=== PATIENT | female | born 1940 | race Caucasian/White ===

== ENCOUNTER → 2018-01-23 09:05 | Outpatient (CLI) | payer MEDICARE, SELFPAY ==
--- NOTE | 2018-01-23 09:07 | HPBI_ITS ---
MAMMOGRAPHY - BILATERAL SCREENING REASON FOR EXAM: Female, 77 years old. Routine annual screening examination. PERTINENT HISTORY: Personal history of breast cancer. Prior left lumpectomy with radiation treatment. TECHNIQUE: Digital bilateral breast carlos (3D mammographic acquisition) in the CC and MLO projections. 2-D mediolateral oblique (MLO) and craniocaudad (CC) views of both breasts were obtained. CAD: Full Field Digital Mammography with Computer Added Detection was performed. COMPARISON: Comparison is made with prior mammogram dated January 10, 2017 and December 29, 2015. FINDINGS: Breast Composition: There are scattered areas of fibroglandular density. There are no dominant masses or suspicious calcifications. Stable architectural distortion and deformity of the upper outer quadrant of the left breast in keeping with prior lumpectomy. 2 tissue clip markers are seen in that region. No other significant abnormalities are identified. There has been no significant change since the prior study. HPBI/SCREENING MAMM (CAD), BILAT IMPRESSION: Stable bilateral screening mammogram. Yearly follow-up mammogram recommended. (A) ASSESSMENT CATEGORY: BIRADS Category 2: Benign. A letter regarding these results will be sent to the patient by the facility within 30 days. Approximately 10% of breast cancers are not detected by mammography. A normal mammogram should not delay biopsy of a clinically suspicious abnormality. [id number] Electronically Signed: Jaylon Boone MD at 11:21 EST Tel [phone], Service support ,
== END ==
PROVIDERS: Family Provider Family Medicine Geriatric Medicine; PCP Family Medicine Geriatric Medicine; Visit Provider Surgery
DX: Z12.31 Encounter for screening mammogram for malignant neoplasm of breast (principal); Z85.3 Personal history of malignant neoplasm of breast
CPT/HCPCS: 77063; 77067

== ENCOUNTER → 2018-02-20 12:12 | Outpatient (CLI) | payer MEDICARE, SELFPAY ==
[2018-02-20 13:32] LABS: Absolute Lymphocyte Count 0.73 X10^3/ul (0.83-4.51); Absolute Neutrophil Count 2.6 X10^3/uL (2.0-7.7); Basophil# 0.02 X10^3/uL; Basophil% 0.5 % (0-1); Eosinophil# 0.04 X10^3/uL; Hematocrit 44.3 % (37-47); Hemoglobin 14.5 g/dl (12.0-15.0); Lymphocyte # 0.73 X10^3/ul (4.0); Lymphocyte % 17.5 % (19-41); Mean Corp Hgb Conc 32.7 g/gl (32-36); Mean Corpuscular Hgb 29.8 pg (27.0-32.0); Mean Platelet Vol. 10.4 fl (6.2-12.0); Monocyte# 0.77 X10^3/uL; Monocyte% 18.5 % (0-10); Neutrophil # 2.61 X10^3/uL (2.7-7.7); Neutrophil % 62.5 % (47-70); POSITIVE COUNT NO; POSITIVE DIFFERENTIAL NO; POSITIVE MORPHOLOGY NO; Platelet Count 192 K/mm3 (150-450); RBC Distribution Width CV 13.5 % (11.6-14.6); RBC Distribution Width SD 44.6 fl (35.1-43.9); Red Blood Count 4.87 M/mm3 (4.2-5.4); White Blood Count 4.2 K/mm3 (4.4-11.0)
[2018-02-20 13:49] LABS: Vitamin D,25 Hydroxy 55.8 ng/mL (29.95-100.01)
[2018-02-20 13:56] LABS: AST(SGOT) 22 U/L (15-37); Alanine Aminotransfer ALT/SGPT 22 U/L (13-56); Albumin, Serum 3.4 g/dL (3.2-5.0); Alkaline Phosphatase 101 U/L (45-117); Anion Gap 6 (5-15); BUN 12 mg/dL (7-18); BUN/Creat Ratio 17.3 RATIO (10-20); Calcium,Total 8.9 mg/dL (8.5-10.1); Chloride 98 mmol/L (98-107); Creatinine, Serum 0.69 mg/dL (0.55-1.02); EST Glomerular Filtration Rate 87 mL/min (>60); Est Glom Filt Rate - Afr Amer 105 mL/min (>60); Globulin 3.5 g/dL (2.2-4.2); Glucose 93 mg/dL (74-106); Potassium 4.4 mmol/L (3.5-5.1); Protein, Total 6.9 g/dL (6.4-8.2); Sodium Level 134 mmol/L (136-145); Thyroid Stim Hormone (TSH) 1.77 uIU/mL (0.358-3.74)
== END ==
PROVIDERS: Family Provider Family Medicine Geriatric Medicine; PCP Family Medicine Geriatric Medicine; Visit Provider Family Medicine Geriatric Medicine
DX: E55.9 Vitamin D deficiency, unspecified (principal); I10 Essential (primary) hypertension
CPT/HCPCS: 36415; 80053; 82306; 84443; 85025

== ENCOUNTER → 2018-02-23 12:00 | Outpatient (CLI) | payer MEDICARE, SELFPAY ==
--- NOTE | 2018-02-23 12:03 | RAD_ITS ---
STUDY: X-RAY CHEST REASON FOR EXAM: Female, 77 years old. Shortness of breath and cough x1 week TECHNIQUE: PA and lateral views of the chest. COMPARISON: 06/16/2015 FINDINGS: Lungs are hyperexpanded with chronic interstitial changes, no superimposed acute pulmonary process. There is no demonstrated pleural abnormality. Normal size heart. Normal mediastinum and sharona. Normal visualized pulmonary arteries. There is atherosclerotic calcification of the aortic arch with tortuosity. There are diffuse degenerative changes of the visualized thoracic spine. Normal visualized ribs, clavicles, and shoulders. There is no demonstrated abnormality of the visualized soft tissue structures of the upper abdomen. RAD/Chest PA and Lateral IMPRESSION: Hyperexpanded lungs with chronic interstitial changes, no superimposed acute pulmonary process Electronically Signed: Davion Spence MD at 12:26 EDT , Service support ,
== END ==
PROVIDERS: Family Provider Family Medicine Geriatric Medicine; PCP Family Medicine Geriatric Medicine; Visit Provider Physician Assistant Surgical
DX: R06.02 Shortness of breath (principal)
CPT/HCPCS: 71046

== ENCOUNTER → 2018-04-28 11:49 | Outpatient (CLI) | payer MEDICARE, SELFPAY ==
[2018-04-28 13:04] LABS: International Normalized Ratio 1.9; Prothrombin Time (Protime)PT. 21.7 SECONDS (11.7-14.9)
== END ==
PROVIDERS: Family Provider Family Medicine Geriatric Medicine; PCP Family Medicine Geriatric Medicine; Visit Provider Nurse Practitioner Family
DX: Z79.01 Long term (current) use of anticoagulants (principal)
CPT/HCPCS: 36415; 85610

== ENCOUNTER 2018-08-22 18:04 | Emergency (ER) | payer MEDICARE, SELFPAY ==
[2018-08-22 18:05] VITALS: BP 178/73; PULSE 67; RESP 18; TEMP 36.6; O2SAT 98; BMI 38.8
--- NOTE | 2018-08-22 18:33 | CT_ITS ---
STUDY: CT BRAIN WITHOUT CONTRAST REASON FOR EXAM: Female, 77 years old. Trauma RADIATION DOSAGE (If Supplied By Facility): CTDIvol = ( 44.99 ) mGy, DLP = ( 745.49 ) mGycm TECHNIQUE: Transaxial CT imaging of the brain was performed without administration of intravenous contrast material. Individualized dose optimization techniques were used for this CT. COMPARISON: None. FINDINGS: There is no acute bleed or infarct. There are mild chronic ischemic changes. The ventricles are normal in configuration. There is no hydrocephalus. The visualized paranasal sinuses are clear. The mastoid air cells are well aerated. There is no skull fracture. CT/Brain/Head without Contrast IMPRESSION: No acute intracranial abnormality. Electronically Signed: Donovan rAevalo, at 19:57 EDT Tel , Service support ,
--- NOTE | 2018-08-22 20:04 | RAD_ITS ---
STUDY: X-RAY - LEFT TIBIA AND FIBULA REASON FOR EXAM: Female, 77 years old. Left leg pain. TECHNIQUE: 2 view(s) of the tibia and fibula were obtained. COMPARISON: None. FINDINGS: There is generalized osteopenia. There is osteoarthrosis of the knee. No abnormality is noted in the tibia or fibula. The soft tissue structures are unremarkable. RAD/Tibia & Fibula 2 Views IMPRESSION: Osteopenia without acute abnormality. Electronically Signed: Mariano Ojeda MD at 21:05 EDT , Service support ,
[2018-08-22 20:49] LABS: International Normalized Ratio 2.8; Prothrombin Time (Protime)PT. 29.5 SECONDS (11.7-14.9)
--- NOTE | 2018-08-22 21:09 | ED.VISSUMM ---
- ER Visit Summary Date of Service: 08/22/18 Chief Complaint: Scalp injury History of Present Illness: The patient is a 77 F who fell while walking to the counter to pay for her meal. She notes a hematoma in the back of her head. No loss of consciousness. She is on Coumadin. She also notes pain in the left lower leg. Physical Examination: Afebrile vital signs stable Patient has an occipital hematoma. GCS is 15. No neurologic deficits. The left lateral leg is tender to palpation. Test Results: INR 2.8. Tib-fib films were negative for fracture. CT of the head was also negative. Emergency Department Course and Treatment: Patient will be discharged home with supportive care return if worsening or concerns. She has been able to ambulate here in the department Impression: 1. Scalp hematoma 2. Fall 3. Left leg contusion 4. Coumadin coagulopathy This note was generated with [employer] dictation software. It may contain incorrect words, spelling, and punctuation that were not noted in review of the chart prior to signing ED Disposition - Plan for ED Patient: Disposition: Home or Assisted Living Chief Complaint: Head Injury Instructions: ED Head Injury Closed Referrals: Perez Martinez Chi, MD [Primary Care Provider] - 1 Week if not improving Additional Instructions: Your INR was 2.8 today.
[2018-08-22 21:25] VITALS: BP 168/101; PULSE 72; RESP 15; O2SAT 96
== END 2018-08-22 21:26 | disposition home or self-care (01) ==
PROVIDERS: Emergency Provider Emergency Medicine; Family Provider Family Medicine Geriatric Medicine; PCP Family Medicine Geriatric Medicine
DX: S00.03XA Contusion of scalp, initial encounter (principal); S80.12XA Contusion of left lower leg, initial encounter; W18.39XA Other fall on same level, initial encounter; Y93.01 Activity, walking, marching and hiking; Y92.9 Unspecified place or not applicable; I25.10 Atherosclerotic heart disease of native coronary artery without angina pectoris; I10 Essential (primary) hypertension; J44.9 Chronic obstructive pulmonary disease, unspecified; Z86.711 Personal history of pulmonary embolism; Z79.01 Long term (current) use of anticoagulants; Z79.899 Other long term (current) drug therapy
CPT/HCPCS: 70450; 73590; 85610; 99282

== ENCOUNTER → 2018-08-28 09:24 | Outpatient (CLI) | payer MEDICARE, SELFPAY ==
[2018-08-28 11:40] LABS: Basophil# 0.03 X10^3/uL; Basophil% 0.6 % (0-1); Eosinophil# 0.11 X10^3/uL; Eosinophils% 2.2 % (0-5); Hemoglobin 14.1 g/dl (12.0-15.0); Lymphocyte % 23.5 % (19-41); Mean Corp Hgb Conc 32.8 g/gl (32-36); Mean Corpuscular Hgb 30.4 pg (27.0-32.0); Mean Corpuscular Volume 92.7 fL (81-99); Monocyte% 15.7 % (0-10); Neutrophil # 2.96 X10^3/uL (2.7-7.7); Neutrophil % 57.8 % (47-70); Platelet Count 237 K/mm3 (150-450); RBC Distribution Width CV 12.8 % (11.6-14.6); RBC Distribution Width SD 42.6 fl (35.1-43.9); Red Blood Count 4.64 M/mm3 (4.2-5.4); White Blood Count 5.1 K/mm3 (4.4-11.0)
[2018-08-28 11:41] LABS: POSITIVE COUNT NO; POSITIVE DIFFERENTIAL NO; POSITIVE MORPHOLOGY NO
[2018-08-28 12:02] LABS: Vitamin D,25 Hydroxy 36.7 ng/mL (29.95-100.01)
[2018-08-28 12:07] LABS: ALB/GLOB Ratio 0.9 RATIO (0.9-2.4); AST(SGOT) 23 U/L (15-37); Alanine Aminotransfer ALT/SGPT 22 U/L (13-56); Albumin, Serum 3.4 g/dL (3.2-5.0); Alkaline Phosphatase 102 U/L (45-117); Anion Gap 6 (5-15); BUN 11 mg/dL (7-18); BUN/Creat Ratio 16.1 RATIO (10-20); Calcium,Total 8.7 mg/dL (8.5-10.1); Chloride 100 mmol/L (98-107); Creatinine, Serum 0.68 mg/dL (0.55-1.02); EST Glomerular Filtration Rate 88 mL/min (>60); Est Glom Filt Rate - Afr Amer 107 mL/min (>60); Globulin 3.6 g/dL (2.2-4.2); Glucose 96 mg/dL (74-106); Sodium Level 137 mmol/L (136-145); Thyroid Stim Hormone (TSH) 1.54 uIU/mL (0.358-3.74)
== END ==
PROVIDERS: Family Provider Family Medicine Geriatric Medicine; PCP Family Medicine Geriatric Medicine; Visit Provider Family Medicine Geriatric Medicine
DX: E55.9 Vitamin D deficiency, unspecified (principal); I10 Essential (primary) hypertension
CPT/HCPCS: 36415; 80053; 82306; 84443; 85025

== ENCOUNTER → 2018-12-23 09:30 | Outpatient (CLI) | payer MEDICARE, SELFPAY ==
[2018-12-12 12:42] VITALS: BMI 41.8
--- NOTE | 2018-12-23 09:37 | BD_ITS ---
STUDY: DUAL ENERGY X-RAY ABSORPTIOMETRY / DXA REASON FOR EXAM: Female, 78 years old. The patient is postmenopausal. Loss of height. TECHNIQUE: Bone Mineral Density (BMD) measurements of lumbar spine and bilateral hips were obtained. COMPARISON: Comparison is made with prior study dated July 12, 2015. FINDINGS: Lumbar Spine (L1-L4): g/cm2 (1.086) / T-score (-0.7) / Z-score (1.1) Findings are suggestive of normal bone density with a low fracture risk. Left Femur Total: g/cm2 (1.014) / T-score (0.0) / Z-score (1.9) Left Femoral Neck: g/cm2 (0.898) / T-score (-1.0) / Z-score (1.0) Right Femur Total: g/cm2 (0.884) / T-score (-1.0) / Z-score (0.9) Right Femoral Neck: g/cm2 (0.792) / T-score (-1.8) / Z-score (0.3) The T-Scores on the most recent prior examination were: Lumbar Spine (L1-L4): There has been worsening of bone density since the previous examination. Left Femur Total: which represents a worsening of 7%. Right Femur Total: which represents a worsening of 15%. BD/Dexa Bone Density Study IMPRESSION: The patient is considered osteopenic as outlined below according to World [employer] Organization (WHO) criteria with a moderate fracture risk. There has been worsening of bone density since the previous examination. Reference Information: The T-score is the number of standard deviations above or below the standard which is normal for young adults at their peak bone mineral density. The World Health Organization (WHO) interprets the T-scores as follows: Above -1 Normal bone density Between -1 and -2.5 Osteopenia Equal to / or below -2.5 Osteoporosis As a practical clinical guideline, osteopenia may be graded as follows: Mild -1 through -1.5 Moderate -1.6 through -2.0 Severe -2.1 through -2.4 The Z-score is the number of standard deviations above or below age-matched controls. A Z-score of less than -1.5 would be considered abnormal. References: 1. NIH Osteoporosis and Related Bone Diseases http://www.osteo.org 2. International Society for Clinical Densitometry http://www.iscd.org 3. National Osteoporosis Foundation http://www.nof.org Electronically Signed: Jaylon Boone, at 10:57 EST , Service support ,
--- OUTSIDE RECORDS SUMMARY | 2019-02-24 06:02 | XMS RPT_ITS ---
:1940 Author Organization OHIP Support Name Relationship Address Phone JENSEN, EDMOND Unavailable [address] + [place] [address] R Unavailable Unavailable Unavailable JENSEN, EDMOND Unavailable [address] + [place] [address] R Unavailable Unavailable Unavailable JENSEN, EDMOND Unavailable [address] + [place] [address] R Unavailable Unavailable Unavailable JENSEN, EDMOND Unavailable [address] + [place] [address] R Unavailable Unavailable Unavailable JENSEN, EDMOND Unavailable [address] + [place] [address] R Unavailable Unavailable Unavailable JENSEN, EDMOND Unavailable [address] + [place] [address] R Unavailable Unavailable Unavailable JENSEN, EDMOND Unavailable [address] + [place] [address] R Unavailable Unavailable Unavailable JENSEN, EDMOND Unavailable [address] + [place] [address] R Unavailable Unavailable Unavailable JENSEN, EDMOND Unavailable [address] + [place] [address] R Unavailable Unavailable Unavailable JENSEN, EDMOND Unavailable [address] + [place] [address] R Unavailable Unavailable Unavailable JENSEN, EDMOND Unavailable [address] [phone] [place] [address] R Unavailable Unavailable Unavailable JENSEN, EDMOND Unavailable [address] [phone] [place] [address] R Unavailable Unavailable Unavailable Jensen, Funmilayo Unavailable Unavailable + JENSEN, EDMOND Unavailable [address] [phone] [place] [address] R Unavailable Unavailable Unavailable JENSEN, EDMOND Unavailable [address] [phone] [place] [address] R Unavailable Unavailable Unavailable EJNSEN, EDMOND Unavailable [address] [phone] [place] [address] R Unavailable Unavailable Unavailable JENSEN, EDMOND Unavailable [address] [phone] [place] [address] R Unavailable Unavailable Unavailable Care Team Providers Name Role Phone Blanca Mercado Attending Unavailable PROVIDER, UNKNOWN Referring Unavailable DEANNA, JOSE ROBERTO-CHI Primary Care Unavailable DARREN MARIE Attending Unavailable DEANNA, JOSE ROBERTO CHI Referring Unavailable Johnathan Haque Attending Unavailable Johnathan Haque Referring Unavailable Deanna, Jose Roberto Chi Primary Care Unavailable Aroldo Russell CRATE REPAIRER-C Attending Unavailable Deanna, Jose Roberto Chi Referring Unavailable Spencer, Bambi Attending Unavailable Deanna, Jose Roberto Chi Primary Care Unavailable Deanna, Jose Roberto Chi Referring Unavailable Darren Marie Attending Unavailable Deanna, Jose Roberto Chi Primary Care Unavailable Darren Marie Referring Unavailable Deanna, Jose Roberto Chi Attending Unavailable Deanna, Jose Roberto Chi Primary Care Unavailable Deanna, Jose Roberto Chi Attending Unavailable Deanna, Jose Roberto Chi Referring Unavailable Deanna, Jose Roberto Chi Primary Care Unavailable Tommie Waggoner Attending Unavailable Deanna, Jose Roberto Chi Referring Unavailable Deanna, Jose Roberto Chi Primary Care Unavailable Tommie Waggoner Attending Unavailable Deanna, Jose Roberto Chi Primary Care Unavailable Spencer, Bmabi Attending Unavailable Deanna, Jose Roberto Chi Referring Unavailable Deanna, Jose Roberto Chi Primary Care Unavailable Spencer, Bambi Consulting Unavailable Spencer, Bambi Attending Unavailable Spencer, Bambi Referring Unavailable Deanna, Jose Roberto Chi Primary Care Unavailable Donovan Monae Attending Unavailable Deanna, Jose Roberto Chi Referring Unavailable Deanna, Jose Roberto Chi Primary Care Unavailable Spencer, Bambi Attending Unavailable Deanna, Jose Roberto Chi Referring Unavailable Deanna, Jose Roberto Chi Primary Care Unavailable Spencer, Bambi Consulting Unavailable Deanna, Jose Roberto Chi Primary Care Unavailable Larry Pennington Attending Unavailable Deanna, Jose Roberto Chi Attending Unavailable Deanna, Jose Roberto Chi Primary Care Unavailable Aroldo Andrew Attending Unavailable Deanna, Jose Roberto Chi Referring Unavailable Yves Cole Attending Unavailable Deanna, Jose Roberto Chi Referring Unavailable Deanna, Jose Roberto Chi Primary Care Unavailable Spencer, Bambi Consulting Unavailable PROBLEMS PROBLEMS DATE TYPE CONDITION / CODE ATTENDING STATUS SOURCE 12/23/2018 Unknown Z78.0 - Asymptomatic Johnathan Haque Active [facility] menopausal state / Community Z78.0(ICD-10) Hospital Repository 12/07/2018 Unknown Z79.01 - FDC SpencerBambi garcia Active [place] (current) use of Community anticoagulants / Hospital Z79.01(ICD-10) Repository 10/12/2018 Unknown D05.11 - 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9(ICD-10) Repository 01/23/2018 Unknown Z12.31 - Encounter ErickBrianda for screening [facility] mammogram for Hospital malignant neoplasm Repository of breast / Z12.31(ICD-10) PROCEDURES PROCEDURES No Procedure Records FoundRESULTS RESULTS KNEE 4 OR MORE Observed: 12/24/2018 Status: F Source: [place] VIEWS 10:07 AM [facility] REPOSITORY [facility] Imaging Services [address] [place] [address] Knee 4 or More Views MR#: [id number] Acct: [id number] Name: SOFYA MALDONADO Rep #: [id number] : 1940 F 78 From: Hank Valdivia MD PCP: Deanna MCNAMARA,Jose Roberto Mckeon Status: REG CLI Study: Knee 4 or More Views Date of Exam: 12/24/18 Exam# [id number] Ordering Dr: Jose Roberto Huerta MD STUDY: X-RAY - LEFT KNEE REASON FOR EXAM: Female, 78 years old. Pain TECHNIQUE: 4 view(s) of the knee. COMPARISON: None. FINDINGS: There are spurs from the T1 of the condyles and from the margins of the patella. There are no acute fractures and no knee joint effusion. The quadriceps and patellar tendons are normal. RAD/Knee 4 or More Views IMPRESSION: Moderate osteoarthritis of the left knee. No fracture Electronically Signed: Hank Valdivia MD at 5:33 EST Tel , Service support , CC: Jose Roberto Huerta MD Graphic Designer: Signed DEXA BONE DENSITY Observed: 12/23/2018 Status: F Source: [place] STUDY 9:34 AM [facility] REPOSITORY [facility] Imaging Services [address] [place] [address] Dexa Bone Density Study MR#: [id number] Acct: [id number] Name: SOFYA MALDONADO Rep #: [id number] : 1940 F 78 From: Jaylon Boone MD PCP: Jose Roberto Huerta MD, Chi Status: REG CLI Study: Dexa Bone Density Study Date of Exam: 12/23/18 Exam# [id number] Ordering Dr: Johnathan Haque MD STUDY: DUAL ENERGY X-RAY ABSORPTIOMETRY / DXA REASON FOR EXAM: Female, 78 years old. The patient is postmenopausal. Loss of height. TECHNIQUE: Bone Mineral Density (BMD) measurements of lumbar spine and bilateral hips were obtained. COMPARISON: Comparison is made with prior study dated July 12, 2015. FINDINGS: Lumbar Spine (L1-L4): g/cm2 (1.086) / T-score (-0.7) / Z-score (1.1) Findings are suggestive of normal bone density with a low fracture risk. Left Femur Total: g/cm2 (1.014) / T-score (0.0) / Z-score (1.9) Left Femoral Neck: g/cm2 (0.898) / T-score (-1.0) / Z- score (1.0) Right Femur Total: g/cm2 (0.884) / T-score (-1.0) / Z- score (0.9) Right Femoral Neck: g/cm2 (0.792) / T-score (-1.8) / Z-score (0.3) The T-Scores on the most recent prior examination were: Lumbar Spine (L1-L4): There has been worsening of bone density since the previous examination. Left Femur Total: which represents a worsening of 7%. Right Femur Total: which represents a worsening of 15%. BD/Dexa Bone Density Study IMPRESSION: The patient is considered osteopenic as outlined below according to World [employer] Organization (WHO) criteria with a moderate fracture risk. There has been worsening of bone density since the previous examination. Reference Information: The T-score is the number of standard deviations above or below the standard which is normal for young adults at their peak bone mineral density. The World Health Organization (WHO) interprets the T-scores as follows: Above -1 Normal bone density Between -1 and -2.5 Osteopenia Equal to / or below -2.5 Osteoporosis As a practical clinical guideline, osteopenia may be graded as follows: Mild -1 through -1.5 Moderate -1.6 through -2.0 Severe -2.1 through -2.4 The Z-score is the number of standard deviations above or below age-matched controls. A Z-score of less than -1.5 would be considered abnormal. References: 1. NIH Osteoporosis and Related Bone Diseases http://www.osteo.org 2. International Society for Clinical Densitometry http://www.iscd.org 3. National Osteoporosis Foundation http://www.nof.org Electronically Signed: Jaylon Boone, at 10:57 EST , Service support , CC: Johnathan Haque MD; Jose Roberto Huerta MD Graphic Designer: Signed URGENT CARE VISIT Observed: 12/12/2018 Status: F Source: [place] REPORT 1:07 PM [facility] REPOSITORY [facility] [address] [place] [address] [address] [place] [address] OFFICE VISIT Date of Service: 12/12/18 MR#: [id number] Acct: [id number] Name: SOFYA MALDONADO Rep #: [id number] : 1940 Provider: Aroldo Russell NP Age/Sex: 78/F Location: [facility] [place] Status: Signed Intake Vital Signs12/12/18 Body Mass Index (BMI) 41.8 12/12/18 Height 4 ft 11 in 12/12/18 Blood Pressure 130/84 H Intake Visit Reasons: L KNEE Chief Complaint: L KNEE PAIN Cooking Casing And Drying Supervisor Required: No Accompanied by: SELF Is patient in pain?: Yes Allergies heparin Allergy (Severe, Verified 12/12/18 11:54) Low platelets aspirin Adverse Reaction (Severe, Verified 12/12/18 11:54) Nausea clarithromycin Adverse Reaction (Severe, Verified 12/12/18 11:54) Unknown cyclobenzaprine [Cyclobenzaprine] Adverse Reaction (Severe, Verified 12/12/18 11:54) Unknown meloxicam Adverse Reaction (Severe, Verified 12/12/18 11:54) Nausea Sulfa (Sulfonamide Antibiotics) Adverse Reaction (Severe, Verified 12/12/18 11:54) Vomiting tramadol HCl [From [facility]] Adverse Reaction (Severe, Verified 12/12/18 11:54) Vomiting Medications Simvastatin [Zocor] 20 mg PO QHS 09/21/13 [History Confirmed 12/12/18] Acetaminophen [Tylenol] 500 mg PO Q4H PRN PRN 01/18/15 [History Confirmed 12/12/18] Hydrochlorothiazide 12.5 mg PO DAILY 01/18/15 [History Confirmed 12/12/18] Metoprolol Tartrate [Lopressor (beta odalys)] 25 mg PO BID #60 tab 03/09/15 [Rx Confirmed 12/12/18] Calcium Carb/Vitamin D [Os-Jeancarlos 500MG + D] 1 tab PO BID 03/23/15 [History Confirmed 12/12/18] Cholecalciferol (VIT D3) [Vitamin D] 1,000 unit PO BID 02/16/16 [History Confirmed 12/12/18] Fexofenadine HCl [Dianne Allergy] 180 mg PO DAILY 02/26/17 [History Confirmed 12/12/18] Potassium Chloride 20 meq PO DAILY 02/26/17 [History Confirmed 12/12/18] albuterol sulfate HFA 90 mcg/actuation aerosol inhaler 2 puff INHALATION Q2H PRN PRN inhaler 02/23/18 [History Confirmed 12/12/18] benzonatate 200 mg capsule 200 mg PO TID PRN #30 cap 09/05/18 [Rx Confirmed 12/12/18] Warfarin [Coumadin] 1 mg PO BID 30 Days #60 tab 09/21/18 [Rx Confirmed 12/12/18] Fluticasone 0.05% [Flonase Nasal [place]] 10/12/18 [History Confirmed 12/12/18] Fluticasone/Salmeterol [Advair 500-50 Diskus] 1 ea IH 10/12/18 [History Confirmed 12/12/18] Warfarin Sodium [Coumadin] 7 mg PO DAILY 30 Days #30 tab 10/19/18 [Rx Confirmed 12/12/18] PFSH Medical History Anemia (Acute) Arthritis (Acute) Asthma (Acute) Breast cancer (Acute) Fatigue (Acute) History of PE (Acute) History of hysterectomy (Acute) Knee pain (Acute) Lung disease (Acute) SOB (shortness of breath) (Acute) HTN (hypertension) (Chronic) Surgical History H/O hernia repair (Acute) H/O lumpectomy (Acute) History of carpal tunnel surgery (Acute) Hx of tonsillectomy (Acute) Family History Mother Arthritis Heart disease Hypertension CVA (cerebral vascular accident) Social History Smoking Status: Never smoker HPI HPI Chief Complaint: L KNEE PAIN Details: SOFYA MALDONADO, is a 78 F who presents to the office today for an acute visit for left knee pain. Patient has a past medical history as listed above, significant for osteoarthritis. Patient presents today in office for left knee pain that has worsened over the last 2 days. She states 1 week ago when she was getting into a vehicle she turned her left knee the wrong way. Patient denies hearing a pop or having pain at that time. She noticed pain the worst last night. Left knee began to swell which caused discomfort, patient is rating pain in office today 06/09. Her history includes arthritis so she states her knees are continually bothersome. Patient has not tried any over the counter medications. Denies any other aggravating or alleviating factors. The patient otherwise denies any fever, chills, nausea, vomiting, shortness of breath, chest pain or pressure, palpitations, orthopnea, lower extremity edema, syncope or presyncopal episodes. ROS Const Constitutional: No fever(s), chills, change in appetite, sleep problems, fatigue, malaise, frequent falls or weakness ENT ENT: No ear pain, ear pressure, dizziness/vertigo or abnormal hearing Resp Respiratory: No cough, wheezing or shortness of breath Cardio Cardiology: No chest pain at rest, chest pain with exertion, shortness of breath, dyspnea on exertion, lightheadedness, irregular heart rhythm, fast heart rate, palpitations, orthopnea or generalized swelling Gastro GI: No abdominal pain, change in bowel habits, constipation, diarrhea, vomiting or nausea/dyspepsia Musc Musculoskeletal: Positive for joint pain and joint swelling; no tingling, numbness or muscle weakness Neuro Neurology: No tingling, unsteady gait/balance, numbness, memory loss, frequent falls, weakness or abnormal hearing Psych Psychiatric: No change in appetite, No memory loss, No anxiety, No depression, No Thoughts of harming yourself/Others Endo Endocrine: No fatigue Aller/Imm Allergy/Immunologic: No wheezing Exam Const General: cooperative, comfortable, no acute distress Nutritional Appearance: well nourished, overweight Orientation: alert, oriented x3 Limitations: mental status not altered Chest Chest palpation AND inspection: normal inspection of the chest Resp Effort AND Inspection: normal respiratory effort, able to speak in complete sentences, normal respiratory pattern, symmetric chest movement, no audible wheezes, no cough Auscultation: Bilateral: Clear to Auscultation Cardio Rate: regular rate Heart Sounds: S1 normal, S2 normal, normal S1 and S2, no click, no gallops, no murmurs, no rubs Musc Musculoskeletal: Yes joint tenderness; no decreased ROM or muscle weakness Skin General: no rashes or lesions noted, elasticity normal, turgor normal Lesions: no lesions Rashes: no rashes Extrem General: normal to inspection, normal gait, edema, no pedal edema, no calf tenderness, full ROM Other: left knee lateral swelling, no redness or warmth negative anterior/posterior drawer test no pain or tenderness on exam Assessment AND Plan Problems 1. Left knee pain M25.562 2. Lower extremity edema R60.0 Plan Based on patient history, presenting symptoms and assessment probable left knee tendinitis due to recent overextension injury. Discussed RICE treatment plan with patient and is agreeable. Patient educated on Phillip bandage in office and placed on left knee for comfort. Instructed to use Tylenol [id number] as needed for pain. Patient plans to follow-up with primary care provider if having any new or worsening symptoms. Rest the affected extremity Ice the affected area for 20 minutes every 4 hours Compress the area with the supplies provided Elevate the affected extremity above the heart whenever possible This note was generated with [employer] dictation software. It may contain incorrect words, spelling, and punctuation that were not noted in checking the note before signing. Plan Detail Follow Up With PCP if condition progresses or Coding Level of Care Code Off vis,est,level 3 Diagnoses Left knee pain M25.562 Lower extremity edema R60.0 12/12/18 1307 <Electronically signed by Aroldo CONNELL> Date Aroldo CONNELL Cosigner Signature: Date (if applicable) CC: PROTHROMBIN TIME W/INR Collected: 12/07/2018 Status: F Source: [place] 9:31 AM [facility] REPOSITORY Order Comment: Reason for Laboratory Test . TYPE CODE TESTS RESULT OUT OF RANGE REFERENCE UNITS LAB L300.4150 11.7-14.9 SECONDS High PROTIME 30.1 LAB L300.4200 Normal INR 2.9 Performed By: #### L300.3900 #### [facility] [address] [place], [address] PROTHROMBIN TIME W/INR Collected: 11/09/2018 Status: F Source: [place] 9:30 AM [facility] REPOSITORY Order Comment: Reason for Laboratory Test . TYPE CODE TESTS RESULT OUT OF RANGE REFERENCE UNITS LAB L300.4150 11.7-14.9 SECONDS High PROTIME 29.4 LAB L300.4200 Normal INR 2.8 Performed By: #### L300.3900 #### [facility] [address] [place], [address] ONCOLOGY VISIT REPORT Observed: 10/12/2018 Status: F Source: [place] 11:29 AM [facility] REPOSITORY [facility] [address] [place] [address] OFFICE VISIT Date of Service: 10/12/18 1117 MR#: [id number] Acct: [id number] Name: SOFYA MALDONADO Rep #: [id number] : 1940 From: Yvse Cole MD Age/Sex: 77/F Location: [facility] Status: Signed Subjective - Date of Service Date of Service:: 10/12/18 - Chief Complaint Follow up- DCIS, VTE AND endometrial ca - History of Present Illness Ms. Sofya Maldonado is a 77 year old woman with past medical history for recurrent VTE. The first episode of PE occurred after diagnosis of breast cancer she states in 2013. Underwent lumpectomy and radiation therapy, Tamoxifen < 1 year. Followed with medical oncologist, Dr. Low. She took Coumadin for about 6 months. The second episode was after a ventral hernia repair. The patient was recuperating after her surgery and had stopped prophylactic anticoagulation. This was a massive PE that required resuscitation at [facility] in 2014. 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 She has been on chronic Coumadin therapy since. Ms. Maldonado is status post total robotic hysterectomy with BSO and pelvic lymph node dissection laparoscopically done on 06/16/2016 for endometrial carcinoma followed by radiotherapy, pelvic radiation. Final pathology revealed grade 2 endometrial adenocarcinoma. Lymph nodes were evaluated, which were negative for malignancy, FIGO grade 2, tumor size 3.7 cm, AJCC stage IA. CT a/p 11/13/2017 revealed ventral hernia and repaired by Dr. Marie. She remains on Coumadin, comes for follow up. - Past Medical/Social History Past Medical History Past Medical History: Anemia,Hypertension,Pulmonary embolism, Thrombocytopenia Other Past Medical History: DVT Cancer: Breast cancer Other Cancer History: ENDOMETRIAL Past Surgical History Surgical: Carpal tunnel,Hernia repair,Hysterectomy, Lumpectomy,Tonsillectomy Family History Paternal Past Medical History: Unknown Maternal Past Medical History: Arthritis,Heart disease,Hypertension,Stroke Social History Social History: No changes Smoking Status Never smoker Review of Systems Constitutional:: Denies: Fever, Sweats, Weight loss, Appetite change, Chills Cardiovascular:: Denies: Chest pain, Palpitations, Dyspnea on exertion, Orthopnea, PND, Shortness of breath Respiratory: Denies: Cough, Hemoptysis, Shortness of Breath, Wheezing Gastrointestinal:: Denies: Abdominal pain, Nausea, Vomiting, Diarrhea, Constipation, Hematochezia Genitourinary: Denies: Dysuria, Hematuria, 15, Flank pain Musculoskeletal:: Denies: Back pain, Myalgia, Arthralgia Skin: Denies: Rash, Skin Changes, Wounds Neurological:: Denies: Headache, Dizziness, Visual changes, Tinnitus, Hearing loss Psychiatric: Denies: Anxiety, Depression, Homicidal Ideations, Suicidal Ideations Vital Signs Height 4 ft 11 in Weight: 93.894 kg Weight in Pounds 207.0 lbs Pulse Ox 93 - Physical Exam General: Alert, Oriented x3, No apparent distress HEENT: Atraumatic, PERRLA, EOMI, Normocephalic Oropharynx:: Dry mucosa Neck:: Supple, Trachea midline. Negative for: JVD, bilateral Cardiac:: Regular rate, Regular rhythm, Normal S1, Normal S2. Negative for: Murmur Lungs: Clear to auscultation, Excusion symmetrical. Negative for: Rhonchi, Wheezes Abdomen:: Bowel sounds x 4, Soft, Non-tender, Non-distended, - - Pendullous abdominal fat... Negative for: Hepatosplenomegaly Extremities:: Negative for: Cyanosis, Edema Neurological: Neuro grossly intact Skin:: Negative for: Lesions, Rash, Petechiae, Ecchymosis Psychiatric:: Appropriate affect, Euthymic Lymphatics:: Negative for: Cervical lymphadenopathy, Supraclavicular lymphadenopathy, Axillary lymphadenopathy Laboratory Data: Laboratory Tests Assessment and Plan Left Breast DCIS. Endometrial Cancer stage I, BEAN clinically. VTE on chronic anticoagulation with Coumadin. Plan is to continue Coumadin. Observe for recurrence of Endometrial cancer and DCIS. RTC 3months. 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 TYPE CODE TESTS RESULT OUT OF RANGE REFERENCE UNITS LAB L100.1000 4.4-11.0 K/mm3 Normal WBC 5.4 LAB L100.1200 4.2-5.4 M/mm3 Normal RBC 4.49 LAB L100.1300 12.0-15.0 g/dl Normal HGB 13.6 LAB L100.1400 37-47 % Normal HCT 42.4 LAB L100.1500 81-99 fL Normal MCV 94.4 LAB L100.1600 27.0-32.0 pg Normal MCH 30.3 LAB L100.1700 32-36 g/gl Normal MCHC 32.1 LAB L100.1810 11.6-14.6 % Normal RDW CV 12.9 LAB L100.1820 35.1-43.9 fl Normal RDW SD 43.4 LAB L100.1900 150-450 K/mm3 Normal PLT 233 LAB L100.2000 6.2-12.0 fl Normal MPV 9.1 LAB L100.2100 47-70 % Normal NEUT% 64.3 LAB L100.2200 19-41 % Normal LY% 19.4 LAB L100.2300 0-10 % High MONO% 13.3 LAB L100.2400 0-5 % Normal EO% 2.6 LAB L100.2500 0-1 % Normal BASO% 0.2 LAB L100.2550 0.0-0.9 % Normal IM GRAN % 0.200 Result Comment: IG% - Immature Granulocytes (promyelocytes, myelocytes and metamyelocytes) > 1% indicates that a LEFT SHIFT is Present. LAB L100.2620 2.0-7.7 X10 3/uL Normal Absolute Neut 3.5 LAB L100.2720 0.83-4.51 X10 3/ul Normal Absolute Lymph 1.05 Performed By: #### L100.0100 #### [facility] [address] [place] [address]. [place], [place], [address] COMPREHENSIVE METABOLIC Collected: 10/12/2018 Status: F Source: [facility] 10:13 AM [facility] REPOSIT[facility] Order Comment: Reason for Laboratory Test . TYPE CODE TESTS RESULT OUT OF RANGE REFERENCE UNITS LAB L501.0100 74-106 mg/dL Low GLU 73 Result Comment: Please note revised GLUCOSE reference range effective 2018. LAB L501.1000 7-18 mg/dL Normal BUN 14 LAB L501.1100 0.55-1.02 mg/dL Normal CREAT,SERUM 0.61 Result Comment: The validity of the calculated GFR AND GFRAA in patients over 70 years has not been determined. Clinical correlation is essential. LAB L501.1110 >60 mL/min Normal EST GFR 101 Result Comment: Non- GFR Calc LAB L501.1115 >60 mL/min Normal EST GFR - AA 123 Result Comment: GFR Calc LAB L501.1255 ml/min Normal Estimated CRCL 68.15 LAB L501.1300 10-20 RATIO High BUN/CRE 23.0 LAB L501.1500 6.4-8. g/dL Normal 2 T PROT 7.0 LAB L501.1800 3.2-5. g/dL Normal 0 ALB 3.3 LAB L501.1950 2.2-4. g/dL Normal 2 GLOB 3.7 LAB L501.2000 0.9-2. RATIO Normal 4 A/G 0.9 LAB L501.2200 8.5-10 mg/dL Normal .1 CA 8.8 LAB L501.4100 15-37 U/L Normal AST 25 LAB L501.4305 45-117 U/L Normal ALK P 100 LAB L501.4405 13-56 U/L Normal ALT 19 LAB L501.4600 0.20-1 mg/dL Normal .00 T BILI 0.40 LAB L501.5300 136-14 mmol/L Normal 5 NA 138 LAB L501.5600 3.5-5. mmol/L Normal 1 K 4.1 LAB L501.5900 98-107 mmol/L Normal CL 101 LAB L501.6100 21.0-3 mmol/L High 2.0 CO2 33.0 LAB L501.6200 5-15 Low GAP 4 Performed By: #### L500.4050 #### [facility] [address] [place], [place], [address] PROTHROMBIN TIME W/INR Collected: 10/12/2018 Status: F Source: [place] 10:07 AM [facility] REPOSITORY Order Comment: Reason for Laboratory Test OV TYPE CODE TESTS RESULT OUT OF RANGE REFERENCE UNITS LAB L300.4150 11.7-14.9 SECONDS High PROTIME 28.2 LAB L300.4200 Normal INR 2.6 Performed By: #### L300.3900 #### [facility] [address] [place], [place], [address] PROTHROMBIN TIME W/INR Collected: 09/28/2018 Status: F Source: [place] 8:54 AM [facility] REPOSITORY Order Comment: Reason for Laboratory Test . TYPE CODE TESTS RESULT OUT OF RANGE REFERENCE UNITS LAB L300.4150 11.7-14.9 SECONDS High PROTIME 28.5 LAB L300.4200 Normal INR 2.7 Performed By: #### L300.3900 #### [facility] [address] [place], [address] URGENT CARE VISIT Observed: 09/05/2018 Status: F Source: [place] REPORT 12:28 PM [facility] REPOSITORY 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 Accompanied by: daughter Is patient in pain?: No Allergies heparin Allergy (Severe, Verified 09/05/18 11:45) Low platelets aspirin Adverse Reaction (Severe, Verified 09/05/18 11:45) Nausea clarithromycin Adverse Reaction (Severe, Verified 09/05/18 11:45) Unknown cyclobenzaprine [Cyclobenzaprine] Adverse Reaction (Severe, Verified 09/05/18 11:45) Unknown meloxicam Adverse Reaction (Severe, Verified 09/05/18 11:45) Nausea Sulfa (Sulfonamide Antibiotics) Adverse Reaction (Severe, Verified 09/05/18 11:45) Vomiting tramadol HCl [From Ultram] Adverse Reaction (Severe, Verified 09/05/18 11:45) Vomiting Medications Simvastatin [Zocor] 20 mg PO QHS 09/21/13 [History Confirmed 09/05/18] Acetaminophen [Tylenol] 500 mg PO Q4H PRN PRN 01/18/15 [History Confirmed 09/05/18] Hydrochlorothiazide 12.5 mg PO DAILY 01/18/15 [History Confirmed 09/05/18] Metoprolol Tartrate [Lopressor (beta odalys)] 25 mg PO BID #60 tab 03/09/15 [Rx Confirmed 09/05/18] Calcium Carb/Vitamin D [Os-Jeancarlos 500MG + D] 1 tab PO BID 03/23/15 [History Confirmed 09/05/18] Cholecalciferol (VIT D3) [Vitamin D] 1,000 unit PO BID 02/16/16 [History Confirmed 09/05/18] Fexofenadine HCl [Dianne Allergy] 180 mg PO DAILY 02/26/17 [History Confirmed 09/05/18] Potassium Chloride 20 meq PO DAILY 02/26/17 [History Confirmed 09/05/18] albuterol sulfate HFA 90 mcg/actuation aerosol inhaler 2 puff INHALATION Q2H PRN PRN inhaler 02/23/18 [History Confirmed 09/05/18] Warfarin Sodium [Coumadin] 7 mg PO DAILY 08/22/18 [History Confirmed 09/05/18] Warfarin [Coumadin] 1 mg PO DAILY 30 Days #30 tab 08/24/18 [Rx Confirmed 09/05/18] benzonatate 200 mg capsule 200 mg PO TID PRN #30 cap 09/05/18 [Rx Confirmed 09/05/18] PFSH Medical History Anemia (Acute) Arthritis (Acute) Asthma (Acute) Breast cancer (Acute) Fatigue (Acute) History of PE (Acute) History of hysterectomy (Acute) Knee pain (Acute) Lung disease (Acute) SOB (shortness of breath) (Acute) HTN (hypertension) (Chronic) Surgical History H/O hernia repair (Acute) H/O lumpectomy (Acute) History of carpal tunnel surgery (Acute) Hx of tonsillectomy (Acute) Family History Mother Arthritis Heart disease Hypertension CVA (cerebral vascular accident) Social History Smoking Status: Never smoker HPI HPI Chief Complaint: sneezing and cough Details: SOFYA MALDONADO, is a 77 F who presents to the office today for a cough and upper respiratory symptoms several days after receiving her annual flu shot. She denies any fevers chills or body aches. She is having a hard time sleeping due to the cough she states she has asthma and COPD but this is been stable she is taking her inhalers, Flonase and Dianne. ROS Const Constitutional: No chills or fever(s) Eyes Eyes: No change in vision ENT ENT: No ear pain, sore throat, nasal congestion or nasal discharge Resp Respiratory: Positive for cough Cardio Cardiology: No chest pain at rest or chest pain with exertion Gastro GI: No abdominal pain, diarrhea, vomiting or nausea/dyspepsia Musc Musculoskeletal: No back pain or abnormal walking Skin Skin: No rash or change in skin color Neuro Neurology: No confusion, abnormal walking or abnormal speech Psych Psychiatric: No confusion Exam Const General: healthy appearing, no acute distress Orientation: oriented x3, oriented to person, oriented to place, oriented to time HENMT Head: normocephalic Ears: external ears normal, TM's normal bilaterally, EAC's normal Eyes General: appearance normal, both eyes and all related structures Conjunctivae: conjunctivae normal Sclera: sclerae normal Pupils: PERRL Neck Neck: no lymphadenopathy Thyroid: thyroid normal Chest Chest palpation AND inspection: normal inspection of the chest Resp Effort AND Inspection: normal respiratory effort, no cough, no respiratory distress Auscultation: Bilateral: Clear to Auscultation Cardio Rate: regular rate Rhythm: regular rhythm GI Inspection: normal to inspection Auscultation: normal bowel sounds Palpation: no hepatosplenomegaly, no splenomegaly, no masses Skin General: no pallor Rashes: no rashes Nails: no clubbing Neuro General: oriented x3, gait normal Extrem General: normal to inspection, no pedal edema, no calf tenderness, normal gait, no edema, no cyanosis, no clubbing, no calf tenderness bilaterally, no pedal edema Psych Mood: congruent mood Affect: normal affect Speech and Movement: speech and movement normal Assessment AND Plan Problems 1. Cough R05 Plan The patient was instructed to continue her current medications. Begin the Tessalon every 8 hours as needed for cough. Return to the clinic if symptoms worsen. Medications New: Coding Level of Care Code Off vis,est,level 3 Diagnoses Cough R05 09/05/18 1228 <Electronically signed by Aroldo TRAN> Date Aroldo TRAN Cosigner Signature: Date (if applicable) CC: PROTHROMBIN TIME W/INR Collected: 08/31/2018 Status: F Source: [place] 9:16 AM [facility] REPOSITORY TYPE CODE TESTS RESULT OUT OF RANGE REFERENCE UNITS LAB L300.4150 11.7-14.9 SECONDS High PROTIME 31.0 LAB L300.4200 Normal INR 3.0 Performed By: #### L300.3900 #### [facility] [address] [place], [place], [address] CBC W/DIFF, AUTOMATED Collected: 08/28/2018 Status: F Source: [place] 9:25 AM [facility] REPOSITORY TYPE CODE TESTS RESULT OUT OF RANGE REFERENCE UNITS LAB L100.1000 4.4-11.0 K/mm3 Normal WBC 5.1 LAB L100.1200 4.2-5.4 M/mm3 Normal RBC 4.64 LAB L100.1300 12.0-15.0 g/dl Normal HGB 14.1 LAB L100.1400 37-47 % Normal HCT 43.0 LAB L100.1500 81-99 fL Normal MCV 92.7 LAB L100.1600 27.0-32.0 pg Normal MCH 30.4 LAB L100.1700 32-36 g/gl Normal MCHC 32.8 LAB L100.1810 11.6-14.6 % Normal RDW CV 12.8 LAB L100.1820 35.1-43.9 fl Normal RDW SD 42.6 LAB L100.1900 150-450 K/mm3 Normal PLT 237 LAB L100.2000 6.2-12.0 fl Normal MPV 10.0 LAB L100.2100 47-70 % Normal NEUT% 57.8 LAB L100.2200 19-41 % Normal LY% 23.5 LAB L100.2300 0-10 % High MONO% 15.7 LAB L100.2400 0-5 % Normal EO% 2.2 LAB L100.2500 0-1 % Normal BASO% 0.6 LAB L100.2550 0.0-0.9 % Normal IM GRAN % 0.200 Result Comment: IG% - Immature Granulocytes (promyelocytes, myelocytes and metamyelocytes) > 1% indicates that a LEFT SHIFT is Present. LAB L100.2620 2.0-7.7 X10 3/uL Normal Absolute Neut 3.0 LAB L100.2720 0.83-4.51 X10 3/ul Normal Absolute Lymph 1.20 Performed By: #### L100.0100 #### [facility] [address] [place], [place], [address] VITAMIN D,25 HYDROXY Collected: 08/28/2018 Status: F Source: [place] 9:25 AM [facility] REPOSITORY TYPE CODE TESTS RESULT OUT OF RANGE REFERENCE UNITS LAB L506.1000 29.95-100.01 ng/mL Normal Vitamin D 36.7 25-OH Result Comment: Vitamin D 25(OH) Status Range Deficiency <20 ng/mL (50nmol/L) Insuffciency 20 - 30 ng/mL (50 - 75 nmol/L) Sufficiency 30 - 100 ng/mL (75 - 250 nmol/L) Toxicity >100 ng/mL (>250 nmol/L) Performed By: #### L506.1000 #### [facility] [address] [place], [place], [address] COMPREHENSIVE METABOLIC Collected: 08/28/2018 Status: F Source: [facility] 9:25 AM [facility] REPOSITORY TYPE CODE TESTS RESULT OUT OF RANGE REFERENCE UNITS LAB L501.0100 74-106 mg/dL Normal GLU 96 Result Comment: Please note revised GLUCOSE reference range effective 2018. LAB L501.1000 7-18 mg/dL Normal BUN 11 LAB L501.1100 0.55-1.02 mg/dL Normal CREAT,SERUM 0.68 Result Comment: The validity of the calculated GFR AND GFRAA in patients over 70 years has not been determined. Clinical correlation is essential. LAB L501.1110 >60 mL/min Normal EST GFR 88 Result Comment: Non- GFR Calc LAB L501.1115 >60 mL/min Normal EST GFR - AA 107 Result Comment: GFR Calc LAB L501.1300 10-20 RATIO Normal BUN/CRE 16.1 LAB L501.1500 6.4-8.2 g/dL T Normal PROT 7.0 LAB L501.1800 3.2-5.0 g/dL Normal ALB 3.4 LAB L501.1950 2.2-4.2 g/dL Normal GLOB 3.6 LAB L501.2000 0.9-2.4 RATIO Normal A/G 0.9 LAB L501.2200 8.5-10.1 mg/dL CA Normal 8.7 LAB L501.4100 15-37 U/L Normal AST 23 LAB L501.4305 45-117 U/L Normal ALK P 102 LAB L501.4405 13-56 U/L Normal ALT 22 LAB L501.4600 0.20-1.00 mg/dL T Normal BILI 0.60 LAB L501.5300 136-145 mmol/L NA Normal 137 LAB L501.5600 3.5-5.1 mmol/L K Normal 4.0 LAB L501.5900 98-107 mmol/L CL Normal 100 LAB L501.6100 21.0-32.0 mmol/L Normal CO2 31.0 LAB L501.6200 5-15 Normal GAP 6 Performed By: #### L500.4050, L501.9520 #### [facility] [address] [place], [place], [address] THYROID STIM HORMONE Collected: 08/28/2018 Status: F Source: [place] (TSH) 9:25 AM [facility] REPOSITORY TYPE CODE TESTS RESULT OUT OF RANGE REFERENCE UNITS LAB L501.9520 0.358-3.74 uIU/mL Normal TSH 1.54 Performed By: #### L500.4050, L501.9520 #### [facility] [address] [place], [place], [address] EMERGENCY DEPARTMENT Observed: 08/23/2018 Status: F Source: [place] SUMMARY 12:42 AM [facility] REPOSITORY [facility] Medical Records Department [address] [place] [address] Emergency Department Summary 08/22/182108 MR#: [id number] Acct: [id number] Name: SOFYA MALDONADO Rep #: [id number] : 1940 77 From: Larry Pennington DO PCP: Jose Roberto Huerta MD, Chi Status: DEP ER - ER Visit Summary Date of Service: 08/22/18 Chief Complaint: Scalp injury History of Present Illness: The patient is a 77 F who fell while walking to the counter to pay for her meal. She notes a hematoma in the back of her head. No loss of consciousness. She is on Coumadin. She also notes pain in the left lower leg. Physical Examination: Afebrile vital signs stable Patient has an occipital hematoma. GCS is 15. No neurologic deficits. The left lateral leg is tender to palpation. Test Results: INR 2.8. Tib-fib films were negative for fracture. CT of the head was also negative. Emergency Department Course and Treatment: Patient will be discharged home with supportive care return if worsening or concerns. She has been able to ambulate here in the department Impression: 1. Scalp hematoma 2. Fall 3. Left leg contusion 4. Coumadin coagulopathy This note was generated with [employer] dictation software. It may contain incorrect words, spelling, and punctuation that were not noted in review of the chart prior to signing ED Disposition - Plan for ED Patient: Disposition: Home or Assisted Living Chief Complaint: Head Injury Instructions: ED Head Injury Closed Referrals: Jose Roberto Huerta Chi, MD [Primary Care Provider] - 1 Week if not improving Additional Instructions: Your INR was 2.8 today. What to do if you have Problems For any increased pain, shortness of breath, bleeding, nausea or vomiting, chest pain, or any unexpected problems, contact your Primary Care Provider. Call [facility] ([phone]) or report to the closest Emergency Room. Call 911 if necessary. 08/23/18 0042 <Electronically signed by Larry Pennington DO> Date Larry Pennington DO Cosigner Signature (If Indicated): Date CC: Jose Roberto Huerta MD PROTHROMBIN TIME W/INR Collected: 08/22/2018 Status: F Source: [place] 8:35 PM [facility] REPOSITORY TYPE CODE TESTS RESULT OUT OF RANGE REFERENCE UNITS LAB L300.4150 11.7-14.9 SECONDS High PROTIME 29.5 LAB L300.4200 Normal INR 2.8 Performed By: #### L300.3900 #### [facility] [address] [place], [address] TIBIA AND FIBULA Observed: 08/22/2018 Status: F Source: [place] 2 VIEWS 7:47 PM [facility] REPOSITORY [facility] Imaging Services [address] [place] [address] Tibia AND Fibula 2 Views MR#: [id number] Acct: [id number] Name: THERESASOFYA Nikolay Rep #: [id number] : 1940 F 77 From: Mariano Ojeda MD PCP: Deanna MCNAMARA,Jose Roberto Mckeon Status: DEP ER Study: Tibia AND Fibula 2 Views Date of Exam: 08/22/18 Exam# [id number] Ordering Dr: Larry Pennington DO STUDY: X-RAY - LEFT TIBIA AND FIBULA REASON FOR EXAM: Female, 77 years old. Left leg pain. TECHNIQUE: 2 view(s) of the tibia and fibula were obtained. COMPARISON: None. FINDINGS: There is generalized osteopenia. There is osteoarthrosis of the knee. No abnormality is noted in the tibia or fibula. The soft tissue structures are unremarkable. RAD/Tibia AND Fibula 2 Views IMPRESSION: Osteopenia without acute abnormality. Electronically Signed: Mariano Ojeda MD at 21:05 EDT , Service support , CC: Larry Pennington DO; Jose Roberto Huerta MD Graphic Designer: Signed BRAIN/HEAD WITHOUT Observed: 08/22/2018 Status: F Source: [place] CONTRAST 6:34 PM [facility] REPOSITORY [facility] Imaging Services [address] [place] [address] Brain/Head without Contrast MR#: [id number] Acct: [id number] Name: SOFYA MALDONADO Rep #: [id number] : 1940 F 77 From: Donovan Arevalo MD PCP: Jose Roberto Huerta MD, Chi Status: PRE ER Study: Brain/Head without Contrast Date of Exam: 08/22/18 Exam# [id number] Ordering Dr: Keshav Alvarado MD STUDY: CT BRAIN WITHOUT CONTRAST REASON FOR EXAM: Female, 77 years old. Trauma RADIATION DOSAGE (If Supplied By Facility): CTDIvol = ( 44.99 ) mGy, DLP = ( 745.49 ) mGycm TECHNIQUE: Transaxial CT imaging of the brain was performed without administration of intravenous contrast material. Individualized dose optimization techniques were used for this CT. COMPARISON: None. FINDINGS: There is no acute bleed or infarct. There are mild chronic ischemic changes. The ventricles are normal in configuration. There is no hydrocephalus. The visualized paranasal sinuses are clear. The mastoid air cells are well aerated. There is no skull fracture. CT/Brain/Head without Contrast IMPRESSION: No acute intracranial abnormality. Electronically Signed: Donovan Arevalo, at 19:57 EDT Tel , Service support , CC: Keshav Alvarado MD; Jose Roberto Huerta MD Graphic Designer: Signed PROTHROMBIN TIME W/INR Collected: 08/17/2018 Status: F Source: [place] 9:04 AM [facility] REPOSITORY Order Comment: Reason for Laboratory Test . TYPE CODE TESTS RESULT OUT OF RANGE REFERENCE UNITS LAB L300.4150 11.7-14.9 SECONDS High PROTIME 29.0 LAB L300.4200 Normal INR 2.7 Performed By: #### L300.3900 #### [facility] [address] [place], [address] PROTHROMBIN TIME W/INR Collected: 08/10/2018 Status: F Source: [place] 8:07 AM [facility] REPOSITORY Order Comment: Reason for Laboratory Test . TYPE CODE TESTS RESULT OUT OF RANGE REFERENCE UNITS LAB L300.4150 11.7-14.9 SECONDS High PROTIME 28.5 LAB L300.4200 Normal INR 2.7 Performed By: #### L300.3900 #### [facility] [address] [place], [address] PROTHROMBIN TIME W/INR Collected: 07/27/2018 Status: F Source: [place] 9:42 AM [facility] REPOSITORY Order Comment: Reason for Laboratory Test . TYPE CODE TESTS RESULT OUT OF RANGE REFERENCE UNITS LAB L300.4150 11.7-14.9 SECONDS High PROTIME 22.2 LAB L300.4200 Normal INR 1.9 Performed By: #### L300.3900 #### [facility] [address] [place], [address] PROTHROMBIN TIME W/INR Collected: 07/13/2018 Status: F Source: [place] 9:55 AM [facility] Order Comment: Reason for Laboratory Test . TYPE CODE TESTS RESULT OUT OF RANGE REFERENCE UNITS LAB L300.4150 11.7-14.9 SECONDS High PROTIME 32.9 LAB L300.4200 Normal INR 3.2 Performed By: #### L300.3900 #### [facility] [address] [place], [address] ONCOLOGY VISIT REPORT Observed: 06/22/2018 Status: F Source: [place] 1:26 PM [facility] REPOSITORY [facility] [address] [place] [address] OFFICE VISIT Date of Service: 06/22/18 1119 MR#: [id number] Acct: [id number] Name: SOFYA MALDONADO Rep #: [id number] : 1940 From: Bambi CONNELL Age/Sex: 77/F Location: [facility] Status: Signed Subjective - Date of Service Date of Service:: 06/22/18 - Chief Complaint Follow up- DCIS, VTE AND endometrial ca - History of Present Illness Ms. Sofya Maldonado is a 77 year old woman with past medical history for recurrent VTE. The first episode of PE occurred after diagnosis of breast cancer she states in 2013. Underwent lumpectomy and radiation therapy, Tamoxifen < 1 year. Followed with medical oncologist, Dr. Low. She took Coumadin for about 6 months. The second episode was after a ventral hernia repair. The patient was recuperating after her surgery and had stopped prophylactic anticoagulation. This was a massive PE that required resuscitation at [facility] in 2014. 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 She has been on chronic Coumadin therapy since. Ms. Maldonado is status post total robotic hysterectomy with BSO and pelvic lymph node dissection laparoscopically done on 06/16/2016 for endometrial carcinoma followed by radiotherapy, pelvic radiation. Final pathology revealed grade 2 endometrial adenocarcinoma. Lymph nodes were evaluated, which were negative for malignancy, FIGO grade 2, tumor size 3.7 cm, AJCC stage IA. She underwent a CT a/p 11/13/2017 to address c/o abdominal swelling which revealed ventral hernia and subsequently referred to surgery. - Interval History The patient is presenting to clinic for routine 3 month follow up. Denies any outstanding complaints r/t today's visit. Good adherence and good tolerance to warfarin. Admits she bruises easily but denies any overt episodes of bleeding. Performs BSE monthly and denies any palpable masses, skin abnormalities and nipple discharge/retraction. Specifically, she denies weight loss, pruritus, cough, abd pain, vaginal bleeding and swelling/pain of her extremities. Compliant with recommendations for pelvic exams per Dr. Haque. INR has been therapeutic, although fluctuating. Patient voices serious concern that diphenhydramine she took as a result of a mosquito bite caused an increase. - Past Medical/Social History Past Medical History Past Medical History: Anemia,Hypertension,Pulmonary embolism, Thrombocytopenia Other Past Medical History: DVT Cancer: Breast cancer Other Cancer History: ENDOMETRIAL Past Surgical History Surgical: Carpal tunnel,Hernia repair,Hysterectomy, Lumpectomy,Tonsillectomy Family History Paternal Past Medical History: Unknown Maternal Past Medical History: Arthritis,Heart disease,Hypertension,Stroke Social History Social History: No changes Smoking Status Never smoker Review of Systems Constitutional:: Reports: Fatigue - mild. Denies: Fever, Sweats, Weight loss, Appetite change, Chills Cardiovascular:: Reports: Dyspnea on exertion - mild, unchanged from baseline. Denies: Chest pain, Palpitations, Orthopnea, PND, Shortness of breath Respiratory: Denies: Cough, Hemoptysis, Shortness of Breath, Wheezing Gastrointestinal:: Denies: Abdominal pain, Nausea, Vomiting, Diarrhea, Constipation, Melena, Hematochezia Genitourinary: Denies: Dysuria, Hematuria, Urinary frequency, Abnormal vaginal bleeding, Flank pain Musculoskeletal:: Denies: Back pain, Myalgia, Arthralgia Skin: Denies: Rash, Skin Changes, Wounds Neurological:: Denies: Headache, Dizziness, Numbness, Tingling, Visual changes, Tinnitus, Hearing loss Psychiatric: Denies: Anxiety, Depression, Homicidal Ideations, Suicidal Ideations Vital Signs Height 4 ft 11 in Weight: 205 lb 6.4 oz Weight in Pounds 205.4 lbs Pulse Ox 94 - Physical Exam General: Alert, Oriented x3, No apparent distress HEENT: Atraumatic, Normocephalic Oropharynx:: Negative for: Dry mucosa, Ulcerated lesions Neck:: Supple, Trachea midline. Negative for: JVD, bilateral Cardiac:: Regular rate, Regular rhythm, Normal S1, Normal S2. Negative for: Murmur Lungs: Clear to auscultation, Excusion symmetrical. Negative for: Rhonchi, Wheezes Abdomen:: Bowel sounds x 4, Soft, Non-tender, Non-distended, Hernia. Negative for: Hepatosplenomegaly Extremities:: Negative for: Cyanosis, Edema Neurological: Neuro grossly intact Skin:: Ecchymosis - BUE in various stages of healing. Negative for: Lesions, Rash, Petechiae Psychiatric:: Appropriate affect, Euthymic Lymphatics:: Negative for: Cervical lymphadenopathy, Supraclavicular lymphadenopathy, Axillary lymphadenopathy Assessment and Plan Ms. Sofya Maldonado is a very pleasant 77-year-old woman with a history for DCIS of the left breast diagnosed in 2013, status post lumpectomy followed by radiation therapy and a short course of tamoxifen, as well as provoked recurrent PE and most recently stage I endometrial carcinoma diagnosed in May 2016, status post BSO, lymph node dissection, and radiation therapy. She is presently maintained on Coumadin. 1. Recurrent VTE, on chronic Coumadin therapy -- During previous visits discussed the risks/benefits of converting to a direct oral anticoagulant at length. Patient elected to continue warfarin. Tolerates well. Has been therapeutic x several months. Due for next INR 04/06/18. 2. Stage I endometrial carcinoma -- The patient is status post BSO, hysterectomy and radiation therapy. She is compliant with the recommendations for surveillance in terms of pelvic exams every [address] Haque, and states is up to date. Unknown if Ca125 was elevated at the time of diagnosis thus it is assessed. 06/15/18 CA125 reviewed and WNL. 3. DCIS of the left breast -- Bilateral screening mammogram obtained 01/23/18, . BI RADS category 2. Clinical breast exam deferred today. She is encouraged to continue monthly BSE and promptly report any changes. RTC in 4 months with CBC/CMP prior. The patient was in agreement with the aforementioned plan. This visit incident to the treatment plan previously established by Dr. 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 TYPE CODE TESTS RESULT OUT OF RANGE REFERENCE UNITS LAB L300.4150 11.7-14.9 SECONDS High PROTIME 28.5 LAB L300.4200 Normal INR 2.7 Performed By: #### L300.3900 #### [facility] [address] [place], [address] CBC W/DIFF, AUTOMATED Collected: 06/15/2018 Status: F Source: [place] 9:08 AM [facility] REPOSITORY Order Comment: Reason for Laboratory Test . TYPE CODE TESTS RESULT OUT OF RANGE REFERENCE UNITS LAB L100.1000 4.4-11.0 K/mm3 Normal WBC 5.2 LAB L100.1200 4.2-5.4 M/mm3 Normal RBC 4.63 LAB L100.1300 12.0-15.0 g/dl Normal HGB 13.7 LAB L100.1400 37-47 % Normal HCT 43.5 LAB L100.1500 81-99 fL Normal MCV 94.0 LAB L100.1600 27.0-32.0 pg Normal MCH 29.6 LAB L100.1700 32-36 g/gl Low MCHC 31.5 LAB L100.1810 11.6-14.6 % Normal RDW CV 13.4 LAB L100.1820 35.1-43.9 fl High RDW SD 46.1 LAB L100.1900 150-450 K/mm3 Normal PLT 209 LAB L100.2000 6.2-12.0 fl Normal MPV 9.4 LAB L100.2100 47-70 % Normal NEUT% 62.2 LAB L100.2200 19-41 % Normal LY% 19.0 LAB L100.2300 0-10 % High MONO% 14.9 LAB L100.2400 0-5 % Normal EO% 2.9 LAB L100.2500 0-1 % Normal BASO% 0.8 LAB L100.2550 0.0-0.9 % Normal IM GRAN % 0.200 Result Comment: IG% - Immature Granulocytes (promyelocytes, myelocytes and metamyelocytes) > 1% indicates that a LEFT SHIFT is Present. LAB L100.2620 2.0-7.7 X10 3/uL Normal Absolute Neut 3.2 LAB L100.2720 0.83-4.51 X10 3/ul Normal Absolute Lymph 0.98 Performed By: #### L100.0100 #### [facility] [address] [place], [place], [id number] #### L3100.5000 #### [facility] (refer to report for specific site) refer to report for address and phone number CANCER ANTIGEN 125 Collected: 06/15/2018 Status: F Source: [place] 9:08 AM [facility] REPOSITORY Order Comment: Reason for Laboratory Test . TYPE CODE TESTS RESULT OUT OF RANGE REFERENCE UNITS LAB L3100.5000 0.0-38.1 U/mL Normal CA125 9.3 2303 Result Comment: Edfa[employer]ly ECLIA methodology Performed at: [facility] [employer] [id number] [employer] Administrator: Jem Patel PhD, Phone: [phone] Performed By: #### L100.0100 #### [facility] [address] [facility] [place], [address] #### L3100.5000 #### [facility] (refer to report for specific site) refer to report for address and phone number COMPREHENSIVE METABOLIC Collected: 06/15/2018 Status: F Source: [facility] 9:08 AM [facility] REPOSITORY Order Comment: Reason for Laboratory Test . TYPE CODE TESTS RESULT OUT OF RANGE REFERENCE UNITS LAB L501.0100 74-106 mg/dL Normal GLU 78 Result Comment: Please note revised GLUCOSE reference range effective 2018. LAB L501.1000 7-18 mg/dL Normal BUN 15 LAB L501.1100 0.55-1.02 mg/dL Normal CREAT,SERUM 0.70 Result Comment: The validity of the calculated GFR AND GFRAA in patients over 70 years has not been determined. Clinical correlation is essential. LAB L501.1110 >60 mL/min Normal EST GFR 86 Result Comment: Non- GFR Calc LAB L501.1115 >60 mL/min Normal EST GFR - AA 104 Result Comment: GFR Calc LAB L501.1255 ml/min Normal Estimated CRCL 69.29 LAB L501.1300 10-20 RATIO High BUN/CRE 21.4 LAB L501.1500 6.4-8. g/dL Normal 2 T PROT 6.8 LAB L501.1800 3.2-5. g/dL Normal 0 ALB 3.2 LAB L501.1950 2.2-4. g/dL Normal 2 GLOB 3.6 LAB L501.2000 0.9-2. RATIO Normal 4 A/G 0.9 LAB L501.2200 8.5-10 mg/dL Normal .1 CA 9.0 LAB L501.4100 15-37 U/L Normal AST 19 LAB L501.4305 45-117 U/L Normal ALK P 105 LAB L501.4405 13-56 U/L Normal ALT 19 LAB L501.4600 0.20-1 mg/dL Normal .00 T BILI 0.30 LAB L501.5300 136-14 mmol/L Low 5 NA 135 LAB L501.5600 3.5-5. mmol/L Normal 1 K 4.9 LAB L501.5900 98-107 mmol/L Normal CL 99 LAB L501.6100 21.0-3 mmol/L Normal 2.0 CO2 32.0 LAB L501.6200 5-15 Low GAP 4 Performed By: #### L500.4050 #### [facility] [address] [place], [place], [address] URGENT CARE VISIT Observed: 06/10/2018 Status: F Source: [place] REPORT 2:09 PM [facility] REPOSITORY [facility] [address] [place] [address] [address] [place] [address] OFFICE VISIT Date of Service: 06/10/18 MR#: [id number] Acct: [id number] Name: SOFYA MALDONADO Rep #: [id number] : 1940 Provider: Donovan TRAN Age/Sex: 77/F Location: [facility] [place] [place] Status: Signed Intake Vital Signs06/10/18 Height 4 ft 11 in Intake Visit Reasons: RASH/ BUG BITE Chief Complaint: insect bites Allergies heparin Allergy (Severe, Verified 06/10/18 12:50) Low platelets aspirin Adverse Reaction (Severe, Verified 06/10/18 12:50) Nausea clarithromycin Adverse Reaction (Severe, Verified 06/10/18 12:50) Unknown cyclobenzaprine [Cyclobenzaprine] Adverse Reaction (Severe, Verified 06/10/18 12:50) Unknown meloxicam Adverse Reaction (Severe, Verified 06/10/18 12:50) Nausea Sulfa (Sulfonamide Antibiotics) Adverse Reaction (Severe, Verified 06/10/18 12:50) Vomiting tramadol HCl [From [facility]] Adverse Reaction (Severe, Verified 06/10/18 12:50) Vomiting Medications Simvastatin [Zocor] 20 mg PO QHS 09/21/13 [History Confirmed 06/10/18] Acetaminophen [Tylenol] 500 mg PO Q4H PRN PRN 01/18/15 [History Confirmed 06/10/18] Hydrochlorothiazide 12.5 mg PO DAILY 01/18/15 [History Confirmed 06/10/18] Metoprolol Tartrate [Lopressor (beta odalys)] 25 mg PO BID #60 tab 03/09/15 [Rx Confirmed 06/10/18] Calcium Carb/Vitamin D [Os-Jeancarlos 500MG + D] 1 tab PO TID 03/23/15 [History Confirmed 06/10/18] Albuterol IH (ProAir) [Proair Hfa (SP)Vent Pts] 1 puff INHALATION Q4H PRN PRN 02/16/16 [History Confirmed 06/10/18] Cholecalciferol (VIT D3) [Vitamin D] 1,000 unit PO BID 02/16/16 [History Confirmed 06/10/18] Fexofenadine HCl [Dianne Allergy] 180 mg PO DAILY 02/26/17 [History Confirmed 06/10/18] Potassium Chloride 20 meq PO DAILY 02/26/17 [History Confirmed 06/10/18] Warfarin [Coumadin (PBKC)] 6 mg PO DAILY 08/25/17 [History Confirmed 06/10/18] albuterol sulfate HFA 90 mcg/actuation aerosol inhaler 2 puff INHALATION Q2H PRN PRN inhaler 02/23/18 [History Confirmed 06/10/18] benzonatate 100 mg capsule 200 mg PO TID PRN #30 cap 02/23/18 [Rx Confirmed 06/10/18] fluticasone 500 mcg-salmeterol 50 mcg/dose blistr powdr for inhalation 1 inh INHALATION BID ea 02/23/18 [History Confirmed 06/10/18] ipratropium-albuterol 0.5 mg-3 mg(2.5 mg base)/3 mL nebulization soln 3 ml INHALATION Q6H PRN #90 ml 02/23/18 [Rx Confirmed 06/10/18] Warfarin Sodium [Coumadin] 5 mg PO DAILY #30 tab 04/16/18 [Rx Confirmed 06/10/18] Warfarin [Coumadin] 1 mg PO DAILY 60 Days #60 tab 05/25/18 [Rx Confirmed 06/10/18] calamine-zinc oxide lotion 1 applic TOPICAL 4-6XD PRN #177 ml 06/10/18 [Rx Confirmed 06/10/18] diphenhydramine 25 mg capsule 25 mg PO Q4H PRN #60 cap 06/10/18 [Rx Confirmed 06/10/18] PFSH Medical History Anemia (Acute) Arthritis (Acute) Asthma (Acute) Breast cancer (Acute) Fatigue (Acute) History of PE (Acute) Knee pain (Acute) Lung disease (Acute) SOB (shortness of breath) (Acute) HTN (hypertension) (Chronic) Surgical History H/O hernia repair (Acute) H/O lumpectomy (Acute) History of carpal tunnel surgery (Acute) History of hysterectomy (Acute) Hx of tonsillectomy (Acute) Family History Mother Arthritis Heart disease Hypertension CVA (cerebral vascular accident) Social History Smoking Status: Never smoker HPI HPI Chief Complaint: insect bites Details: SOFYA MALDONADO, is a 77 F who presents to the office today for initial evaluation insect bites which occurred 11 days ago and 7 days ago respectively. Patient states 11 days ago while at her daughter's house was outside bitten by mosquitoes on bilateral upper extremities. She notes taking no [id number]-cxvfvzx products to assist with her symptoms as she states she had nothing in her house to treat with. She then noted on 03 June while celebrating her son's house being bitten by mosquitoes on her bilateral upper extremities yet again. She does localize mild pruritus to the same without erythema, swelling, discharge, or localized warmth. She notes no complaints fever, chills, sweats, constricted or pleuritic airway, or chest pain/shortness of breath. She notes no other associated symptoms and no other alleviating or aggravating factors. ROS Const Constitutional: No chills, fever(s) or body ache Eyes Eyes: No change in vision ENT ENT: No ear pain, tongue swelling, throat swelling, lip swelling, sore throat or hoarseness Resp Respiratory: No cough, chest congestion or shortness of breath Cardio Cardiology: No chest pain at rest, chest pain with exertion, shortness of breath, dyspnea on exertion, irregular heart rhythm, generalized swelling or leg pain with exertion Gastro GI: No abdominal pain, change in stool character, change in bowel habits, nausea/dyspepsia or vomiting Skin Skin: Positive for itching and rash Neuro Neurology: No abnormal speech or abnormal movements Aller/Imm Allergy/Immunologic: Positive for itchy eyes; no tongue swelling, throat swelling or lip swelling Exam Const General: cooperative, healthy appearing, no acute distress Nutritional Appearance: obese Orientation: alert, awake, oriented x3 HENMT Head: normal to inspection Ears: hearing grossly normal bilaterally, external ears normal Nose: external nose normal, nares normal Face and sinus: face symmetric Mouth: lip normal, tongue normal, oropharynx normal, oral mucosae normal Eyes General: appearance normal, both eyes and all related structures Neck Neck: normal visual inspection, full ROM, no lymphadenopathy, no meningeal signs, supple Neck mass: No Thyroid: thyroid normal Lymphatic: no lymphadenopathy noted Chest Chest palpation AND inspection: normal inspection of the chest Resp Effort AND Inspection: normal respiratory effort, able to speak in complete sentences, symmetric chest movement Cardio Rate: regular rate Pulses: radial pulses present GI Inspection: normal to inspection Palpation: soft, no hepatosplenomegaly Skin Lesions: lesion noted (Erythematous close lesions to bilateral upper extremities) Rashes: no rashes Neuro General: alert, awake, oriented x3, gait normal Cognition: normal cognition Speech: speech normal Gait: normal gait Motor: muscle tone normal throughout Sensory Exam: no sensory deficits noted Psych Appearance: grossly normal Mental Status: mental status grossly normal Mood: congruent mood Affect: normal affect Speech and Movement: speech and movement normal Attitude: cooperative Thought Process: normal Thought Content: normal Judgment: judgment good Assessment AND Plan Plan Oral Benadryl and topical calamine lotion as prescribed today. Skin care and avoidance of recurring insect exposure as instructed today. Follow-up with PCP in 5-7 days should symptoms not improve, sooner should symptoms worsen or any other concerns develop. Patient states acknowledging understanding all the above. This note was generated with [employer] dictation software. It may contain incorrect words, spelling, and punctuation that were not noted in checking the note before signing. Medications New: calamine-zinc oxide lotion To affected area1 applic Topical 4-6XD PRN skin irritation s Coding Level of Care Code Off vis,est,level 3 06/10/18 2871 <Electronically signed by Donovan TRAN> Date Donovan TRAN Cosigner Signature: Date (if applicable) CC: PROTHROMBIN TIME W/INR Collected: 05/25/2018 Status: F Source: [place] 9:08 AM [facility] REPOSITORY Order Comment: Reason for Laboratory Test . TYPE CODE TESTS RESULT OUT OF RANGE REFERENCE UNITS LAB L300.4150 11.7-14.9 SECONDS High PROTIME 27.9 LAB L300.4200 Normal INR 2.6 Performed By: #### L300.3900 #### [facility] [address] [facility] [place], [address] DOWNTIME REPORT Observed: 05/21/2018 Status: F Source: [place] 12:11 PM [facility] REPOSITORY [facility] Medical Records Department [address] [place] [address] Downtime Report MR#: [id number] Acct: [id number] Name: THERESASOFYA Nikolay Rep #: [id number] : 1940 77 From: Jason Sanon PCP: Deanna MCNAMARA,Jose Roberto Mckeon Status: REG RCR This patient was seen during an EMR downtime May 04, 2018 - May 11, 2018. This patient may have a combination of paper and electronic documentation or all paper documentation. All documentation is viewable within the e-chart portion of [employer] for each patient visit. PROTHROMBIN TIME W/INR Collected: 05/11/2018 Status: F Source: [place] 10:46 AM [facility] REPOSITORY Order Comment: Reason for Laboratory Test . TYPE CODE TESTS RESULT OUT OF RANGE REFERENCE UNITS LAB L300.4150 11.7-14.9 SECONDS High PROTIME 29.3 LAB L300.4200 Normal INR 2.8 Performed By: #### L300.3900 #### [facility] [address] [place], [address] PROTHROMBIN TIME W/INR Collected: 04/28/2018 Status: F Source: [place] 12:02 PM [facility] REPOSITORY Order Comment: Reason for Laboratory Test . TYPE CODE TESTS RESULT OUT OF RANGE REFERENCE UNITS LAB L300.4150 11.7-14.9 SECONDS High PROTIME 21.7 LAB L300.4200 Normal INR 1.9 Performed By: #### L300.3900 #### [facility] [address] [place], [address] PROTHROMBIN TIME W/INR Collected: 04/13/2018 Status: F Source: [place] 9:19 AM [facility] REPOS[facility] Order Comment: Reason for Laboratory Test . TYPE CODE TESTS RESULT OUT OF RANGE REFERENCE UNITS LAB L300.4150 11.7-14.9 SECONDS High PROTIME 27.1 LAB L300.4200 Normal INR 2.5 Performed By: #### L300.3900 #### [facility] [address] [place], [address] PROTHROMBIN TIME W/INR Collected: 04/06/2018 Status: F Source: [place] 9:47 AM [facility] REPOS[facility] Order Comment: Reason for Laboratory Test VTE TYPE CODE TESTS RESULT OUT OF RANGE REFERENCE UNITS LAB L300.4150 11.7-14.9 SECONDS High PROTIME 22.0 LAB L300.4200 Normal INR 1.9 Performed By: #### L300.3900 #### [facility] [address] [place], [address] ONCOLOGY VISIT REPORT Observed: 03/23/2018 Status: F Source: [place] 11:18 AM [facility] REPOSITORY [facility] [address] [place] [address] OFFICE VISIT Date of Service: 03/23/18 0930 MR#: [id number] Acct: [id number] Name: SOFYA MALDONADO Rep #: [id number] : 1940 From: Bambi CONNELL Age/Sex: 77/F Location: [facility] Status: Signed Subjective - Date of Service Date of Service:: 03/23/18 - Chief Complaint Follow up- DCIS, VTE AND endometrial ca - History of Present Illness Ms. Sofya Maldonado is a 77 year old woman with past medical history for recurrent VTE. The first episode of PE occurred after diagnosis of breast cancer she states in 2013. Underwent lumpectomy and radiation therapy, Tamoxifen < 1 year. Followed with medical oncologist, Dr. Low. She took Coumadin for about 6 months. The second episode was after a ventral hernia repair. The patient was recuperating after her surgery and had stopped prophylactic anticoagulation. This was a massive PE that required resuscitation at [facility] in 2014. 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 She has been on chronic Coumadin therapy since. Ms. Maldonado is status post total robotic hysterectomy with BSO and pelvic lymph node dissection laparoscopically done on 06/16/2016 for endometrial carcinoma followed by radiotherapy, pelvic radiation. Final pathology revealed grade 2 endometrial adenocarcinoma. Lymph nodes were evaluated, which were negative for malignancy, FIGO grade 2, tumor size 3.7 cm, AJCC stage IA. She underwent a CT a/p 11/13/2017 to address c/o abdominal swelling which revealed ventral hernia and subsequently referred to surgery. - Interval History The patient is presenting to clinic for 3 month follow up. Underwent bilateral screening mammogram in January. Otherwise, no outstanding complaints r/t today's visit. Good adherence and good tolerance to warfarin. Admits she bruises easily but denies any overt episodes of bleeding. Performs BSE monthly and denies any palpable masses, skin abnormalities and nipple discharge/retraction. Specifically, she denies weight loss, pruritus, cough, abd pain, vaginal bleeding and swelling/pain of her extremities. Compliant with recommendations for pelvic exams per Dr. Haque. - Past Medical/Social History Past Medical History Past Medical History: Anemia,Hypertension,Pulmonary embolism, Thrombocytopenia Other Past Medical History: DVT Cancer: Breast cancer Other Cancer History: ENDOMETRIAL Past Surgical History Surgical: Carpal tunnel,Hernia repair,Hysterectomy, Lumpectomy,Tonsillectomy Family History Paternal Past Medical History: Unknown Maternal Past Medical History: Arthritis,Heart disease,Hypertension,Stroke Social History Social History: No changes Smoking Status Never smoker Review of Systems Constitutional:: Denies: Fever, Sweats, Weight loss, Appetite change, Chills Cardiovascular:: Denies: Chest pain, Palpitations, Dyspnea on exertion, Orthopnea, PND, Shortness of breath Respiratory: Denies: Cough, Hemoptysis, Shortness of Breath, Wheezing Gastrointestinal:: Denies: Abdominal pain, Nausea, Vomiting, Diarrhea, Constipation, Hematochezia Genitourinary: Denies: Dysuria, Hematuria, Abnormal vaginal bleeding, Pelvic pain, Flank pain Musculoskeletal:: Reports: Back pain - chronic, Arthralgia - knees bilat Skin: Denies: Rash, Skin Changes, Wounds Neurological:: Denies: Headache, Dizziness, Visual changes, Tinnitus, Hearing loss Psychiatric: Denies: Anxiety, Depression, Homicidal Ideations, Suicidal Ideations Vital Signs Height 4 ft 11 in Weight: 205 lb 6.4 oz Weight in Pounds 205.4 lbs Pulse Ox 94 - Physical Exam General: Alert, Oriented x3, No apparent distress HEENT: Atraumatic, Normocephalic, - - wears glasses Oropharynx:: Negative for: Dry mucosa, Ulcerated lesions Neck:: Supple, Trachea midline. Negative for: JVD, bilateral Cardiac:: Regular rate, Regular rhythm, Normal S1, Normal S2. Negative for: Murmur Lungs: Clear to auscultation, Excusion symmetrical. Negative for: Rhonchi, Wheezes Abdomen:: Bowel sounds x 4, Soft, Non-tender, Non-distended, Hernia - large ventral right sided. Negative for: Hepatosplenomegaly Extremities:: Negative for: Cyanosis, Edema Neurological: Neuro grossly intact Skin:: Negative for: Lesions, Rash, Petechiae, Ecchymosis Psychiatric:: Appropriate affect, Euthymic Lymphatics:: Negative for: Cervical lymphadenopathy, Supraclavicular lymphadenopathy, Axillary lymphadenopathy Breast:: - - Asymmetrical. Left breast shows well healed scar. No palpable masses, skin abnormalities, nipple discharge/retraction. Right breast without palpable masses, skin abnormalities, nipple discharge/retraction. No axillary adenopathy bilat. Diagnostic Data: 01/23/18 Bilateral screening mammogram- HPBI/SCREENING MAMM (CAD), BILAT IMPRESSION: Stable bilateral screening mammogram. Yearly follow-up mammogram recommended. (A) ASSESSMENT CATEGORY: BIRADS Category 2: Benign. Assessment and Plan Ms. Sofya Maldonado is a very pleasant 77-year-old woman with a history for DCIS of the left breast diagnosed in 2013, status post lumpectomy followed by radiation therapy and a short course of tamoxifen, as well as provoked recurrent PE and most recently stage I endometrial carcinoma diagnosed in May 2016, status post BSO, lymph node dissection, and radiation therapy. She is presently maintained on Coumadin. 1. Recurrent VTE, on chronic Coumadin therapy -- During previous visits discussed the risks/benefits of converting to a direct oral anticoagulant at length. Patient elected to continue warfarin. Tolerates well. Has been therapeutic x several months. Due for next INR 04/06/18. 2. Stage I endometrial carcinoma -- The patient is status post BSO, hysterectomy and radiation therapy. She is compliant with the recommendations for surveillance in terms of pelvic exams every [address] Haque, and states is up to date. Unknown if Ca125 was elevated at the time of diagnosis thus it is assessed. Will obtain at next visit. 3. DCIS of the left breast -- Bilateral screening mammogram obtained 01/23/18 in reviewed. BI RADS category 2. Clinical breast exam benign. She is encouraged to continue monthly BSE and promptly report any changes. 4. Ventral hernia- apparent on most recent CT abd/pelvis from October 2017. Patient was previously referred to surgery per Dr. Cole. Surgery contraindicated at this time per Dr. Marie. RTC in 3 months with CBC/CMP/CA125 2 days prior. The patient was in agreement with the aforementioned plan. This visit incident to the treatment plan previously established by Dr. 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 NAME: Sofya Link [facility] NO.: [id number] DATE OF SERVICE: March 13, 2018 : 1940 REFERRING PHYSICIAN: Jose Roberto Huerta MD Sofya previously had a complaint of a bulge and discomfort in her umbilical region. The patient notes discomfort in this area with lifting and moving. The symptoms have increased, over the past few months. ? She denies a history of previous abdominal surgeries. I have seen her previously for breast and GI issues ?? CT scan demonstrates a larger ventral hernia at the level of the umbilicus. I performed a ventral hernia repair with mesh on January 25. I placed an 11 x [address] hernia patch for a 5 x 4 cm ventral defect. She was discharged on POD#4 with adequate pain control. She was given pharmacologic VTE prophylaxis in the hospital but was not discharged on pharmacologic VTE prophylaxis. ? On February 02, The patient had witnessed arrest by daughter at home. She was transported to [facility] and had another arrest in the ER. SHe was resuscitated. Her clinical impression was suspected PE. She was given TPA after resuscitation and transferred to [facility]. CT scan demonstrates bilateral pulmonary embolism. Her echocardiogram demonstrated heart strain. ? She was anticoagulated and developed a decreasing hematocrit. She had a filter placed. She was transferred to TCU at [facility] where I followed her. She was slowing improving and discharged from TCU. She is currently followed by Dr. Chapman, [facility] who is managing her anticoagulation. 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 I performed excisional biopsy on May 25, 2004. Pathology returned as focal ductal carcinoma in situ, the largest focus 1 mm in dimension. She also had a DVT following the excisional breast biopsy.. The patient is also due for follow-up colonoscopy next year. She is still taking Coumadin. 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 She does have a [place] filter. She returns now with complaint of a bulge just superior to her umbilicus. The patient underwent which she recalls was a laparoscopic hysterectomy for uterine mass June 13, 2016 - at [facility] performed by Dr. Brown. The patient had an incidental CT scan performed. Following this surgical procedure at [facility]. Review of the scan demonstrates what was felt to be a defect in the center aspect of the mesh and likely a small amount of omental fat herniating through the site. The margins of the mesh appeared well incorporated VITALS: There were no vitals taken for this visit. There is a 2 x 2 centimeter palpable mass consistent with a hernia just superior to the left of the umbilicus. There is an incision at the site, which appears to be consistent with a trocar site likely placed during her laparoscopic hysterectomy. She returned in December for follow-up evaluation area did the hernia site is not bothering her and is not truly palpable anymore. She does not wish to have anything performed on the hernia site. She was due for screening mammogram. This was ordered. She underwent screening mammography on January 23, 2018. This demonstrated no specific abnormalities- was listed as BI-RADS Category 2. The patient returns now for follow- up evaluation examination. Exam: Her breast exam is negative bilaterally. On inspection. Her axillary exam is negative bilaterally. She has no suspicious palpable masses bilaterally. Abdominal exam is benign. IMPRESSION: small mass at previous incisional hernia site PLAN: Recommend she continue with her annual breast exams and annual mammography. At this point, she states she surgery. Doubt- if she is noting discomfort at the hernia site. She should return for evaluation and repeat CT scan. Diagnoses: (K43.2) Incisional hernia, without obstruction or gangrene (primary encounter diagnosis) (Z85.3) History of left breast cancer Return to Clinic: The patient is instructed to follow- up with me as needed or yearly for breast exam and mammography. Darren Marie MD CNOV Observed: 03/13/2018 Status: COMPLETED Source: [place] 2:00 PM [facility] REPOSITORY Office Visit (GENSWS) SOFYA MALDONADO ([id number]) 1940 F Date Time Provider Department 03/13/18 2:00 PM DARREN MARIE During your visit today, we recorded the following information about you: Pulse Blood pressure Weight 60/minute 142/84 92.1 kg Darren Marie MD 03/17/2018 12:51 PM Signed FOLLOW UP VISIT - HISTORY OF LEFT BREAST CANCER, HERNIA REPAIR, PULMONARY EMBOLISM WITH CARDIAC ARREST, INCISIONAL HERNIA? NAME: Sofya Maldonado [facility] NO.: [id number] DATE OF SERVICE: March 13, 2018 : 1940 REFERRING PHYSICIAN: MD Sofya Bailon Chi previously had a complaint of a bulge and discomfort in her umbilical region. The patient notes discomfort in this area with lifting and moving. The symptoms have increased, over the past few months. ? She denies a history of previous abdominal surgeries. I have seen her previously for breast and GI issues ?? CT scan demonstrates a larger ventral hernia at the level of the umbilicus. I performed a ventral hernia repair with mesh on January 25. I placed an 11 x [address] hernia patch for a 5 x 4 cm ventral defect. She was discharged on POD#4 with adequate pain control. She was given pharmacologic VTE prophylaxis in the hospital but was not discharged on pharmacologic VTE prophylaxis. ? On February 02, The patient had witnessed arrest by daughter at home. She was transported to [facility] and had another arrest in the ER. SHe was resuscitated. Her clinical impression was suspected PE. She was given TPA after resuscitation and transferred to [facility]. CT scan demonstrates bilateral pulmonary embolism. Her echocardiogram demonstrated heart strain. ? She was anticoagulated and developed a decreasing hematocrit. She had a filter placed. She was transferred to TCU at [facility] where I followed her. She was slowing improving and discharged from TCU. She is currently followed by Dr. Chapman, [facility] who is managing her anticoagulation. 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 I performed excisional biopsy on May 25, 2004. Pathology returned as focal ductal carcinoma in situ, the largest focus 1 mm in dimension. She also had a DVT following the excisional breast biopsy.. The patient is also due for follow-up colonoscopy next year. She is still taking Coumadin. 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 She does have a [place] filter. She returns now with complaint of a bulge just superior to her umbilicus. The patient underwent which she recalls was a laparoscopic hysterectomy for uterine mass June 13, 2016 - at [facility] performed by Dr. Brown. The patient had an incidental CT scan performed. Following this surgical procedure at [facility]. Review of the scan demonstrates what was felt to be a defect in the center aspect of the mesh and likely a small amount of omental fat herniating through the site. The margins of the mesh appeared well incorporated VITALS: There were no vitals taken for this visit. There is a 2 x 2 centimeter palpable mass consistent with a hernia just superior to the left of the umbilicus. There is an incision at the site, which appears to be consistent with a trocar site likely placed during her laparoscopic hysterectomy. She returned in December for follow-up evaluation area did the hernia site is not bothering her and is not truly palpable anymore. She does not wish to have anything performed on the hernia site. She was due for screening mammogram. This was ordered. She underwent screening mammography on January 23, 2018. This demonstrated no specific abnormalities-was listed as BI-RADS Category 2. The patient returns now for follow-up evaluation examination. Exam: Her breast exam is negative bilaterally. On inspection. Her axillary exam is negative bilaterally. She has no suspicious palpable masses bilaterally. Abdominal exam is benign. IMPRESSION: small mass at previous incisional hernia site PLAN: Recommend she continue with her annual breast exams and annual mammography. At this point, she states she surgery. Doubt- if she is noting discomfort at the hernia site. She should return for evaluation and repeat CT scan. Diagnoses: (K43.2) Incisional hernia, without obstruction or gangrene (primary encounter diagnosis) (Z85.3) History of left breast cancer Return to Clinic: The patient is instructed to follow- up with me as needed or yearly for breast exam and mammography. MD Darren Lopez MD 03/17/2018 12:50 PM Signed The following instructions are important for you related to your office visit today with the [facility]. INSTRUCTIONS FOR FOLLOW UP FOR A STABLE BREAST FINDING Your breast exam has remained stable. We will still follow this area closely to assure that you do not have any problems. We recommend follow up evaluation in our office in in 1 year, you should obtain a mammogram prior to this follow up visit. We ask that you obtain your breast imaging at least 1 week prior to our follow up office visit so that there is time for the study to be read and the films to be sent to our office. We also recommend that you continue to perform a monthly self breast examination. Contact our office immediately if you have any questions or concerns. If you note any additional difficulties, questions, or concerns, you should contact our office immediately @ [phone] and ask to be transferred to the General Surgery department. Referring Provider: JOSE ROBERTO HUERTA CHI [[id number]] Allergies As of Date: 03/13/2018 Noted Allergy Reaction ASPIRIN 06/18/2013 8 - GI Upset Comments: Upset Stomach BACTRIM (SULFAMETHOXAZOLE) 04/12/2013 8 - GI Upset 11 - Vomiting BIAXIN (CLARITHROMYCIN) 04/12/2013 8 - GI Upset CYCLOBENZAPRINE 12/30/2012 16 - Unknown HEPARIN 11/15/2016 16 - Unknown MELOXICAM 12/30/2012 14 - Other: See Comments Comments: i didn't like the side effects SEASONAL ALLERGIES 06/07/2011 14 - Other: See Comments Comments: Seasonal and Environmental Allergies TRAMADOL 11/15/2016 16 - Unknown Date Reviewed: 03/13/2018 Reviewed by: Yves Saldivar LPN - Fully Assessed Reason for Visit: Established Patient [175] Cmt: f/u mammogram Primary Visit Diagnosis:Incisional hernia, without obstruction or gangrene [K43.2] Other Visit Diagnosis:History of left breast cancer [Z85.3] Prescriptions as of 03/13/2018 Sig: PROAIR HFA 90 MCG/ACTUATION A* IPRATROPIUM-ALBUTEROL 0.5 MG-* ADACEL (TDAP ADOLESN/ADULT)(P* To be injected by Pharmacist POTASSIUM CHLORIDE 20 MEQ/15 * mix 15 ml with 4 to 8 oz of w* WARFARIN 5 MG TABLET Take 5 mg by mouth once daily. FEXOFENADINE 180 MG TABLET Take 180 mg by mouth once sherry* WARFARIN 1 MG TABLET PROAIR HFA INHALATION Inhale as instructed. WARFARIN 2.5 MG TABLET KLOR-CON 20 MEQ ORAL PACKET VITAMIN B-6 ORAL Take by mouth. FLUTICASONE 50 MCG/ACTUATION * HYDROCHLOROTHIAZIDE 12.5 MG T* FERREX 150 PLUS 150 MG-50 MG-* METOPROLOL TARTRATE 25 MG TAB* twice daily. OXYCODONE-ACETAMINOPHEN 5 MG-* PREDNISONE 10 MG TABLET 5 mg once daily. FONDAPARINUX 7.5 MG/0.6 ML DIAZ* Inject 7.5 mg subcutaneously * * CHOLECALCIFEROL (VITAMIN D3) * Take 1,000 Units by mouth twi* * ADVAIR DISKUS 500 MCG-50 MCG/* DIRECTED * CALCIUM 500 WITH VITAMIN D 50* Take one(1) tablet three time* * TYLENOL EXTRA STRENGTH 500 MG* as necessary * ZOCOR 20 MG TABLET Take one(1) tablet daily at b* Problem List As Of Date 03/13/2018 Noted Resolved CA IN SITU BREAST [D05.90] INVALID FOR* BENIGN HYPERTENSION [I10] OBESITY NOS [E66.9] INVALID FOR* EXTRINSIC ASTHMA UNSPECIFIED [J45.909] INVALID FOR* Costochondritis [M94.0] INVALID FOR* Abnormal Mammogram, Unspecified [R92.8] INVALID FOR* Unspecified Constipation [K59.00] INVALID FOR* Special Screening for Malignant Neoplasms, [place]*INVALID FOR* Gastritis/Duodenitis [K29.70, K29.90] INVALID FOR* Ventral hernia [K43.9] INVALID FOR* Personal history of breast cancer [Z85.3] INVALID FOR* Incisional hernia [K43.2] INVALID FOR* Cardiac arrest (HCC) [I46.9] INVALID FOR*09/04/2016 History of left breast cancer [Z85.3] INVALID FOR* Encounter for screening mammogram for breast ca*INVALID FOR* Other instructions from your clinician: The following instructions are important for you related to your office visit today with the [facility]. INSTRUCTIONS FOR FOLLOW UP FOR A STABLE BREAST FINDING Your breast exam has remained stable. We will still follow this area closely to assure that you do not have any problems. We recommend follow up evaluation in our office in in 1 year, you should obtain a mammogram prior to this follow up visit. We ask that you obtain your breast imaging at least 1 week prior to our follow up office visit so that there is time for the study to be read and the films to be sent to our office. We also recommend that you continue to perform a monthly self breast examination. Contact our office immediately if you have any questions or concerns. If you note any additional difficulties, questions, or concerns, you should contact our office immediately @ [phone] and ask to be transferred to the General Surgery department. Disposition: Return in about 1 year (around 03/13/2019). Follow-up and Disposition History Recorded Letter Text Encounter Status:Closed by DARREN MARIE MD on 03/17/18 CBC W/DIFF, AUTOMATED Collected: 03/02/2018 Status: F Source: [place] 10:08 AM [facility] REPOSITORY Order Comment: Reason for Laboratory Test . TYPE CODE TESTS RESULT OUT OF RANGE REFERENCE UNITS LAB L100.1000 4.4-11.0 K/mm3 Normal WBC 5.2 LAB L100.1200 4.2-5.4 M/mm3 Normal RBC 4.89 LAB L100.1300 12.0-15.0 g/dl Normal HGB 14.5 LAB L100.1400 37-47 % Normal HCT 44.2 LAB L100.1500 81-99 fL Normal MCV 90.4 LAB L100.1600 27.0-32.0 pg Normal MCH 29.7 LAB L100.1700 32-36 g/gl Normal MCHC 32.8 LAB L100.1810 11.6-14.6 % Normal RDW CV 13.1 LAB L100.1820 35.1-43.9 fl Normal RDW SD 42.8 LAB L100.1900 150-450 K/mm3 Normal PLT 263 LAB L100.2000 6.2-12.0 fl Normal MPV 8.8 LAB L100.2100 47-70 % Normal NEUT% 66.1 LAB L100.2200 19-41 % Low LY% 16.9 LAB L100.2300 0-10 % High MONO% 14.8 LAB L100.2400 0-5 % Normal EO% 1.6 LAB L100.2500 0-1 % Normal BASO% 0.4 LAB L100.2550 0.0-0.9 % Normal IM GRAN % 0.200 Result Comment: IG% - Immature Granulocytes (promyelocytes, myelocytes and metamyelocytes) > 1% indicates that a LEFT SHIFT is Present. LAB L100.2620 2.0-7.7 X10 3/uL Normal Absolute Neut 3.4 LAB L100.2720 0.83-4.51 X10 3/ul Normal Absolute Lymph 0.87 Performed By: #### L100.0100, L300.3900 #### [facility] [address] [place], [place], [address] PROTHROMBIN TIME W/INR Collected: 03/02/2018 Status: F Source: [place] 10:08 AM [facility] REPOSITORY Order Comment: Reason for Laboratory Test . TYPE CODE TESTS RESULT OUT OF RANGE REFERENCE UNITS LAB L300.4150 11.7-14.9 SECONDS High PROTIME 25.4 LAB L300.4200 Normal INR 2.3 Performed By: #### L100.0100, L300.3900 #### [facility] [address] [place], [address] COMPREHENSIVE METABOLIC Collected: 03/02/2018 Status: F Source: TANESHA SANTIAGO 10:08 AM [facility] REPOSITORY Order Comment: Reason for Laboratory Test . TYPE CODE TESTS RESULT OUT OF RANGE REFERENCE UNITS LAB L501.0100 74-106 mg/dL Normal GLU 95 Result Comment: Please note revised GLUCOSE reference range effective 2018. LAB L501.1000 7-18 mg/dL Normal BUN 13 LAB L501.1100 0.55-1.02 mg/dL Normal CREAT,SERUM 0.64 Result Comment: The validity of the calculated GFR AND GFRAA in patients over 70 years has not been determined. Clinical correlation is essential. LAB L501.1110 >60 mL/min Normal EST GFR 96 Result Comment: Non- GFR Calc LAB L501.1115 >60 mL/min Normal EST GFR - AA 116 Result Comment: GFR Calc LAB L501.1255 ml/min Normal Estimated CRCL 71.76 LAB L501.1300 10-20 RATIO High BUN/CRE 20.3 LAB L501.1500 6.4-8. g/dL Normal 2 T PROT 6.8 LAB L501.1800 3.2-5. g/dL Normal 0 ALB 3.2 LAB L501.1950 2.2-4. g/dL Normal 2 GLOB 3.6 LAB L501.2000 0.9-2. RATIO Normal 4 A/G 0.9 LAB L501.2200 8.5-10 mg/dL Normal .1 CA 8.7 LAB L501.4100 15-37 U/L Normal AST 26 LAB L501.4305 45-117 U/L Normal ALK P 111 LAB L501.4405 13-56 U/L Normal ALT 24 Result Comment: Please note revised ALT reference range effective 2017. LAB L501.4600 0.20-1.00 mg/dL Normal T BILI 0.40 LAB L501.5300 136-145 mmol/L Low NA 131 LAB L501.5600 3.5-5.1 mmol/L Normal K 4.8 LAB L501.5900 98-107 mmol/L Normal CL 99 LAB L501.6100 21.0-32.0 mmol/L Normal CO2 28.0 LAB L501.6200 5-15 Low GAP 4 Performed By: #### L500.4050 #### [facility] [address] [place], [address] CANCER ANTIGEN 125 Collected: 03/02/2018 Status: F Source: [place] 10:08 AM [facility] REPOSITORY Order Comment: Reason for Laboratory Test . TYPE CODE TESTS RESULT OUT OF RANGE REFERENCE UNITS LAB L3100.5000 0.0-38.1 U/mL Normal CA125 8.7 2303 Result Comment: Edfa3ly ECLIA methodology Performed at: [facility] [employer] [address] [id number] [employer] Administrator: Jem Patel PhD, Phone: [phone] Performed By: #### L3100.5000 #### [facility] (refer to report for specific site) refer to report for address and phone number URGENT CARE VISIT Observed: 02/23/2018 Status: F Source: TANESHA REPORT 1:00 PM [facility] REPOSITORY [facility] [address] [place] [address] [address] [place] [address] OFFICE VISIT Date of Service: 02/23/18 MR#: [id number] Acct: [id number] Name: SOFYA MALDONADO Rep #: [id number] : 1940 Provider: Tommie TRAN Age/Sex: 77/F Location: [facility] [place] [place] Status: Signed Intake Vital Signs02/23/18 Height 4 ft 11 in Intake Visit Reasons: BRONCHITIS Is patient in pain?: No Allergies heparin Allergy (Severe, Verified 02/23/18 11:36) Low platelets aspirin Adverse Reaction (Severe, Verified 02/23/18 11:36) Nausea clarithromycin Adverse Reaction (Severe, Verified 02/23/18 11:36) Unknown cyclobenzaprine [Cyclobenzaprine] Adverse Reaction (Severe, Verified 02/23/18 11:36) Unknown meloxicam Adverse Reaction (Severe, Verified 02/23/18 11:36) Nausea tramadol HCl [From Ultram] Adverse Reaction (Severe, Verified 02/23/18 11:36) Vomiting Sulfa (Sulfonamide Antibiotics) Adverse Reaction (Verified 02/23/18 11:36) Unknown Medications Simvastatin [Zocor] 20 mg PO QHS 09/21/13 [History Confirmed 02/23/18] Acetaminophen [Tylenol] 500 mg PO Q4H PRN PRN 01/18/15 [History Confirmed 02/23/18] Hydrochlorothiazide 12.5 mg PO DAILY 01/18/15 [History Confirmed 02/23/18] Metoprolol Tartrate [Lopressor (beta odalys)] 25 mg PO BID #60 tab 03/09/15 [Rx Confirmed 02/23/18] Calcium Carb/Vitamin D [Os-Jeancarlos 500MG + D] 1 tab PO TID 03/23/15 [History Confirmed 02/23/18] Albuterol IH (ProAir) [Proair Hfa (SP)Vent Pts] 1 puff INHALATION Q4H PRN PRN 02/16/16 [History Confirmed 02/23/18] Cholecalciferol (VIT D3) [Vitamin D] 1,000 unit PO BID 02/16/16 [History Confirmed 02/23/18] Warfarin Sodium [Jantoven] 5 mg PO SUWE 02/16/16 [History Confirmed 02/23/18] Fexofenadine HCl [Dianne Allergy] 180 mg PO DAILY 02/26/17 [History Confirmed 02/23/18] Potassium Chloride 20 meq PO DAILY 02/26/17 [History Confirmed 02/23/18] Warfarin [Coumadin (PBKC)] 6 mg PO MOTUTHFRSA 08/25/17 [History Confirmed 02/23/18] Warfarin Sodium [Coumadin] 1 mg PO DAILY #30 tab 09/18/17 [Rx Confirmed 02/23/18] Warfarin Sodium [Coumadin] 5 mg PO DAILY #30 tab 10/13/17 [Rx Confirmed 02/23/18] Warfarin [Coumadin] 1 mg PO DAILY 30 Days #30 tab 01/08/18 [Rx Confirmed 02/23/18] Warfarin [Coumadin] 5 mg PO DAILY 30 Days #30 tab 01/08/18 [Rx Confirmed 02/23/18] albuterol sulfate HFA 90 mcg/actuation aerosol inhaler 2 puff INHALATION Q2H PRN PRN inhaler 02/23/18 [History Confirmed 02/23/18] azithromycin 250 mg tablet 250 mg PO QDAY 5 Days #6 tab 02/23/18 [Rx Confirmed 02/23/18] benzonatate 100 mg capsule 200 mg PO TID PRN #30 cap 02/23/18 [Rx Confirmed 02/23/18] fluticasone 50 mcg/actuation nasal spray,suspension 2 spray INTRANASAL DAILY 02/23/18 [History Confirmed 02/23/18] fluticasone 500 mcg-salmeterol 50 mcg/dose blistr powdr for inhalation 1 inh INHALATION BID ea 02/23/18 [History Confirmed 02/23/18] ipratropium-albuterol 0.5 mg-3 mg(2.5 mg base)/3 mL nebulization soln 3 ml INHALATION Q6H PRN #90 ml 02/23/18 [Rx Confirmed 02/23/18] PFSH Medical History Anemia (Acute) Arthritis (Acute) Asthma (Acute) Breast cancer (Acute) Fatigue (Acute) History of PE (Acute) Knee pain (Acute) Lung disease (Acute) SOB (shortness of breath) (Acute) HTN (hypertension) (Chronic) Surgical History H/O hernia repair (Acute) H/O lumpectomy (Acute) History of carpal tunnel surgery (Acute) History of hysterectomy (Acute) Hx of tonsillectomy (Acute) Family History Mother Arthritis Heart disease Hypertension CVA (cerebral vascular accident) Social History Smoking Status: Never smoker HPI HPI Details: SOFYA MALDONADO, is a 77 F with a pertinent past medical history of COPD who presents to the office today for wheezing, shortness of breath and congestion. Patient states that this episode started approximately 5 days ago with cough and congestion. She also states that she was to her PCPs office last Friday which is 3 days ago and was prescribed azithromycin. She states that since then her cough has not improved and she continues to have shortness of breath. Additionally patient has been using her albuterol inhaler 2 puffs every 4 hours which does help immediately however she quickly returns back to her baseline. She denies any hemoptysis or difficulty breathing. No fever, chills, sweats. No other associated symptoms or alleviating/aggravating factors. ROS Const Constitutional: No fever(s), chills, night sweats, abnormal sleep pattern or headache(s) ENT ENT: Positive for nasal discharge, nasal congestion and post nasal drip; no ear pain, ear discharge, sore throat or headache(s) Resp Respiratory: Positive for cough Cough: Yes non-productive, wheezing and pain with cough; no hemoptysis or shortness of breath Cardio Cardiology: No chest pain at rest or shortness of breath Neuro Neurology: No behavioral changes, confusion or headache(s) Psych Psychiatric: No abnormal sleep pattern, No behavioral changes, No confusion Aller/Imm Allergy/Immunologic: Positive for wheezing Exam Const General: cooperative, well developed HENMT Head: normal to inspection, atraumatic Ears: hearing grossly normal bilaterally Nose: nasal discharge clear Face and sinus: normal facial exam Mouth: oral mucosae normal Throat: abnormal tonsil bilaterally Resp Effort AND Inspection: normal respiratory effort, no audible wheezes Auscultation: Bilateral: Clear to Auscultation Cardio Palpation: normal PMI Rate: regular rate Rhythm: regular rhythm Neuro General: alert, CN's II-XI intact bilaterally Psych Appearance: grossly normal Mental Status: mental status grossly normal Assessment AND Plan Problems 1. SOB (shortness of breath) R06.02 Status Acute 2. Chronic obstructive pulmonary disease with acute exacerbation J44.1 3. Acute bronchitis, unspecified organism J20.9 Status Acute Plan Chest x-ray read and interpreted by myself to find no acute pulmonary disease. Awaiting radiology interpretation at time of dictation. Patient was given an albuterol breathing treatment in the office which did arise her SPO2 from 92 up to 96 posttreatment. Patient will be started on a second round of azithromycin as well as Tessalon Perles and duo nebs to be taken 4 times daily for the next 5 days. Encouraged to get plenty of rest, drink lots of clear liquids, and use Tylenol or Ibuprofen (unless contraindicated) for fever and comfort. Patient also educated on other symptomatic management techniques. To be seen in 7-10 days by her PCP if no improvement; sooner if worsening of symptoms. Patient advised of potential red flags and when appropriate report to the ED. Patient verbalized understanding of all the above. Orders Orders: Medications New: azithromycin Start on 02/25/18. Take 2 tabs once on day one then 250 mg PO QDAY 5 days take one tablet once daily for the next 4 days. Changed: Coding Level of Care Code Off vis,est,level 4 Diagnoses SOB (shortness of breath) R06.02 Chronic obstructive pulmonary disease with acute exacerbation J44.1 COPD type: COPD with acute exacerbation Acute bronchitis, unspecified organism J20.9 Bronchitis organism: unspecified organism 02/23/18 1300 <Electronically signed by Tommie TRAN> Date Tommie TRAN Cosigner Signature: Date (if applicable) CC: CHEST PA AND LATERAL Observed: 02/23/2018 Status: F Source: [place] 12:03 PM [facility] REPOSITORY [facility] Imaging Services [address] [place] [id number] Chest PA and Lateral MR#: [id number] Acct: [id number] Name: SOFYA MALDONADO Rep #: [id number] : 1940 F 77 From: Cliff Spence MD PCP: Jose Roberto Huerta MD, Chi Status: REG CLI Study: Chest PA and Lateral Date of Exam: 02/23/18 Exam# [id number] Ordering Dr: Tommie Waggoner STUDY: X-RAY CHEST REASON FOR EXAM: Female, 77 years old. Shortness of breath and cough x1 week TECHNIQUE: PA and lateral views of the chest. COMPARISON: 06/16/2015 FINDINGS: Lungs are hyperexpanded with chronic interstitial changes, no superimposed acute pulmonary process. There is no demonstrated pleural abnormality. Normal size heart. Normal mediastinum and sharona. Normal visualized pulmonary arteries. There is atherosclerotic calcification of the aortic arch with tortuosity. There are diffuse degenerative changes of the visualized thoracic spine. Normal visualized ribs, clavicles, and shoulders. There is no demonstrated abnormality of the visualized soft tissue structures of the upper abdomen. RAD/Chest PA and Lateral IMPRESSION: Hyperexpanded lungs with chronic interstitial changes, no superimposed acute pulmonary process Electronically Signed: Davion Spence MD at 12:26 EDT , Service support , CC: Tommie TRAN; Jose Roberto Huerta MD Graphic Designer: Signed CBC W/DIFF, AUTOMATED Collected: 02/20/2018 Status: F Source: [place] 12:14 PM [facility] REPOSITORY TYPE CODE TESTS RESULT OUT OF RANGE REFERENCE UNITS LAB L100.1000 4.4-11.0 K/mm3 Low WBC 4.2 LAB L100.1200 4.2-5.4 M/mm3 Normal RBC 4.87 LAB L100.1300 12.0-15.0 g/dl Normal HGB 14.5 LAB L100.1400 37-47 % Normal HCT 44.3 LAB L100.1500 81-99 fL Normal MCV 91.0 LAB L100.1600 27.0-32.0 pg Normal MCH 29.8 LAB L100.1700 32-36 g/gl Normal MCHC 32.7 LAB L100.1810 11.6-14.6 % Normal RDW CV 13.5 LAB L100.1820 35.1-43.9 fl High RDW SD 44.6 LAB L100.1900 150-450 K/mm3 Normal PLT 192 LAB L100.2000 6.2-12.0 fl Normal MPV 10.4 LAB L100.2100 47-70 % Normal NEUT% 62.5 LAB L100.2200 19-41 % Low LY% 17.5 LAB L100.2300 0-10 % High MONO% 18.5 LAB L100.2400 0-5 % Normal EO% 1.0 LAB L100.2500 0-1 % Normal BASO% 0.5 LAB L100.2550 0.0-0.9 % Normal IM GRAN % 0.000 Result Comment: IG% - Immature Granulocytes (promyelocytes, myelocytes and metamyelocytes) > 1% indicates that a LEFT SHIFT is Present. LAB L100.2620 2.0-7.7 X10 3/uL Normal Absolute Neut 2.6 LAB L100.2720 0.83-4.51 X10 3/ul Low Absolute Lymph 0.73 Performed By: #### L100.0100 #### [facility] [address] [place], [address] VITAMIN D,25 HYDROXY Collected: 02/20/2018 Status: F Source: [place] 12:14 PM [facility] REPOSITORY TYPE CODE TESTS RESULT OUT OF RANGE REFERENCE UNITS LAB L506.1000 29.95-100.01 ng/mL Normal Vitamin D 55.8 25-OH Result Comment: Vitamin D 25(OH) Status Range Deficiency <20 ng/mL (50nmol/L) Insuffciency 20 - 30 ng/mL (50 - 75 nmol/L) Sufficiency 30 - 100 ng/mL (75 - 250 nmol/L) Toxicity >100 ng/mL (>250 nmol/L) Performed By: #### L506.1000 #### [facility] [address] [place], [address] COMPREHENSIVE METABOLIC Collected: 02/20/2018 Status: F Source: [facility] 12:14 PM [facility] REPOSITORY TYPE CODE TESTS RESULT OUT OF RANGE REFERENCE UNITS LAB L501.0100 74-106 mg/dL Normal GLU 93 Result Comment: Please note revised GLUCOSE reference range effective 2018. LAB L501.1000 7-18 mg/dL Normal BUN 12 LAB L501.1100 0.55-1.02 mg/dL Normal CREAT,SERUM 0.69 Result Comment: The validity of the calculated GFR AND GFRAA in patients over 70 years has not been determined. Clinical correlation is essential. LAB L501.1110 >60 mL/min Normal EST GFR 87 Result Comment: Non- GFR Calc LAB L501.1115 >60 mL/min Normal EST GFR - AA 105 Result Comment: GFR Calc LAB L501.1300 10-20 RATIO Normal BUN/CRE 17.3 LAB L501.1500 6.4-8.2 g/dL T Normal PROT 6.9 LAB L501.1800 3.2-5.0 g/dL Normal ALB 3.4 LAB L501.1950 2.2-4.2 g/dL Normal GLOB 3.5 LAB L501.2000 0.9-2.4 RATIO Normal A/G 1.0 LAB L501.2200 8.5-10.1 mg/dL CA Normal 8.9 LAB L501.4100 15-37 U/L Normal AST 22 LAB L501.4305 45-117 U/L Normal ALK P 101 LAB L501.4405 13-56 U/L Normal ALT 22 Result Comment: Please note revised ALT reference range effective 2017. LAB L501.4600 0.20-1.00 mg/dL Normal T BILI 0.30 LAB L501.5300 136-145 mmol/L Low NA 134 LAB L501.5600 3.5-5.1 mmol/L Normal K 4.4 LAB L501.5900 98-107 mmol/L Normal CL 98 LAB L501.6100 21.0-32.0 mmol/L Normal CO2 30.0 LAB L501.6200 5-15 Normal GAP 6 Performed By: #### L500.4050, L501.9520 #### [facility] [address] [place], [place], [address] THYROID STIM HORMONE Collected: 02/20/2018 Status: F Source: [place] (TSH) 12:14 PM [facility] REPOSITORY TYPE CODE TESTS RESULT OUT OF RANGE REFERENCE UNITS LAB L501.9520 0.358-3.74 uIU/mL Normal TSH 1.77 Performed By: #### L500.4050, L501.9520 #### [facility] [address] [place], [address] PROTHROMBIN TIME W/INR Collected: 02/02/2018 Status: F Source: [place] 9:55 AM [facility] REPOSITORY Order Comment: Reason for Laboratory Test VTE TYPE CODE TESTS RESULT OUT OF RANGE REFERENCE UNITS LAB L300.4150 11.7-14.9 SECONDS High PROTIME 24.3 LAB L300.4200 Normal INR 2.2 Performed By: #### L300.3900 #### [facility] [address] [place], [place], [address] SCREENING MAMM (CAD), Observed: 01/23/2018 Status: F Source: [place] BILAT 9:08 AM [facility] REPOSITORY [facility] Imaging Services [address] [place] [address] SCREENING MAMM (CAD), BILAT MR#: [id number] Acct: [id number] Name: SOFYA MALDONADO Rep #: [id number] : 1940 F 77 From: Jaylon Boone MD PCP: Deanna MCNAMARA,Jose Roberto Mckeon Status: REG CLI Study: SCREENING MAMM (CAD), BILAT Date of Exam: 01/23/18 Exam# [id number] Ordering Dr: Darren Marie MD MAMMOGRAPHY - BILATERAL SCREENING REASON FOR EXAM: Female, 77 years old. Routine annual screening examination. PERTINENT HISTORY: Personal history of breast cancer. Prior left lumpectomy with radiation treatment. TECHNIQUE: Digital bilateral breast carlos (3D mammographic acquisition) in the CC and MLO projections. 2-D mediolateral oblique (MLO) and craniocaudad (CC) views of both breasts were obtained. CAD: Full Field Digital Mammography with Computer Added Detection was performed. COMPARISON: Comparison is made with prior mammogram dated January 10, 2017 and December 29, 2015. FINDINGS: Breast Composition: There are scattered areas of fibroglandular density. There are no dominant masses or suspicious calcifications. Stable architectural distortion and deformity of the upper outer quadrant of the left breast in keeping with prior lumpectomy. 2 tissue clip markers are seen in that region. No other significant abnormalities are identified. There has been no significant change since the prior study. HPBI/SCREENING MAMM (CAD), BILAT IMPRESSION: Stable bilateral screening mammogram. Yearly follow-up mammogram recommended. (A) ASSESSMENT CATEGORY: BIRADS Category 2: Benign. A letter regarding these results will be sent to the patient by the facility within 30 days. Approximately 10% of breast cancers are not detected by mammography. A normal mammogram should not delay biopsy of a clinically suspicious abnormality. [id number] Electronically Signed: Jaylon Boone MD at 11:21 EST Tel [phone], Service support , CC: Darren Marie MD; Jose Roberto Huerta MD Graphic Designer: Signed RADIATION ONC F/U NOTE Observed: 01/16/2018 Status: F Source: [facility] 1:00 PM SYSTEM REPOSITORY PATIENT: SOFYA MALDONADO DATE OF SERVICE: 01/16/2018 : 1940 AGE: 77 Electronically Authenticated Blanca Mercado MD 01/19/2018 02:58 P PRIMARY SITE AND HISTOPATHOLOGY: Uterus, grade 2 endometrioid adenocarcinoma. STAGE: pT1a N0 M0, IA. HISTORY: This is a 77-year-old female who underwent a total robotic hysterectomy, BSO, bilateral pelvic node dissection on June 13, 2016. She was seen by Dr. Montejo and underwent HDR vaginal cuff brachytherapy at 3 fractions with completion on August 14, 2016. The patient comes in today for routine yearly follow-up. She sees Dr. Haque every 6 months. She notes that things are going well. She still uses the vaginal dilator twice a week. She denies any vaginal discharge, bleeding, bowel, or bladder issues. She is asking about discharge from our department due to the transportation issues to come to [place]. She is aware of a radiation oncologist at [facility] that she would like to follow up with if needed. She has requested records to be sent to his office. ALLERGIES: MELOXICAM, CYCLOBENZAPRINE, BIAXIN, BACTRIM, HEPARIN, ASPIRIN, AND TRAMADOL. MEDICATIONS: Metoprolol, hydrochlorothiazide, simvastatin, ProAir, Advair, calcium, Tylenol, D3, fluticasone, fexofenadine, warfarin, and potassium. PHYSICAL EXAMINATION: Alert, oriented, pleasant female. Blood pressure is 174/64 with pulse of 59, respiratory rate is 16, temperature is 98.1 degrees, and weight is 208 pounds which is stable from last year. Abdomen is soft, obese without hepatosplenomegaly or suspicious mass. Skin under the pannus and the groin area is intact and in good condition. Pelvic examination reveals normal external genitalia. Exam continues show a large rectocele and cystocele. The vaginal mucosa does not show sign of suspicious mass or ulceration. Minimal scarring is noted in the apical region. Rectal exam does not show suspicious mass up to approximately 6-cm level. IMPRESSION/PLAN: This is a 77-year-old female with history of uterine cancer. She is doing well post-treatment. 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 We will send the records to the physician that she has requested above. She knows if any questions or concerns ever to arise she can call us. We thank you for the consultation. Magma Flooringriter Job ID: [id number] Blanca Mercado MD DOD:01/16/2018 01:00 P DED/dsk DOT:01/17/201801:31 A cc: Pedro Brown MD [address] [facility] [address] [facility] [address] CBC W/DIFF, AUTOMATED Collected: 01/05/2018 Status: F Source: [place] 9:13 AM [facility] REPOSITORY Order Comment: Reason for Laboratory Test . TYPE CODE TESTS RESULT OUT OF RANGE REFERENCE UNITS LAB L100.1000 4.4-11.0 K/mm3 Low WBC 3.8 LAB L100.1200 4.2-5.4 M/mm3 Normal RBC 4.67 LAB L100.1300 12.0-15.0 g/dl Normal HGB 13.7 LAB L100.1400 37-47 % Normal HCT 43.2 LAB L100.1500 81-99 fL Normal MCV 92.5 LAB L100.1600 27.0-32.0 pg Normal MCH 29.3 LAB L100.1700 32-36 g/gl Low MCHC 31.7 LAB L100.1810 11.6-14.6 % Normal RDW CV 13.6 LAB L100.1820 35.1-43.9 fl High RDW SD 45.3 LAB L100.1900 150-450 K/mm3 Normal PLT 181 LAB L100.2000 6.2-12.0 fl Normal MPV 10.0 LAB L100.2100 47-70 % Normal NEUT% 62.3 LAB L100.2200 19-41 % Normal LY% 21.4 LAB L100.2300 0-10 % High MONO% 14.0 LAB L100.2400 0-5 % Normal EO% 1.8 LAB L100.2500 0-1 % Normal BASO% 0.5 LAB L100.2550 0.0-0.9 % Normal IM GRAN % 0.000 Result Comment: IG% - Immature Granulocytes (promyelocytes, myelocytes and metamyelocytes) > 1% indicates that a LEFT SHIFT is Present. LAB L100.2620 2.0-7.7 X10 3/uL Normal Absolute Neut 2.4 LAB L100.2720 0.83-4.51 X10 3/ul Low Absolute Lymph 0.81 Performed By: #### L100.0100, L500.4050 #### [facility] [address] [place], [address] COMPREHENSIVE METABOLIC Collected: 01/05/2018 Status: F Source: [facility] 9:13 AM [facility] REPOSITORY Order Comment: Reason for Laboratory Test . TYPE CODE TESTS RESULT OUT OF RANGE REFERENCE UNITS LAB L501.0100 74-106 mg/dL Normal GLU 81 LAB L501.1000 7-18 mg/dL Normal BUN 10 LAB L501.1100 0.55-1.02 mg/dL Normal 0.72 CREAT,SERUM Result Comment: The validity of the calculated GFR AND GFRAA in patients over 70 years has not been determined. Clinical correlation is essential. LAB L501.1110 >60 mL/min Normal EST GFR 83 Result Comment: Non- GFR Calc LAB L501.1115 >60 mL/min Normal EST GFR - AA 101 Result Comment: GFR Calc LAB L501.1255 ml/min Normal Estimated CRCL 71.76 LAB L501.1300 10-20 RATIO Normal BUN/CRE 13.8 LAB L501.1500 6.4-8. g/dL Normal 2 T PROT 6.5 LAB L501.1800 3.2-5. g/dL Low 0 ALB 3.0 LAB L501.1950 2.2-4. g/dL Normal 2 GLOB 3.5 LAB L501.2000 0.9-2. RATIO Normal 4 A/G 0.9 LAB L501.2200 8.5-10 mg/dL Normal .1 CA 8.6 LAB L501.4100 15-37 U/L Normal AST 20 LAB L501.4305 45-117 U/L Normal ALK P 103 LAB L501.4405 13-56 U/L Normal ALT 21 Result Comment: Please note revised ALT reference range effective 2017. LAB L501.4600 0.20-1.00 mg/dL Normal T BILI 0.50 LAB L501.5300 136-145 mmol/L Normal NA 138 LAB L501.5600 3.5-5.1 mmol/L Normal K 4.0 LAB L501.5900 98-107 mmol/L Normal CL 101 LAB L501.6100 21.0-32.0 mmol/L Normal CO2 30.0 LAB L501.6200 5-15 Normal GAP 7 Performed By: #### L100.0100, L500.4050 #### [facility] [address] [place], [place], [address] PROTHROMBIN TIME W/INR Collected: 01/05/2018 Status: F Source: [place] 9:13 AM [facility] REPOSITORY Order Comment: Reason for Laboratory Test . TYPE CODE TESTS RESULT OUT OF RANGE REFERENCE UNITS LAB L300.4150 11.7-14.9 SECONDS High PROTIME 24.6 LAB L300.4200 Normal INR 2.3 Performed By: #### L300.3900 #### [facility] [address] [place], [address] ALLERGIES ALLERGIES DATE TYPE / NAME / CODE REACTION SEVERITY SOURCE CODE 12/12/2018 Drug tramadol Vomiting [place] Allergy/41 HCl/[id number](RXNORM) [facility] [id number]([facility]) Repository 12/12/2018 Drug Sulfa (Sulfonamide Vomiting SV [place] Allergy/41 Antibiotics)/[id number] [facility] 3168245(SN 1(RXNORM) [facility]) Repository 12/12/2018 Drug aspirin/R119327373(RXN Nausea [facility] [place] Allergy/41 ORM) [facility] 6522019([facility]) Repository 12/12/2018 Drug clarithromycin/V589316 Unknown [facility] [place] Allergy/41 608(RXNORM) Community 3713166([facility]) Repository 12/12/2018 Drug cyclobenzaprine/N17502 Unknown SV [place] Allergy/41 4680(RXNORM) Community 2505905([facility]) Repository 12/12/2018 Drug meloxicam/R330200987(R Nausea [place] Allergy/41 XNORM) Community 4211765([facility]) Repository 12/12/2018 Drug heparin/O803335468(RXN Low platelets SV [place] Allergy/41 ORM) Community 0100780([facility]) Repository 11/15/2016 DRUG HEPARIN UNKNOWN [place] [address] [facility] 1093208([facility]) Repository 11/15/2016 DRUG TRAMADOL UNKNOWN [place] [address] [facility] Main 9749226([facility]) Repository 06/18/2013 DRUG [facility]IRIN GI [facility]ET [place] [facility] 2507407( [place] [facility] Repository 04/12/2013 DRUG SULFAMETHOXAZOLE GI UPSET [place] [address] [facility] Main 5233446([facility]) Repository 04/12/2013 DRUG CLARITHROMYCIN GI UPSET [place] [address] [facility] Main 7784603( [place] [facility]) Repository 12/30/2012 DRUG CYCLOBENZAPRINE UNKNOWN [place] [address] [facility] Main 2081483([facility]) Repository 12/30/2012 DRUG MELOXICAM OTHER: SEE C [place] [address] [facility] Main 3711303( [place] [facility]) Repository 06/07/2011 Environ/42 SEASONAL ALLERGIES OTHER: SEE C [place] 9833437([facility] Main [facility] [place] Repository ENCOUNTERS ENCOUNTERS ADMIT/DISCHARGE ACCOUNT NUMBER ADMITTING ENCOUNTER LOCATION SOURCE CLASS 12/24/2018 [id number] [facility] ding:RAD Repository 12/23/2018 [id number] [facility] ding:OPBD Repository 12/12/2018/12/12/19 [id number] Ambulatory BMSBuilding: [place] 19 BMS.[facility] Hospital Repository 12/07/2018 [id number] Ambulatory [facility] ding:ONC Repository 10/12/2018 [id number] Ambulatory BMSBuilding: [place] [facility]MS.[facility] Repository 09/05/2018/09/05/20 [id number] Ambulatory BMSBuilding: [place] 18 BMS.[facility] Repository 08/28/2018 [id number] Ambulatory [facility] ding:POLAB3 Repository 08/22/2018/08/22/20 [id number] Emergency [address] ding:ED Repository 06/22/2018 [id number] Ambulatory BMSBuilding: [place] [facility]MS[facility] Repository 06/10/2018/06/10/20 [id number] Ambulatory BMSBuilding: [place] 18 BMS.[facility] Repository 04/28/2018 [id number] Ambulatory [facility] ding:LAB Repository 03/23/2018 [id number] Ambulatory BMSBuilding: [place] [facility]MS[facility] Repository 03/13/2018/03/18/20 [id number] Ambulatory [address] Repository 03/09/2018 [id number] Ambulatory [facility] Repository 02/23/2018 [id number] Ambulatory [facility] ding:HPRAD Repository 02/23/2018/02/24/20 [id number] Ambulatory BMSBuilding: [place] 18 BMS.[facility] Repository 02/20/2018 [id number] Ambulatory [facility] ding:POLAB3 Repository 01/23/2018 [id number] Ambulatory [facility] ding:BI Repository PAYERS PAYERS ENCOUNTER GUARANTOR PAYER SUBSCRIBER SOURCE 12/24/2018 SOFYA Link Primary SOFYA [id number] Insurance:[facility]: Community [address] MEDICAREPolicy [id number] Number: Repository [address]Fez: (330 [id number] [phone] (HP) Date:8377-10-62Bp [address] [place] [address] 837[address]VS: 12/24/2018 Secondary NOT GIVENUNK [place] Insurance:SELF PAY [facility] Number: Effective Repository Date:2018-12-24 12/23/2018 SOFYA J Primary SOFYA J [place] [id number] Insurance:SUMMA CARE MCCULLYDOB: Community [address] [facility] [id number] Number: Repository [address]Oog: 330 [id number] [phone] (HP) Date:5425-17-42Sx [address] [place] [address] 695[address]SG: 12/23/2018 Secondary NOT GIVENUNK [place] Insurance:SELF PAY [facility] Number: Effective Repository Date:2018-11-06 12/12/2018 SOFYA J Primary SOFYA J [place] [id number] Insurance:SUMMA CARE MCCULLYDOB: Community [address] MEDICAREPolicy [id number] Number: Repository [address]Gxi: (330 [id number] [phone] (HP) Date:6108-64-18Qu [address] [place] [address] 750[address]QE: 12/12/2018 Secondary NOT GIVENUNK [place] Insurance:SELF PAY [facility] Number: Effective Repository Date:2018-12-12 12/07/2018 SOFYA J Primary SOFYA J [place] [id number] Insurance:SUMMA CARE MCCULLYDOB: Community [address] MEDICAREPolicy [id number] Number: Repository [address]Dng: (330 [id number] [phone] (HP) Date:2988-04-35Bj [address] [place] [address]23[address]IM: 12/07/2018 Secondary NOT GIVENUNK [place] Insurance:SELF PAY [facility] Number: Effective Repository Date:2017-03-25 10/12/2018 SOFYA J Primary SOFYA J [place] [id number] Insurance:SUMMA CARE MCCULLYDOB: Community TRICIA DIALLO MEDICAREPolicy [id number] Number: Repository [address]Hwi: 330 [id number] [phone] (HP) Date:2534-39-91Ns [address] [address]CH: 10/12/2018 Secondary NOT GIVENUNK [place] Insurance:SELF PAY [facility] Number: Effective Repository Date:2018-10-12 09/05/2018 SOFYA J Primary SOFYA J [place] [id number] Insurance:SUMMA CARE MCCULLYDOB: Community TRICIA DIALLO MEDICAREPolicy [id number] Number: Repository [address]Kcp: 330 [id number] [phone] (HP) Date:5798-15-31Ss [address] [address]YA: 09/05/2018 Secondary NOT GIVENUNK [place] Insurance:SELF PAY [facility] Number: Effective Repository Date:2018-09-05 08/28/2018 SOFAY J Primary SOFYA [place] [id number] Insurance:COMMERCIAL MCCULLYDOB: [facility] Number: [id number] [id number] Repository [address]Zkw: (330) Date:8167-39-32WUDJRJ [phone] (HP) [place] [address] [place], [place] [address]CD: 08/28/2018 Secondary SOFYA J [place] Insurance:SUMMA CARE MCCULLYDOB: Community MEDICAREPolicy [id number] Hospital Number: Repository [id number] Date:3111-78-98Oy [address] [address]UE: 08/28/2018 Tertiary NOT GIVENUNK [place] Insurance:SELF PAY [facility] Number: Effective Repository Date:2018-08-28 08/22/2018 SOFYA J Primary SOFYA J [place] [id number] Insurance:COMMERCIAL MCCULLYDOB: Community [address] OTHERPhysicians Care Surgical Hospitaly Number: [id number] [id number] Repository [address]Plj: (330) Date:2418-58-96SQPPWG [phone] (HP) [facility] [place], [place] [address]IL: 08/22/2018 Secondary SOFYA J [place] Insurance:SUMMA CARE MCCULLYDOB: Community [facility] [id number] Hospital Number: Repository [id number] Date:7502-19-61Wa [address] [place] [address]TC: 08/22/2018 Tertiary NOT GIVENUNK [place] Insurance:SELF PAY [facility] Number: Effective Repository Date:2018-08-22 06/22/2018 Sofya J Primary Sofya J [place] [id number] Insurance:SUMMA CARE MccullyDOB: Community [address] [facility] [id number] Number: Repository [address]Jxc: 330 [id number] [phone] (HP) Date:3082-47-58Eh [address] [address]UX: 06/22/2018 Secondary NOT GIVENUNK [place] Insurance:SELF PAY [facility] Number: Effective Repository Date:2018-06-22 06/10/2018 Sofya J Primary Sofya J [place] [id number] Insurance:SUMMA CARE MccullyDOB: Community [address] [facility] [id number] Number: Repository [address]Oie: 330 [id number] [phone] (HP) Date:8180-01-85We [address] [address]TG: 06/10/2018 Secondary NOT GIVENUNK [place] Insurance:SELF PAY [facility] Number: Effective Repository Date:2018-06-10 04/28/2018 Sofya J Primary Sofya Almendarez [id number] Insurance:SUMMA CARE MccullyDOB: Community TRICIA DRMUNA MEDICAREPolicy [id number] Number: Repository [address]Lze: 330 [id number] [phone] (HP) Date:8494-48-76Ns [address] [place] [address]DS: 04/28/2018 Secondary NOT GIVENUNK [place] Insurance:SELF PAY [facility] Number: Effective Repository Date:2018-04-28 03/23/2018 Sofya J Primary Sofya Almendarez [id number] Insurance:SUMMA CARE MccullyDOB: [facility] Tricia Diallo MEDICAREPolicy [id number] Number: Repository [address]Btm: 330 [id number] [phone] (HP) Date:7224-93-98Zz [address] [place] [address]EI: 03/23/2018 Secondary NOT GIVENUNK [place] Insurance:SELF PAY [facility] Number: Effective Repository Date:2018-03-23 03/09/2018 Sofya J Primary Sofya Link [facility] NampayDOB: System [id number] licy Number: [id number] Repository [address] Effective Date: [address] [place] [address]Rch: (HP) 02/23/2018 Sofya J Primary Sofya Almendarez [id number] Insurance:SUMMA CARE MccullyDOB: Community Tricia DrA[address] MEDICAREPolicy [id number] Number: Repository [address]Fnr: 330 [id number] [phone] (HP) Date:6651-45-48Xg [address], [place] [address]YK: 02/23/2018 Secondary NOT GIVENUNK [place] Insurance:SELF PAY [facility] Number: Effective Repository Date:2018-02-23 02/23/2018 Sofya J Primary Sofya Almendarez [id number] Insurance:SUMMA CARE MccullyDOB: Community [address] MEDICAREPolicy [id number] Number: Repository [address]Qnz: 330 [id number] [phone] (HP) Date:2404-36-11Rm [address] [place] [address] 003[address]DI: 02/23/2018 Secondary NOT GIVENUNK [place] Insurance:SELF PAY [facility] Number: Effective Repository Date:2018-02-23 02/20/2018 Sofya J Primary Sofya Almendarez [id number] Insurance:SUMMA CARE MccullyDOB: Community Tricia DrApt MEDICAREPolicy [id number] Number: Repository [address]Prj: 330 [id number] [phone] (HP) Date:8053-13-07Wb [address] [place] [address] 9[address]QX: 02/20/2018 Secondary NOT GIVENUNK [place] Insurance:SELF PAY [facility] Number: Effective Repository Date:2018-02-20 01/23/2018 Sofya J Primary Sofya Almendarez [id number] Insurance:SUMMA CARE Mccpembroke hospitalyDOB: Community Tricia GodinezApt MEDICAREPolicy [id number] Number: Repository [address]Ijl: 330 [id number] [phone] (HP) Date:9279-97-37Ox [address] [place] [address] 312[address]AA: 01/23/2018 Secondary NOT GIVENUNK [place] Insurance:SELF PAY [facility] Number: Effective Repository Date:2017-12-26
== END ==
PROVIDERS: Family Provider Family Medicine Geriatric Medicine; PCP Family Medicine Geriatric Medicine; Referring Provider Obstetrics & Gynecology; Visit Provider Obstetrics & Gynecology
DX: Z13.820 Encounter for screening for osteoporosis (principal); Z78.0 Asymptomatic menopausal state
CPT/HCPCS: 77080

== ENCOUNTER → 2018-12-24 10:04 | Outpatient (CLI) | payer MEDICARE, SELFPAY ==
[2018-12-12 12:42] VITALS: BMI 41.8
--- NOTE | 2018-12-24 10:07 | RAD_ITS ---
STUDY: X-RAY - LEFT KNEE REASON FOR EXAM: Female, 78 years old. Pain TECHNIQUE: 4 view(s) of the knee. COMPARISON: None. FINDINGS: There are spurs from the T1 of the condyles and from the margins of the patella. There are no acute fractures and no knee joint effusion. The quadriceps and patellar tendons are normal. RAD/Knee 4 or More Views IMPRESSION: Moderate osteoarthritis of the left knee. No fracture Electronically Signed: Hank Valdivia MD at 5:33 EST Tel , Service support ,
== END ==
PROVIDERS: Family Provider Family Medicine Geriatric Medicine; PCP Family Medicine Geriatric Medicine; Referring Provider Family Medicine Geriatric Medicine; Visit Provider Family Medicine Geriatric Medicine
DX: M25.562 Pain in left knee (principal)
CPT/HCPCS: 73564

== ENCOUNTER → 2019-01-25 09:18 | Outpatient (CLI) | payer MEDICARE, SELFPAY ==
--- NOTE | 2019-01-25 09:21 | BI_ITS ---
MAMMOGRAPHY - BILATERAL SCREENING REASON FOR EXAM: Female, 78 years old. Routine annual screening examination. PERTINENT HISTORY: Personal history of breast cancer. History of prior left stereotactic breast biopsies and left lumpectomy with radiation treatment. TECHNIQUE: Digital bilateral breast carlos (3D mammographic acquisition) in the CC and MLO projections. 2-D mediolateral oblique (MLO) and craniocaudad (CC) views of both breasts were obtained. CAD: Full Field Digital Mammography with Computer Added Detection was performed. COMPARISON: Comparison is made with prior study dated January 23, 2018 and January 10, 2017. FINDINGS: Breast Composition: There are scattered areas of fibroglandular density. There are no dominant masses or suspicious calcifications. The left breast is smaller than the right. Stable architectural distortion and deformity of the upper outer quadrant of the left breast and compared with prior lumpectomy. 2 tissue markers are seen in the deep upper lateral portion of the left breast. No other significant abnormalities are identified. There has been no significant change since the prior study. BI/SCREENING MAMM (CAD), BILAT IMPRESSION: Stable bilateral screening mammogram. Yearly follow-up mammogram recommended. (A) ASSESSMENT CATEGORY: BIRADS Category 2: Benign. A letter regarding these results will be sent to the patient by the facility within 30 days. Approximately 10% of breast cancers are not detected by mammography. A normal mammogram should not delay biopsy of a clinically suspicious abnormality. [id number] Electronically Signed: Jaylon Boone, at 8:54 EST , Service support ,
== END ==
PROVIDERS: Family Provider Family Medicine Geriatric Medicine; PCP Family Medicine Geriatric Medicine; Referring Provider Surgery; Visit Provider Surgery
DX: Z12.31 Encounter for screening mammogram for malignant neoplasm of breast (principal); Z85.3 Personal history of malignant neoplasm of breast; C54.1 Malignant neoplasm of endometrium; I82.90 Acute embolism and thrombosis of unspecified vein; Z79.01 Long term (current) use of anticoagulants
CPT/HCPCS: 36415; 77063; 77067; 85610

== ENCOUNTER → 2019-02-26 10:33 | Outpatient (CLI) | payer MEDICARE, SELFPAY ==
[2019-02-08 10:51] VITALS: BMI 42.6
[2019-02-26 11:14] LABS: Absolute Lymphocyte Count 1.08 X10^3/ul (0.83-4.51); Absolute Neutrophil Count 3.9 X10^3/uL (2.0-7.7); Basophil# 0.03 X10^3/uL; Basophil% 0.5 % (0-1); Eosinophil# 0.08 X10^3/uL; Eosinophils% 1.4 % (0-5); Hematocrit 46.5 % (37-47); Hemoglobin 14.7 g/dl (12.0-15.0); Lymphocyte # 1.08 X10^3/ul (4.0); Lymphocyte % 18.4 % (19-41); Mean Corp Hgb Conc 31.6 g/gl (32-36); Mean Corpuscular Hgb 29.3 pg (27.0-32.0); Mean Corpuscular Volume 92.6 fL (81-99); Mean Platelet Vol. 9.3 fl (6.2-12.0); Monocyte# 0.77 X10^3/uL; Monocyte% 13.1 % (0-10); Neutrophil # 3.89 X10^3/uL (2.7-7.7); Neutrophil % 66.4 % (47-70); POSITIVE COUNT NO; POSITIVE DIFFERENTIAL NO; POSITIVE MORPHOLOGY NO; Platelet Count 229 K/mm3 (150-450); RBC Distribution Width CV 14.4 % (11.6-14.6); RBC Distribution Width SD 47.3 fl (35.1-43.9); Red Blood Count 5.02 M/mm3 (4.2-5.4); White Blood Count 5.9 K/mm3 (4.4-11.0)
[2019-02-26 11:47] LABS: Vitamin D,25 Hydroxy 64.2 ng/mL (29.95-100.01)
[2019-02-26 11:54] LABS: ALB/GLOB Ratio 0.9 RATIO (0.9-2.4); AST(SGOT) 21 U/L (15-37); Alanine Aminotransfer ALT/SGPT 22 U/L (13-56); Albumin, Serum 3.4 g/dL (3.2-5.0); Alkaline Phosphatase 108 U/L (45-117); Anion Gap 5 (5-15); BUN 16 mg/dL (7-18); BUN/Creat Ratio 22.9 RATIO (10-20); Calcium,Total 9.2 mg/dL (8.5-10.1); Chloride 104 mmol/L (98-107); EST Glomerular Filtration Rate 86 mL/min (>60); Est Glom Filt Rate - Afr Amer 104 mL/min (>60); Globulin 3.7 g/dL (2.2-4.2); Glucose 95 mg/dL (74-106); Potassium 4.2 mmol/L (3.5-5.1); Protein, Total 7.1 g/dL (6.4-8.2); Sodium Level 140 mmol/L (136-145); Thyroid Stim Hormone (TSH) 1.32 uIU/mL (0.358-3.74)
== END ==
PROVIDERS: Family Provider Family Medicine Geriatric Medicine; PCP Family Medicine Geriatric Medicine; Referring Provider Family Medicine Geriatric Medicine; Visit Provider Family Medicine Geriatric Medicine
DX: I10 Essential (primary) hypertension (principal); E55.9 Vitamin D deficiency, unspecified
CPT/HCPCS: 36415; 80053; 82306; 84443; 85025

== ENCOUNTER 2019-05-25 19:55 | Emergency (ER) | payer MEDICARE, SELFPAY ==
[2019-03-23 11:25] VITALS: BMI 42.6
[2019-05-25 19:55] VITALS: BP 161/87; PULSE 98; RESP 18; TEMP 36.7; O2SAT 93; BMI 36.1
--- NOTE | 2019-05-25 20:24 | ED.VIS.GEN ---
History of Present Illness Chief Complaint: Rash Informant: Patient, Family Onset: Today Narrative: Rash left leg this evening. Nonpainful. States mild itching lower aspect of the leg. Denies trauma. No recent illness. No fevers. Patient on warfarin for history of PE back in 2014. 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 She is followed by Dr. Cole, states has an appointment coming up on 07 June for follow-up. States platelets have improved. Prior similar symptoms: No Past Medical History - Allergies and Home Meds Allergies/Adverse Reactions: Allergies heparin Allergy (Severe, Verified 05/25/19 20:07) Low platelets Patient coded. sulfamethoxazole [From Bactrim] Allergy (Severe, Verified 05/25/19 20:07) Unknown trimethoprim [From Bactrim] Allergy (Severe, Verified 05/25/19 20:07) Unknown prednisone Allergy (Verified 05/25/19 20:07) Unknown aspirin Adverse Reaction (Severe, Verified 05/25/19 20:07) Nausea clarithromycin Adverse Reaction (Severe, Verified 05/25/19 20:07) Unknown thinks made her nauseated- cant recall for certain cyclobenzaprine [Cyclobenzaprine] Adverse Reaction (Severe, Verified 05/25/19 20:07) Unknown meloxicam Adverse Reaction (Severe, Verified 05/25/19 20:07) Nausea shakes Sulfa (Sulfonamide Antibiotics) Adverse Reaction (Severe, Verified 05/25/19 20:07) Vomiting tramadol HCl [From Ultram] Adverse Reaction (Severe, Verified 05/25/19 20:07) Vomiting Primary Care Physician: Perez Martinez Chi, MD [Primary Care Provider] - Surgical History: herniorrhaphy - 01/25/15, - - PE/DVT 02/02/[address] Smoking Status: Never smoker - Family History Maternal Family History: Family History (Last Reviewed 03/23/19 @ 11:24 by Rubina Bucio) Mother Arthritis Heart disease Hypertension CVA (cerebral vascular accident) Family History: Reports: Pulmonary Disease - age 83 Paternal Family History: Family History (Last Reviewed 03/23/19 @ 11:24 by Rubina Bucio) Mother Arthritis Heart disease Hypertension CVA (cerebral vascular accident) Family History: Reports: Cancer - age 73, esophageal Offspring Family History: Family History (Last Reviewed 03/23/19 @ 11:24 by Rubina Bucio) Mother Arthritis Heart disease Hypertension CVA (cerebral vascular accident) Family History: Reports: - - 2 children 5 grand children, in good health Review of Systems General: Denies: Chills, Fever, Sweats Eyes: Denies: Visual changes - bilaterally, Diplopia ENT: Denies: Rhinorrhea, Sore throat Cardiovascular: Denies: Chest pain, Palpitations Respiratory: Denies: Dyspnea, Cough, Dyspnea on exertion Gastrointestinal: Denies: Abdominal pain, Nausea, Vomiting, Diarrhea, Melena, Hematochezia Genitourinary: Denies: Dysuria, Hematuria, Frequency Musculoskeletal: Denies: Back pain, Extremity Pain Skin: Reports: Rash. Denies: Wounds Neurological: Denies: Headache, Weakness, Numbness Physical Exam Vital Signs/Narrative: Vital Signs Temp Pulse Resp BP Pulse Ox 05/25/19 19:55 98.0 F 98 18 161/87 H 93 Inital Vital Signs reviewed: Yes General: Well nourished, Well developed, No Acute Distress Head: Normocephalic, Atraumatic Eyes: Perrl, EOMI ENT: Moist mucous membranes, No rhinorrhea Neck: Supple, Nontender Cardiovascular: Regular rate, Regular rhythm, No murmurs Respiratory: No distress, CTA bilaterally, Chest nontender Abdomen: Soft, Nontender, Nondistended, Normal bowel sounds Back: Nontender, Normal Inspection Extremities: Nontender, No edema Skin: - - Purple patches noted left distal medial and lateral thighs. Purpura patch left outer lower leg. Nontender. Skin intact. Neurological: Alert, Oriented x3, Cranial nerves II-XII grossly intact, Normal Strength, Normal Sensation Psychological: Normal affect, Normal Mood Diagnostic/Tx/Re-eval Abnormal Lab Results 05/25/19 05/25/19 20:35 20:35 WBC 7.9 RBC 4.55 Hgb 13.2 Hct 40.4 MCV 88.8 MCH 29.0 MCHC 32.7 RDW 13.8 RDW Differential 44.4 H Plt Count 209 MPV 9.4 Immature Gran % (Auto) 0.100 Neut % (Auto) 66.0 Lymph % (Auto) 18.7 L Calhoun % (Auto) 13.1 H Eos % (Auto) 1.7 Baso % (Auto) 0.4 Absolute Neuts (auto) 5.2 Absolute Lymphs (auto) 1.47 Total Counted Not Reportable PT 24.4 H INR 2.2 - Medical Decision Making Patient with purpura lesions on her leg. Platelets checked 209, INR therapeutic 2.2. Nontraumatic. I discussed with her wireless manager Dr. Cole, patient will monitor she has appointment on the eighth, she will contact sooner if worsens. All questions were answered. ED Disposition - Plan for ED Patient: Disposition: Home or Assisted Living Diagnosis: Purpura Referrals: Perez Martinez Chi, MD [Primary Care Provider] - Yves Cole MD [NON-STAFF] - Keep Mckenzie appointment Additional Instructions: purpura rash. Normal platelets at 209, INR 2.2. Follow-up with Dr. Coel as scheduled, sooner if worsens.
[2019-05-25 20:46] LABS: Absolute Lymphocyte Count 1.47 X10^3/ul (0.83-4.51); Absolute Neutrophil Count 5.2 X10^3/uL (2.0-7.7); Basophil# 0.03 X10^3/uL; Basophil% 0.4 % (0-1); Eosinophil# 0.13 X10^3/uL; Eosinophils% 1.7 % (0-5); Hematocrit 40.4 % (37-47); Hemoglobin 13.2 g/dl (12.0-15.0); Lymphocyte # 1.47 X10^3/ul (4.0); Lymphocyte % 18.7 % (19-41); Mean Corp Hgb Conc 32.7 g/gl (32-36); Mean Corpuscular Volume 88.8 fL (81-99); Mean Platelet Vol. 9.4 fl (6.2-12.0); Monocyte# 1.03 X10^3/uL; Monocyte% 13.1 % (0-10); Platelet Count 209 K/mm3 (150-450); RBC Distribution Width CV 13.8 % (11.6-14.6); RBC Distribution Width SD 44.4 fl (35.1-43.9); Red Blood Count 4.55 M/mm3 (4.2-5.4); White Blood Count 7.9 K/mm3 (4.4-11.0)
[2019-05-25 20:47] LABS: POSITIVE COUNT NO; POSITIVE DIFFERENTIAL NO; POSITIVE MORPHOLOGY NO
[2019-05-25 21:04] LABS: International Normalized Ratio 2.2; Prothrombin Time (Protime)PT. 24.4 SECONDS (11.7-14.9)
[2019-05-25 21:40] VITALS: BP 171/72; PULSE 83; RESP 18; O2SAT 99
[2019-05-25 22:51] VITALS: BP 161/78; PULSE 79; RESP 16; O2SAT 97
== END 2019-05-25 22:52 | disposition home or self-care (01) ==
PROVIDERS: Emergency Provider Emergency Medicine; Family Provider Family Medicine Geriatric Medicine; PCP Family Medicine Geriatric Medicine
DX: D69.2 Other nonthrombocytopenic purpura (principal); Z86.711 Personal history of pulmonary embolism; Z86.718 Personal history of other venous thrombosis and embolism; Z79.01 Long term (current) use of anticoagulants; Z79.899 Other long term (current) drug therapy
CPT/HCPCS: 85025; 85610; 99283; A4216

== ENCOUNTER → 2019-08-16 08:40 | Outpatient (CLI) | payer MEDICARE, SELFPAY ==
[2019-05-31 10:22] VITALS: BMI 42.4
--- NOTE | 2019-08-16 08:44 | RAD_ITS ---
STUDY: X-RAY - LEFT SHOULDER REASON FOR EXAM: Female, 78 years old. Left anterior shoulder pain for 2 months. No known injury. TECHNIQUE: 4 view(s) of the shoulder. COMPARISON: None. FINDINGS: There is mild degenerative arthrosis of the glenohumeral articulation. There is degenerative arthrosis of the acromioclavicular joint without inferior osseous spur formation. Normal acromion. There is no acute fracture, dislocation or destructive osseous pathology. There is demineralization of the humerus and visualized osseous structures. The soft tissue structures are unremarkable. Normal visualized pulmonary apex. RAD/Shoulder min 2 Views IMPRESSION: Degenerative changes of the left shoulder. Electronically Signed: Singh Hooker DO at 16:56 EDT Tel [phone], Service support ,
[2019-08-16 10:08] LABS: Absolute Lymphocyte Count 1.22 X10^3/uL (0.83-4.51); Absolute Neutrophil Count 3.4 X10^3/uL (2.0-7.7); Basophil# 0.05 X10^3/uL; Basophil% 0.9 % (0-1); Eosinophil# 0.12 X10^3/uL; Eosinophils% 2.2 % (0-5); Hemoglobin 13.9 g/dL (12.0-15.0); Lymphocyte # 1.22 X10^3/ul (4.0); Lymphocyte % 22.4 % (19-41); Mean Corp Hgb Conc 30.9 g/dL (32-36); Mean Corpuscular Hgb 28.4 pg (27.0-32.0); Mean Corpuscular Volume 91.8 fL (81-99); Mean Platelet Vol. 9.7 fl (6.2-12.0); Monocyte# 0.69 X10^3/uL; Monocyte% 12.7 % (0-10); NRBC Flagged by Analyzer 0 % (0-5); Neutrophil # 3.35 X10^3/uL (2.7-7.7); Neutrophil % 61.6 % (47-70); Platelet Count 222 K/mm3 (150-450); RBC Distribution Width CV 13.8 % (11.6-14.6); RBC Distribution Width SD 46.9 fl (35.1-43.9); White Blood Count 5.4 K/mm3 (4.4-11.0)
[2019-08-16 10:30] LABS: ALB/GLOB Ratio 0.9 RATIO (0.9-2.4); AST(SGOT) 17 U/L (15-37); Alanine Aminotransfer ALT/SGPT 18 U/L (13-56); Albumin, Serum 3.3 g/dL (3.2-5.0); Alkaline Phosphatase 118 U/L (45-117); Anion Gap 4 (5-15); BUN 13 mg/dL (7-18); BUN/Creat Ratio 18.1 RATIO (10-20); Calcium,Total 9.1 mg/dL (8.5-10.1); Chloride 101 mmol/L (98-107); Cholesterol 167 mg/dL (200); Creatinine, Serum 0.72 mg/dL (0.55-1.02); EST Glomerular Filtration Rate 83 mL/min (>60); Est Glom Filt Rate - Afr Amer 101 mL/min (>60); Globulin 3.8 g/dL (2.2-4.2); Glucose 95 mg/dL (74-106); High Density Lipoprotein 57 mg/dL; Potassium 4.3 mmol/L (3.5-5.1); Protein, Total 7.1 g/dL (6.4-8.2); Sodium Level 137 mmol/L (136-145); Triglycerides 127 mg/dL; Very Low Density Lipoprotein 25 mg/dL (5-40)
== END ==
PROVIDERS: Family Provider Family Medicine; PCP Family Medicine; Referring Provider Family Medicine; Visit Provider Family Medicine
DX: M19.019 Primary osteoarthritis, unspecified shoulder (principal); I10 Essential (primary) hypertension; E78.5 Hyperlipidemia, unspecified
CPT/HCPCS: 36415; 73030; 80053; 80061; 85025

== ENCOUNTER 2019-08-18 10:40 | Day surgery (SDC) | payer MEDICARE, SELFPAY ==
[2019-05-31 10:22] VITALS: BMI 42.4
--- NOTE | 2019-08-17 18:49 | PCM.HP.BLA ---
History and Physical Date of Admission: 08/17/19 HISTORY AND PHYSICAL ? Sofya Durand 1940 ? REFERRING PHYSICIAN: ??MD Kartik ? CHIEF COMPLAINT: ??colon consult ? HPI: The patient is a 78 year old female referred for endoscopy. ?Sofya notes no current colon complaints. ? The patient?notes no current upper GI issues ? Sofya?has??undergone prior endoscopy. ?SHe has a prior history of colon polyps. ?She has a small polyp removed in 2012 that was not retrieved. ? I performed a ventral hernia repair with mesh on January 25, 2015?She was discharged on POD#4 with adequate pain control. She was given pharmacologic VTE prophylaxis in the hospital but was not discharged on pharmacologic VTE prophylaxis. ? On February 02?The patient had witnessed arrest by daughter at home. She was transported to [facility] and had another arrest in the ER. SHe was resuscitated. Her clinical impression was suspected PE. She was given TPA after resuscitation and transferred to [facility]. Spoke with Dr. Karlos Gasca, - patient currently en route to SICU. CT scan demonstrates bilateral pulmonary embolism. Her echocardiogram demonstrated heart strain. ? She was anticoagulated and developed a decreasing hematocrit. She had a filter placed. She was transferred to TCU at [facility] where I followed her. She was slowing improving and discharged from TCU. She is currently followed by Dr. Chapman, [facility] who is managing her anticoagulation ? The patient is being seen by me today at the request of DrToo?Perez Martinez MD?for my opinion and advice regarding follow up colonoscopy.? ? ? PAST?MEDICAL?HISTORY PAST MEDICAL HISTORY Diagnosis Date ? Cancer, uterine (HCC) 2015 ? Chronic airway obstruction, not elsewhere classified (HCC) ? ? Essential hypertension, benign ? ? Malignant neoplasm of breast (female), unspecified site (HCC) ? ? LEFT BREAST CANCER ? Morbid obesity (HCC) ? ? Other emphysema (HCC) ? ? PMH - PAST MEDICAL HISTORY OF ? ? ARTHRITIS ? Pulmonary emboli (HCC) 2014 ? WITH CARDIAC ARREST ? Pulmonary embolism (HCC) 2004 ? ? PAST?SURGICAL?HISTORY PAST SURGICAL HISTORY Procedure Laterality Date ? BX BREAST PERC VACUUM/ROTN ? 04/22/2008 ? Left breast - benign ? BX BREAST PERC VACUUM/ROTN ? 12/12/11 ? Left Breast - benign microcalcifications ? COLONOS W/REM POLYP SNARE ? 07/11/10 ? Polyps at 75cm and rectum ? COLONOS W/REM POLYP SNARE ? 08/10/13 ? small polyp at 50cm - cauterized ? EGD W/O BRSH SPECIMEN W/BX ? 07/11/10 ? trace gastritis ? LAP VAG HYST <=250 G RMV T/O ? 05/2016 ? LUMPECTOMY/RADIOTHERAPY DIAG MAMM/A10 ? 2003 ? NEEDLE LOCALIZATION BREAST ? ? ? PAST SURGICAL HISTORY OF ? ? CARPAL TUNNEL RELEASE ? REMOVAL OF TONSILS,<12 Y/O ? ? ? Tonsillectomy ? REPAIR INCISIONAL HERNIA,DARYN ? 02/22/15 ? 4x5cm defect - 11x14 ventrio mesh ? ? CURRENT?MEDICATIONS ? Current Outpatient Medications: peg 3350-Electrolytes (GOLYTELY) 236-22.74-6.74 -5.86 gram suspension Take 4,000 mL by mouth one time only for 1 dose. warfarin (COUMADIN) 5 mg tablet DAILY PROAIR HFA 90 mcg/actuation inhaler ? ipratropium-albuterol (DUONEB) 0.5 mg-3 mg(2.5 mg base)/3 mL nebu ? ADACEL,TDAP ADOLESN/ADULT,,PF, 2 Lf-(2.5-5-3-5 mcg)-5Lf/0.5 mL syrg To be injected by Pharmacist potassium chloride 20 mEq/15 mL solution mix 15 ml with 4 to 8 oz of water once daily warfarin (COUMADIN) 5 mg tablet Take 5 mg by mouth once daily. fexofenadine (USAMA ALLERGY) 180 mg tablet Take 180 mg by mouth once daily. warfarin (COUMADIN) 1 mg tablet ? ALBUTEROL SULFATE (PROAIR HFA INHALATION) Inhale ?as instructed. warfarin (COUMADIN) 2.5 mg tablet ? KLOR-CON 20 mEq packet ? PYRIDOXINE HCL (VITAMIN B-6 ORAL) Take ?by mouth. fluticasone (FLONASE) 50 mcg/actuation nasal spray ? hydrochlorothiazide (HYDRODIURIL, ESIDRIX) 12.5 mg tablet ? FERREX 150 PLUS 150-50-50 mg cap ? metoprolol tartrate, short acting, (LOPRESSOR) 25 mg tablet twice daily. oxyCODONE-acetaminophen (PERCOCET) 5-325 mg tablet ? predniSONE (DELTASONE) 10 mg tablet 5 mg once daily. fondaparinux (ARIXTRA) 7.5 mg/0.6 mL syrg Inject 7.5 mg subcutaneously q 24 HR. Cholecalciferol, Vitamin D3, (VITAMIN D) 1,000 unit Tab Take 1,000 Units by mouth twice daily. ? fluticasone/salmeterol(ADVAIR DISKUS 500 MCG-50 MCG/DOSE FOR INHALATION) DIRECTED calcium carbonate/vitamin d3(CALCIUM 500 WITH VITAMIN D 500 MG-125 UNIT TAB) Take one(1) tablet three times daily. TYLENOL EXTRA STRENGTH 500 MG TAB as necessary ZOCOR 20 MG TAB Take one(1) tablet daily at bedtime. ? No current facility-administered medications for this visit.? ? ALLERGIES:?Aspirin; Bactrim [Sulfamethoxazole]; Biaxin [Clarithromycin]; Cyclobenzaprine; Heparin; Meloxicam; Seasonal Allergies; Tramadol ? PERSONAL HISTORY:? SOCIAL?HISTORY Social History ??Socioeconomic History ?Marital status: ?Spouse name: Not on file ?Number of children: 2 ?Years of education: 11 ?Highest education level: Not on file ??Occupational History ?Occupation: Retired ??Social Needs ?Financial resource strain: Not on file ?Food insecurity: ?Worry: Not on file ?Inability: Not on file ?Transportation needs: ?Medical: Not on file ?Non-medical: Not on file ??Tobacco Use ?Smoking status: Never Smoker ?Smokeless tobacco: Never Used ??Substance and Sexual Activity ?Alcohol use: No ?Drug use: No ?Sexual activity: Never ??Lifestyle ?Physical activity: ?Days per week: Not on file ?Minutes per session: Not on file ?Stress: Not on file ??Relationships ?Social connections: ?Talks on phone: Not on file ?Gets together: Not on file ?Attends gnosticist service: Not on file ?Active member of club or organization: Not on file ?Attends meetings of clubs or organizations: Not on file ?Relationship status: Not on file ?Intimate partner violence: ?Fear of current or ex partner: Not on file ?Emotionally abused: Not on file ?Physically abused: Not on file ?Forced sexual activity: Not on file ??Other Topics ?Concerns: ?Not on file ??Social History Narrative ?Not on file ? FAMILY HISTORY:? FAMILY?HISTORY FAMILY HISTORY Problem Relation Age of Onset ? other (Pancreatic Cancer) Father ? ? Heart Mother ?heart murmur ? Hypertension Mother ? ? Osteoporosis Mother ? ? Stroke Mother ? ? REVIEW OF SYMPTOMS: ??The review of systems data was entered by the nurse and reviewed by me ? Nursing Notes: Tiana Castro LPN ?07/27/2019 ?3:05 PM ?Signed REVIEW OF SYSTEMS: ?General:???The patient denies fatigue, denies weight loss, NOTES weight gain, denies feeling hot, and denies feelings of cold. ?Eyes: ?The patient denies glaucoma, denies eye injury/surgery, wears glasses or contacts. ?Ear/Nose/Throat: ?The patient NOTES allergies, denies hayfever, denies ear infections, and denies bloody noses. ?Cardiovascular: ?The patient denies chest pain, denies heart disease, NOTES high blood pressure,denies cardiac stent, denies prior heart attack, denies irregular heart beat, denies high cholesterol, ?denies poor circulation, denies heart failure, other cardiac issues, denies claudication, denies cold feet, denies peripheral arterial stent. ?Respiratory: ?The patient denies tuberculosis, denies pneumonia, denies frequent cough, denies pulmonary embolism, NOTES shortness of breath, and denies coughing up blood. ?Gastrointestinal: ?The patient denies difficulty swallowing, denies acid reflux, denies ulcers, denies vomiting, denies jaundice/hepatitis, denies gallbladder problems, denies black or tarry stools, denies hemorrhoids, denies bleeding from rectum, NOTES diverticulitis, denies constipation, denies diarrhea, denies loss of stool control, and denies hernias. ?Kidney/Bladder: ?The patient denies kidney stones, denies urine infections, and denies bloody urine. ?Skin: ?The patient denies a history of skin cancer, denies bleeding/changing moles, and denies a history of skin rash. ?Neurologic: ?The patient denies a history of epilepsy/convulsions, NOTES headaches, denies head/spinal injuries, and denies stroke/TIA. ?Psychiatric: ?The patient denies psychiatric medications, denies depression, and denies voices, denies substance abuse. ?Endocrine: ?The patient denies thyroid disorders, denies diabetes, and denies hormonal problems. ?Hematologic: ?The patient denies a history of bruising, denies bleeding, and denies anemia, denies blood clots. ?Infections: ?The patient denies a history of measles and mumps, denies rheumatic fever, and denies sexually transmitted diseases. ?Musculoskeletal: ?The patient denies back pain/injury, NOTES back problems, denies sciatica, denies knee/foot trouble, NOTES arthritis, or denies gout. ? ? When was patient's last Mammogram screening? 2018 ? ?Last Colonoscopy: ?08/2013 ? Tiana Castro LPN ? PHYSICAL EXAMINATION: ? General: ?The patient is 78 year old female, well nourished, well hydrated in no acute distress. ?The patient is oriented to time, place, and person. ? VITALS:?Blood pressure 150/70, pulse 104, temperature 36.4 ?C (97.6 ?F), temperature source Temporal Artery, resp. rate 18, height 144.8 cm (4' 9), weight 92.5 kg (204 lb), SpO2 96 %.?Body mass index is 44.15 kg/m?.? ? HEENT: ?Normal cephalic, ataumatic, pupils are equally round, sclera are anicteric, mucous membranes are moist, oropharynx is clear. ?Neck has no masses, asymmetry or lymphadenopathy. ?Thyroid is unremarkable. ? Respiratory: ?Clear to auscultation and percussion. ?Normal respiratory excursion and pattern. ? Cardiac: ?Examination is regular rate and rhythm. ? Abdominal exam: ?Soft, nontender, ?with no palpable masses. ?No hepatosplenomegaly. ?No palpable hernias. ? Rectal exam:?exam deferred ? Extremities: ?no clubbing, cyanosis or edema. ?No adenopathy. ? Other: ? LABORATORY VALUES: As Noted ? RADIOLOGIC STUDIES: ?As Noted ? Assessment ? IMPRESSION:?personal history of colon polyps ? PLAN: ?I plan to perform lower?endoscopy. ??We discussed the risks and benefits of the planned endoscopy. ?I have informed the patient that complications can occur including failure to complete the endoscopy and perforation. ?The patient had the opportunity to ask questions concerning the planned endoscopy. ?My staff has also explained the procedure to the patient in understandable terms and has given the patient printed material concerning the procedure. ?The patient freely consents to surgery. ? I plan to use golytely bowel preparation for endoscopy ? I plan for monitored anesthetic care. ? Diagnoses:?(Z12.11) Special screening for malignant neoplasm of colon ?(primary encounter diagnosis) ? A letter was sent to Dr.?Perez Martinez MD?indicating the above finding for this patient. ?? Return to Clinic: The patient is instructed to follow-up with me?after the testing has been completed. ? Darren Suarez MD
[2019-08-18 11:14] VITALS: BP 143/64; PULSE 62; RESP 16; TEMP 37.3; O2SAT 95; BMI 42.0
[2019-08-18] MEDS: Lactated Ringers 1,000 ML 75 ML IV (11:35)
[2019-08-18 12:15] VITALS: BP 107/70; BP 143/64; PULSE 65; RESP 16; TEMP 36.7; O2SAT 100
--- NOTE | 2019-08-18 12:15 | OP.ENDO_ITS ---
08/18/2019 Floridalma Juárez [place] [address] [address] Re : Colonoscopy procedure for Sofya Maldonado Dear Dr. Juárez This procedure was performed on Sunday, August 18, 2019. My impressions and recommendations are as follows: Impressions : - Diverticulosis in the entire examined colon. - The examination was otherwise normal. - The distal rectum and anal verge are normal on retroflexion view. - No specimens collected. Recommendations : - Discharge patient to home. - Resume previous diet. - Continue present medications. - No repeat colonoscopy due to age. My findings are described in the full procedure note, which is enclosed. If I can be of further assistance, please feel free to contact me at Doctor phone number(s): , Work: . Sincerely, Darren Suarez MD 08/18/2019 12:14:40 PM This report has been signed electronically.
[2019-08-18 12:20] VITALS: BP 132/86; BP 143/64; PULSE 61; RESP 16; O2SAT 96
[2019-08-18 12:25] VITALS: BP 121/99; BP 143/64; PULSE 60; RESP 16; O2SAT 97
[2019-08-18 12:30] VITALS: BP 133/63; BP 143/64; PULSE 55; RESP 16; TEMP 36.2; O2SAT 99
[2019-08-18 12:46] VITALS: BP 143/64
== END 2019-08-18 12:47 | disposition home or self-care (01) ==
LOC: EN 10:40 → AC 10:43
PROVIDERS: Family Provider Family Medicine; PCP Family Medicine; Referring Provider Family Medicine; Visit Provider Surgery
PROC: 0DJD8ZZ Inspection of Lower Intestinal Tract, Via Natural or Artificial Opening Endoscopic (ICD-10-PCS; CPT 45378; principal; 2019-08-18 11:55)
DX: Z12.11 Encounter for screening for malignant neoplasm of colon (principal); Z86.010 Personal history of colon polyps; K57.30 Diverticulosis of large intestine without perforation or abscess without bleeding; I25.2 Old myocardial infarction; I10 Essential (primary) hypertension; J44.9 Chronic obstructive pulmonary disease, unspecified; D69.6 Thrombocytopenia, unspecified; E66.01 Morbid (severe) obesity due to excess calories; Z68.41 Body mass index [BMI] 40.0-44.9, adult; Z86.711 Personal history of pulmonary embolism; Z79.01 Long term (current) use of anticoagulants; Z79.899 Other long term (current) drug therapy
CPT/HCPCS: G0105; J7120

== ENCOUNTER 2019-12-21 13:43 | Emergency (ER) | payer MEDICARE, SELFPAY ==
[2019-11-29 16:53] VITALS: BMI 41.9
[2019-12-21 13:46] VITALS: BP 162/91; PULSE 79; RESP 16; TEMP 36.9; O2SAT 97; BMI 41.8
--- NOTE | 2019-12-21 14:06 | VDLE_ITS ---
Reason For Study: Pain RIGHT GSV is normal. FV is compressible, spontaneous, phasic, competent and demonstrates normal augmentation. POP V is compressible, spontaneous, phasic, competent and demonstrates normal augmentation. T/P Trunk is compressible. PTV is compressible. RT PerV is compressible. CFV and SFJ not visualized due to pt body habitus. Procedure Exam performed portable in ED. A preliminary report was called and/or faxed to ED. Interpretation Summary There is no evidence of right lower extremity deep vein thrombosis. Right great saphenous vein appears patent and compressible segmentally. Technically limited examination with right common femoral vein and saphenofemoral junction not visualized secondary to patient body habitus Ordering Physician: Davey Blank Referring Physician: Daniel Larose Performed By: Christina Horton RVT
[2019-12-21] MEDS: Acetaminophen 500 MG Tablet 1000 MG PO (14:20)
--- NOTE | 2019-12-21 14:59 | ED.VISSUMM ---
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 She reports that she has had right thigh pain intermittently for months. She reports that it began again this morning after she slipped while walking. She did not fall. However, she reports she has a sharp pain in the anterior right thigh that is 10 out of 10 with movement and 7 out of 10 at rest. She reports that she is only able to take Tylenol for pain. Patient reports that she has a history of a PE and is concerned that this may be a DVT. Her last INR yesterday was 2.8. Review of systems: General: No fever, chills, cold sweats. Cardiovascular: No chest pain, palpitations. Respiratory: No cough, shortness of breath, dyspnea on exertion. Gastrointestinal: No abdominal pain, nausea, vomiting, diarrhea, melena, or hematochezia. Genitourinary: No dysuria, frequency, hematuria. Skin: No rash. Neuro: No headache, numbness, weakness. Physical Examination: Vitals: Stable. Afebrile. General: Well-nourished and well-developed. Head: Normocephalic atraumatic. Neck: Supple, no lymphadenopathy. No JVD. Nontender. Cardiovascular: Regular rate and rhythm. No murmurs. Respiratory: No respiratory distress. Clear to auscultation bilaterally. Abdominal: Soft, nontender, nondistended, normal bowel sounds. No guarding, rebound, or peritoneal signs. Back: Nontender. Extremities: No pedal edema. 1+ dorsalis pedis pulse bilaterally. She has no tenderness over her calf. She has full range of motion of her knee without difficulty. She does have mild tenderness palpation to the anterior right thigh. The compartments are soft. There is no contusion, erythema, or warmth. Skin: Normal color, no rash. Neurologic: Alert and oriented ?3. Cranial nerves II through XII are intact. Normal strength and sensation. Psych: Normal affect. Test Results: Right lower extremity Doppler is negative. Emergency Department Course and Treatment: Patient was treated with Tylenol. She is resting comfortably. Treatment Plan: Patient is instructed to rest, ice the area. Use Tylenol for pain. Follow-up her primary care physician 1 week if not improving. Return to the emergency department for any worsening symptoms. Disposition: To home in improved and stable condition. Impression: 1. Right thigh pain, acute. 2. Coumadin coagulopathy. This note was generated with [employer]ing dictation software. It may contain incorrect words, spelling, and punctuation that were not noted in review of the chart prior to signing ED Disposition - Plan for ED Patient: Instructions: MUSCLE STRAIN, Extremity Referrals: Floridalma Juárez MD [Primary Care Provider] - 1 Week if not improving
[2019-12-21 15:14] VITALS: BP 143/95; PULSE 69; RESP 15; O2SAT 99
== END 2019-12-21 15:15 | disposition home or self-care (01) ==
LOC: ED 14:38
PROVIDERS: Emergency Provider Emergency Medicine; PCP Family Medicine
DX: M79.651 Pain in right thigh (principal); R79.1 Abnormal coagulation profile; T45.515A Adverse effect of anticoagulants, initial encounter; I10 Essential (primary) hypertension; J44.9 Chronic obstructive pulmonary disease, unspecified; Z86.711 Personal history of pulmonary embolism; Z79.01 Long term (current) use of anticoagulants
CPT/HCPCS: 93971; 99282

== ENCOUNTER → 2020-01-26 10:18 | Outpatient (CLI) | payer MEDICARE, SELFPAY ==
[2019-10-04 11:17] VITALS: BMI 41.9
[2020-01-12 09:56] VITALS: BMI 40.8
--- NOTE | 2020-01-26 10:18 | BI_ITS ---
MAMMOGRAPHY - BILATERAL SCREENING REASON FOR EXAM: Female, 79 years old. Routine annual screening examination. PERTINENT HISTORY: Left breast lumpectomy in 2003 with radiation therapy TECHNIQUE: Digital bilateral breast carmelina (3D mammographic acquisition) in the CC and MLO projections. 2-D mediolateral oblique (MLO) and craniocaudad (CC) views of both breasts were obtained. CAD: Full Field Digital Mammography with Computer Added Detection was performed. COMPARISON: Scattered breast parenchyma is seen bilaterally FINDINGS: Breast Composition: Fatty There are no dominant masses or suspicious calcifications. No other significant abnormalities are identified. BI/SCREEN MAMM (CAD) W/CARMELINA BILAT IMPRESSION: Stable bilateral screening mammogram. Yearly follow-up mammogram recommended. (A) ASSESSMENT CATEGORY: BIRADS Category 1: Negative. A letter regarding these results will be sent to the patient by the facility within 30 days. Approximately 10% of breast cancers are not detected by mammography. A normal mammogram should not delay biopsy of a clinically suspicious abnormality. [id number] Electronically Signed: Justin Restrepo, at 17:03 EST Tel , Service support ,
== END ==
PROVIDERS: Family Provider Family Medicine Geriatric Medicine; PCP Family Medicine; Referring Provider Nurse Practitioner Family; Visit Provider Nurse Practitioner Family
DX: Z12.31 Encounter for screening mammogram for malignant neoplasm of breast (principal)
CPT/HCPCS: 77063; 77067

== ENCOUNTER → 2020-08-14 10:25 | Outpatient (CLI) | payer MEDICARE, SELFPAY ==
[2020-06-05 10:40] VITALS: BMI 41.8
[2020-08-14 12:21] LABS: Absolute Lymphocyte Count 1.23 X10^3/uL (0.83-4.51); Absolute Neutrophil Count 3.1 X10^3/uL (2.0-7.7); Basophil# 0.03 X10^3/uL; Basophil% 0.6 % (0-1); Eosinophil# 0.08 X10^3/uL; Eosinophils% 1.6 % (0-5); Hematocrit 46.2 % (37-47); Hemoglobin 14.4 g/dL (12.0-15.0); Lymphocyte # 1.23 X10^3/ul (4.0); Lymphocyte % 24.1 % (19-41); Mean Corp Hgb Conc 31.2 g/dL (32-36); Mean Corpuscular Hgb 28.6 pg (27.0-32.0); Mean Corpuscular Volume 91.8 fL (81-99); Monocyte# 0.63 X10^3/uL; Monocyte% 12.4 % (0-10); NRBC Flagged by Analyzer 0 % (0-5); Neutrophil # 3.12 X10^3/uL (2.7-7.7); Neutrophil % 61.1 % (47-70); Platelet Count 238 K/mm3 (150-450); RBC Distribution Width CV 13.2 % (11.6-14.6); RBC Distribution Width SD 44.5 fl (35.1-43.9); Red Blood Count 5.03 M/mm3 (4.2-5.4); White Blood Count 5.1 K/mm3 (4.4-11.0)
[2020-08-14 13:19] LABS: ALB/GLOB Ratio 0.9 RATIO (0.9-2.4); AST(SGOT) 19 U/L (15-37); Alanine Aminotransfer ALT/SGPT 17 U/L (13-56); Albumin, Serum 3.3 g/dL (3.2-5.0); Alkaline Phosphatase 113 U/L (45-117); Anion Gap 5 (5-15); BUN 10 mg/dL (7-18); BUN/Creat Ratio 17.1 RATIO (10-20); Calcium,Total 9.1 mg/dL (8.5-10.1); Chloride 107 mmol/L (98-107); Cholesterol 158 mg/dL (200); Creatinine, Serum 0.59 mg/dL (0.55-1.02); EST Glomerular Filtration Rate 105 mL/min (>60); Est Glom Filt Rate - Afr Amer 127 mL/min (>60); Globulin 3.7 g/dL (2.2-4.2); Glucose 86 mg/dL (74-106); High Density Lipoprotein 51 mg/dL; Potassium 3.8 mmol/L (3.5-5.1); Sodium Level 140 mmol/L (136-145); Triglycerides 155 mg/dL; Very Low Density Lipoprotein 31 mg/dL (5-40)
== END ==
PROVIDERS: PCP Family Medicine; Visit Provider Family Medicine
DX: I10 Essential (primary) hypertension (principal); E78.5 Hyperlipidemia, unspecified; Z79.01 Long term (current) use of anticoagulants
CPT/HCPCS: 36415; 80053; 80061; 85025

== ENCOUNTER → 2021-01-31 10:36 | Outpatient (CLI) | payer MEDICARE, SELFPAY ==
[2020-10-02 10:56] VITALS: BMI 42.2
--- NOTE | 2021-01-31 10:39 | BI_ITS ---
MAMMOGRAPHY - BILATERAL SCREENING REASON FOR EXAM: Female, 80 years old. Routine annual screening examination. PERTINENT HISTORY: Personal history of breast cancer. Prior left lumpectomy with radiation treatment. Prior left stereotactic breast biopsy. Sister with breast cancer. TECHNIQUE: Digital bilateral breast carmelina (3D mammographic acquisition) in the CC and MLO projections. 2-D mediolateral oblique (MLO) and craniocaudad (CC) views of both breasts were obtained. CAD: Full Field Digital Mammography with Computer Added Detection was performed. COMPARISON: Comparison is made with prior study dated 01/26/2020 and 08/25/2019. FINDINGS: Breast Composition: The breasts are almost entirely fatty. There are no dominant masses or suspicious calcifications. The patient is status post left lumpectomy with postoperative changes in the deep upper aspect of the left breast. This is unchanged. There are 2 tissue markers in the deep upper lateral portion of the left breast. No other significant abnormalities are identified. There has been no significant change since the prior study. BI/SCRN MAMM (CAD)W/CARMELINA BILAT IMPRESSION: Stable bilateral screening mammogram. Yearly follow-up mammogram recommended. (A) ASSESSMENT CATEGORY: BIRADS Category 2: Benign. A letter regarding these results will be sent to the patient by the facility within 30 days. Approximately 10% of breast cancers are not detected by mammography. A normal mammogram should not delay biopsy of a clinically suspicious abnormality. [id number] Electronically Signed: Jaylon Boone MD at 12:15 EST , Service support ,
== END ==
PROVIDERS: PCP Family Medicine; Referring Provider Nurse Practitioner Family; Visit Provider Nurse Practitioner Family
DX: Z12.31 Encounter for screening mammogram for malignant neoplasm of breast (principal); Z86.000 Personal history of in-situ neoplasm of breast; Z80.3 Family history of malignant neoplasm of breast
CPT/HCPCS: 77063; 77067

== ENCOUNTER 2022-02-20 12:00 | Outpatient (CLI) | payer MEDICARE, SELFPAY ==
--- NOTE | 2022-02-20 12:02 | BI_ITS ---
MAMMOGRAPHY - BILATERAL SCREENING REASON FOR EXAM: Female, 81 years old. Routine annual screening examination. PERTINENT HISTORY: Personal history of breast cancer. Prior left lumpectomy and radiation therapy. Sister with breast cancer. TECHNIQUE: Digital bilateral breast carmelina (3D mammographic acquisition) in the CC and MLO projections. 2-D mediolateral oblique (MLO) and craniocaudad (CC) views of both breasts were obtained. CAD: Full Field Digital Mammography with Computer Added Detection was performed. COMPARISON: Comparison is made with prior study dated 01/31/2021 and 01/26/2020. FINDINGS: Breast Composition: The breasts are almost entirely fatty. There are no dominant masses or suspicious calcifications. Stable deformity with postoperative scarring in the deep upper lateral aspect of the left breast incomplete with a history of prior lumpectomy. 2 tissue markers once again seen in the deep upper lateral portion of the left breast. No other significant abnormalities are identified. There has been no significant change since the prior study. BI/SCRN MAMM (CAD)W/CARMELINA BILAT IMPRESSION: Stable bilateral screening mammogram. Yearly follow-up mammogram recommended. (A) ASSESSMENT CATEGORY: BIRADS Category 2: Benign. A letter regarding these results will be sent to the patient by the facility within 30 days. Approximately 10% of breast cancers are not detected by mammography. A normal mammogram should not delay biopsy of a clinically suspicious abnormality. [id number] Electronically Signed: Jaylon Boone MD at 13:25 EDT ,
== END 2022-02-20 23:59 | disposition home or self-care (01) ==
LOC: OPBI 12:01
PROVIDERS: PCP Family Medicine; Visit Provider Nurse Practitioner Family
DX: Z12.31 Encounter for screening mammogram for malignant neoplasm of breast (principal); Z85.3 Personal history of malignant neoplasm of breast; Z80.3 Family history of malignant neoplasm of breast
CPT/HCPCS: 77063; 77067

== ENCOUNTER → 2022-07-08 | Outpatient (CLI) | payer MEDICARE, SELFPAY ==
[2022-07-08 10:43] LABS: International Normalized Ratio 2.4; Prothrombin Time (Protime)PT. 25.5 SECONDS (11.7-14.9)
== END | disposition home or self-care (01) ==
LOC: PAVLAB 10:14
PROVIDERS: Internal Medicine Medical Oncology; PCP Family Medicine; Visit Provider Nurse Practitioner Family
DX: Z79.01 Long term (current) use of anticoagulants (principal)
CPT/HCPCS: 36415; 85610

== ENCOUNTER 2022-12-10 11:29 | Emergency (ER) | payer MEDICARE, SELFPAY ==
[2022-12-10 11:30] VITALS: BP 183/54; PULSE 63; RESP 18; TEMP 36.6; O2SAT 100; BMI 38.5
--- NOTE | 2022-12-10 12:10 | RAD_ITS ---
INDICATION: fall. Get as much of the wrist as possible also EXAMINATION/TECHNIQUE: X-RAY - LEFT XR Hand 3 VIEWS COMPARISON: None. FINDINGS: SOFT TISSUES: There is diffuse soft tissue swelling. BONES/JOINTS: The bones are diffusely demineralized. There is an indeterminate cortical defect within the dorsal aspect of the distal radius. There are degenerative changes of the rbmswcey-nbyderxim-spqrrjxvh joint. There are mild degenerative changes of the interphalangeal joints as well. Normal alignment. No sclerotic or destructive changes observed. RAD/Hand Min 3 Views IMPRESSION: Possible distal radial fracture. Degenerative changes. Electronically Signed: Ana Delgadillo MD at 12:32 EST ,
--- NOTE | 2022-12-10 12:11 | EDS_ITS ---
HPI History of Present Illness HPI Narrative: Fell getting in the car and when she went to catch her self injured her left hand. No LOC. Did not strike her head. Chief Complaint: Upper Extremity Injury Informant: patient and friend Occured/Mechanism Mechanism/Context: Yes injury and Yes blunt trauma Onset/Context/Timing Onset: Today and Hours Context: Sudden Onset Timing: Continuous Quality of Pain: Dull and Aching Current Severity: Mild Maximum Severity: Mild Associated Symptoms Associated Symptoms: Negative for Parasthesia, Weakness or Loss of Funtion Narrative Narrative: 82-year-old female history of PE and DVT, anemia, hypertension, COPD on Coumadin. She was getting in a car lost her balance and as she went down to try to catch her self and injured her left hand. Did not hit her head. Denies any other complaints. No LOC. No recent illness. She is right-hand dominant. Prior similar symptoms: No Recent Illness/Hospitalization: No PFSH PFSH Medical History Anemia Arthritis Asthma Back pain Breast cancer Fatigue Hay fever History of PE HTN (hypertension) Knee pain Lung disease Muscle strain of right lower leg Screening for malignant neoplasm of breast SOB (shortness of breath) unexplained bruises Home Medications simvastatin 20 mg tablet 20 mg PO QHS 09/21/13 [History Last Taken 12/20/19] acetaminophen 500 mg tablet 500 mg PO Q4H PRN PRN Pain 01/18/15 [History Last Taken 12/21/19] hydrochlorothiazide 12.5 mg capsule 12.5 mg PO DAILY 01/18/15 [History Last Taken 12/21/19] metoprolol tartrate 50 mg tablet 25 mg PO BID #60 tabs 03/09/15 [Rx Last Taken 12/21/19] calcium carbonate 500 mg-vitamin D3 5 mcg (200 unit) tablet 1 tab PO BID 03/23/15 [History Last Taken 12/21/19] cholecalciferol (vitamin D3) 25 mcg (1,000 unit) tablet 2,000 unit PO BID 02/16/16 [History Last Taken 12/21/19] potassium chloride 20 mEq/15 mL oral liquid 20 meq PO DAILY 02/26/17 [History Last Taken 12/21/19] fluticasone propionate 50 mcg/actuation nasal spray,suspension 2 spray NASAL DAILY 10/12/18 [History Last Taken 12/21/19] albuterol sulfate 90 mcg/actuation aerosol inhaler 1 - 2 puff inhalation Q6H PRN PRN Sob &/Or Wheezing 08/17/19 [History Last Taken 12/21/19] fexofenadine 180 mg tablet 180 mg PO DAILY 08/17/19 [History Last Taken 12/21/19] fluticasone 500 mcg-salmeterol 50 mcg/dose blistr powdr for inhalation 1 puff inhalation BID 08/17/19 [History Last Taken 12/21/19] ipratropium bromide 42 mcg (0.06 %) nasal spray 2 spray NASAL TID 07/31/20 [History Last Taken Unknown] warfarin 6 mg tablet 6 mg PO UD 02/05/21 [History Last Taken Unknown] warfarin 5 mg tablet 5 mg PO DAILY 90 days #90 tabs 04/23/21 [Rx Last Taken Unknown] metoprolol tartrate 25 mg tablet 25 mg PO BID 06/11/21 [History Last Taken Unknown] warfarin 5 mg tablet 5 mg PO DAILY #90 tabs 12/18/21 [Rx Last Taken Unknown] warfarin 5 mg tablet 5 mg PO DAILY #90 tabs 10/04/22 [Rx Last Taken Unknown] warfarin 1 mg tablet 1 mg PO .COMPLEX #77 tabs 11/26/22 [Rx Last Taken Unknown] Allergy/AdvReac Type Severity Reaction Status Date / Time heparin Allergy Severe Low Verified 12/10/22 11:33 platelets sulfamethoxazole Allergy Severe Unknown Verified 12/10/22 11:33 [From Bactrim] trimethoprim [From Bactrim] Allergy Severe Unknown Verified 12/10/22 11:33 prednisone Allergy Unknown Verified 12/10/22 11:33 aspirin AdvReac Severe Nausea Verified 12/10/22 11:33 clarithromycin AdvReac Severe Unknown Verified 12/10/22 11:33 cyclobenzaprine AdvReac Severe Unknown Verified 12/10/22 11:33 [Cyclobenzaprine] meloxicam AdvReac Severe Nausea Verified 12/10/22 11:33 Sulfa (Sulfonamide AdvReac Severe Vomiting Verified 12/10/22 11:33 Antibiotics) tramadol HCl [From Ultram] AdvReac Severe Vomiting Verified 12/10/22 11:33 Family History Mother Arthritis Heart disease Hypertension CVA (cerebral vascular accident) Surgical History H/O hernia repair H/O lumpectomy History of carpal tunnel surgery History of hysterectomy Hx of tonsillectomy Social History Smoking Status: Never smoker alcohol intake: never ROS ROS ED ROS Narrative Denies recent illness. Review of Systems ROS Unobtainable: Denies due to encephalopathy Constitutional Constitutional ED: Denies chills or fever(s) Eyes Eyes: Denies blurry vision ENT ENT ED: Denies ear pain Cardiovascular Cardiovascular: Denies chest pain Respiratory/Chest Respiratory/Chest: Denies cough or dyspnea Gastrointestinal Gastrointestinal: Denies abdominal pain Genitourinary Genitourinary ED: Denies dysuria or hematuria Musculoskeletal Musculoskeletal: Denies back pain or neck pain Integumentary Denies abscess or Abrasions Neurologic Neurologic: Denies headache(s) Psychiatric Psychiatric: Denies anxiety or depression Endocrine Endocrinology: Denies cold intolerance Hematologic/Lymphatic Hematologic/Lymphatic: Denies easy bleeding Allergic/Immunologic Allergic/Immunologic ED: Denies mouth swelling or tongue swelling EXAM Physical Exam Narrative Exam Narrative: 8-year-old female no acute distress. Friend at bedside. H EENT exam unremarkable atraumatic. No facial or scalp trauma. Nontender. Pupils round react light. C-spine nontender. Back and spine nontender. Trachea midline. Lungs clear to auscultation bilaterally. Heart regular rhythm rate about 60 no murmur. Chest wall and ribs nontender. Abdomen soft nontender. Pelvic girdle intact and nontender. Has full range of motion in both upper and lower extremities. Minimal swelling to the dorsum of her hand. There is no abrasion or laceration. She has normal range of motion of both shoulders, elbows wrist and hand. Normal tavern car attendant strength. Normal radial pulse in the left. Normal flexion extension of the wrist. No gross bony deformity. Changes with arthritis in both hands. Lower extremities are nontender with normal range of motion. Normal dorsi plantar flexion. No rotation or shortening. Neurologically she is awake and alert with no focal motor deficits. Answering questions and following commands. Acting appropriately. Const Vital Signs: 12/10/22 11:30 Temperature 97.8 F Temperature Source Temporal Pulse Rate 63 Respiratory Rate 18 Blood Pressure 183/54 H Blood Pressure Mean 97 Pulse Ox 100 Oxygen Delivery Method Room Air Positive well nourished, well developed and obese; Negative for cachectic, contractures or unkempt General Appearance ED: well developed and NAD; Negative for unkempt, cachectic, contractures, cyanotic or diaphoretic Nutritional Appearance: obese; Negative for cachectic HEENT Reports moist mucous membranes normocephalic and atraumatic; Negative for trauma or tenderness Eyes PERRL and EOMs intact bilaterally General Eye ED: Negative for other Neck full ROM and supple General: Negative for tenderness Lymph Lymphatic: Negative for other Chest Wall inspection of chest normal and palpation of chest normal Chest: Negative for other Resp normal respiratory effort and clear to auscultation bilaterally Effort and Inspection: Negative for pain with movement Auscultation: Negative for rales, rhonchi or wheezes Cardio regular rate, regular rhythm, S1 normal heart sound, S2 normal heart sound and no murmurs Rate: Negative for bradycardia or tachycardic Rhythm: Negative for abnormal rhythm GI non-tender, non-distended and no masses Inspection: Negative for abdominal distention Auscultation: normoactive bowel sounds Palpation: soft; Negative for tender or guarding Back/Spine no CVA tenderness General Back: Negative for CVA tenderness Cervical Spine: Negative for cervical spine tenderness Thoracic Spine / Upper Back: Negative for thoracic spinal tenderness Lumbar Spine / Lower Back: Negative for lumbar spinal tenderness Extremity normal to inspection and full ROM Extremity Narrative: Minimal swelling dorsum left hand. However has full flexion-extension of the wr ist. Forearm and elbow are nontender. Normal radial pulse. She can open and close her hand without difficulty. No gross bony deformities other than arthritic changes. Neurovascular intact. General Extremety ED: Yes edema General Extremity: edema Neuro oriented x3, CN's II-XII intact bilaterally, moves all extremities, no focal motor deficits and no sensory deficits noted Sensorium / Orientation: alert, oriented to person, oriented to place and oriented to time; Negative for orientation impaired, lethargic or stuporous Motor Exam: strength 5/5 throughout Psych mental status grossly normal Appearance: Negative for unkempt Attitude: No agitated Mood & Affect: Negative for depressed, anxious or tearful Skin General Skin Exam: Negative for petechiae Lesions: no lesions Rashes: no rashes Trauma: no lacerations or abrasions; Negative for abrasion or laceration MDM MDM MDM Narrative Medical decision making narrative: 82-year-old female fell getting in her car injured her left hand. There is no gross bony deformity. Minimal swelling on the dorsum. X-ray will be obtained. She has normal range of motion. He has neurovascular intact. No other injuries. She did not hit her head. She did not want anything for pain. Repeat exam unchanged. The x-ray could all be chronic changes and arthritis but there is a concern for a fracture interpreted on the film both by myself and the radiologist. She be placed in a short arm AP splint and outpatient follow-up with orthopedics. She will be referred to Dr. Schwartz of orthopedics. Ice and elevate. Tylenol for pain. Radiography Diagnostic Testing: Left hand x-ray, 3 views, interpreted by myself and the radiologist. Shows a irregularity of the distal radius that could be arthritis versus an acute fracture. Given the history of the trauma and her having mild swelling I will place her in a short arm AP splint and have her follow-up with orthopedics. Procedures Upper Extremity Splints Upper Extremity Splint: Orthoglass and - (Short arm, left wrist AP splint. Well-padded. Made by myself.) Splint Fabrication: Fabricated Location: Left Discharge Plan Triage Chief Complaint: Upper Extremity Injury ED Provider: Chiki Mendiola Dx/Rx/DC Orders Clinical Impression: Fall, Fracture of left wrist Instructions: ED Fracture, Wrist, General Prescriptions: No Action metoprolol tartrate 25 mg tablet 25 mg PO BID Label Comments: TAKE 1 TABLET BY MOUTH TWICE A DAY simvastatin 20 MG tablet 20 mg PO QHS Label Comments: Lowers cholesterol acetaminophen 500 MG tablet 500 mg PO Q4H PRN PRN (Reason: Pain) Label Comments: Pain hydrochlorothiazide 12.5 MG capsule 12.5 mg PO DAILY Label Comments: Blood pressure. Diuretic (water pill) metoprolol tartrate 50 MG tablet 25 mg PO BID Qty: 60 0RF calcium carbonate-vitamin D3 1 TABLET tablet 1 tab PO BID cholecalciferol (vitamin D3) 1,000 UNIT tablet 2,000 unit PO BID potassium chloride 20 MEQ/15 ML liquid 20 meq PO DAILY fluticasone propionate 1 SPRAY spray,suspension 2 spray NASAL DAILY ipratropium bromide 1 SPRAY spray,non-aerosol 2 spray NASAL TID warfarin 6 MG tablet 6 mg PO UD Rx Instructions: FRI, FRI, , FRI, SAT, SUN fexofenadine 180 MG tablet 180 mg PO DAILY fluticasone propion-salmeterol 1 PUFF inhaler 1 puff inhalation BID albuterol sulfate 1 PUFF inhaler 1 - 2 puff inhalation Q6H PRN PRN (Reason: Sob &/Or Wheezing) warfarin 5 mg tablet 5 mg PO DAILY 90 Days Qty: 90 1RF warfarin 5 mg tablet 5 mg PO DAILY Qty: 90 1RF Rx Instructions: Take one tablet daily warfarin 5 mg tablet 5 mg PO DAILY Qty: 90 1RF warfarin 1 mg tablet 1 mg PO .COMPLEX Qty: 77 1RF Rx Instructions: Take 1 mg PO with 5 mg tablet (to equal 6 mg total) on Friday, Friday, , Friday and Friday Primary Care Provider: Floridalma Juárez Referrals: Floridalma Juárez MD [Primary Care Provider] - Yves Schwartz DO [Med Staff - Active Staff] - As soon as possible Activity Restrictions/Additional Instructions: You may have a break in the distal radius by your wrist. This could also be arthritis. We will treat this is a fracture and put you in a splint. Ice and elevate your wrist. Tylenol for pain. Call and follow-up with the orthopedic doctor to have this reevaluated. If is just arthritis they can take out the splint. If it is a broken wrist they may put you in a cast. Keep the splint dry and clean. Disposition Disposition: Home, Self Care
== END 2022-12-10 13:12 | disposition home or self-care (01) ==
PROVIDERS: Emergency Provider Emergency Medicine; PCP Family Medicine; Visit Provider Emergency Medicine
DX: S62.92XA Unspecified fracture of left hand, initial encounter for closed fracture (principal); Z86.718 Personal history of other venous thrombosis and embolism; Z86.711 Personal history of pulmonary embolism; Z79.01 Long term (current) use of anticoagulants; W19.XXXA Unspecified fall, initial encounter
CPT/HCPCS: 73130; 99282

== ENCOUNTER → 2023-02-21 | Outpatient (CLI) | payer MEDICARE, SELFPAY ==
--- NOTE | 2023-02-21 09:29 | BI_ITS ---
MAMMOGRAPHY - BILATERAL SCREENING REASON FOR EXAM: Female, 82 years old. Routine annual screening examination. PERTINENT HISTORY: Personal history of breast cancer. Prior left lumpectomy with radiation and tamoxifen. Prior left stereotactic breast biopsy. Sister with breast cancer. TECHNIQUE: Digital bilateral breast carmelina (3D mammographic acquisition) in the CC and MLO projections. 2-D mediolateral oblique (MLO) and craniocaudad (CC) views of both breasts were obtained. CAD: Full Field Digital Mammography with Computer Added Detection was performed. COMPARISON: Comparison is made with prior study February 20, 2022 and January 31, 2021. FINDINGS: Breast Composition: The breasts are almost entirely fatty. There are no dominant masses or suspicious calcifications. Stable deformity with decreased size of the left breast in 2. Prior lumpectomy and radiation therapy. 2 tissue markers are once again seen in the deep upper lateral portion of the left breast. No other significant abnormalities are identified. There has been no significant change since the prior study. BI/SCRN MAMM (CAD)W/CARMELINA BILAT IMPRESSION: Stable bilateral screening mammogram. Yearly follow-up mammogram recommended. (A) ASSESSMENT CATEGORY: BIRADS Category 2: Benign. A letter regarding these results will be sent to the patient by the facility within 30 days. Approximately 10% of breast cancers are not detected by mammography. A normal mammogram should not delay biopsy of a clinically suspicious abnormality. [id number] Electronically Signed: Jaylon Boone MD at 10:46 EDT ,
== END | disposition home or self-care (01) ==
LOC: OPBI 09:29
PROVIDERS: PCP Family Medicine; Visit Provider Nurse Practitioner Family
DX: Z12.31 Encounter for screening mammogram for malignant neoplasm of breast (principal); Z86.000 Personal history of in-situ neoplasm of breast; Z80.3 Family history of malignant neoplasm of breast
CPT/HCPCS: 77063; 77067

== ENCOUNTER 2023-03-07 08:30 | Outpatient (RCR) | payer MEDICARE, SELFPAY ==
--- NOTE | 2023-02-05 08:13 | HP.OTEVAL ---
Patient's Visit Information OBINNA CARDENAS is a 82 year old F, referred to Occupational Therapy by MARC Guo, with a diagnosis of left distal radius fx. Date of Evaluation: 02/04/23 Occupational Therapist: Tina Willard, BLANKA/Konrad, CHT - Subjective This 82 year old female was seen for OT eval with dx of left distal radius fx. Pt states DOI was on Dec 10 2022. pt states she was at [employer] to get in car and had a fall. Pt than went to ER. pt was than casted for about 4 weeks and placed in wrist brace about two weeks ago. pt states she is doing her exercises but would like to use her left hand with all ADLs and IADls. pt has $40 co-pay - ADLs Comments: pt has health aid to assist with bathing and ADls at this time. - Pain left wrist 3 Pain Intensity Range: 3, 4 - ROM Forearm: right/left WNL Wrist: right 50/65 left 50/40 - Strength Art Museum Aide: right 30# left 15# Lateral Pinch: right 8# left 8# - Sensation Sensation Comments: denies - Goals Goal:: pt will demo a increase in left yarn conditioner strength by 15# to increase pts ind. with ADls by d/c. pt will demo increase in left UB strength to assist with sit-stand tsf to increase safe mobility by d.c Goal:: pt will demo a increase in left wrist ROM by 15* or greater to increase pts ind. with ADLs and IADLs by d/c Goal:: pt will demo understanding of joint protection and use of ad. eq. to increase ind. by d/c - Rehabilitation General Assessment: pt arrives 8 weeks from left distal radius fx. pt arrives with soft wrist brace on. Pt demo with limited left wrist ROM, weakness and limited ability to use left UE with functional transfers and mobility. PT would benefit from skilled OT services 1-2x week for 3-4 weeks to return pt to PLOF. Today therapist ed. pt on ROM ex and initiate use with bathing and eating and doing dishes- pt has $40 co-pay therapist will try to see pt 1-2x week for 4-5 weeks to increase pts strength. pt demo understanding and agrees to POC. Rehabilitation Potential: Good - Anticipated Interventions A/AAROM/PROM, Strengthening, Modalities, Orthoses, Joint Protection/Energy Conservation, ADL Training, Education re assistive Equipment, Education re Diagnosis, Caregiver Training, Home Program - Visit Plan Frequency: 1-2x /Week Duration: 4 Weeks General Plan: will initiate ROM and light strengthening. with transitions to use of left UE with simulated ADls and IADls TEXT: Thank you for the opportunity to evaluate your patient. For Medicare and Medicare HMO plans, please review the plan of care and approve it. It will need to be FAXED BACK to us at [phone] for Medicare purposes. Please let me know if there are questions or concerns regarding this plan of care. Physician Signature: Date:
--- NOTE | 2023-02-05 08:14 | HP.OTEVAL ---
Patient's Visit Information OBINNA CARDENAS is a 82 year old F, referred to Occupational Therapy by MARC Guo, with a diagnosis of left distal radius fx. Date of Evaluation: 02/04/23 Occupational Therapist: Tina Willard, CRISTIANR/Konrad, CHT - Subjective This 82 year old female was seen for OT eval with dx of left distal radius fx. Pt states DOI was on Dec 10 2022. pt states she was at [employer] and [employer] to get in car and had a fall. Pt than went to ER. pt was than casted for about 4 weeks and placed in wrist brace about two weeks ago. pt states she is doing her exercises but would like to use her left hand with all ADLs and IADls. pt has $40 co-pay - ADLs Comments: pt has health aid to assist with bathing and ADls at this time. - Pain left wrist 3 Pain Intensity Range: 3, 4 - ROM Forearm: right/left WNL Wrist: right 50/65 left 50/40 - Strength Salesperson Floor Coverings: right 30# left 15# Lateral Pinch: right 8# left 8# - Sensation Sensation Comments: denies - Quick DASH-Disab of Arm,Shoulder& Hand Quick DASH Score: 50.0000 - Goals Goal:: pt will demo a increase in left inspector eyeglass strength by 15# to increase pts ind. with ADls by d/c. pt will demo increase in left UB strength to assist with sit-stand tsf to increase safe mobility by d.c Goal:: pt will demo a increase in left wrist ROM by 15* or greater to increase pts ind. with ADLs and IADLs by d/c Goal:: pt will demo understanding of joint protection and use of ad. eq. to increase ind. by d/c - Rehabilitation General Assessment: pt arrives 8 weeks from left distal radius fx. pt arrives with soft wrist brace on. Pt demo with limited left wrist ROM, weakness and limited ability to use left UE with functional transfers and mobility. PT would benefit from skilled OT services 1-2x week for 3-4 weeks to return pt to PLOF. Today therapist ed. pt on ROM ex and initiate use with bathing and eating and doing dishes- pt has $40 co-pay therapist will try to see pt 1-2x week for 4-5 weeks to increase pts strength. pt demo understanding and agrees to POC. Rehabilitation Potential: Good - Anticipated Interventions A/AAROM/PROM, Strengthening, Modalities, Orthoses, Joint Protection/Energy Conservation, ADL Training, Education re assistive Equipment, Education re Diagnosis, Caregiver Training, Home Program - Visit Plan Frequency: 1-2x /Week Duration: 4 Weeks General Plan: will initiate ROM and light strengthening. with transitions to use of left UE with simulated ADls and IADls TEXT: Thank you for the opportunity to evaluate your patient. For Medicare and Medicare HMO plans, please review the plan of care and approve it. It will need to be FAXED BACK to us at [phone] for Medicare purposes. Please let me know if there are questions or concerns regarding this plan of care. Physician Signature: Date:
--- NOTE | 2023-03-07 10:01 | HP.OTDCSUM ---
It has been my pleasure to treat OBINNA CARDENAS under orders from MARC Guo, for the diagnosis of left distal radius fx for a total of 6 visit(s). Please see the following information for a summary of their discharge status. % Improvement: 70 Objective/Function: pt demo with 20# left automotive detailer strength. left wrist ROM 65/45. pt has met OT goals at this time and D/c with HEP of t-band. Patient Goals: Regain Mobility, Regain Strength, Use Hand/Wrist/Arm Normally Again Goal:: pt will demo a increase in left automotive detailer strength by 15# to increase pts ind. with ADls by d/c. pt will demo increase in left UB strength to assist with sit-stand tsf to increase safe mobility by d.c Goal:: pt will demo a increase in left wrist ROM by 15* or greater to increase pts ind. with ADLs and IADLs by d/c Goal:: pt will demo understanding of joint protection and use of ad. eq. to increase ind. by d/c Plan: cont with strengthening at comfort level Discharge Comments: pt was seen for 6 OT sessions and has made great gains in use of left UE for ADLS. pt reports she has a home health aid who assist her with some IADLs. pt has a HEP of t-band and her automotive detailer strength is now equal to her unaffected hand- pt has met OT goals and is now D/C. pt agrees with d/c. If there are questions or concerns regarding this patient's occupational therapy, please fell free to call me at [phone]. Thank you for the referral of this patient. Sincerely, Tina Willard, OTR/L, CHT
== END 2023-03-07 19:00 | disposition home or self-care (01) ==
LOC: OT 08:30
PROVIDERS: PCP Family Medicine
DX: S52.502D Unspecified fracture of the lower end of left radius, subsequent encounter for closed fracture with routine healing (principal)
CPT/HCPCS: 97110; 97166; 97530

== ENCOUNTER 2023-04-07 16:05 | Emergency (ER) | payer MEDICARE, SELFPAY ==
[2023-04-07 16:07] VITALS: BP 160/91; PULSE 65; RESP 18; TEMP 36.6; O2SAT 94; BMI 38.7
--- NOTE | 2023-04-07 16:21 | VDLE_ITS ---
Reason For Study: LLE PAIN Procedure LEFT This is a venous duplex using B-mode, color GSV is normal. flow and spectral Doppler. CFV is compressible, spontaneous, phasic, Exam performed portable in ED. competent, and demonstrates normal TRIAGE ROOM #2. augmentation. The study was technically difficult. FV is compressible, spontaneous, phasic, A preliminary report was called and/or faxed competent and demonstrates normal to ED. augmentation. POP V is compressible, spontaneous, phasic, competent and demonstrates normal augmentation. T/P Trunk is compressible. PTV is compressible. LT PerV is compressible. VL/Venous Duplex US, Unilateral Interpretation Summary Deep veins of the left lower extremity are patent and compressible segmentally. There is no evidence of left lower extremity deep vein thrombosis. The left great saphenous vein candida ears patent and compressible segmentally. Ordering Physician: Joaquin Yang Referring Physician: Floridalma Juárez Performed By: Katt Sprague, VANDANA, RVT
--- NOTE | 2023-04-07 20:16 | ED.VIS.LOWEX ---
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 She states is really around the knee and hurts. She does have some pain in the calf when she walks. Denies any new injury. Patient has been therapeutic on Coumadin. She states that the leg is painful she went to the urgent care today and was sent to the ED for Doppler study to rule out DVT. He denies any chest pain or shortness of breath. Patient does note that she has history of osteoarthritis in both knees. [facility] Medical History Anemia Arthritis Asthma Back pain Breast cancer Fatigue Hay fever History of PE HTN (hypertension) Knee pain Lung disease Muscle strain of right lower leg Screening for malignant neoplasm of breast SOB (shortness of breath) unexplained bruises Home Medications simvastatin 20 mg tablet 20 mg PO QHS 09/21/13 [History Last Taken 12/20/19] acetaminophen 500 mg tablet 500 mg PO Q4H PRN PRN Pain 01/18/15 [History Last Taken 12/21/19] hydrochlorothiazide 12.5 mg capsule 12.5 mg PO DAILY 01/18/15 [History Last Taken 12/21/19] metoprolol tartrate 50 mg tablet 25 mg PO BID #60 tabs 03/09/15 [Rx Last Taken 12/21/19] calcium carbonate 500 mg-vitamin D3 5 mcg (200 unit) tablet 1 tab PO BID 03/23/15 [History Last Taken 12/21/19] cholecalciferol (vitamin D3) 25 mcg (1,000 unit) tablet 2,000 unit PO BID 02/16/16 [History Last Taken 12/21/19] potassium chloride 20 mEq/15 mL oral liquid 20 meq PO DAILY 02/26/17 [History Last Taken 12/21/19] fluticasone propionate 50 mcg/actuation nasal spray,suspension 2 spray NASAL DAILY 10/12/18 [History Last Taken 12/21/19] albuterol sulfate 90 mcg/actuation aerosol inhaler 1 - 2 puff inhalation Q6H PRN PRN Sob &/Or Wheezing 08/17/19 [History Last Taken 12/21/19] fexofenadine 180 mg tablet 180 mg PO DAILY 08/17/19 [History Last Taken 12/21/19] fluticasone 500 mcg-salmeterol 50 mcg/dose blistr powdr for inhalation 1 puff inhalation BID 08/17/19 [History Last Taken 12/21/19] ipratropium bromide 42 mcg (0.06 %) nasal spray 2 spray NASAL TID 07/31/20 [History Last Taken Unknown] warfarin 6 mg tablet 6 mg PO UD 02/05/21 [History Last Taken Unknown] metoprolol tartrate 25 mg tablet 25 mg PO BID 06/11/21 [History Last Taken Unknown] warfarin 5 mg tablet 5 mg PO DAILY #90 tabs 12/18/21 [Rx Last Taken Unknown] warfarin 5 mg tablet 5 mg PO DAILY #90 tabs 10/04/22 [Rx Last Taken Unknown] warfarin 1 mg tablet 1 mg PO .COMPLEX #77 tabs 11/26/22 [Rx Last Taken Unknown] warfarin 5 mg tablet 5 mg PO DAILY 90 days #90 tabs 03/25/23 [Rx Last Taken Unknown] Allergy/AdvReac Type Severity Reaction Status Date / Time heparin Allergy Severe Low Verified 04/07/23 16:07 platelets sulfamethoxazole Allergy Severe Unknown Verified 04/07/23 16:07 [From Bactrim] trimethoprim [From Bactrim] Allergy Severe Unknown Verified 04/07/23 16:07 prednisone Allergy Unknown Verified 04/07/23 16:07 aspirin AdvReac Severe Nausea Verified 04/07/23 16:07 clarithromycin AdvReac Severe Unknown Verified 04/07/23 16:07 cyclobenzaprine AdvReac Severe Unknown Verified 04/07/23 16:07 [Cyclobenzaprine] meloxicam AdvReac Severe Nausea Verified 04/07/23 16:07 Sulfa (Sulfonamide AdvReac Severe Vomiting Verified 04/07/23 16:07 Antibiotics) tramadol HCl [From Ultram] AdvReac Severe Vomiting Verified 04/07/23 16:07 Family History Mother Arthritis Heart disease Hypertension CVA (cerebral vascular accident) Surgical History H/O hernia repair H/O lumpectomy History of carpal tunnel surgery History of hysterectomy Hx of tonsillectomy Social History Smoking Status: Never smoker alcohol intake: never ROS ROS ED Constitutional Constitutional ED: Denies chills, fever(s) or sweats Eyes Eyes: Denies blurry vision or change in vision ENT ENT ED: Denies ear pain or sore throat Cardiovascular Cardiovascular: Denies chest pain, palpitations or racing heartbeat Respiratory/Chest Respiratory/Chest: Denies cough, dyspnea or sputum Gastrointestinal Gastrointestinal: Denies abdominal pain, constipation, diarrhea, nausea or vomiting Genitourinary Genitourinary ED: Denies dysuria, hematuria or urinary frequency Musculoskeletal Musculoskeletal: Reports other Details: Pyuria left calf pain, left knee pain ; Denies arthralgias, myalgias or neck pain Integumentary Denies abscess, Abrasions or rash Neurologic Neurologic: Denies headache(s), paresthesias or weakness Psychiatric Psychiatric: Denies anxiety, depression, suicidal ideation or suicidal thoughts Endocrine Endocrinology: Denies polydipsia or polyuria EXAM Physical Exam Const Vital Signs: 04/07/23 16:07 Temperature 97.8 F Temperature Source Temporal Pulse Rate 65 Respiratory Rate 18 Blood Pressure 160/91 H Blood Pressure Mean 114 Pulse Ox 94 Oxygen Delivery Method Room Air Positive well nourished General Appearance ED: NAD HEENT normocephalic Resp normal respiratory effort Cardio regular rate Extremity Extremity Narrative: Tenderness palpation over the proximal calf in the midline. There is no swelling or edema. No cords palpated. Patient has normal range of motion of the left knee. No ligamentous laxity. Neuro oriented x3 Sensorium / Orientation: alert Motor Exam: strength 5/5 throughout Skin no wounds MDM MDM MDM Narrative Medical decision making narrative: Patient concern for DVT after being seen at the urgent care for leg pain. I think this is most likely due to her knee as she is complaining of knee pain mostly to the knee I do not believe she needs any imaging as she is walking on this knee without any difficulty. On exam she is moving it without any difficulty either. I did obtain a DVT study which was negative. Patient has been therapeutic on Coumadin. Patient counseled to ice, elevate her left leg. Return precautions discussed. Impression: 1. Left knee pain. 2. Left calf pain Discharge Plan Triage Chief Complaint: Lower Extremity Injury ED Provider: Hoang,Moi Dx/Rx/DC Orders Instructions: ED Knee Sprain Prescriptions: No Action metoprolol tartrate 25 mg tablet 25 mg PO BID Label Comments: TAKE 1 TABLET BY MOUTH TWICE A DAY simvastatin 20 MG tablet 20 mg PO QHS Label Comments: Lowers cholesterol acetaminophen 500 MG tablet 500 mg PO Q4H PRN PRN (Reason: Pain) Label Comments: Pain hydrochlorothiazide 12.5 MG capsule 12.5 mg PO DAILY Label Comments: Blood pressure. Diuretic (water pill) metoprolol tartrate 50 MG tablet 25 mg PO BID Qty: 60 0RF calcium carbonate-vitamin D3 1 TABLET tablet 1 tab PO BID cholecalciferol (vitamin D3) 1,000 UNIT tablet 2,000 unit PO BID potassium chloride 20 MEQ/15 ML liquid 20 meq PO DAILY fluticasone propionate 1 SPRAY spray,suspension 2 spray NASAL DAILY ipratropium bromide 1 SPRAY spray,non-aerosol 2 spray NASAL TID warfarin 6 MG tablet 6 mg PO UD Rx Instructions: FRI, FRI, , FRI, SAT, SUN fexofenadine 180 MG tablet 180 mg PO DAILY fluticasone propion-salmeterol 1 PUFF inhaler 1 puff inhalation BID albuterol sulfate 1 PUFF inhaler 1 - 2 puff inhalation Q6H PRN PRN (Reason: Sob &/Or Wheezing) warfarin 5 mg tablet 5 mg PO DAILY Qty: 90 1RF Rx Instructions: Take one tablet daily warfarin 5 mg tablet 5 mg PO DAILY Qty: 90 1RF warfarin 1 mg tablet 1 mg PO .COMPLEX Qty: 77 1RF Rx Instructions: Take 1 mg PO with 5 mg tablet (to equal 6 mg total) on Friday, Friday, , Friday and Friday warfarin 5 mg tablet 5 mg PO DAILY 90 Days Qty: 90 1RF Primary Care Provider: Floridalma Juárez Referrals: Floridalma Juárez MD [Primary Care Provider] - Disposition Disposition: Home, Self Care Discharge Date/Time: 04/07/23 19:09
== END 2023-04-07 19:09 | disposition home or self-care (01) ==
PROVIDERS: Emergency Provider Student in an Organized Health Care Education/Training Program; PCP Family Medicine; Visit Provider Student in an Organized Health Care Education/Training Program
DX: M25.562 Pain in left knee (principal); M79.662 Pain in left lower leg; Z79.01 Long term (current) use of anticoagulants
CPT/HCPCS: 93971; 99282

== ENCOUNTER → 2023-10-02 | Outpatient (CLI) | payer MEDICARE, SELFPAY ==
--- NOTE | 2023-10-02 13:52 | BD_ITS ---
STUDY: DUAL ENERGY X-RAY ABSORPTIOMETRY / DXA REASON FOR EXAM: Female, 82 years old. M85.89 TECHNIQUE: Bone Mineral Density (BMD) measurements of lumbar spine and bilateral hips were obtained. COMPARISON: Comparison is made with prior study dated December 23, 2018. FINDINGS: Lumbar Spine (L1-L4): g/cm2 (0.988) / T-score (-0.5) / Z-score (2.3) Findings are suggestive of normal bone density with a low fracture risk. Left Femur Total: g/cm2 (0.875) / T-score (-0.5) / Z-score (1.7) Left Femoral Neck: g/cm2 (0.669) / T-score (-1.6) / Z-score (0.8) Right Femur Total: g/cm2 (0.831) / T-score (-0.9) / Z-score (1.3) Right Femoral Neck: g/cm2 (0.656) / T-score (-1.7) / Z-score (0.7) The T-Scores on the most recent prior examination were: Lumbar Spine (L1-L4): There has been worsening of bone density since the previous examination. Left Femur Total: which represents a worsening of 7.6%. Right Femur Total: which represents an improvement of 1.3%. BD/Dexa Bone Density Study IMPRESSION: The patient is considered osteopenic as outlined below according to World [employer] Organization (WHO) criteria with a moderate fracture risk. There has been worsening of bone density since the previous examination. Reference Information: The T-score is the number of standard deviations above or below the standard which is normal for young adults at their peak bone mineral density. The World Health Organization (WHO) interprets the T-scores as follows: Above -1 Normal bone density Between -1 and -2.5 Osteopenia Equal to / or below -2.5 Osteoporosis As a practical clinical guideline, osteopenia may be graded as follows: Mild -1 through -1.5 Moderate -1.6 through -2.0 Severe -2.1 through -2.4 The Z-score is the number of standard deviations above or below age-matched controls. A Z-score of less than -1.5 would be considered abnormal. References: 1. NIH Osteoporosis and Related Bone Diseases www osteo.org 2. International Society for Clinical Densitometry www iscd.org 3. National Osteoporosis Foundation www nof.org Electronically Signed: Jaylon Boone MD at 14:30 EDT ,
== END | disposition home or self-care (01) ==
LOC: OPBD 13:41
PROVIDERS: PCP Family Medicine; Referring Provider Family Medicine; Visit Provider Family Medicine
DX: M85.89 Other specified disorders of bone density and structure, multiple sites (principal)
CPT/HCPCS: 77080

== ENCOUNTER → 2024-02-25 | Outpatient (CLI) | payer MEDICARE, SELFPAY ==
--- NOTE | 2024-02-25 09:21 | BI_ITS ---
MAMMOGRAPHY - BILATERAL SCREENING REASON FOR EXAM: Female, 83 years old. Routine annual screening examination. PERTINENT HISTORY: Personal history of breast cancer. Prior left lumpectomy with radiation therapy. Sister with breast cancer. TECHNIQUE: Digital bilateral breast carmelina (3D mammographic acquisition) in the CC and MLO projections. 2-D mediolateral oblique (MLO) and craniocaudad (CC) views of both breasts were obtained. CAD: Full Field Digital Mammography with Computer Added Detection was performed. COMPARISON: Comparison is made with prior study February 21, 2023 and February 20, 2022. FINDINGS: Breast Composition: There are scattered areas of fibroglandular density. There are no dominant masses or suspicious calcifications. Once again, the patient is status post right lumpectomy and post radiation changes and decreased size of the left breast. 2 tissue clip marker is once again seen in the upper lateral portion of the left breast. No other significant abnormalities are identified. There has been no significant change since the prior study. BI/SCRN MAMM (CAD)W/CARMELINA BILAT IMPRESSION: Stable bilateral screening mammogram. Yearly follow-up mammogram recommended. (A) ASSESSMENT CATEGORY: BIRADS Category 2: Benign. A letter regarding these results will be sent to the patient by the facility within 30 days. Approximately 10% of breast cancers are not detected by mammography. A normal mammogram should not delay biopsy of a clinically suspicious abnormality. [id number] Electronically Signed: Jaylon Boone MD at 8:30 EDT ,
== END | disposition home or self-care (01) ==
LOC: OPBI 09:21
PROVIDERS: PCP Family Medicine; Referring Provider Nurse Practitioner Family; Visit Provider Nurse Practitioner Family
DX: Z12.31 Encounter for screening mammogram for malignant neoplasm of breast (principal); Z86.000 Personal history of in-situ neoplasm of breast; Z80.3 Family history of malignant neoplasm of breast
CPT/HCPCS: 77063; 77067

== ENCOUNTER → 2025-02-25 | Outpatient (CLI) | payer MEDICARE, SELFPAY ==
--- NOTE | 2025-02-25 10:00 | BI_ITS ---
EXAM: SCRN MAMM (CAD)W/CARMELINA BILAT 02/25/2025 CLINICAL HISTORY: F, Age 84 y/o , SCREENING TECHNIQUE: Bilateral screening digital breast tomosynthesis with 2D and 3D images. Computer aided detection. COMPARISON: Prior exam(s) dated 02/25/2024, 02/21/2023. FINDINGS: TISSUE DENSITY: The breast tissue is composed of scattered area of fibroglandular density. Bilateral Breast Mammographic Findings: No significant masses, calcifications or other abnormalities are identified. BI/SCRN MAMM (CAD)W/CARMELINA BILAT IMPRESSION:
== END | disposition home or self-care (01) ==
LOC: OPBI 09:38
PROVIDERS: PCP Family Medicine; Referring Provider Nurse Practitioner Family; Visit Provider Nurse Practitioner Family
DX: Z12.31 Encounter for screening mammogram for malignant neoplasm of breast (principal)
CPT/HCPCS: 77063; 77067

== ENCOUNTER → 2025-11-11 | Outpatient (CLI) | payer MEDICARE, SELFPAY ==
--- OUTSIDE RECORDS SUMMARY | 2025-11-11 07:48 | XMS RPT_ITS | CCD ---
Author Organization [facility] CliniSysd Care Team Providers Care Cement Mason Name Role Phone Blanca Mercado Unavailable Unavailable PROVIDER, UNKNOWN Unavailable Unavailable JUAN, PEREZ-CHI Unavailable Unavailable Dr. Floridalma Juárez Primary Care Provider [phone] Dr. Floridalma Juárez Referring Provider [phone] Spencer VEHICLE INSURANCE AGENT, VEHICLE INSURANCE AGENT-C Bambi Attending Provider [phone] MARC Soliman Attending Provider Dr. Josh Hodges Attending Provider [phone] MARC Soliman Referring Provider [phone] Dr. Floridalma Juárez Primary Care Provider [phone] Floridalma Juárez Referring Provider Spencer ROWLAND NP-Daja Lacy Attending Provider [phone] MARC Soliman Attending Provider Dr. Floridalma Juárez Primary Care Provider [phone] Dr. Floridalma Juárez Referring Provider [phone] MARC Glynn Attending Provider [phone] Josh Hodges Attending Provider Spencer ROWLAND, JANETT-C Bambi Attending Provider Dr. Floridalma Juárez Primary Care Provider [phone] Dr. Floridalma Juárez Referring Provider MARC Soliman Attending Provider Dr. Yves Cole Attending Provider Juan, Perez Chi Primary Care Provider Floridalma Juárez MD Primary Care Provider Franck MCNAMARA, Dr. Hedrick Primary Care Provider Spencer VEHICLE INSURANCE AGENT-C, Bambi Attending Provider Spencer VEHICLE INSURANCE AGENT-C, Bambi Referring Provider Franck MCNAMARA, Dr. Hedrick Referring Provider Juan MCNAMARA, Dr. Perez Mckeon Family Provider Dr. Floridalma Juárez MD Primary Care Provider Franck MCNAMARA, Dr. Hedrick Referring Provider Spencer VEHICLE INSURANCE AGENT-C, Bambi Attending Provider Juan MCNAMARA, Dr. Perez Mckeon [facility] Provider MARY JAMISON Attending Unavailable WIEDEL, FLORIDALMA E Primary Care Unavailable MIEDEL, FLORIDALMA E Primary Care Unavailable STEFANIE UREÑA Attending Unavailable BUBBA ROY Referring Unavailable MIEDEL, FLORIDALMA E Primary Care Unavailable WIEDEL, FLORIDALMA E Primary Care Unavailable Spencer VEHICLE INSURANCE AGENT, Bambi Attending Unavailable Miedel, Floridalma Referring Unavailable Miedel, Floridalma Primary Care Unavailable Spencer VEHICLE INSURANCE AGENT, Bambi Attending Unavailable Miedel, Floridalma Primary Care Unavailable Miedel, Floridalma Referring Unavailable Spencer VEHICLE INSURANCE AGENT, Bambi Attending Unavailable Miedel, Floridalma Referring Unavailable Miedel, Floridalma Primary Care Unavailable Paula Bailey Attending Unavailable Miedel, Floridalma Primary Care Unavailable Paula Bailey Attending Unavailable Miedel, Floridalma Primary Care Unavailable Spencer VEHICLE INSURANCE AGENT, Bambi Attending Unavailable Spencer VEHICLE INSURANCE AGENT, Bambi Referring Unavailable Miedel, Floridalma Primary Care Unavailable Miedel, Floridalma Primary Care Unavailable Miedel, Floridalma Attending Unavailable Allergies Allergy Classification Reported Allergen(s) Allergy Type Date of Onset Reaction(s) Facility (14 sources) Aspirin; Translations: [ASPIRIN] Drug Allergy 06-18-20 13 [facility] (14 sources) Clarithromycin; Translations: [CLARITHROMYCIN] Drug Allergy 04-12-20 13 GI Upset [facility] Comment on above: thinks made her naus eated- cant recall for certain (14 sources) cyclobenzaprine; Translations: [CYCLOBENZAPRINE] Drug Allergy 12-30-19 13 Unknown [facility] (14 sources) heparin; Translations: [HEPARIN] Drug Allergy 11-15-20 16 Unknown [facility] Comment on above: Patient coded. (14 sources) meloxicam; Translations: [MELOXICAM] Drug Allergy 12-30-19 13 Other: See Comments [facility] Comment on above: shakes (14 sources) predniSONE; Translations: [PREDNISONE] Drug Allergy 12-30-19 13 Other: See Comments [facility] (14 sources) Sulfamethoxazole; Translations: [SULFAMETHOXAZOLE] Drug Allergy 04-12-20 13 GI Upset, Vomiting [facility] (9 sources) Sulfonamides (Antibiotic); Translations: [Sulfa (Sulfonamide Antibiotics)] Propensity to adverse reactions 02-12-20 Vomiting [facility] (9 sources) traMADol; Translations: [tramadol HCl] Drug Allergy 02-12-20 Vomiting [facility] (8 sources) Trimethoprim Drug Allergy 02-12-20 Unknown [facility] (6 sources) Seasonal allergy; Translations: [SEASONAL ALLERGIES] Allergy to substance 06-07-20 11 Other: See Comments [facility] (6 sources) traMADol; Translations: [TRAMADOL] Drug Allergy 11-15-20 16 Unknown [facility] (1 source) Aspirin Drug Allergy 08-15-20 [facility] (1 source) Clarithromycin Drug Allergy 08-15-20 [facility] (1 source) cyclobenzaprine Drug Allergy 08-15-20 [facility] (1 source) heparin Drug Allergy 08-15-20 [facility] (1 source) meloxicam Drug Allergy 08-15-20 [facility] (1 source) predniSONE Drug Allergy 08-15-20 [facility] (1 source) Sulfamethoxazole Drug Allergy 08-15-20 [facility] (1 source) Trimethoprim Drug Allergy 08-15-20 [facility] Repository Medications Current Medications Medication Drug Class(es) Dates Sig (Normalized) Sig (Original) acetaminophen 500 mg oral tablet (13 sources) Start: 11-12-2005 take 1 tablet by mouth every four hours as needed for pain Acetaminophen 500 MG tablet Active 500 mg PO EVERY 4 HOURS NEEDED as needed for Pain January 18, 2015 1:00am acetaminophen 325 mg / oxyCODONE hydrochloride 5 mg oral tablet (5 sources) Opioid Agonist Start: 03-16-2015 oxyCODONE-acetamino phen (PERCOCET) 5-325 mg tablet 03/16/2015 Active [id number] 200 actuat albuterol 0.09 mg/actuat metered dose inhaler (20 sources) beta2-Adrenergic Agonist Start: 08-17-2019 Albuterol Sulfate 1 PUFF inhaler Active 1 - 2 NMA INHALATION EVERY 6 HOURS NEEDED as needed for Sob &/Or Wheezing August 17, 2019 12:00am Start: 08-17-2019 take 1 puff(s) by in halation every six hours as needed Albuterol Sulfate Active 1 - 2 PUFF INHALATION EVERY 6 HOURS NEEDED August 17, 2019 12:00am Start: 02-05-2018 PROAIR HFA 90 mcg/actuation inhaler 02/05/2018 Active Start: 03-09-2015 End: 02-23-2018 take 1 puff(s) by inhalation every two hours as needed Albuterol Sulfate Discontinued 2 PUFF INHALATION EVERY 2 HOURS NEEDED March 09, 2015 11:43am February 23, 2018 11:40am Start: 03-09-2015 End: 02-23-2018 Albuterol Sulfate 1 INHALER inhaler Discontinued 2 NMA INHALATION EVERY 2 HOURS NEEDED as needed for WHEEZING 1 0 March 09, 2015 12:00am February 23, 2018 11:40am Start: 03-09-2015 End: 02-23-2018 take 1 puff(s) by inhalation every two hours as needed Albuterol Sulfate Discontinued 2 PUFF INHALATION EVERY 2 HOURS NEEDED March 09, 2015 12:00am February 23, 2018 11:40am Start: 02-21-2015 End: 03-09-2015 Albuterol Sulfate (Proair Hf a) 1 PUFF inhaler Discontinued 2 NMA INHALATION EVERY 2 HOURS NEEDED as needed for Wheezing 30 0 February 21, 2015 12:16pm March 09, 2015 11:43am Start: 02-21-2015 End: 03-09-2015 take 1 puff(s) by inhalation every two hours as needed Albuterol Sulfate (Proair Hfa) 1 PUFF inhaler Discontinued 2 PUFF INHALATION EVERY 2 HOURS NEEDED February 21, 2015 12:16pm March 09, 2015 11:43am Start: 02-21-2015 End: 03-09-2015 take 1 puff(s) by inhalation every two hours as needed Albuterol Sulfate (Proair Hfa) 1 PUFF inhaler Discontinued 2 PUFF INHALATION EVERY 2 HOURS NEEDED February 21, 2015 12:16pm March 09, 2015 11:43am Start: 09-21-2013 End: 02-21-2015 take 1 puff(s) by inhalation every four hours as needed Albuterol Sulfate (Proair Hfa) 1 PUFF inhaler Discontinued 1 PUFF INHALATION EVERY 4 HOURS NEEDED September 21, 2013 12:27am February 21, 2015 12:17pm ALBUTEROL SULFAT E (PROAIR HFA INHALATION) Inhale as instructed. Active ALBUTEROL SULFAT E (PROAIR HFA INHALATION) Inhale as instructed. 0 Active albuterol 0.833 mg/ml / ipratropium bromide 0.167 mg/ml inhalation solution (5 sources) Anticholinergic, beta2-Adrenergic Agonist Start: 02-23-2018 ipratropium-albuterol (DUONEB) 0.5 mg-3 mg(2.5 mg base)/3 mL nebu 02/23/2018 Active calcium ascorbate 50 mg / ferrous asparto glycinate 50 mg / polysaccharide iron complex 100 mg / succinic acid 50 mg oral capsule (5 sources) Start: 03-10-2015 FERREX 150 PLUS 150-50-50 mg cap 03/10/2015 Active calcium carbonate 1250 mg / cholecalciferol 200 unt oral tablet (20 sources) Vitamin D Start: 03-23-2015 take 1 tablet by mouth twice daily Calcium Carbonate-Vitamin D3 Active 1 TABLET PO TWICE A DAY March 23, 2015 5:04pm Start: 03-09-2015 End: 03-23-2015 Calcium Carbonate-Vitamin D3 1 TABLET tablet Active 1 {tbl} PO TWICE A DAY March 23, 2015 5:04pm Start: 09-21-2013 End: 02-21-2015 take 1 tablet by mouth three times daily at mealtime Calcium Carbonate-Vitamin D3 (Caltrate With Vitamin D3) 1 TAB tablet Discontinued 1 {tbl} PO 3 TIMES DAILY WITH MEALS September 21, 2013 12:00am February 21, 2015 12:17pm Calcium Carbonate / vitamin D3 (5 sources) Start: 03-29-2008 calcium carbonate/vitamin d3(CALCIUM 500 WITH VITAMIN D 500 MG-125 UNIT TAB) Take one(1) tablet three times daily. 0 03/29/2008 Active cholecalciferol 0.025 mg oral tablet (20 sources) Vitamin D Start: 02-16-2016 take 2 tablets by mouth twice daily Cholecalciferol (Vitamin D3) 1,000 UNIT tablet Active 2000 U PO TWICE A DAY February 16, 2016 12:00am Start: 02-16-2016 take 2000 [IU] by mo uth twice daily Cholecalciferol (Vitamin D3) Active 2000 UNIT PO TWICE A DAY February 16, 2016 12:00am Start: 02-21-2015 End: 03-09-2015 Cholecalciferol (Vitamin D3) 1,000 unit 10 Discontinued 1 {tbl} PO TWICE A DAY February 21, 2015 12:00am March 09, 2015 11:45am Start: 09-21-2013 End: 02-21-2015 take 1 tablet by mouth twice daily Cholecalciferol (Vitamin D3) 1,000 UNIT Tab.Chew Discontinued 1000 U PO TWICE A DAY September 21, 2013 12:00am February 21, 2015 12:16pm take 1 tablet by lauren twice daily Cholecalciferol, Vitamin D3, (VITAMIN D) 1,000 unit Tab Take 1,000 Units by mouth twice daily. Active doxycycline hyclate 100 mg oral tablet (2 sources) Tetracycline-class Drug Start: 02-03-2025 End: 02-08-2025 take 1 tablet by mouth twice daily doxycycline (VIBRA-TABS) 100 mg tablet Take 1 tablet by mouth two times a day for 5 days. 10 tablet 02/03/2025 02/08/2025 Active fexofenadine hydrochloride 180 mg oral tablet (13 sources) Histamine-1 Receptor Antagonist Start: 08-17-2019 take 1 tablet by mouth once daily Fexofenadine 180 MG tablet Active 180 mg PO DAILY August 17, 2019 12:00am fluticasone propionate 0.05 mg/actuat metered dose nasal spray (20 sources) Corticosteroid Start: 10-12-2018 Fluticasone Propionate 1 SPRAY spray,suspension Active 2 NMA NASAL DAILY October 12, 2018 1:00am Start: 10-12-2018 Fluticasone Pr opionate Active 2 SPRAY NASAL DAILY October 12, 2018 1:00am Start: 01-18-2015 End: 02-23-2018 Fluticasone Propionate 1 SPR AY spray,suspension Discontinued 2 NMA NASAL DAILY January 18, 2015 1:00am February 23, 2018 11:40am Start: 01-18-2015 End: 02-23-2018 Fluticasone Propionate Disco ntinued 2 SPRAY NASAL DAILY January 18, 2015 1:00am February 23, 2018 11:40am Start: 01-09-2015 fluticasone (F LONASE) 50 mcg/actuation nasal spray 01/09/2015 Active Fluticasone Propion-Salmeterol (20 sources) Corticosteroid, beta2-Adrenergic Agonist Start: 08-17-2019 take 1 puff(s) by inhalation twice daily Fluticasone Propion-Salmeterol Active 1 PUFF INHALATION TWICE A DAY August 17, 2019 5:12pm Start: 08-17-2019 take 1 puff(s) by in halation twice daily Fluticasone Propion-Salmeterol 1 PUFF inhaler Active 1 NMA INHALATION TWICE A DAY August 17, 2019 12:00am Start: 08-17-2019 take 1 puff(s) by in halation twice daily Fluticasone Propion-Salmeterol Active 1 PUFF INHALATION TWICE A DAY August 17, 2019 12:00am Start: 08-17-2019 take 1 puff(s) by in halation twice daily Fluticasone Propion-Salmeterol Active 1 PUFF INHALATION TWICE A DAY August 16, 2019 11:00pm Start: 10-12-2018 End: 03-23-2019 Fluticasone Propion-Salmeter ol Discontinued 1 EACH IH October 12, 2018 11:58am March 23, 2019 11:22am Start: 10-12-2018 End: 03-23-2019 Fluticasone Propion-Salmeter ol 1 EACH blister with device Discontinued 1 NMA IH October 12, 2018 1:00am March 23, 2019 11:22am Start: 10-12-2018 End: 03-23-2019 Fluticasone Propion-Salmeter ol Discontinued 1 EACH October 12, 2018 1:00am March 23, 2019 11:22am Start: 10-12-2018 End: 03-23-2019 Fluticasone Propion-Salmeter ol Discontinued 1 EACH IH October 12, 2018 12:00am March 23, 2019 10:22am Start: 09-21-2013 End: 02-23-2018 take 1 puff(s) by inhalation twice daily Fluticasone Propion-Salmeterol Discontinued 1 PUFF INHALATION TWICE A DAY September 21, 2013 12:27am February 23, 2018 11:40am Start: 09-21-2013 End: 02-23-2018 take 1 puff(s) by inhalation twice daily Fluticasone Propion-Salmeterol 1 PUFF inhaler Discontinued 1 NMA INHALATION TWICE A DAY September 21, 2013 12:00am February 23, 2018 11:40am Start: 09-21-2013 End: 02-23-2018 take 1 puff(s) by inhalation twice daily Fluticasone Propion-Salmeterol Discontinued 1 PUFF INHALATION TWICE A DAY September 21, 2013 12:00am February 23, 2018 11:40am Start: 09-21-2013 End: 02-23-2018 take 1 puff(s) by inhalation twice daily Fluticasone Propion-Salmeterol Discontinued 1 PUFF INHALATION TWICE A DAY September 20, 2013 11:00pm February 23, 2018 10:40am Start: 04-18-2009 fluticasone/sa lmeterol(ADVAIR DISKUS 500 MCG-50 MCG/DOSE FOR INHALATION) DIRECTED 0 04/18/2009 Active 0.6 ml fondaparinux sodium 12.5 mg/ml prefilled syringe (5 sources) Factor Xa Inhibitor inject 7.5 mg by subcutaneous injection every twenty-four hours fondaparinux (ARIXTRA) 7.5 mg/0.6 mL syrg Inject 7.5 mg subcutaneously q 24 HR. Active hydroCHLOROthiazide 12.5 mg oral capsule (13 sources) Thiazide Diuretic Start : 01-18 take 1 capsule by mouth once daily Hydrochlorothiazide 12.5 MG capsule Active 12.5 mg PO DAILY January 18, 2015 1:00am Start: 12-26-2014 hydrochlorothi azide (HYDRODIURIL, ESIDRIX) 12.5 mg tablet 12/26/2014 Active ipratropium bromide 0.042 mg/actuat metered dose nasal spray (16 sources) Anticholinergic Start: 07-31-2020 Ipratropium Br omide 1 SPRAY spray,non-aerosol Active 2 NMA NASAL THREE TIMES A DAY July 31, 2020 12:00am Start: 07-31-2020 Ipratropium Br omide Active 2 SPRAY NASAL THREE TIMES A DAY July 31, 2020 12:00am Start: 02-09-2015 End: 02-21-2015 Atrovent Inhaler Discontinue d 17 MCG INHALATION EVERY 4 HOURS NEEDED February 09, 2015 6:33pm February 21, 2015 12:15pm Start: 02-09-2015 End: 02-21-2015 Atrovent Inhaler Discontinue d 17 ug INHALATION EVERY 4 HOURS NEEDED as needed for Wheezing February 09, 2015 12:00am February 21, 2015 12:15pm Start: 02-09-2015 End: 02-21-2015 Atrovent Inhaler Discontinue d 17 MCG INHALATION EVERY 4 HOURS NEEDED February 09, 2015 12:00am February 21, 2015 12:15pm Start: 02-09-2015 End: 02-21-2015 Atrovent Inhaler Discontinue d 17 MCG INHALATION EVERY 4 HOURS NEEDED February 08, 2015 11:00pm February 21, 2015 11:15am metoprolol tartrate 25 mg oral tablet (20 sources) beta-Adrenergic Diana Start: 03-10-2015 take 1 tablet by mouth twice daily Metoprolol Tartrate 25 mg tablet Active 25 mg PO TWICE A DAY June 11, 2021 12:00am Start: 02-21-2015 End: 08-30-2024 Metoprolol Tartrate 50 MG ta blet Discontinued 25 mg PO TWICE A DAY 60 0 March 09, 2015 11:45am August 30, 2024 10:15am Start: 02-21-2015 End: 03-09-2015 take 25 mg by mouth twice daily Metoprolol Tartrate Ac tive 25 MG PO TWICE A DAY 60 March 09, 2015 11:45am Start: 09-21-2013 End: 02-21-2015 take 1 tablet by mouth twice daily Metoprolol Tartrate 50 MG tablet Discontinued 50 mg PO TWICE A DAY September 21, 2013 12:00am February 21, 2015 12:17pm potassium chloride 1.33 meq/ml oral solution (18 sources) Start: 02-26-2017 take 20 mEq by mouth once daily Potassium Chloride 20 MEQ/15 ML liquid Active 20 meq PO DAILY February 26, 2017 12:00am Start: 09-28-2015 KLOR-CON 20 mE q packet 09/28/2015 Active pyridoxine (5 sources) PYRIDOXINE HCL ( VITAMIN B-6 ORAL) Take by mouth. Active PYRIDOXINE HCL ( VITAMIN B-6 ORAL) Take by mouth. 0 Active simvastatin 20 mg oral tablet (13 sources) HMG-CoA Reductase Inhibitor Start: 11-12-2005 take 1 tablet by mouth at bedtime Simvastatin 20 MG tablet Active 20 mg PO AT BEDTIME September 21, 2013 12:00am Completed/Discontinued Medications Medication Drug Class(es) Dates Sig (Normalized) Sig (Original) Albuterol Sulfate (Proair Hfa) 1 PUFF inhaler (7 sources) Start: 09-21-2013 End: 02-21-2015 Albuterol Sulfate (Proair Hfa) 1 PUFF inhaler Discontinued 1 NMA INHALATION EVERY 4 HOURS NEEDED as needed for Wheezing September 21, 2013 12:00am February 21, 2015 12:17pm Start: 09-21-2013 End: 02-21-2015 take 1 puff(s) by inhalation every four hours as needed Albuterol Sulfate (Proair Hfa) 1 PUFF inhaler Discontinued 1 PUFF INHALATION EVERY 4 HOURS NEEDED September 21, 2013 12:00am February 21, 2015 12:17pm Start: 09-21-2013 End: 02-21-2015 take 1 puff(s) by inhalation every four hours as needed Albuterol Sulfate (Proair Hfa) 1 PUFF inhaler Discontinued 1 PUFF INHALATION EVERY 4 HOURS NEEDED September 20, 2013 11:00pm February 21, 2015 11:17am amoxicillin 875 mg / clavulanate 125 mg oral tablet (15 sources) Penicillin-class Antibacterial Start: 10-01-2022 End: 10-11-2022 Amoxicillin-Pot Clavulanate 875-125 mg tablet Discontinued 1 {tbl} PO Q12H 20 10 October 01, 2022 12:00am October 10, 2022 1:00am October 11, 2022 1:05am Acute sinusitis, unspecified Start: 10-01-2022 End: 10-11-2022 take 1 tablet by mouth every twelve hours Amoxicillin-Pot Clavulanate Discontinued 1 TABLET PO Q12H 20 10 October 01, 2022 12:00am October 11, 2022 1:05am Start: 03-23-2019 End: 04-02-2019 Amoxicillin-Pot Clavulanate (Augmentin) 875-125 mg tablet Discontinued 1 {tbl} PO Q12H 20 10 March 23, 2019 12:00am April 01, 2019 12:00am April 02, 2019 12:09am Acute sinusitis, unspecified azithromycin 250 mg oral tablet (8 sources) Macrolide Antimicrobial Start: 02-23-2018 End: 02-28-2018 take 2 tablets by mouth once daily, then take 1 tablet by mouth once daily, then take 1 tablet by mouth once daily Azithromycin 250 mg tablet Discontinued 250 mg PO daily 6 5 0 February 23, 2018 12:00am February 27, 2018 12:00am February 28, 2018 12:06am Start on 02/25/18. Take 2 tabs once on day one then take one tablet once daily for the next 4 days. dexamethasone 6 mg oral tablet (3 sources) Corticosteroid Start: 11-26-2023 End: 08-30-2024 take 1 tablet by mouth once daily Dexamethasone 6 mg tablet Discontinued 6 mg PO DAILY 5 0 November 26, 2023 1:00am August 30, 2024 10:17am docusate sodium 100 mg oral capsule (8 sources) Start: 02-09-2015 End: 02-21-2015 take 1 capsule by mouth twice daily Docusate Sodium (Colace) 100 MG capsule Discontinued 100 mg PO TWICE A DAY February 09, 2015 12:00am February 21, 2015 12:16pm guaiFENesin 20 mg/ml oral solution (3 sources) Start: 11-26-2023 End: 08-30-2024 take 200 mg by mouth every four hours as needed for cough Guaifenesin 100 mg/5 mL liquid Discontinued 200 mg PO Q4H as needed for cough 473 0 November 26, 2023 1:00am August 30, 2024 10:18am polyethylene glycol 3350 25484 mg powder for oral solution (8 sources) Osmotic Laxative Start: 02-09-2015 End: 02-21-2015 take 17 g by mouth once daily as needed for constipation Polyethylene Glycol 3350 17 GM Packet Discontinued 17 g PO DAILY as needed for Constipation February 09, 2015 12:00am February 21, 2015 12:15pm predniSONE 10 mg oral tablet (9 sources) Start: 03-14-2015 End: 06-09-2024 predniSONE (DELTASONE) 10 mg tablet 5 mg once daily. 0 03/14/2015 06/09/2024 Discontinued Start: 03-09-2015 End: 03-23-2015 take 1 tablet by mouth once daily Prednisone 20 MG tablet Discontinued 20 mg PO DAILY@0800 14 0 March 09, 2015 12:00am March 23, 2015 5:04pm sennosides, shelter 8.6 mg oral tablet (8 sources) Start: 02-09-2015 End: 02-21-2015 Sennosides (Senokot) 1 TABLET tablet Discontinued 1 {tbl} PO DAILY February 09, 2015 12:00am February 21, 2015 12:16pm warfarin sodium 5 mg oral tablet (20 sources) Vitamin K Antagonist Start: 12-18-2021 End: 06-14-2025 Warfarin 1 mg tablet Active 1 mg PO .COMPLEX 77 1 June 14, 2025 3:20pm Venous thromboembolism (VTE) Acute embolism and thrombosis of unspecified vein Take 1 mg PO with 5 mg tablet (to equal 6 mg total) on Friday, Friday, , Friday and Friday Start: 02-05-2021 End: 08-25-2023 Warfarin 6 MG tablet Discont inued 6 mg PO DIRECTED February 05, 2021 1:00am August 25, 2023 10:50am MON, TUE, , FRI, SAT, SUN Start: 05-10-2020 End: 10-31-2020 Warfarin 1 MG tablet Discont inued 7 mg PO DIAZ 102 90 1 May 10, 2020 5:17pm October 31, 2020 6:00pm Venous thromboembolism (VTE) Acute embolism and thrombosis of unspecified vein Take 1 tablet with 5 mg tablet (6 mg total) on Mondays-Saturdays and 2 tablets with 5 mg tablet (7 mg) on Sundays Start: 12-21-2019 End: 05-10-2020 Warfarin 1 MG tablet Discont inued 7 mg PO DIAZ December 21, 2019 4:00pm May 10, 2020 5:17pm Start: 12-21-2019 End: 10-31-2020 Warfarin Discontinued 7 MG P O DIAZ 102 90 May 10, 2020 5:17pm October 31, 2020 6:00pm Take 1 tablet with 5 mg tablet (6 mg total) on Mondays-Saturdays and 2 tablets with 5 mg tablet (7 mg) on Sundays Start: 08-17-2019 End: 10-04-2019 Warfarin 1 MG tablet Discont inued 6 mg PO MOTUWEFRSA August 17, 2019 5:18pm October 04, 2019 2:18pm Start: 08-17-2019 End: 10-04-2019 Warfarin 5 MG tablet Discont inued 7 mg PO SUTH August 17, 2019 5:18pm October 04, 2019 2:18pm Start: 08-17-2019 End: 10-04-2019 Warfarin Discontinued 6 MG P O MOTUWEFRSA August 17, 2019 5:18pm October 04, 2019 2:18pm Start: 08-17-2019 End: 10-04-2019 Warfarin Discontinued 7 MG P O SUTH August 17, 2019 5:18pm October 04, 2019 2:18pm Start: 05-25-2019 End: 08-17-2019 Warfarin 1 MG tablet Discont inued 7 mg PO SUTH 60 60 2 August 03, 2019 11:59am August 17, 2019 5:18pm Venous thromboembolism (VTE) Acute embolism and thrombosis of unspecified vein Start: 05-25-2019 End: 08-17-2019 Warfarin 5 MG tablet Discont inued 6 mg PO MOTUWEFRSA 60 60 2 August 03, 2019 11:59am August 17, 2019 5:18pm Start: 05-25-2019 End: 08-17-2019 Warfarin Discontinued 7 MG P O SUTH 60 60 August 03, 2019 11:59am August 17, 2019 5:18pm Start: 05-25-2019 End: 08-17-2019 Warfarin Discontinued 6 MG P O MOTUWEFRSA 60 60 August 03, 2019 11:59am August 17, 2019 5:18pm Start: 09-21-2018 End: 05-25-2019 take 1 tablet by mouth twice daily Warfarin 1 MG tablet Discontinued 1 mg PO TWICE A DAY 60 30 3 January 11, 2019 6:02pm May 25, 2019 9:16pm Venous thromboembolism (VTE) Acute embolism and thrombosis of unspecified vein Start: 08-22-2018 End: 01-17-2019 take 7 mg by mouth once daily Warfarin (Coumadin) 5 MG tablet Discontinued 7 mg PO DAILY 30 30 2 January 11, 2019 6:02pm January 16, 2019 1:00am January 17, 2019 1:09am History of pulmonary embolism Personal history of pulmonary embolism Start: 08-22-2018 End: 12-22-2018 take 7 mg by mouth once daily Warfarin Discontinued 7 MG PO DAILY 30 30 October 19, 2018 12:31pm December 22, 2018 1:09pm Start: 12-04-2017 End: 02-28-2025 take 1 tablet by mouth once daily Warfarin 5 mg tablet Discontinued 5 mg PO DAILY 90 90 0 December 07, 2024 7:06am February 28, 2025 11:46am History of thromboembolism of vein Personal history of other venous thrombosis and embolism Start: 06-24-2017 End: 10-13-2017 take 1 tablet by mouth once daily Warfarin (Coumadin) 5 MG tablet Discontinued 5 mg PO DAILY 30 2 July 15, 2017 1:45pm October 13, 2017 11:43am 1 tab PO daily Start: 11-04-2016 End: 12-07-2024 take 1 tablet by mouth once daily Warfarin 1 mg tablet Discontinued 1 mg PO DAILY 90 1 April 23, 2021 12:00am December 18, 2021 1:10pm Venous thromboembolism (VTE) Acute embolism and thrombosis of unspecified vein Start: 09-28-2015 warfarin (COUM MARY) 2.5 mg tablet 09/28/2015 Active Problems Active Problems Problem Classification Problem Date Documented Date Episodic/Chronic Abdominal hernia (20 sources) Umbilical hernia; Translations: [Umbilical hernia without obstruction or gangrene] Onset: 4 Episodic Acute bronchitis (8 sources) Acute bronchitis; Translations: [Acute bronchitis, unspecified] 02-08-2019 Episodic Allergic reactions (8 sources) Allergic reaction; Translations: [Allergy, unspecified, initial encounter] 02-08-2019 Episodic 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 Cancer of uterus (20 sources) History of malignant neoplasm of endometrium; Translations: [Personal history of malignant neoplasm of other parts of uterus] Onset: 5 Episodic Comment on above: No evidence of disea se clinically. 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]] 02-08-2019 Chronic Coagulation and hemorrhagic disorders (8 sources) Purpuric rash; Translations: [Other nonthrombocytopenic purpura] 05-26-2019 Episodic Coronary atherosclerosis and other heart disease (8 sources) Coronary atherosclerosis; Translations: [Atherosclerotic heart disease of kaibab coronary artery without angina pectoris] 02-08-2019 Chronic Disorders of lipid metabolism (9 sources) Dyslipidemia; Translations: [Hyperlipidemia, unspecified] Onset: 5 02-08-2019 Chronic E Codes: Fall (16 sources) Fall; Translations: [Unspecified fall, initial encounter] Episodic E Codes: Natural/environment (8 sources) Insect bite - wound; Translations: [Bitten or stung by nonvenomous insect and other nonvenomous arthropods, initial encounter] 02-08-2019 Episodic Essential hypertension (13 sources) Essential hypertension; Translations: [Essential (primary) hypertension] 02-08-2019 Chronic Fracture of upper limb (20 sources) Injury of wrist; Translations: [Fracture of unspecified carpal bone, left wrist, initial encounter for closed fracture] 12-18-2022 Episodic Osteoporosis (8 sources) Osteoporosis; Translations: [Age-related osteoporosis without current pathological fracture] 02-08-2019 Chronic Other aftercare (1 source) senior care (current) use of anticoagulants; Translations: [senior care (current) use of anticoagulants] Onset: 5 Episodic Other circulatory disease (8 sources) History of insertion of inferior vena caval filter; Translations: [Presence of other vascular implants and grafts] 02-08-2019 Chronic Other eye disorders (8 sources) Subconjunctival hemorrhage; Translations: [Conjunctival hemorrhage, unspecified eye] 05-20-2021 Episodic Other gastrointestinal disorders (10 sources) Abdominal mass; Translations: [Intra-abdominal and pelvic swelling, mass and lump, unspecified site] 05-25-2019 Episodic Other gastrointestinal disorders (6 sources) Intra-abdominal and pelvic swelling, mass and lump, unspecified site; Translations: [Abdominal or pelvic swelling, mass, or lump, unspecified site] Episodic Other injuries and conditions due to external causes (10 sources) Contusion; Translations: [Other injury of unspecified body region, initial encounter] 01-12-2020 Episodic Other injuries and conditions due to external causes (6 sources) Other injury of unspecified body region, initial encounter; Translations: [Contusion of unspecified site] Episodic Other lower respiratory disease (8 sources) Dyspnea; Translations: [Shortness of breath] 02-08-2019 Episodic Other lower respiratory disease (2 sources) Cough; Translations: [Acute cough] 02-03-2025 Episodic Other nutritional; endocrine; and metabolic disorders (8 sources) Morbid obesity; Translations: [Morbid (severe) obesity due to excess calories] 02-08-2019 Chronic Other nutritional; endocrine; and metabolic disorders (5 sources) Obesity; Translations: [Obesity, unspecified] Onset: 6 12-24-2005 Chronic Other screening for suspected conditions (not mental disorders or infectious disease) (20 sources) Patient encounter status; Translations: [Encounter for other screening for malignant neoplasm of breast] Onset: 0 02-04-2022 Episodic Other upper respiratory infections (1 source) Chronic sinusitis, unspecified; Translations: [Rhinosinusitis] Onset: 5 Chronic Other upper respiratory infections (17 sources) Acute sinusitis; Translations: [Acute sinusitis, unspecified] Episodic Phlebitis; thrombophlebitis and thromboembolism (20 sources) Thromboembolism of vein; Translations: [Acute embolism and thrombosis of unspecified vein] Onset: 5 Episodic Comment on above: On chronic anticoagu lation- warfarin. INR therapeutic. No bleeding/bruising. No recent medication/diet changes. Advised to continue same dose, 6 mg daily except for Wednesdays 5 mg. Sprains and strains (9 sources) Strain of flexor muscle of hip; Translations: [Strain of muscle, fascia and tendon of right hip, initial encounter] Episodic Superficial injury; contusion (8 sources) Contusion of hip; Translations: [Contusion of right hip, initial encounter] 02-11-2022 Episodic Unclassified (1 source) Cough, unspecified type; Translations: [Cough, unspecified type] Onset: 5 Unclassified (1 source) Acute cough; Translations: [Acute cough] Onset: 5 Viral infection (4 sources) Disease caused by 2019-nCoV; Translations: [COVID-19] 11-26-2023 Episodic Past or Other Problems Problem Classification Problem Date Documented Da te Episodic/Chronic Cardiac arrest and ventricular fibrillation (5 sources) Cardiac arrest; Translations: [Cardiac arrest, cause unspecified] Onset: 03-23-2015 Resolved: 09-04-2016 09-04-2016 Chronic Gastritis and duodenitis (5 sources) Gastritis; Translations: [Gastritis, unspecified, without bleeding] Onset: 07-12-2010 07-12-2010 Episodic Other bone disease and musculoskeletal deformities (5 sources) Costal chondritis; Translations: [Chondrocostal junction syndrome [Tietze]] Onset: 01-18-2010 01-18-2010 Episodic Other gastrointestinal disorders (5 sources) Constipation; Translations: [Constipation, unspecified] Onset: 07-10-2010 07-10-2010 Episodic Unclassified (7 sources) History of PE 06-30-2022 Unclassified (7 sources) unexplained bruises 06-30-2022 Results Test Name Value Interpretation Reference Range Facility Prothrombin Time w/INRon INR Coag (PPP) [Relative time] 1.8 {INR} Normal [facility] Comment on above: Performed By: #### L 300.3900, L100.0100, L500.4050 #### [facility] [address] [place], [address] PT Coag (PPP) [Time] 21.6 s High 11.7-14.9 [facility] Comment on above: Performed By: #### L 300.3900, L100.0100, L500.4050 #### [facility] [address] [place], [address] Prothrombin Time w/INRon INR Coag (PPP) [Relative time] 1.7 {INR} Normal [facility] Comment on above: Performed By: #### L 300.3900, L100.0100, L500.4050 #### [facility] [address] [place], [address] PT Coag (PPP) [Time] 20.7 s High 11.7-14.9 [facility] Comment on above: Performed By: #### L 300.3900, L100.0100, L500.4050 #### [facility] [address] [place], [address] Prothrombin Time w/INRon INR Coag (PPP) [Relative time] 1.8 {INR} Normal [facility] Comment on above: Performed By: #### L 300.3900, L100.0100, L500.4050 #### [facility] [address] [place], [address] PT Coag (PPP) [Time] 21.7 s High 11.7-14.9 [facility] Comment on above: Performed By: #### L 300.3900, L100.0100, L500.4050 #### [facility] [address] [place], [address] Prothrombin Time w/INRon INR Coag (PPP) [Relative time] 2.4 {INR} Normal [facility] Comment on above: Performed By: #### L 300.3900, L100.0100, L500.4050 #### [facility] [address] [place], [address] PT Coag (PPP) [Time] 26.7 s High 11.7-14.9 [facility] Comment on above: Performed By: #### L 300.3900, L100.0100, L500.4050 #### [facility] [address] [place], [address] Prothrombin Time w/INRon INR Coag (PPP) [Relative time] 1.9 {INR} Normal [facility] Comment on above: Performed By: #### L 300.3900, L100.0100, L500.4050 #### [facility] [address] [place], [address] PT Coag (PPP) [Time] 21.7 s High 11.7-14.9 [facility] Comment on above: Performed By: #### L 300.3900, L100.0100, L500.4050 #### [facility] [address] [place], [address] CNOVon 08-20-2025 CNOV Office Visit ([facility]) -- OBINNA MALDONADO ([id number]) 1940 F Date Time Provider Department 08/20/25 2:30 PM MARY JAMISON During your visit today, we recorded the following information about you: Temperature Pulse Respiration Blood pressure 97.8 degrees 68/minute 16/minute 124/76 Weight 80.6 kg Mary Jamison APRN.E [employer] STRATEGIST 08/20/2025 3:17 PM Signed [facility] Mateus Obinna Maldonado is a 84 year old female. Patient presents with: sinus congestion Rhinitis Cough Cough The patient is an 84-year-old female with a history of asthma, allergies, and HTN, presenting with rhinorrhea and cough. Rhinorrhea: - Onset: 1 week ago. - Initially clear, now with occasional brown mucus. +purulent - No associated ear pain or pressure. Cough: - Onset: Past few days. - No current use of cough syrup. Asthma: - Denies smoking history. Anticoagulation: - Taking Coumadin. PAST MEDICAL HISTORY Diagnosis Date Cancer, uterine (HCC) 2015 Chronic airway obstruction, not elsewhere classified Endometrial cancer (HCC) Stage Ia grade 2 Essential hypertension, benign Malignant neoplasm of breast (female), unspecified site LEFT BREAST CANCER Morbid obesity (HCC) Other emphysema (HCC) PMH - PAST MEDICAL HISTORY OF ARTHRITIS Pulmonary emboli (HCC) 2014 WITH CARDIAC ARREST Pulmonary embolism (HCC) 2004 PAST SURGICAL HISTORY Procedure Laterality Date BX BREAST PERC VACUUM/ROTN 04/22/2008 Left breast - benign BX BREAST PERC VACUUM/ROTN 12/12/11 Left Breast - benign microcalcifications COLSC FLX W/RMVL OF TUMOR POLYP LESION SNARE TQ 07/11/10 Polyps at 75cm and rectum COLSC FLX W/RMVL OF TUMOR POLYP LESION SNARE TQ 08/10/13 small polyp at 50cm - cauterized EGD TRANSORAL BIOPSY SINGLE/MULTIPLE 07/11/10 trace gastritis LAPS W/VAG HYSTERECT 250 GM/ANDRMVL TUBEAND/OVARIES 05/2016 LUMPECTOMY/RADIOTHERAPY DIAG MAMM/A10 2004 NEEDLE LOCALIZATION BREAST PAST SURGICAL HISTORY OF CARPAL TUNNEL RELEASE RPR 1ST INCAL/VNT HERNIA INCARCERATED 02/22/15 4x5cm defect - 11x14 ventrio mesh TONSILLECTOMY PRIMARY/SECONDARY Tonsillectomy ALLERGIES Aspirin, Bactrim [Sulfamethoxazole], Biaxin [Clarithromycin], Cyclobenzaprine, Heparin, Meloxicam, Prednisone, Seasonal Allergies, and Tramadol MEDICATIONS ipratropium-albuterol (DUONEB) 0.5 mg-3 mg(2.5 mg base)/3 mL nebu potassium chloride 20 mEq/15 mL solution mix 15 ml with 4 to 8 oz of water once daily warfarin (COUMADIN) 5 mg tablet Take 5 mg by mouth once daily. fexofenadine (USAMA ALLERGY) 180 mg tablet Take 180 mg by mouth once daily. ALBUTEROL SULFATE (PROAIR HFA INHALATION) Inhale as instructed. KLOR-CON 20 mEq packet fluticasone (FLONASE) 50 mcg/actuation nasal spray hydrochlorothiazide (HYDRODIURIL, ESIDRIX) 12.5 mg tablet Cholecalciferol, Vitamin D3, (VITAMIN D) 1,000 unit Tab Take 1,000 Units by mouth twice daily. fluticasone/salmeterol(ADV AIR DISKUS 500 MCG-50 MCG/DOSE FOR INHALATION) DIRECTED calcium carbonate/vitamin d3(CALCIUM 500 WITH VITAMIN D 500 MG-125 UNIT TAB) Take one(1) tablet three times daily. TYLENOL EXTRA STRENGTH 500 MG TAB as necessary ZOCOR 20 MG TAB Take 20 mg by mouth daily at bedtime. doxycycline hyclate (VIBRAMYCIN) 100 mg capsule Take 1 capsule by mouth two times a day. benzonatate (TESSALON PERLE) 100 mg capsule Take 1 capsule by mouth three times a day as needed. warfarin (COUMADIN) 5 mg tablet DAILY (Patient taking differently: Take 6 mg by mouth once daily. As prescribed) PROAIR HFA 90 mcg/actuation inhaler (Patient not taking: Reported on 06/09/2024) ADACEL,TDAP ADOLESN/ADULT,,PF, 2 Lf-(2.5-5-3-5 mcg)-5Lf/0.5 mL syrg To be injected by Pharmacist (Patient not taking: Reported on 08/20/2025) warfarin (COUMADIN) 1 mg tablet (Patient not taking: Reported on 02/03/2025) warfarin (COUMADIN) 2.5 mg tablet (Patient not taking: Reported on 02/03/2025) PYRIDOXINE HCL (VITAMIN B-6 ORAL) Take by mouth. (Patient not taking: Reported on 06/09/2024) FERREX 150 PLUS 150-50-50 mg cap (Patient not taking: Reported on 06/09/2024) metoprolol tartrate, short acting, (LOPRESSOR) 25 mg tablet twice daily. oxyCODONE-acetaminophen (PERCOCET) 5-325 mg tablet (Patient not taking: Reported on 06/09/2024) fondaparinux (ARIXTRA) 7.5 mg/0.6 mL syrg Inject 7.5 mg subcutaneously q 24 HR. (Patient not taking: Reported on 06/09/2024) FAMILY HISTORY Problem Relation Age of Onset other (Pancreatic Cancer) Father Heart Mother heart murmur Hypertension Mother Osteoporosis Mother Stroke Mother SOCIAL HISTORY[1] Review of Systems Respiratory: Positive for cough. Ears/Nose/Mouth/Throat: (+) rhinorrhea, (+) brown nasal discharge, (-) ear pain, (-) sinus pressure Respiratory: (+) cough Objective BP 124/76 Pulse 68 Temp 36.6 ?C (97.8 ?F) (Tympanic) Resp 16 Wt 80.6 kg (177 lb 11.1 o (more content not included)... Normal [facility] Absolute lymphocyte countOrd ered By: Bambi Palmer on 08-15-2025 Lymphocytes Auto (Unsp spec) [#/Vol] 1.25 10*3/uL 0.83-4.51 [facility] Absolute neutrophil countOrd ered By: Bambi Palmer on 08-15-2025 Neutrophils (Bld) [#/Vol] 3.6 10*3/uL 2.0-7.7 [facility] Anion gap in Serum or Plasma Ordered By: Bambi Palmer on 08-15-2025 Anion gap [Moles/Vol] 8 mmol/L 04-14 [facility] Automated lymphocyte count a s percentage of total leukocytesOrdered By: Bambi Palmer on 08-15-2025 Lymphocytes/100 WBC Auto (Unsp spec) 21.8 % -41 [facility] BUN/creatinine ratioOrdered By: Bambi Palmer on 08-15-2025 Urea nitrogen/Creatinine [Mass ratio] 25.5 mg/mg High 10-20 [facility] Basophil percentageOrdered B y: Bambi Palmer on 08-15-2025 Basophils/100 WBC (Bld) 0.9 % 0- [facility] Bilirubin, totalOrdered By: Bambi Palmer on 08-15-2025 Bilirubin [Mass/Vol] 0.44 mg/dL 0.00-1.30 [facility] CBC W/Diff, Automatedon 08-01 Absolute Lymph 1.25 X10 3/uL Normal 0.83-4.51 [facility] Comment on above: Performed By: #### L 500.4050, L300.3900, L100.0100 #### [facility] [address] [place], [address] Absolute Neut 3.6 X10 3/uL Normal 2.0-7.7 [facility] Comment on above: Performed By: #### L 500.4050, L300.3900, L100.0100 #### [facility] [address] [place], [address] Basophils/100 WBC (Bld) 0.9 % Normal 0-1 [facility] Comment on above: Performed By: #### L 500.4050, L300.3900, L100.0100 #### [facility] [address] [place], [address] Eosinophils/100 WBC (Bld) 3.7 % Normal 0-5 [facility] Comment on above: Performed By: #### L 500.4050, L300.3900, L100.0100 #### [facility] [address] [place], [address] Erythrocyte distribution width (RBC) [Ratio] 12.4 % Normal 11.6-14.6 [facility] Comment on above: Performed By: #### L 500.4050, L300.3900, L100.0100 #### [facility] [address] [place], [address] Hematocrit (Bld) [Volume fraction] 43.5 % Normal 37-47 [facility] Comment on above: Performed By: #### L 500.4050, L300.3900, L100.0100 #### [facility] [address] [place], [address] Hemoglobin (Bld) [Mass/Vol] 14.3 g/dL Normal 12.0-15.0 [facility] Comment on above: Performed By: #### L 500.4050, L300.3900, L100.0100 #### [facility] [address] [place], [address] IG% 0.200 Normal 0.0-0.9 [facility] Comment on above: Result Comment: IG% - Immature Granulocytes (promyelocytes, myelocytes and metamyelocytes) > 1% indicates that a LEFT SHIFT is Present. Performed By: #### L 500.4050, L300.3900, L100.0100 #### [facility] [address] [place], [address] Lymphocytes/100 WBC (Bld) 21.8 % Normal 19-41 [facility] Comment on above: Performed By: #### L 500.4050, L300.3900, L100.0100 #### [facility] [address] [place], [address] MCH (RBC) [Entitic mass] 31.2 pg Normal 27.0-32.0 [facility] Comment on above: Performed By: #### L 500.4050, L300.3900, L100.0100 #### [facility] [address] [place], [address] MCHC (RBC) [Mass/Vol] 32.9 g/dL Normal 32-36 [facility] Comment on above: Performed By: #### L 500.4050, L300.3900, L100.0100 #### [facility] [address] [place], [address] MCV (RBC) [Entitic vol] 95.0 fL Normal 81-99 [facility] Comment on above: Performed By: #### L 500.4050, L300.3900, L100.0100 #### [facility] [address] [place], [address] Monocytes/100 WBC (Bld) 10.8 % High 0-10 [facility] Comment on above: Performed By: #### L 500.4050, L300.3900, L100.0100 #### [facility] [address] [place], [address] Neutrophils/100 WBC (Bld) 62.6 % Normal 47-70 [facility] Comment on above: Performed By: #### L 500.4050, L300.3900, L100.0100 #### [facility] [address] [place], [address] Nucleated RBC (Bld) [#/Vol] 0 10*3/uL Normal 0-5 [facility] Comment on above: Performed By: #### L 500.4050, L300.3900, L100.0100 #### [facility] [address] [place], [address] Platelet mean volume (Bld) [Entitic vol] 9.3 fL Normal 6.2-12.0 [facility] Comment on above: Performed By: #### L 500.4050, L300.3900, L100.0100 #### [facility] [address] [place], [address] Platelets (Bld) [#/Vol] 236 10*3/uL Normal 150-450 [facility] Comment on above: Performed By: #### L 500.4050, L300.3900, L100.0100 #### [facility] [address] [place], [address] RBC (Bld) [#/Vol] 4.58 10*6/uL Normal 4.2-5.4 [facility] Comment on above: Performed By: #### L 500.4050, L300.3900, L100.0100 #### [facility] [address] [place], [address] RDW SD 43.5 fl Normal 35.1-43.9 [facility] Comment on above: Performed By: #### L 500.4050, L300.3900, L100.0100 #### [facility] [address] [place], [address] WBC (Bld) [#/Vol] 5.7 10*3/uL Normal 4.4-11.0 [facility] Comment on above: Performed By: #### L 500.4050, L300.3900, L100.0100 #### [facility] [address] [place], [address] Carbon dioxide, total [Moles /volume] in Central venous bloodOrdered By: Bambi Palmer on 08-15-2025 CO2 [Moles/Vol] 28.9 mmol/L 21.0-32.0 [facility] Chloride assayOrdered By: Ty ra Palmer on 08-15-2025 Chloride [Moles/Vol] 101 mmol/L 98-108 [facility] Comprehensive Metabolic Prof ilon 08-15-2025 Albumin [Mass/Vol] 3.9 g/dL Normal 3.4-4.8 [facility] Comment on above: Performed By: #### L 300.3900, L100.0100, L500.4050 #### [facility] [address] [place], [address] Albumin/Globulin [Mass ratio] 1.4 {ratio} Normal 0.9-2.4 [facility] Comment on above: Performed By: #### L 300.3900, L100.0100, L500.4050 #### [facility] [address] [place], [address] ALK PHOS 113 U/L High 35-104 [facility] Comment on above: Performed By: #### L 300.3900, L100.0100, L500.4050 #### [facility] [address] [place], [address] ALT [Catalytic activity/Vol] 12 U/L Normal <=34 [facility] Comment on above: Performed By: #### L 300.3900, L100.0100, L500.4050 #### [facility] [address] [place], [address] AST [Catalytic activity/Vol] 25 U/L Normal <=31 [facility] Comment on above: Performed By: #### L 300.3900, L100.0100, L500.4050 #### [facility] [address] [place], [address] Bilirubin [Mass/Vol] 0.44 mg/dL Normal 0.00-1.30 [facility] Comment on above: Performed By: #### L 300.3900, L100.0100, L500.4050 #### [facility] [address] [place], [address] BUN/CRE 25.5 RATIO High 10-20 [facility] Comment on above: Performed By: #### L 300.3900, L100.0100, L500.4050 #### [facility] [address] [place], [address] Calcium [Mass/Vol] 9.6 mg/dL Normal 7.6-11.0 [facility] Comment on above: Performed By: #### L 300.3900, L100.0100, L500.4050 #### [facility] [address] [place], [address] Chloride [Moles/Vol] 101 mmol/L Normal 98-108 [facility] Comment on above: Performed By: #### L 300.3900, L100.0100, L500.4050 #### [facility] [address] [place], [address] CO2 [Moles/Vol] 28.9 mmol/L Normal 21.0-32.0 [facility] Comment on above: Performed By: #### L 300.3900, L100.0100, L500.4050 #### [facility] [address] [place], [address] Creatinine [Mass/Vol] 0.59 mg/dL Low 0.70-1.20 [facility] Comment on above: Performed By: #### L 300.3900, L100.0100, L500.4050 #### [facility] [address] [place], [address] ECRCL 50.38 ml/min Normal 50-250 [facility] Comment on above: Performed By: #### L 300.3900, L100.0100, L500.4050 #### [facility] [address] [place], [address] GAP 8 Normal 5-15 [facility] Comment on above: Performed By: #### L 300.3900, L100.0100, L500.4050 #### [facility] [address] [place], [address] GFR/1.73 sq M.predicted among non-blacks MDRD (S/P/Bld) [Vol rate/Area] 89 mL/min/{1.73_m2} Normal >60 [facility] Comment on above: Result Comment: mL/m in/1.73m2 CKD-EPI Creatinine Equation (2020) Performed By: #### L 300.3900, L100.0100, L500.4050 #### [facility] [address] [place], [address] Globulin (S) [Mass/Vol] 2.9 g/dL Normal 2.2-4.2 [facility] Comment on above: Performed By: #### L 300.3900, L100.0100, L500.4050 #### [facility] [address] [place], [address] Glucose [Mass/Vol] 102 mg/dL High 70-99 [facility] Comment on above: Performed By: #### L 300.3900, L100.0100, L500.4050 #### [facility] [address] [place], [address] Potassium [Moles/Vol] 4.6 mmol/L Normal 3.3-5.1 [facility] Comment on above: Performed By: #### L 300.3900, L100.0100, L500.4050 #### [facility] [address] [place], [address] Sodium [Moles/Vol] 138 mmol/L Normal 133-145 [facility] Comment on above: Performed By: #### L 300.3900, L100.0100, L500.4050 #### [facility] [address] [place], [address] T PROT 6.8 g/dL Normal 5.9-8.4 [facility] Comment on above: Performed By: #### L 300.3900, L100.0100, L500.4050 #### [facility] [address] [place], [address] Urea nitrogen [Mass/Vol] 15 mg/dL Normal 4-19 [facility] Comment on above: Performed By: #### L 300.3900, L100.0100, L500.4050 #### [facility] [address] [place], [address] Eosinophil percentageOrdered By: Bambi Palmer on 08-15-2025 Eosinophils/100 WBC (Bld) 3.7 % 0-5 [facility] Erythrocyte distribution wid th ratioOrdered By: Bambi Palmer on 08-15-2025 Erythrocyte distribution width (RBC) [Ratio] 12.4 % 11.6-14.6 [facility] Erythrocyte distribution wid th standard deviationOrdered By: Bambi Palmer on 08-15-2025 Erythrocyte distribution width (RBC) [Ratio] 43.5 fl 35.1-43.9 [facility] Glomerular filtration rate ( GFR) estimation/1.73 sq m using serum, plasma, or whole bOrdered By: Bambi Palmer on 08-15-2025 GFR/1.73 sq M.predicted among non-blacks MDRD (S/P/Bld) [Vol rate/Area] 89 mL/min/{1.73_m2} >60 [facility] Comment on above: mL/min/1.73m2 CKD-EP I Creatinine Equation (2020) Hematocrit Auto (Bld) [Volum e fraction]Ordered By: Bambi Palmer on 08-15-2025 Hematocrit (Bld) [Volume fraction] 43.5 % 37-47 [facility] Hemoglobin measurementOrdere d By: Bambi Palmer on 08-15-2025 Hemoglobin (Bld) [Mass/Vol] 14.3 g/dL 12.0-15.0 [facility] Immature granulocytes/100 WB C Auto (Bld)Ordered By: Bambi Palmer 08-15-2025 Immature granulocytes/100 WBC (Bld) 0.200 % 0.0-0.9 [facility] Comment on above: IG% - Immature Granu locytes (promyelocytes, myelocytes and metamyelocytes) > 1% indicates that a LEFT SHIFT is Present. International normalized rat io (INR) calculationOrdered By: Bambi Palmer on 08-15-2025 INR Coag (Bld) [Relative time] 1.8 {INR} [facility] - Chemistry and C hemistry - challengeOrdered By: Bambi Palmer 08-15-2025 AST [Catalytic activity/Vol] 25 U/L <32 [facility] MCV (mean corpuscular volume ) determinationOrdered By: Bambi Palmer on 08-15-2025 MCV (RBC) [Entitic vol] 95.0 fL 81-99 [facility] Mean corpuscular hemoglobin (MCH) determinationOrdered By: Bambi Palmer on 09-15-2025 MCH (RBC) [Entitic mass] 31.2 pg 27.0-32.0 [facility] Mean corpuscular hemoglobin concentration (MCHC) determinationOrdered By: Bambi Palmer on 08-15-2025 MCHC (RBC) [Mass/Vol] 32.9 g/dL 32-36 [facility] Mean platelet volume determi nationOrdered By: Bambi Palmer on 08-15-2025 Platelet mean volume (Bld) [Entitic vol] 9.3 fL 6.2-12.0 [facility] Monocyte percentageOrdered B y: Bambi Palmer on 08-15-2025 Monocytes/100 WBC (Bld) 10.8 % High 0-10 [facility] Neutrophil percentageOrdered By: Bambi Palmer on 08-15-2025 Neutrophils/100 WBC (Bld) 62.6 % 47-70 [facility] Nucleated red blood cell per centageOrdered By: Bambi Palmer on 08-15-2025 Nucleated RBC/100 WBC (Bld) [Ratio] 0 % 0-5 [facility] Oncology Visit Reporton 08-01 Oncology Visit Report [facility] [address] [place] [address] OFFICE VISIT Date of Service: 08/15/25 1126 MR#: [id number] Acct: [id number] Name: OBINNA MALDONADO Rep #: [id number] : 1940 From: Bambi Palmer NP 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 The first episode of PE occurred after diagnosis of left breast cancer she states in 2003. Underwent lumpectomy and radiation therapy, Tamoxifen < 1 year. Followed with medical oncologist, Dr. Low. She took Coumadin for about 6 months. The second episode was after a ventral hernia repair. The patient was recuperating after her surgery and had stopped prophylactic anticoagulation. This was a massive PE that required resuscitation at [facility] in 2014. She developed further complications inclusive [...] revealed ventral hernia and repaired by Dr. Suarez. Maintained on warfarin. Interval History The patient is presenting to clinic for a planned 6 month follow up. She denies any concerns r/t today's visit. Reports good adherence to warfarin at this time. Confirms she is taking the recommended dose- 6 mg daily except 5 mg on Wednesdays. No episodes of abnormal bleeding, although admits she bruises eas yuriy. Further denies fever/chills, headaches, dizziness, CP, palpitations, cough, abd/pelvic pain,vaginal discharge/bleeding, swelling/pain of his extremities and skin changes, changes in her breasts or changes in bowel habits. Exertional dyspnea chronic, unchanged. Underwent a pelvic exam last month, July 2025 with a salvage engineer at [facility]. [facility] Medical History Screening for breast cancer Screening for malignant neoplasm of breast Muscle strain of right lower leg Back pain unexplained bruises Hay fever Asthma Knee pain Fatigue SOB (shortness of breath) Lung disease Arthritis HTN (hypertension) Anemia History of PE Breast cancer Surgical History Hx of tonsillectomy H/O lumpectomy History of hysterectomy H/O hernia repair History of carpal tunnel surgery Family History Mother Arthritis Heart disease Hypertension CVA (cerebral vascular accident) Social History Smoking Status: Never smoker alcohol intake: never ROS ROS Narrative Negative except as documented in the interval HPI Intake Vital Signs 02/28/25 10:52 08/15/25 11:26 Height 4 ft 9 in 4 ft 9 in Weight: 185 lb 9 oz 179 lb BMI 40.1 38.7 BP 162/72 H 172/65 H Blood Pressure Location Lt brachial Lt brachial Position Sitting Sitting Respiration 16 16 Pulse 54 L 58 L Pulse Source Monitor Monitor Temp 98.1 F 98.2 F Temperature Source Temporal Artery Temporal Artery Pulse Oximetry (%) 96 97 Oxygen Delivery Method room air room air Intake Road Service Locksmith Required: No Accompanied by: Self Is patient in pain?: Yes (B/L knee, legs) Pain scale (1-10): 3 Allergies heparin Allergy (Severe, Verified 08/15/25 11:30) Low platelets sulfamethoxazole (From Bactrim) Allergy (Severe, Verified 08/15/25 11:30) Unknown trimethoprim (From Bactrim) Allergy (Severe, Verified 08/15/25 11:30) Unknown prednisone Allergy (Verified 08/15/25 11:30) Unknown aspirin Adverse Reaction (Severe, Verified 08/15/25 11:30) Nausea clarithromycin Adverse Reaction (Severe, Verified 08/15/25 11:30) Unknown cyclobenzaprine (Cyclobenzaprine) Adverse Reaction (Severe, Verified 08/15/25 11:30) Unknown meloxicam Adverse Reaction (Severe, Verified 08/15/25 11:30) Nausea Sulfa (Sulfonamide Antibiotics) Adverse Reaction (Severe, Verified 08/15/25 11:30) Vomiting tramadol HCl (From Ultram) Adverse Reaction (Severe, Verified 08/15/25 11:30) Vomiting Medications ???Medication ???Instructions ???Recorded ???Confirmed ???Type simvastatin 20 mg tablet 20 mg PO QHS 09/21/13 08/15/25 His tory acetaminophen 500 mg tablet 500 mg PO Q4H PRN PRN Pain 5 08/15/25 History hydrochlorothiazide 12.5 mg (more content not included)... Normal [facility] Platelet countOrdered By: Pardeep Palmer on 08-15-2025 Platelets (Bld) [#/Vol] 236 10*3/uL 150-450 [facility] Potassium measurement (mass/ volume)Ordered By: Bambi Palmer on 08-15-2025 Potassium (Unsp spec) [Mass/Vol] 4.6 mmol/L 3.3-5.1 [facility] Prothrombin Time w/INRon INR Coag (PPP) [Relative time] 1.8 {INR} Normal [facility] Comment on above: Performed By: #### L 300.3900, L100.0100, L500.4050 #### [facility] [address] [place], [address] PT Coag (PPP) [Time] 21.5 s High 11.7-14.9 [facility] Comment on above: Performed By: #### L 300.3900, L100.0100, L500.4050 #### [facility] [address] [place], [address] Prothrombin timeOrdered By: Bambi Palmer on 08-15-2025 PT Coag (PPP) [Time] 21.5 s High 11.7-14.9 [facility] RBC Auto (Bld) [#/Vol]Ordere d By: Bambi Palmer on 08-15-2025 RBC (Bld) [#/Vol] 4.58 10*6/uL 4.2-5.4 [facility] Serum creatinine measurement (mass/volume)Ordered By: Bambi Palmer on 08-15-2025 Creatinine [Mass/Vol] 0.59 mg/dL Low 0.70-1.20 [facility] Serum globulin measurementOr dered By: Bambi Palmer on 08-15-2025 Globulin (S) [Mass/Vol] 2.9 g/dL 2.2-4.2 [facility] Serum glucose measurement (m ass/volume)Ordered By: Bambi Palmer on 08-15-2025 Glucose [Mass/Vol] 102 mg/dL High 70-99 [facility] Serum or plasma alanine rosas otransferase (ALT) measurementOrdered By: Bambi Palmer on 08-15-2025 ALT [Catalytic activity/Vol] 12 U/L <35 [facility] Serum or plasma albumin mckenzie urement (mass/volume)Ordered By: Bambi Palmer on 08-15-2025 Albumin [Mass/Vol] 3.9 g/dL 3.4-4.8 [facility] Serum or plasma albumin/glob ulin mass ratioOrdered By: Bambi Spencer on 08-15-2025 Albumin/Globulin [Mass ratio] 1.4 {ratio} 0.9-2.4 [facility] Serum or plasma alkaline emmie sphatase measurementOrdered By: Bambi Palmer on 08-15-2025 ALP [Catalytic activity/Vol] 113 U/L High 35-104 [facility] Serum or plasma calcium mckenzie urement (mass/volume)Ordered By: Bambi Palmer on 08-15-2025 Calcium [Mass/Vol] 9.6 mg/dL 7.6-11.0 [facility] Serum or plasma urea nitroge n measurement (mass/volume)Ordered By: [facility] 08-15-2025 Urea nitrogen [Mass/Vol] 15 mg/dL 4-19 [facility] Sodium levelOrdered By: [facility] 08-15-2025 Sodium [Moles/Vol] 138 mmol/L 133-145 [facility] Total proteinOrdered By: Daria Palmer on 08-15-2025 Protein [Mass/Vol] 6.8 g/dL 5.9-8.4 [facility] White blood cell (WBC) count Ordered By: Bambi Spencer on 08-15-2025 WBC (Bld) [#/Vol] 5.7 10*3/uL 4.4-11.0 [facility] CNOVon 07-20-2025 CNOV Office Visit (OBMAURO ) -- OBINNA MALDONADO ([id number]) 1940 F Date Time Provider Department 07/20/25 10:50 AM STEFANIE UREÑA During your visit today, we recorded the following information about you: Blood pressure Weight 120/80 80.8 kg Stefanie Ureña MD 07/20/2025 11:01 AM Signed Base Ply Hand offered: Patient declines. Obinna Maldonado is a 84 year old female who presents for problem visit HPI: Total hyst and BSO for endometrial cancer in 2016. Did three rounds of radiation. Has not had any bleeding. Did q 6 and 12 months exams for 5 years. Now yearly. Recent mammogram completed. Previous breast CA treat conservatively. No bleeding no pain. No abnormal discharge OB History Gravida2 Para2 Term2 Preterm0 AB0 Living2 SAB0 IAB0 Ectopic0 Multiple0 Live Births0 Multicultural Services Librarian History LMP: Hysterectomy Age at Menarche: Age at First : Age at Menopause: Multicultural Services Librarian History Comments: Sexual Activity: Not Currently; No partner data on record Contraception: No contraception data on record PAST MEDICAL HISTORY Diagnosis Date Cancer, uterine (HCC) 2015 Chronic airway obstruction, not elsewhere classified Endometrial cancer (HCC) Stage Ia grade 2 Essential hypertension, benign Malignant neoplasm of breast (female), unspecified site LEFT BREAST CANCER Morbid obesity (HCC) Other emphysema (HCC) PMH - PAST MEDICAL HISTORY OF ARTHRITIS Pulmonary emboli (HCC) 2014 WITH CARDIAC ARREST Pulmonary embolism (HCC) 2004 PAST SURGICAL HISTORY Procedure Laterality Date BX BREAST PERC VACUUM/ROTN 04/22/2008 Left breast - benign BX BREAST PERC VACUUM/ROTN 12/12/11 Left Breast - benign microcalcifications COLSC FLX W/RMVL OF TUMOR POLYP LESION SNARE TQ 07/11/10 Polyps at 75cm and rectum COLSC FLX W/RMVL OF TUMOR POLYP LESION SNARE TQ 08/10/13 small polyp at 50cm - cauterized EGD TRANSORAL BIOPSY SINGLE/MULTIPLE 07/11/10 trace gastritis LAPS W/VAG HYSTERECT 250 GM/ANDRMVL TUBEAND/OVARIES 05/2016 LUMPECTOMY/RADIOTHERAPY DIAG MAMM/A10 2004 NEEDLE LOCALIZATION BREAST PAST SURGICAL HISTORY OF CARPAL TUNNEL RELEASE RPR 1ST INCAL/VNT HERNIA INCARCERATED 02/22/15 4x5cm defect - 11x14 ventrio mesh TONSILLECTOMY PRIMARY/SECONDARY Tonsillectomy FAMILY HISTORY Problem Relation Age of Onset other (Pancreatic Cancer) Father Heart Mother heart murmur Hypertension Mother Osteoporosis Mother Stroke Mother SOCIAL HISTORY[1] Current Outpatient Medications Medication Sig ipratropium-albuterol (DUONEB) 0.5 mg-3 mg(2.5 mg base)/3 mL nebu potassium chloride 20 mEq/15 mL solution mix 15 ml with 4 to 8 oz of water once daily warfarin (COUMADIN) 5 mg tablet Take 5 mg by mouth once daily. fexofenadine (USAMA ALLERGY) 180 mg tablet Take 180 mg by mouth once daily. ALBUTEROL SULFATE (PROAIR HFA INHALATION) Inhale as instructed. fluticasone (FLONASE) 50 mcg/actuation nasal spray hydrochlorothiazide (HYDRODIURIL, ESIDRIX) 12.5 mg tablet metoprolol tartrate, short acting, (LOPRESSOR) 25 mg tablet twice daily. Cholecalciferol, Vitamin D3, (VITAMIN D) 1,000 unit Tab Take 1,000 Units by mouth twice daily. fluticasone/salmeterol(ADV AIR DISKUS 500 MCG-50 MCG/DOSE FOR INHALATION) DIRECTED calcium carbonate/vitamin d3(CALCIUM 500 WITH VITAMIN D 500 MG-125 UNIT TAB) Take one(1) tablet three times daily. TYLENOL EXTRA STRENGTH 500 MG TAB as necessary ZOCOR 20 MG TAB Take 20 mg by mouth daily at bedtime. warfarin (COUMADIN) 5 mg tablet DAILY (Patient taking differently: Take 6 mg by mouth once daily. As prescribed) PROAIR HFA 90 mcg/actuation inhaler (Patient not taking: Reported on 06/09/2024) ADACEL,TDAP ADOLESN/ADULT,,PF, 2 Lf-(2.5-5-3-5 mcg)-5Lf/0.5 mL syrg To be injected by Pharmacist (Patient not taking: Reported on 06/09/2024) warfarin (COUMADIN) 1 mg tablet (Patient not taking: Reported on 02/03/2025) warfarin (COUMADIN) 2.5 mg tablet (Patient not taking: Reported on 02/03/2025) KLOR-CON 20 mEq packet (Patient not taking: Reported on 06/09/2024) PYRIDOXINE HCL (VITAMIN B-6 ORAL) Take by mouth. (Patient not taking: Reported on 06/09/2024) FERREX 150 PLUS 150-50-50 mg cap (Patient not taking: Reported on 06/09/2024) oxyCODONE-acetaminophen (PERCOCET) 5-325 mg tablet (Patient not taking: Reported on 06/09/2024) fondaparinux (ARIXTRA) 7.5 mg/0.6 mL syrg Inject 7.5 mg subcutaneously q 24 HR. (Patient not taking: Reported on 06/09/2024) No current facility-administered medications for this visit. Allergies As of Date: 07/20/2025 Allergen Noted Reaction ASPIRIN 06/18/2013 GI Upset BACTRIM [SULFAMETHOXAZOLE] 04/12/2013 GI Upset and Vomiting BIAXIN [CLARITHROMYCIN] 04/12/2013 GI Upset CYCLOBENZAPRINE 12/30/2012 Unknown HEPARIN 11/15/2016 Unknown MELOXICAM 12/30/2012 Other: See Comments PREDNISONE 12/30/2012 Other: See Comments SEASONAL ALLERGIES 06/07/2011 Other: See Comments (more content not included)... Normal [facility] CNPNon 06-23-2025 CNPN Telephone (OBGYWM) -- OBINNA MALDONADO ([id number]) 1940 F Date Time Provider Department 06/23/25 STEFANIE UREÑA During your visit today, we recorded the following information about you: Rip Kurtz 06/23/2025 11:10 AM Signed Patient calling in stating she got a letter from the [facility] about her needing to schedule her annual exam with MACHINE PACKAGE SEALER this year. Patient states she is pretty sure Dr. Ureña told her last year that she did not need to come in for one this year. Please review and clarify information for patient. Rip Kurtz June 23, 2025 11:10 AM Stefanie Ureña MD 06/23/2025 11:47 AM Signed She doesn't need an annual because medicare will only pay for that every other year. But because of her endometrial cancer she is suppose to have a pelvic exam yearly. It can simply be an office visit Lakeisha White RN 06/23/2025 1:10 PM Signed Please see provider's note below and contact patient to schedule. Schedule just as est [facility] visit type, not an annual. Lakeisha White RN Allergies As of Date: 06/23/2025 Noted Allergy Reaction ASPIRIN 06/18/2013 8 - GI Upset Comments: Upset Stomach BACTRIM (SULFAMETHOXAZOLE) 04/12/2013 8 - GI Upset 11 - Vomiting BIAXIN (CLARITHROMYCIN) 04/12/2013 8 - GI Upset CYCLOBENZAPRINE 12/30/2012 16 - Unknown HEPARIN 11/15/2016 16 - Unknown MELOXICAM 12/30/2012 14 - Other: See Comments Comments: i didn't like the side effects PREDNISONE 12/30/2012 14 - Other: See Comments Comments: it's just weird SEASONAL ALLERGIES 06/07/2011 14 - Other: See Comments Comments: Seasonal and Environmental Allergies TRAMADOL 11/15/2016 16 - Unknown Date Reviewed: 02/03/2025 Reviewed by: Bubba Roy APRN.E COMMERCE STRATEGIST - Fully Assessed Reason for Visit: Patient Question [1477] Prescriptions as of 06/27/2025 - warfarin (COUMADIN) 5 mg tablet DAILY - PROAIR HFA 90 mcg/actuation inhaler - ipratropium-albuterol (DUONEB) 0.5 mg-3 mg(2.5 mg base)/3 mL nebu - ADACEL,TDAP ADOLESN/ADULT,,PF, 2 Lf-(2.5-5-3-5 mcg)-5Lf/0.5 mL syrg To be injected by Pharmacist - potassium chloride 20 mEq/15 mL solution mix 15 ml with 4 to 8 oz of water once daily - warfarin (COUMADIN) 5 mg tablet Take 5 mg by mouth once daily. - fexofenadine (USAMA ALLERGY) 180 mg tablet Take 180 mg by mouth once daily. - warfarin (COUMADIN) 1 mg tablet - ALBUTEROL SULFATE (PROAIR HFA INHALATION) Inhale as instructed. - warfarin (COUMADIN) 2.5 mg tablet - KLOR-CON 20 mEq packet - PYRIDOXINE HCL (VITAMIN B-6 ORAL) Take by mouth. - fluticasone (FLONASE) 50 mcg/actuation nasal spray - hydrochlorothiazide (HYDRODIURIL, ESIDRIX) 12.5 mg tablet - FERREX 150 PLUS 150-50-50 mg cap - metoprolol tartrate, short acting, (LOPRESSOR) 25 mg tablet twice daily. - oxyCODONE-acetaminophen (PERCOCET) 5-325 mg tablet - fondaparinux (ARIXTRA) 7.5 mg/0.6 mL syrg Inject 7.5 mg subcutaneously q 24 HR. - Cholecalciferol, Vitamin D3, (VITAMIN D) 1,000 unit Tab Take 1,000 Units by mouth twice daily. - fluticasone/salmeterol(ADV AIR DISKUS 500 MCG-50 MCG/DOSE FOR INHALATION) DIRECTED - calcium carbonate/vitamin d3(CALCIUM 500 WITH VITAMIN D 500 MG-125 UNIT TAB) Take one(1) tablet three times daily. - TYLENOL EXTRA STRENGTH 500 MG TAB as necessary - ZOCOR 20 MG TAB Take 20 mg by mouth daily at bedtime. Problem List As Of Date 06/23/2025 Noted Resolved CA IN SITU BREAST [D05.90] 10/21/2005 BENIGN HYPERTENSION [I10] OBESITY NOS [E66.9] 12/24/2005 EXTRINSIC ASTHMA UNSPECIFIED [J45.909] 12/24/2005 Costochondritis [M94.0] 01/18/2010 Abnormal Mammogram, Unspecified [R92.8] 05/01/2010 Unspecified Constipation [K59.00] 07/10/2010 Special Screening for Malignant Neoplasms, [place]*07/10/2010 Gastritis/Duodenitis [K29.70, K29.90] 07/12/2010 Ventral hernia [K43.9] 11/10/2014 Personal history of breast cancer [Z85.3] 12/16/2014 Incisional hernia [K43.2] 03/23/2015 Cardiac arrest (HCC) [I46.9] 03/23/2015 09/04/2016 History of left breast cancer [Z85.3] 01/12/2016 Encounter for screening mammogram for breast ca*11/15/2016 Encounter Status:Closed by RIP KURTZ on 06/27/25 Normal [facility] Prothrombin Time w/INRon INR Coag (PPP) [Relative time] 2.3 {INR} Normal [facility] Comment on above: Performed By: #### L 300.3900, L100.0100, L500.4050 #### [facility] [address] [place], [address] PT Coag (PPP) [Time] 26.1 s High 11.7-14.9 [facility] Comment on above: Performed By: #### L 300.3900, L100.0100, L500.4050 #### [facility] [address] [place], [address] Prothrombin Time w/INRon - -2024 INR Coag (PPP) [Relative time] 3.2 {INR} Normal [facility] Comment on above: Performed By: #### L 300.3900 #### [facility] [address] [place], [address] PT Coag (PPP) [Time] 33.1 s High 11.7-14.9 [facility] Comment on above: Performed By: #### L 300.3900 #### [facility] [address] [place], [address] CBC W/Diff, Automatedon 06-0 Absolute Lymph 1.28 X10 3/uL Normal 0.83-4.51 [facility] Comment on above: Result Comment: NOT NEEDED Performed By: #### L 300.3900, L500.4050, L100.0100 #### [facility] [address] [place], [address] Absolute Neut 4.4 X10 3/uL Normal 2.0-7.7 [facility] Comment on above: Result Comment: NOT NEEDED Performed By: #### L 300.3900, L500.4050, L100.0100 #### [facility] [address] [place], [address] BASO# 0.04 X10 3/uL Normal [facility] Comment on above: Result Comment: NOT NEEDED Performed By: #### L 300.3900, L500.4050, L100.0100 #### [facility] [address] [place], [address] Basophils/100 WBC (Bld) 0.6 % Normal 0-1 [facility] Comment on above: Result Comment: NOT NEEDED Performed By: #### L 300.3900, L500.4050, L100.0100 #### [facility] [address] [place], [address] EOS# 0.15 X10 3/uL Normal [facility] Comment on above: Result Comment: NOT NEEDED Performed By: #### L 300.3900, L500.4050, L100.0100 #### [facility] [address] [place], [address] Eosinophils/100 WBC (Bld) 2.3 % Normal 0-5 [facility] Comment on above: Result Comment: NOT NEEDED Performed By: #### L 300.3900, L500.4050, L100.0100 #### [facility] [address] [place], [address] Erythrocyte distribution width (RBC) [Ratio] 12.2 % Normal 11.6-14.6 [facility] Comment on above: Result Comment: NOT NEEDED Performed By: #### L 300.3900, L500.4050, L100.0100 #### [facility] [address] [place], [address] Hematocrit (Bld) [Volume fraction] 43.4 % Normal 37-47 [facility] Comment on above: Result Comment: NOT NEEDED Performed By: #### L 300.3900, L500.4050, L100.0100 #### [facility] [address] [place], [address] Hemoglobin (Bld) [Mass/Vol] 14.4 g/dL Normal 12.0-15.0 [facility] Comment on above: Result Comment: NOT NEEDED Performed By: #### L 300.3900, L500.4050, L100.0100 #### [facility] [address] [place], [address] IG# 0.020 X10 3/uL High 0.0-0.0 [facility] Comment on above: Result Comment: NOT NEEDED Performed By: #### L 300.3900, L500.4050, L100.0100 #### [facility] [address] [place], [address] IG% 0.300 Normal 0.0-0.9 [facility] Comment on above: Result Comment: NOT NEEDED IG% - Immature Granulocytes (promyelocytes, myelocytes and metamyelocytes) > 1% indicates that a LEFT SHIFT is Present. Performed By: #### L 300.3900, L500.4050, L100.0100 #### [facility] [address] [place], [address] LYMPH# 1.28 X10 3/ul Normal 0.83-4.51 [facility] Comment on above: Result Comment: NOT NEEDED Performed By: #### L 300.3900, L500.4050, L100.0100 #### [facility] [address] [place], [address] Lymphocytes/100 WBC (Bld) 19.7 % Normal 19-41 [facility] Comment on above: Result Comment: NOT NEEDED Performed By: #### L 300.3900, L500.4050, L100.0100 #### [facility] [address] [place], [address] MCH (RBC) [Entitic mass] 31.0 pg Normal 27.0-32.0 [facility] Comment on above: Result Comment: NOT NEEDED Performed By: #### L 300.3900, L500.4050, L100.0100 #### [facility] [address] [place], [address] MCHC (RBC) [Mass/Vol] 33.2 g/dL Normal 32-36 [facility] Comment on above: Result Comment: NOT NEEDED Performed By: #### L 300.3900, L500.4050, L100.0100 #### [facility] [address] [place], [address] MCV (RBC) [Entitic vol] 93.5 fL Normal 81-99 [facility] Comment on above: Result Comment: NOT NEEDED Performed By: #### L 300.3900, L500.4050, L100.0100 #### [facility] [address] [address] [place], [address] MONO # 0.62 X10 3/uL Normal [facility] Comment on above: Result Comment: NOT NEEDED Performed By: #### L 300.3900, L500.4050, L100.0100 #### [facility] [address] [place], [address] Monocytes/100 WBC (Bld) 9.5 % Normal 0-10 [facility] Comment on above: Result Comment: NOT NEEDED Performed By: #### L 300.3900, L500.4050, L100.0100 #### [facility] [address] [place], [address] Neutrophil # 4.40 X10 3/uL Normal 2.7-7.7 [facility] Comment on above: Result Comment: NOT NEEDED Performed By: #### L 300.3900, L500.4050, L100.0100 #### [facility] [address] [place], [address] Neutrophils/100 WBC (Bld) 67.6 % Normal 47-70 [facility] Comment on above: Result Comment: NOT NEEDED Performed By: #### L 300.3900, L500.4050, L100.0100 #### [facility] [address] [place], [address] Nucleated RBC (Bld) [#/Vol] 0 10*3/uL Normal 0-5 [facility] Comment on above: Result Comment: NOT NEEDED Performed By: #### L 300.3900, L500.4050, L100.0100 #### [facility] [address] [place], [address] Platelet mean volume (Bld) [Entitic vol] 9.2 fL Normal 6.2-12.0 [facility] Comment on above: Result Comment: NOT NEEDED Performed By: #### L 300.3900, L500.4050, L100.0100 #### [facility] [address] [place], [address] Platelets (Bld) [#/Vol] 232 10*3/uL Normal 150-450 [facility] Comment on above: Result Comment: NOT NEEDED Performed By: #### L 300.3900, L500.4050, L100.0100 #### [facility] [address] [place], [address] RBC (Bld) [#/Vol] 4.64 10*6/uL Normal 4.2-5.4 [facility] Comment on above: Result Comment: NOT NEEDED Performed By: #### L 300.3900, L500.4050, L100.0100 #### [facility] [address] [place], [address] RDW SD 42.3 fl Normal 35.1-43.9 [facility] Comment on above: Result Comment: NOT NEEDED Performed By: #### L 300.3900, L500.4050, L100.0100 #### [facility] [address] [place], [address] WBC (Bld) [#/Vol] 6.5 10*3/uL Normal 4.4-11.0 [facility] Comment on above: Result Comment: NOT NEEDED Performed By: #### L 300.3900, L500.4050, L100.0100 #### [facility] [address] [place], [address] Calculated very low density lipoprotein (VLDL) cholesterol measurementOrdered By: Floridalma Juárez on 05-02-2025 Calculated very low density lipoprotein (VLDL) cholesterol measurement 19 mg/dL 5-40 [facility] Comprehensive Metabolic Prof ilon 05-02-2025 ALB Normal 3.4-4.8 [facility] Comment on above: Result Comment: NOT NEEDED Performed By: #### L 300.3900, L500.4050, L100.0100 #### [facility] [address] [place], [address] ALK PHOS Normal 35-104 [facility] Comment on above: Result Comment: NOT NEEDED Performed By: #### L 300.3900, L500.4050, L100.0100 #### [facility] [address] [place], [address] ALT Normal <=34 [facility] Comment on above: Result Comment: NOT NEEDED Performed By: #### L 300.3900, L500.4050, L100.0100 #### [facility] [address] [place], [address] AST Normal <=31 [facility] Comment on above: Result Comment: NOT NEEDED Performed By: #### L 300.3900, L500.4050, L100.0100 #### [facility] [address] [place], [address] BUN Normal 4-19 [facility] Comment on above: Result Comment: NOT NEEDED Performed By: #### L 300.3900, L500.4050, L100.0100 #### [facility] [address] [place], [address] BUN/CRE Normal 10-20 [facility] Comment on above: Result Comment: NOT NEEDED Performed By: #### L 300.3900, L500.4050, L100.0100 #### [facility] [address] [place], [address] Calcium Normal 7.6-11.0 [facility] Comment on above: Result Comment: NOT NEEDED Performed By: #### L 300.3900, L500.4050, L100.0100 #### [facility] [address] [place], [address] CL Normal 98-108 [facility] Comment on above: Result Comment: NOT NEEDED Performed By: #### L 300.3900, L500.4050, L100.0100 #### [facility] [address] [place], [address] CO2 Normal 21.0-32.0 [facility] Comment on above: Result Comment: NOT NEEDED Performed By: #### L 300.3900, L500.4050, L100.0100 #### [facility] [address] [place], [address] CREAT,SERUM Normal 0.70-1.20 [facility] Comment on above: Result Comment: NOT NEEDED Performed By: #### L 300.3900, L500.4050, L100.0100 #### [facility] [address] [place], [address] eGFR Normal >60 [facility] Comment on above: Result Comment: NOT NEEDED Performed By: #### L 300.3900, L500.4050, L100.0100 #### [facility] [address] [place], [address] GAP Normal 5-15 [facility] Comment on above: Result Comment: NOT NEEDED Performed By: #### L 300.3900, L500.4050, L100.0100 #### [facility] [address] [place], [address] GLU Normal 70-99 [facility] Comment on above: Result Comment: NOT NEEDED Performed By: #### L 300.3900, L500.4050, L100.0100 #### [facility] [address] [place], [address] Potassium Normal 3.3-5.1 [facility] Comment on above: Result Comment: NOT NEEDED Performed By: #### L 300.3900, L500.4050, L100.0100 #### [facility] [address] [place], [address] T BILI Normal 0.00-1.30 [facility] Comment on above: Result Comment: NOT NEEDED Performed By: #### L 300.3900, L500.4050, L100.0100 #### [facility] [address] [place], [address] T PROT Normal 5.9-8.4 [facility] Comment on above: Result Comment: NOT NEEDED Performed By: #### L 300.3900, L500.4050, L100.0100 #### [facility] [address] [place], [address] Comprehensive Metabolic Profil Normal 133-145 [facility] Comment on above: Result Comment: NOT NEEDED Performed By: #### L 300.3900, L500.4050, L100.0100 #### [facility] [address] [place], [address] LDL calc ser/plasOrdered By: Floridalma Juárez on 05-02-2025 Cholesterol in LDL [Mass/Vol] 81 mg/dL [facility] Comment on above: Cjkgxqjabb=445-373 m g/dL & Higher Shgq=857 mg/dL or greater Lipid Profileon 05-02-2025 CHOL:HDL 2.88 Normal [facility] Comment on above: Performed By: #### L 500.4100 #### [facility] [address] [place], [address] Cholesterol [Mass/Vol] 153 mg/dL Normal <=200 [facility] Comment on above: Result Comment: Chol esterol level, Desirable <200 mg/dL Borderline high cholesterol 200-239 mg/dL High cholesterol >=240 mg/dL Recommendations of the NCEP Adult Treatment Panel for the following risk-cutoff thresholds for the [place] population. Performed By: #### L 500.4100 #### [facility] [address] [place], [address] Cholesterol in HDL [Mass/Vol] 53 mg/dL Normal [facility] Comment on above: Result Comment: Prema onal Cholesterol Education Program (NCEP) guidelines: <40 mg/dL: Low HDL-cholesterol (major risk factor for CHD) >= 60 mg/dL: High HDL-cholesterol (negative risk factor for CHD) HDL-cholesterol is affected by a number of factors, e.g. smoking, exercise, hormones, sex and age. Performed By: #### L 500.4100 #### [facility] [address] [place], [address] Cholesterol in LDL [Mass/Vol] 81 mg/dL Normal [facility] Comment on above: Result Comment: Bord dxcrcy=971-819 mg/dL Higher Rueh=845 mg/dL or greater Performed By: #### L 500.4100 #### [facility] [address] [place], [address] Cholesterol in VLDL [Mass/Vol] 19 mg/dL Normal 5-40 [facility] Comment on above: Performed By: #### L 500.4100 #### [facility] [address] [place], [address] Triglyceride [Mass/Vol] 96 mg/dL Normal [facility] Comment on above: Result Comment: The drugs N-Acetylcysteine and Metamizole may falsely depress this assay. Normal range: <150 mg/dL Borderline High: 150-199 mg/dL High: 200-499 mg/dL Very High: >500 mg/dL Performed By: #### L 500.4100 #### [facility] [address], [address] Prothrombin Time w/INRon INR Coag (PPP) [Relative time] 2.8 {INR} Normal [facility] Comment on above: Performed By: #### L 300.3900, L500.4050, L100.0100 #### [facility] [address] [place], [address] PT Coag (PPP) [Time] 30.1 s High 11.7-14.9 [facility] Comment on above: Performed By: #### L 300.3900, L500.4050, L100.0100 #### [facility] [address] [place], [address] Screening total cholesterol/ high density lipoprotein (HDL) cholesterol ratioOrdered By: Floridalma Juárez on 05-02-2025 Cholesterol.total/Chol esterol in HDL [Mass ratio] 2.88 {ratio} [facility] Serum or plasma cholesterol in HDL measurement (mass/volume)Ordered By: Floridalma Juárez on 05-02-2025 Cholesterol in HDL [Mass/Vol] 53 mg/dL >40 [facility] Comment on above: National Cholesterol Education Program (NCEP) guidelines:<40 mg/dL: Low HDL-cholesterol (major risk factor for CHD)>= 60 mg/dL: High HDL-cholesterol (negative risk factor for CHD)HDL-cholesterol is affected by a number of factors, e.g. smoking, exercise, hormones, sex and age. Serum or plasma cholesterol measurement (mass/volume)Ordered By: Floridalma Juárez on 05-02-2025 Cholesterol [Mass/Vol] 153 mg/dL <201 [facility] Comment on above: Cholesterol level, D esirable <200 mg/dLBorderline high cholesterol 200-239 mg/dLHigh cholesterol >=240 mg/dLRecommendations of the NCEP Adult Treatment Panel for the following risk-cutoff thresholds for the [place] population. Triglycerides measurementOrd ered By: Floridalma Juárez on 05-02-2025 Triglyceride [Mass/Vol] 96 mg/dL <199 [facility] Comment on above: The drugs N-Acetylcy steine and Metamizole may falsely depress this assay. Normal range: <150 mg/dLBorderline High: 150-199 mg/dLHigh: 200-499 mg/dLVery High: >500 mg/dL Absolute neutrophil countOrd ered By: Bambi Palmer on 02-28-2025 Neutrophils (Bld) [#/Vol] 3.6 10*3/uL 2.0-7.7 [facility] Anion gap in Serum or Plasma Ordered By: Bambi Palmer on 02-28-2025 Anion gap [Moles/Vol] 7 mmol/L 5-15 [facility] Automated blood erythrocyte countOrdered By: Bambi Palmer on 02-28-2025 RBC (Bld) [#/Vol] 4.30 10*6/uL Normal 4.2-5.4 [facility] Comment on above: Performed By: #### L 300.3900, L100.0100, L500.4050 #### [facility] [address] [place], [address] Automated blood hematocrit ( percentage)Ordered By: Bambi Palmer on 02-28-2025 Hematocrit (Bld) [Volume fraction] 41.2 % Normal 37-47 [facility] Comment on above: Performed By: #### L 300.3900, L100.0100, L500.4050 #### [facility] [address] [place], [address] Automated lymphocyte count a s percentage of total leukocytesOrdered By: Bambi Palmer on 02-28-2025 Lymphocytes/100 WBC (Bld) 22.5 % Normal 19-41 [facility] Comment on above: Performed By: #### L 300.3900, L100.0100, L500.4050 #### [facility] [address] [place], [address] BUN/creatinine ratioOrdered By: Bambi RinconSpencer on 02-28-2025 Urea nitrogen/Creatinine [Mass ratio] 20.5 mg/mg High 10-20 [facility] Basophil percentageOrdered B y: Bambi RinconSpencer on 02-28-2025 Basophils/100 WBC (Bld) 1.0 % Normal 0-1 [facility] Comment on above: Performed By: #### L 300.3900, L100.0100, L500.4050 #### [facility] [address] [place], [address] Bilirubin, totalOrdered By: Bambi Palmer on 02-28-2025 Bilirubin [Mass/Vol] 0.38 mg/dL Normal 0.00-1.30 [facility] Comment on above: Performed By: #### L 300.3900, L100.0100, L500.4050 #### [facility] [address] [place], [address] CBC W/Diff, Automatedon 03-3 Absolute Lymph 1.35 X10 3/uL Normal 0.83-4.51 [facility] Comment on above: Performed By: #### L 300.3900, L100.0100, L500.4050 #### [facility] [address] [place], [address] Absolute Neut 3.6 X10 3/uL Normal 2.0-7.7 [facility] Comment on above: Performed By: #### L 300.3900, L100.0100, L500.4050 #### [facility] [address] [place], [address] IG% 1.200 High 0.0-0.9 [facility] Comment on above: Result Comment: IG% - Immature Granulocytes (promyelocytes, myelocytes and metamyelocytes) > 1% indicates that a LEFT SHIFT is Present. Performed By: #### L 300.3900, L100.0100, L500.4050 #### [facility] [address] [place], [address] Nucleated RBC (Bld) [#/Vol] 0 10*3/uL Normal 0-5 [facility] Comment on above: Performed By: #### L 300.3900, L100.0100, L500.4050 #### [facility] [address] [place], [address] RDW SD 42.8 fl Normal 35.1-43.9 [facility] Comment on above: Performed By: #### L 300.3900, L100.0100, L500.4050 #### [facility] [address] [place], [address] Carbon dioxide, total [Moles /volume] in Central venous bloodOrdered By: Bambi Palmer on 02-28-2025 CO2 [Moles/Vol] 27.8 mmol/L Normal 21.0-32.0 [facility] Comment on above: Performed By: #### L 300.3900, L100.0100, L500.4050 #### [facility] [address] [place], [address] Chloride assayOrdered By: Ty ra Palmer on 02-28-2025 Chloride [Moles/Vol] 100 mmol/L Normal 98-108 [facility] Comment on above: Performed By: #### L 300.3900, L100.0100, L500.4050 #### [facility] [address] [place], [address] Comprehensive Metabolic Prof ilon 02-28-2025 ALK PHOS 106 U/L High 35-104 [facility] Comment on above: Performed By: #### L 300.3900, L100.0100, L500.4050 #### [facility] [address] [place], [address] BUN/CRE 20.5 RATIO High 10-20 [facility] Comment on above: Performed By: #### L 300.3900, L100.0100, L500.4050 #### [facility] [address] [place], [address] ECRCL 50.21 ml/min Normal 50-250 [facility] Comment on above: Performed By: #### L 300.3900, L100.0100, L500.4050 #### [facility] [address] [place], [address] GAP 7 Normal 5-15 [facility] Comment on above: Performed By: #### L 300.3900, L100.0100, L500.4050 #### [facility] [address] [place], [address] GFR/1.73 sq M.predicted among non-blacks MDRD (S/P/Bld) [Vol rate/Area] 88 mL/min/{1.73_m2} Normal >60 [facility] Comment on above: Result Comment: mL/m in/1.73m2 CKD-EPI Creatinine Equation (2020) Performed By: #### L 300.3900, L100.0100, L500.4050 #### [facility] [address] [place], [address] T PROT 6.4 g/dL Normal 5.9-8.4 [facility] Comment on above: Performed By: #### L 300.3900, L100.0100, L500.4050 #### [facility] [address] [place], [address] Comprehensive Metabolic Prof ilOrdered By: Bambi Palmer on 02-28-2025 AST [Catalytic activity/Vol] 22 U/L Normal <=31 [facility] Comment on above: Performed By: #### L 300.3900, L100.0100, L500.4050 #### [facility] [address] [place], [address] Eosinophil percentageOrdered By: Bambi Palmer on 02-28-2025 Eosinophils/100 WBC (Bld) 3.0 % Normal 0-5 [facility] Comment on above: Performed By: #### L 300.3900, L100.0100, L500.4050 #### [facility] [address] [place], [address] Erythrocyte distribution wid th ratioOrdered By: Bambi Palmer on 02-28-2025 Erythrocyte distribution width (RBC) [Ratio] 12.3 % Normal 11.6-14.6 [facility] Comment on above: Performed By: #### L 300.3900, L100.0100, L500.4050 #### [facility] [address] [place], [address] Erythrocyte distribution wid th standard deviationOrdered By: Bambi aPlmer on 02-28-2025 Erythrocyte distribution width (RBC) [Entitic vol] 42.8 fL 35.1-43.9 [facility] Estimation of creatinine arash aranceOrdered By: Bambi Palmer on 02-28-2025 Estimated Creatinine Clearance Calc 50.21 ml/min 50-250 [facility] GFR/1.73 sq M.predicted neetu g non-blacks MDRD (S/P/Bld) [Vol rate/Area]Ordered By: Bambi Palmer on 02-28-2025 Estimated GFR (MDRD) Non-Af Amer 88 >60 [facility] Comment on above: mL/min/1.73m2 CKD-EP I Creatinine Equation (2020) Hemoglobin measurementOrdere d By: Bambi Palmer on 02-28-2025 Hemoglobin (Bld) [Mass/Vol] 13.6 g/dL Normal 12.0-15.0 [facility] Comment on above: Performed By: #### L 300.3900, L100.0100, L500.4050 #### [facility] [address] [place], [address] Immature granulocytes/100 WB C Auto (Bld)Ordered By: Bambi Palmer on 02-28-2025 Immature granulocytes/100 WBC (Bld) 1.200 % High 0.0-0.9 [facility] Comment on above: IG% - Immature Granu locytes (promyelocytes, myelocytes and metamyelocytes) > 1% indicates that a LEFT SHIFT is Present. International normalized rat io (INR) calculationOrdered By: Bambi Palmer on 02-28-2025 INR Coag (Bld) [Relative time] 2.4 {INR} [facility] Lymphocytes Auto (Unsp spec) [#/Vol]Ordered By: Bambi Palmer on 02-28-2025 Lymphocytes (Bld) [#/Vol] 1.35 10*3/uL 0.83-4.51 [facility] MCV (mean corpuscular volume ) determinationOrdered By: Bambi Palmer on 02-28-2025 MCV (RBC) [Entitic vol] 95.8 fL Normal 81-99 [facility] Comment on above: Performed By: #### L 300.3900, L100.0100, L500.4050 #### [facility] [address] [place], [place], [address] Mean corpuscular hemoglobin (MCH) determinationOrdered By: Bambi Palmer on 02-28-2025 MCH (RBC) [Entitic mass] 31.6 pg Normal 27.0-32.0 [facility] Comment on above: Performed By: #### L 300.3900, L100.0100, L500.4050 #### [facility] [address] [place], [address] Mean corpuscular hemoglobin concentration (MCHC) determinationOrdered By: Bambi Palmer on 02-28-2025 MCHC (RBC) [Mass/Vol] 33.0 g/dL Normal 32-36 [facility] Comment on above: Performed By: #### L 300.3900, L100.0100, L500.4050 #### [facility] [address] [place], [address] Mean platelet volume determi nationOrdered By: Bambi Palmer on 02-28-2025 Platelet mean volume (Bld) [Entitic vol] 9.4 fL Normal 6.2-12.0 [facility] Comment on above: Performed By: #### L 300.3900, L100.0100, L500.4050 #### [facility] [address] [place], [address] Monocyte percentageOrdered B y: Bambi Palmer on 02-28-2025 Monocytes/100 WBC (Bld) 12.7 % High 0-10 [facility] Comment on above: Performed By: #### L 300.3900, L100.0100, L500.4050 #### [facility] [address] [place], [address] Neutrophil percentageOrdered By: Bambi Palmer on 02-28-2025 Neutrophils/100 WBC (Bld) 59.6 % Normal 47-70 [facility] Comment on above: Performed By: #### L 300.3900, L100.0100, L500.4050 #### [facility] [address] [place], [address] Nucleated red blood cell per centageOrdered By: Bambi Palmer on 02-28-2025 Nucleated RBC/100 WBC (Bld) [Ratio] 0 % 0-5 [facility] Oncology Visit Reporton 01-31 Oncology Visit Report [facility] [place] [facility] [address] 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 The first episode of PE occurred after diagnosis of left breast cancer she states in 2003. Underwent lumpectomy and radiation therapy, Tamoxifen < 1 year. Followed with medical oncologist, Dr. Low. She took Coumadin for about 6 months. The second episode was after a ventral hernia repair. The patient was recuperating after her surgery and had stopped prophylactic anticoagulation. This was a massive PE that required resuscitation at [facility] in 2014. She developed further complications inclusive [...] revealed ventral hernia and repaired by Dr. Suarez. Maintained on warfarin. Interval History The patient is presenting to clinic for a planned 6 month follow up. She denies any concerns r/t today's visit. Reports good adherence to warfarin at this time. Confirms she is taking the recommended dose- 6 mg daily except 5 mg on Wednesdays. No episodes of abnormal bleeding, although admits she bruises eas yuriy. Further denies fever/chills, headaches, dizziness, CP, palpitations, cough, abd/pelvic pain,vaginal discharge/bleeding, swelling/pain of his extremities and skin changes, changes in her breasts or changes in bowel habits. Exertional dyspnea chronic, unchanged. Underwent a pelvic exam in May with a salvage engineer at [facility]- does not have a future visit. [facility] Medical History Screening for breast cancer Screening for malignant neoplasm of breast Muscle strain of right lower leg Back pain unexplained bruises Hay fever Asthma Knee pain Fatigue SOB (shortness of breath) Lung disease Arthritis HTN (hypertension) Anemia History of PE Breast cancer Surgical History Hx of tonsillectomy H/O lumpectomy History of hysterectomy H/O hernia repair History of carpal tunnel surgery Family History Mother Arthritis Heart disease Hypertension CVA (cerebral vascular accident) Social History Smoking Status: Never smoker alcohol intake: never ROS ROS Narrative Negative except as documented in the interval HPI Intake Vital Signs 08/30/24 09:56 02/28/25 10:46 02/28/25 10:52 Height 4 ft 9 in 4 ft 9 in 4 ft 9 in Weight: 185 lb 9 oz BMI 40.1 BP 162/72 H Blood Pressure Location Lt brachial Position Sitting Respiration 16 Pulse 54 L Pulse Source Monitor Temp 98.1 F Temperature Source Temporal Artery Pulse Oximetry (%) 96 Oxygen Delivery Method room air Intake Is patient in pain?: Yes (right shoulder pain ) Allergies heparin Allergy (Severe, Verified 02/28/25 10:51) Low platelets sulfamethoxazole (From Bactrim) Allergy (Severe, Verified 02/28/25 10:51) Unknown trimethoprim (From Bactrim) Allergy (Severe, Verified 02/28/25 10:51) Unknown prednisone Allergy (Verified 02/28/25 10:51) Unknown aspirin Adverse Reaction (Severe, Verified 02/28/25 10:51) Nausea clarithromycin Adverse Reaction (Severe, Verified 02/28/25 10:51) Unknown cyclobenzaprine (Cyclobenzaprine) Adverse Reaction (Severe, Verified 02/28/25 10:51) Unknown meloxicam Adverse Reaction (Severe, Verified 02/28/25 10:51) Nausea Sulfa (Sulfonamide Antibiotics) Adverse Reaction (Severe, Verified 02/28/25 10:51) Vomiting tramadol HCl (From Ultram) Adverse Reaction (Severe, Verified 02/28/25 10:51) Vomiting Medications ???Medication ???Instructions ???Recorded ???Confirmed ???Type simvastatin 20 mg tablet 20 mg PO QHS 09/21/13 02/28/25 His tory acetaminophen 500 mg tablet 500 mg PO Q4H PRN PRN Pain 5 02/28/25 History hydrochlorothiazide 12.5 mg capsule 12.5 mg PO DAILY 01/18/1502/28 History calcium 500 mg (as 1 tab PO BID 03/23/15 02/28/25 His tory carbon (more content not included)... Normal [facility] Platelet countOrdered By: Pardeep Palmer on 02-28-2025 Platelets (Bld) [#/Vol] 215 10*3/uL Normal 150-450 [facility] Comment on above: Performed By: #### L 300.3900, L100.0100, L500.4050 #### [facility] [address] [place], [address] Potassium measurement (mass/ volume)Ordered By: Bambi Palmer on 02-28-2025 Potassium [Moles/Vol] 5.0 mmol/L Normal 3.3-5.1 [facility] Comment on above: Performed By: #### L 300.3900, L100.0100, L500.4050 #### [facility] [address] [place], [address] Prothrombin Time w/INRon INR Coag (PPP) [Relative time] 2.4 {INR} Normal [facility] Comment on above: Performed By: #### L 300.3900, L100.0100, L500.4050 #### [facility] [address] [place], [address] Prothrombin timeOrdered By: Bambi Palmer on 02-28-2025 PT Coag (PPP) [Time] 26.6 s High 11.7-14.9 [facility] Comment on above: Performed By: #### L 300.3900, L100.0100, L500.4050 #### [facility] [address] [place], [address] Serum creatinine measurement (mass/volume)Ordered By: Bambi Palmer on 02-28-2025 Creatinine [Mass/Vol] 0.62 mg/dL Low 0.70-1.20 [facility] Comment on above: Performed By: #### L 300.3900, L100.0100, L500.4050 #### [facility] [address] [place], [address] Serum globulin measurementOr dered By: Bambi Palmer on 02-28-2025 Globulin (S) [Mass/Vol] 2.7 g/dL Normal 2.2-4.2 [facility] Comment on above: Performed By: #### L 300.3900, L100.0100, L500.4050 #### [facility] [address] [place], [address] Serum glucose measurement (m ass/volume)Ordered By: Bambi Palmer on 02-28-2025 Glucose [Mass/Vol] 98 mg/dL Normal 70-99 [facility] Comment on above: Performed By: #### L 300.3900, L100.0100, L500.4050 #### [facility] [address] [place], [address] Serum or plasma alanine rosas otransferase (ALT) measurementOrdered By: Bambi Palmer on 02-28-2025 ALT [Catalytic activity/Vol] 11 U/L Normal <=34 [facility] Comment on above: Performed By: #### L 300.3900, L100.0100, L500.4050 #### [facility] [address] [place], [address] Serum or plasma albumin mckenzie urement (mass/volume)Ordered By: Bambi Palmer on 02-28-2025 Albumin [Mass/Vol] 3.7 g/dL Normal 3.4-4.8 [facility] Comment on above: Performed By: #### L 300.3900, L100.0100, L500.4050 #### [facility] [address] [place], [address] Serum or plasma albumin/glob ulin mass ratioOrdered By: aBmbi Palmer on 02-28-2025 Albumin/Globulin [Mass ratio] 1.3 {ratio} Normal 0.9-2.4 [facility] Comment on above: Performed By: #### L 300.3900, L100.0100, L500.4050 #### [facility] [address] [place], [address] Serum or plasma alkaline emmie sphatase measurementOrdered By: Bambi RinconSpencer on 02-28-2025 ALP [Catalytic activity/Vol] 106 U/L High 35-104 [facility] Serum or plasma calcium mckenzie urement (mass/volume)Ordered By: Bambigreg RinconSpencer on 02-28-2025 Calcium [Mass/Vol] 9.5 mg/dL Normal 7.6-11.0 [facility] Comment on above: Performed By: #### L 300.3900, L100.0100, L500.4050 #### [facility] [address] [place], [address] Serum or plasma urea nitroge n measurement (mass/volume)Ordered By: Bambi Palmer on 02-28-2025 Urea nitrogen [Mass/Vol] 13 mg/dL Normal 4-19 [facility] Comment on above: Performed By: #### L 300.3900, L100.0100, L500.4050 #### [facility] [address] [place], [address] Sodium levelOrdered By: Bambi Palmer on 02-28-2025 Sodium [Moles/Vol] 135 mmol/L Normal 133-145 [facility] Comment on above: Performed By: #### L 300.3900, L100.0100, L500.4050 #### [facility] [address] [place], [address] Total proteinOrdered By: Tyr greg RinconSepncer on 02-28-2025 Protein [Mass/Vol] 6.4 g/dL 5.9-8.4 [facility] White blood cell (WBC) count Ordered By: Bambi Palmer on 02-28-2025 WBC (Bld) [#/Vol] 6.0 10*3/uL Normal 4.4-11.0 [facility] Comment on above: Performed By: #### L 300.3900, L100.0100, L500.4050 #### [facility] [address] [place], [address] Breast imaging reportOrdered By: Daphne Joe on 02-25-2025 Study report [facility] Imaging Services [address] [place] [address] SCRN MAMM (CAD)W/CARMELINA BILAT MR#: [id number] Acct: [id number] Name: OBINNA MALDONADO Rep #: [id number] : 1940 F 84 From: Jia Joe MD PCP: Dr. Floridalma Juárez MD [facility] Study:SCRN MAMM (CAD)W/CARMELINA BILAT Date of Exa m: 02/25/25 Exam# [id number] Ordering Dr: Bambi Tracey NP VEHICLE INSURANCE AGENT-C EXAM: SCRN MAMM (CAD)W/CARMELINA BILAT 02/25/2025 CLINICAL HISTORY: F, Age 84 y/o , SCREENING TECHNIQUE: Bilateral screening digital breast tomosynthesis with 2D and 3D images. Computeraided detection. COMPARISON: Prior exam(s) dated 02/25/2024, 02/21/2023. FINDINGS: TISSUE DENSITY: The breast tissue is composed of scattered area of fibroglandular density. Bilateral Breast Mammographic Findings: No significant masses, calcifications or other abnormalities are identified. BI/SCRN MAMM (CAD)W/CARMELINA BILAT IMPRESSION: Right Breast: BIRADS 1 NEGATIVE. Left Breast: BIRADS 1 NEGATIVE. OVERALL FINAL ASSESSMENT: BIRADS 1 NEGATIVE. RECOMMENDATION: Routine annual follow-up in 1 Year A letter with findings and recommendations will be mailed to the patient. Reading Location: [id number] CC: VEHICLE INSURANCE AGENT-C Bambi Palmer; Dr. Floridalma Juárez MD ~ Automotive Service Technician: Signed [facility] SCRN MAMM (CAD)W/CARMELINA BILATo n 02-25-2025 SCRN MAMM (CAD)W/CARMELINA BILAT [facility] Imaging Services [address] [place] [address] SCRN MAMM (CAD)W/CARMELINA BILAT MR#: [id number] Acct: [id number] Name: OBINNA MALDONADO Rep #: [id number] : 1940 F 84 From: Daphne Joe MD PCP: Dr. Floridalma Juárez MD Status: [facility] Study: SCRN MAMM (CAD)W/CARMELINA BILAT Date of Exam: 01/30 07/25 Exam# [id number] Ordering Dr: Bambi Palmer NP, NP -Daja EXAM: SCRN MAMM (CAD)W/CARMELINA BILAT 02/25/2025 CLINICAL HISTORY: F, Age 84 y/o , SCREENING TECHNIQUE: Bilateral screening digital breast tomosynthesis with 2D and 3D images. Computer aided detection. COMPARISON: Prior exam(s) dated 02/25/2024, 02/21/2023. FINDINGS: TISSUE DENSITY: The breast tissue is composed of scattered area of fibroglandular density. Bilateral Breast Mammographic Findings: No significant masses, calcifications or other abnormalities are identified. BI/SCRN MAMM (CAD)W/CARMELINA BILAT IMPRESSION: Right Breast: BIRADS 1 NEGATIVE. Left Breast: BIRADS 1 NEGATIVE. OVERALL FINAL ASSESSMENT: BIRADS 1 NEGATIVE. RECOMMENDATION: Routine annual follow-up in 1 Year A letter with findings and recommendations will be mailed to the patient. Reading Location: [facility] CC: KO Palmer; Dr. Floridalma Juárez MD Automotive Service Technician: Signed Normal [facility] CNOVon 02-03-2025 CNOV Office Visit ([facility] ) -- OBINNA MALDONADO ([id number]) 1940 F Date Time Provider Department 02/03/25 12:30 PM BUBBA [facility]Y [facility] During your visit today, we recorded the following information about you: Temperature Pulse Respiration Blood pressure 98.5 degrees 72/minute 20/minute 157/82 Weight 81 kg ManuelaChikiBubba, MIXER DIAMOND POWDER.E COMMERCE STRATEGIST 02/03/2025 1:15 PM Signed [facility] Subjective Obinna Maldonado is a 84 year old female. HPI Nontoxic-appearing female presents urgent care chief complaint cough and wheezing. Duration of the symptoms 4 days. Associated symptoms listed above. States on Friday she started feeling a little bit unwell. States did develop a cough on Friday. Has some nasal drainage. Also of last week she fell in the kitchen striking her butt and ribs. Was not evaluated for this. Does not know if this is related to the cough as well. Denies any fever body aches or chills. Abdominal region is unremarkable. Denies any chest pain or hemoptysis. No increased work of breathing. History of asthma and COPD. Past medical history prescription medications allergies reviewed. .Patient presents with: Cough: Wheezing, chest congestion, cough, some productive x 4 days PAST MEDICAL HISTORY Diagnosis Date Cancer, uterine (HCC) 2016 Chronic airway obstruction, not elsewhere classified Endometrial cancer (HCC) Stage Ia grade 2 Essential hypertension, benign Malignant neoplasm of breast (female), unspecified site LEFT BREAST CANCER Morbid obesity (HCC) Other emphysema (HCC) PMH - PAST MEDICAL HISTORY OF ARTHRITIS Pulmonary emboli (HCC) 2014 WITH CARDIAC ARREST Pulmonary embolism (HCC) 2004 PAST SURGICAL HISTORY Procedure Laterality Date BX BREAST PERC VACUUM/ROTN 04/22/2008 Left breast - benign BX BREAST PERC VACUUM/ROTN 12/12/11 Left Breast - benign microcalcifications COLSC FLX W/RMVL OF TUMOR POLYP LESION SNARE TQ 07/11/10 Polyps at 75cm and rectum COLSC FLX W/RMVL OF TUMOR POLYP LESION SNARE TQ 08/10/13 small polyp at 50cm - cauterized EGD TRANSORAL BIOPSY SINGLE/MULTIPLE 8/11/10 trace gastritis LAPS W/VAG HYSTERECT 250 GM/ANDRMVL TUBEAND/OVARIES 05/2016 LUMPECTOMY/RADIOTHERAPY DIAG MAMM/A10 2004 NEEDLE LOCALIZATION BREAST PAST SURGICAL HISTORY OF CARPAL TUNNEL RELEASE RPR 1ST INCAL/VNT HERNIA INCARCERATED 02/22/15 4x5cm defect - 11x14 ventrio mesh TONSILLECTOMY PRIMARY/SECONDARY Tonsillectomy ALLERGIES Aspirin, Bactrim [Sulfamethoxazole], Biaxin [Clarithromycin], Cyclobenzaprine, Heparin, Meloxicam, Prednisone, Seasonal Allergies, and Tramadol MEDICATIONS warfarin (COUMADIN) 5 mg tablet DAILY (Patient taking differently: Take 6 mg by mouth once daily. As prescribed) PROAIR HFA 90 mcg/actuation inhaler (Patient not taking: Reported on 06/09/2024) ipratropium-albuterol (DUONEB) 0.5 mg-3 mg(2.5 mg base)/3 mL nebu ADACEL,TDAP ADOLESN/ADULT,,PF, 2 Lf-(2.5-5-3-5 mcg)-5Lf/0.5 mL syrg To be injected by Pharmacist (Patient not taking: Reported on 06/09/2024) potassium chloride 20 mEq/15 mL solution mix 15 ml with 4 to 8 oz of water once daily warfarin (COUMADIN) 5 mg tablet Take 5 mg by mouth once daily. fexofenadine (USAMA ALLERGY) 180 mg tablet Take 180 mg by mouth once daily. warfarin (COUMADIN) 1 mg tablet (Patient not taking: Reported on 02/03/2025) ALBUTEROL SULFATE (PROAIR HFA INHALATION) Inhale as instructed. warfarin (COUMADIN) 2.5 mg tablet (Patient not taking: Reported on 02/03/2025) KLOR-CON 20 mEq packet (Patient not taking: Reported on 06/09/2024) PYRIDOXINE HCL (VITAMIN B-6 ORAL) Take by mouth. (Patient not taking: Reported on 06/09/2024) fluticasone (FLONASE) 50 mcg/actuation nasal spray hydrochlorothiazide (HYDRODIURIL, ESIDRIX) 12.5 mg tablet FERREX 150 PLUS 150-50-50 mg cap (Patient not taking: Reported on 06/09/2024) metoprolol tartrate, short acting, (LOPRESSOR) 25 mg tablet twice daily. oxyCODONE-acetaminophen (PERCOCET) 5-325 mg tablet (Patient not taking: Reported on 06/09/2024) fondaparinux (ARIXTRA) 7.5 mg/0.6 mL syrg Inject 7.5 mg subcutaneously q 24 HR. (Patient not taking: Reported on 06/09/2024) Cholecalciferol, Vitamin D3, (VITAMIN D) 1,000 unit Tab Take 1,000 Units by mouth twice daily. fluticasone/salmeterol(ADV AIR DISKUS 500 MCG-50 MCG/DOSE FOR INHALATION) DIRECTED calcium carbonate/vitamin d3(CALCIUM 500 WITH VITAMIN D 500 MG-125 UNIT TAB) Take one(1) tablet three times daily. TYLENOL EXTRA STRENGTH 500 MG TAB as necessary ZOCOR 20 MG TAB Take 20 mg by mouth daily at bedtime. FAMILY HISTORY Problem Relation Age of Onset other (Pancreatic Cancer) Father Heart Mother heart murmur Hypertension Mother Osteoporosis Mother Stroke Mother Social History Tobacco Use Smoking status: Never Smokeless tobacco: Never Vaping Use Vaping status: Never Used Substance Use Topics Alc (more content not included)... Normal [facility] XR CHEST 2V FRONTAL/LATon XR CHEST 2V FRONTAL/LAT * * *Final Report* * * DATE OF EXAM: Feb 03 2025 12:51PM [id number] - XR CHEST 2V FRONTAL/LAT / PROCEDURE REASON: Acute cough * * * * Physician Interpretation * * * * EXAMINATION: CHEST RADIOGRAPH (2 VIEW FRONTAL and LATERAL) CLINICAL HISTORY: Acute cough MQ: XC2_6 EXAM DATE/TIME: 02/03/2025 12:51 PM COMPARISON: No relevant prior studies available. RESULT: Lines, tubes, and devices: None. Lungs and pleura: No consolidation. No lung mass. No pneumothorax. Opacity posterior RIGHT chest probably diaphragmatic eventration or hernia. Other etiologies such as small pleural effusion less likely. Cardiomediastinal silhouette: Normal cardiomediastinal silhouette. Bones and soft tissues: Unremarkable. IMPRESSION: No acute infiltrate. Posterior lower RIGHT diaphragmatic eventration or hernia. Less likely small effusion or other etiology. Automotive Service Technician: NERI Transcribe Date/Time: Feb 03 2025 12:51P Dictated by : ALY YANG MD This examination was interpreted and the report reviewed and electronically signed by: ALY YANG MD on Feb 03 2025 12:54PM EST [id number] Normal [facility] XR Chest PA and Lateralon IMPRESSION: No acute infiltrate. Posterior lower RIGHT diaphragmatic eventration or hernia. Less likely small effusion or other etiology. Automotive Service Technician: PSCB Transcribe Date/Time: Feb 03 2025 12:51P Dictated by : ALY YANG MD This examination was interpreted and the report reviewed and electronically signed by: ALY YANG MD on Feb 03 2025 12:54PM EST DIVISION OF RADIOLOGY * * *Final Report* * * DATE OF EXAM: Feb 03 2025 12:51PM [id number] - XR CHEST 2V FRONTAL/LAT / PROCEDURE REASON: Acute cough * * * * Physician Interpretation * * * * EXAMINATION: CHEST RADIOGRAPH (2 VIEW FRONTAL & LATERAL) CLINICAL HISTORY: Acute cough MQ: XC2_6 EXAM DATE/TIME: 02/03/2025 12:51 PM COMPARISON: No relevant prior studies available. RESULT: Lines, tubes, and devices: None. Lungs and pleura: No consolidation. No lung mass. No pneumothorax. Opacity posterior RIGHT chest probably diaphragmatic eventration or hernia. Other etiologies such as small pleural effusion less likely. Cardiomediastinal silhouette: Normal cardiomediastinal silhouette. Bones and soft tissues: Unremarkable. DIVISION OF RADIOLOGY Provider, [facility] - 02/03/2025 * * *Final Report* * * DATE OF EXAM: Feb 03 2025 12:51PM WOX [id number] - XR CHEST 2V FRONTAL/LAT / PROCEDURE REASON: Acute cough * * * * Physician Interpretation * * * * EXAMINATION: CHEST RADIOGRAPH (2 VIEW FRONTAL & LATERAL) CLINICAL HISTORY: Acute cough MQ: XC2_6 EXAM DATE/TIME: 02/03/2025 12:51 PM COMPARISON: No relevant prior studies available. RESULT: Lines, tubes, and devices: None. Lungs and pleura: No consolidation. No lung mass. No pneumothorax. Opacity posterior RIGHT chest probably diaphragmatic eventration or hernia. Other etiologies such as small pleural effusion less likely. Cardiomediastinal silhouette: Normal cardiomediastinal silhouette. Bones and soft tissues: Unremarkable. IMPRESSION IMPRESSION: No acute infiltrate. Posterior lower RIGHT diaphragmatic eventration or hernia. Less likely small effusion or other etiology. Automotive Service Technician: NERI Transcribe Date/Time: Feb 03 2025 12:51P Dictated by : ALY YANG MD This examination was interpreted and the report reviewed and electronically signed by: ALY YANG MD on Feb 03 2025 12:54PM EST [facility] Radiology Study observation (narrative) [facility] XR Chest PA and LateralOrder ed By: [facility] Provider on 02-03-2025 [facility] Prothrombin Time w/INRon INR Coag (PPP) [Relative time] 2.2 {INR} Normal [facility] Comment on above: Performed By: #### L 300.3900 #### [facility] [address] [place], [address] PT Coag (PPP) [Time] 25.0 s High 11.7-14.9 [facility] Comment on above: Performed By: #### L 300.3900 #### [facility] [address] [place], [address] Prothrombin Time w/INRon INR Coag (PPP) [Relative time] 2.4 {INR} Normal [facility] Comment on above: Performed By: #### L 300.3900, L100.0100, L500.4050 #### [facility] [address] [place], [address] PT Coag (PPP) [Time] 26.1 s High 11.7-14.9 [facility] Comment on above: Performed By: #### L 300.3900, L100.0100, L500.4050 #### [facility] [address] [place], [address] Estimated glomerular filtrat ion rate (GFR) AmericanOrdered By: Yves Cole on 09-30-2024 Estimated GFR (MDRD) Amer 121 mL/min >60 [facility] Comment on above: GFR Calc Cholesterol measurementOrder ed By: Yves Cole on 03-08-2024 Cholesterol [Mass/Vol] 161 mg/dL <200 [facility] Comment on above: <200 mg/dL Desirable 200-240 mg/dL Borderline >240 mg/dL High Risk High density lipoprotein (HD L) measurementOrdered By: Yves Cole on 03-08-2024 Cholesterol in HDL [Mass/Vol] 58 mg/dL >40 [facility] Comment on above: The drugs N-Acetylcy steine and Metamizole may falsely depress this assay. Reference Range HDL <40 mg/dL Low HDL Cholesterol HDL >or= 60 mg/dL High HDL Cholesterol Low density lipoprotein (LDL ) cholesterol measurementOrdered By: Yves Cole on 03-08-2024 Cholesterol in LDL [Mass/Vol] 77 mg/dL 0-130 [facility] Triglycerides measurementOrd ered By: Yves Cole on 03-08-2024 Triglyceride [Mass/Vol] 131 mg/dL <199 [facility] Comment on above: The drugs N-Acetylcy steine and Metamizole may falsely depress this assay.Serum Triglycerides Reference Interval Normal <150 mg/dL Borderline high 150 - 199 mg/dL High 200 - 499 mg/dL Very High > or = 500 mg/dL Very low density lipoprotein (VLDL) cholesterol measurementOrdered By: Yves Cole on 03-08-2024 VLDL Cholesterol 26 mg/dL 5-40 [facility] Absolute lymphocyte countOrd ered By: Bambi Palmer on 03-01-2024 Lymphocytes Auto (Unsp spec) [#/Vol] 1.22 10*3/uL 0.83-4.51 [facility] Automated lymphocyte count a s percentage of total leukocytesOrdered By: Bambi Palmer on 03-01-2024 Lymphocytes/100 WBC Auto (Unsp spec) 20.6 % 19-41 [facility] Basophil percentageOrdered B y: Bambi Palmer on 03-01-2024 Basophils/100 WBC (Bld) 0.8 % 0-1 [facility] Bilirubin [Mass/Vol] 0.50 mg/dL 0.20-1.00 [facility] Comment on above: For patients on eltr ombopag therapy, use of Dimension [place] TBIL is not recommended. Chloride [Moles/Vol] 102 mmol/L 98-107 [facility] Eosinophils/100 WBC (Bld) 3.0 % 0-5 [facility] Glucose [Mass/Vol] 101 mg/dL 74-106 [facility] Comment on above: Fasting Glucose resu lt from 100 to 125 mg/dL suggests IMPAIRED HOMEOSTASIS per A.D.A. criteria. Hemoglobin (Bld) [Mass/Vol] 14.3 g/dL 12.0-15.0 [facility] Monocytes/100 WBC (Bld) 12.0 % 0-10 [facility] Neutrophils (Bld) [#/Vol] 3.8 10*3/uL 2.0-7.7 [facility] Neutrophils/100 WBC (Bld) 63.4 % 47-70 [facility] Potassium [Moles/Vol] 4.4 mmol/L 3.5-5.1 [facility] Protein [Mass/Vol] 6.8 g/dL 6.4-8.2 [facility] Sodium [Moles/Vol] 135 mmol/L 136-145 [facility] WBC (Bld) [#/Vol] 5.9 10*3/uL 4.4-11.0 [facility] Determination of erythrocyte mean corpuscular volume (MCV)Ordered By: Bambi Palmer on 03-01-2024 MCV (RBC) [Entitic vol] 94.2 fL 81-99 [facility] Erythrocyte distribution wid th ratioOrdered By: Bambi Palmer on 03-01-2024 Erythrocyte distribution width (RBC) [Ratio] 12.6 % 11.6-14.6 [facility] Erythrocyte distribution wid th standard deviationOrdered By: Bambi Palmer on 03-01-2024 Erythrocyte distribution width (RBC) [Entitic vol] 43.4 fL 35.1-43.9 [facility] Hematocrit Auto (Bld) [Volum e fraction]Ordered By: Bambi Palmer on 03-01-2024 Hematocrit (Bld) [Volume fraction] 44.2 % 37-47 [facility] Immature granulocytes/100 WB C Auto (Bld)Ordered By: Bambi Palmer on 03-01-2024 Immature granulocytes/100 WBC (Bld) 0.200 % 0.0-0.9 [facility] Comment on above: IG% - Immature Granu locytes (promyelocytes, myelocytes and metamyelocytes) > 1% indicates that a LEFT SHIFT is Present. Laboratory - Chemistry and C hemistry - challengeOrdered By: Bambi Palemr on 03-01-2024 Albumin/Globulin [Mass ratio] 0.9 {ratio} 0.9-2.4 [facility] ALP [Catalytic activity/Vol] 102 U/L 45-117 [facility] ALT [Catalytic activity/Vol] 15 U/L 13-56 [facility] CO2 [Moles/Vol] 31.0 mmol/L 21.0-32.0 [facility] Globulin (S) [Mass/Vol] 3.6 g/dL 2.2-4.2 [facility] Urea nitrogen/Creatinine [Mass ratio] 21.9 mg/mg 10-20 [facility] Laboratory - CoagulationOrde red By: Bambi Palmer on 03-01-2024 INR Coag (Bld) [Relative time] 1.9 {INR} [facility] PT Coag (PPP) [Time] 21.7 s 11.7-14.9 [facility] Laboratory - Hematology and Cell countsOrdered By: Bambi Palmer on 03-01-2024 MCH (RBC) [Entitic mass] 30.5 pg 27.0-32.0 [facility] MCHC (RBC) [Mass/Vol] 32.4 g/dL 32-36 [facility] Nucleated RBC/100 WBC (Bld) [Ratio] 0 % 0-5 [facility] Platelet mean volume (Bld) [Entitic vol] 10.0 fL 6.2-12.0 [facility] Platelets (Bld) [#/Vol] 228 10*3/uL 150-450 [facility] No Panel InformationOrdered By: Bambi Palmer on 03-01-2024 Estimated Creatinine Clearance Calc 53.33 ml/min [facility] Estimated GFR (MDRD) Amer 124 mL/min >60 [facility] Comment on above: GFR Calc Estimated GFR (MDRD) Non-Af Amer 103 mL/min >60 [facility] Comment on above: Non- GFR Calc RBC Auto (Bld) [#/Vol]Ordere d By: Bambi Palmer on 03-01-2024 RBC (Bld) [#/Vol] 4.69 10*6/uL 4.2-5.4 [facility] Serum or plasma calcium mckenzie urement (mass/volume)Ordered By: Bambi Palmer on 03-01-2024 Calcium [Mass/Vol] 9.3 mg/dL 8.5-10.1 [facility] Serum or plasma creatinine m easurement (mass/volume)Ordered By: Bambi Palmer on 03-01-2024 Creatinine [Mass/Vol] 0.59 mg/dL 0.55-1.02 [facility] Comment on above: The validity of the calculated GFR & GFRAA in patients over 70 years has not been determined. Clinical correlation is essential. Serum or plasma urea nitroge n measurement (mass/volume)Ordered By: Bambi Palmer on 03-01-2024 Urea nitrogen [Mass/Vol] 13 mg/dL 7-18 [facility] Thin prep Papanicolaou smear with manual screeningOrdered By: Bambi Palmer on 03-01-2024 Thin prep Papanicolaou smear with manual screening 3.2 g/dL 3.2-5.0 [facility] Thin prep Papanicolaou smear with manual screening 20 U/L 15-37 [facility] Thin prep Papanicolaou smear with manual screening 2 5-15 [facility] Laboratory - Microbiology an d Antimicrobial susceptibilityon 11-26-2023 SARS-CoV-2 (COVID-19) RNA MOLLY+probe Ql (Unsp spec) Detected [facility] No Panel Informationon 11-26 Influenza Types A,B Rapid (Clinic) Not detected [facility] INR in Blood by Coagulation assayOrdered By: Bambi Palmer on 04-07-2023 INR Coag (Bld) [Relative time] 1.9 {INR} [facility] Laboratory - CoagulationOrde red By: Bambi Palmer on 04-07-2023 PT Coag (PPP) [Time] 22.1 s 11.7-14.9 [facility] Absolute lymphocyte countOrd ered By: Bambi Palmer on 02-24-2023 Lymphocytes Auto (Unsp spec) [#/Vol] 1.42 10*3/uL 0.83-4.51 [facility] Basophil percentageOrdered B y: Bambi Palmer on 02-24-2023 Basophils/100 WBC (Bld) 1.3 % 0-1 [facility] Bilirubin [Mass/Vol] 0.40 mg/dL 0.20-1.00 [facility] Comment on above: For patients on eltr ombopag therapy, use of Dimension [place] TBIL is not recommended. Chloride [Moles/Vol] 100 mmol/L 98-107 [facility] Eosinophils/100 WBC (Bld) 2.3 % 0-5 [facility] Glucose [Mass/Vol] 101 mg/dL 74-106 [facility] Comment on above: Fasting Glucose resu lt from 100 to 125 mg/dL suggests IMPAIRED HOMEOSTASIS per A.D.A. criteria. Neutrophils (Bld) [#/Vol] 2.9 10*3/uL 2.0-7.7 [facility] Neutrophils/100 WBC (Bld) 56.1 % 47-70 [facility] Potassium [Moles/Vol] 4.2 mmol/L 3.5-5.1 [facility] Protein [Mass/Vol] 6.8 g/dL 6.4-8.2 [facility] Sodium [Moles/Vol] 133 mmol/L 136-145 [facility] WBC (Bld) [#/Vol] 5.3 10*3/uL 4.4-11.0 [facility] Blood erythrocytes count (nu mber/volume)Ordered By: Bambi Palmer on 02-24-2023 RBC (Bld) [#/Vol] 4.68 10*6/uL 4.2-5.4 [facility] Blood hemoglobin measurement (mass/volume)Ordered By: Bambi Palmer on 02-24-2023 Hemoglobin (Bld) [Mass/Vol] 14.1 g/dL 12.0-15.0 [facility] Blood lymphocytes/100 leukoc ytesOrdered By: Bambi Palmer on 03-27-2023 Lymphocytes/100 WBC (Bld) 27.0 % 19-41 [facility] Blood monocytes/100 leukocyt esOrdered By: Bambi Palmer on 02-24-2023 Monocytes/100 WBC (Bld) 13.1 % 0-10 [facility] Blood platelet mean volumeOr dered By: Bambi Palmer on 02-24-2023 Platelet mean volume (Bld) [Entitic vol] 9.2 fL 6.2-12.0 [facility] Determination of erythrocyte mean corpuscular volume (MCV)Ordered By: Bambi Palmer on 02-24-2023 MCV (RBC) [Entitic vol] 94.9 fL 81-99 [facility] Hematocrit Auto (Bld) [Volum e fraction]Ordered By: Bambi Palmer on 02-24-2023 Hematocrit (Bld) [Volume fraction] 44.4 % 37-47 [facility] INR in Blood by Coagulation assayOrdered By: Bambi Palmer on 02-24-2023 INR Coag (Bld) [Relative time] 2.4 {INR} [facility] Laboratory - Chemistry and C hemistry - challengeOrdered By: Bambi Palmer on 02-24-2023 ALP [Catalytic activity/Vol] 102 U/L 45-117 [facility] ALT [Catalytic activity/Vol] 17 U/L 13-56 [facility] CO2 [Moles/Vol] 30.0 mmol/L 21.0-32.0 [facility] Globulin (S) [Mass/Vol] 3.6 g/dL 2.2-4.2 [facility] Urea nitrogen/Creatinine [Mass ratio] 13.7 mg/mg 10-20 [facility] Laboratory - CoagulationOrde red By: Bambi Palmer on 02-24-2023 PT Coag (PPP) [Time] 26.1 s 11.7-14.9 [facility] Laboratory - Hematology and Cell countsOrdered By: Bambi Palmer on 02-24-2023 Erythrocyte distribution width (RBC) [Entitic vol] 43.9 fL 35.1-43.9 [facility] Erythrocyte distribution width (RBC) [Ratio] 12.7 % 11.6-14.6 [facility] Immature granulocytes/100 WBC (Bld) 0.200 % 0.0-0.9 [facility] Comment on above: IG% - Immature Granu locytes (promyelocytes, myelocytes and metamyelocytes) > 1% indicates that a LEFT SHIFT is Present. MCH (RBC) [Entitic mass] 30.1 pg 27.0-32.0 [facility] Nucleated RBC/100 WBC (Bld) [Ratio] 0 % 0-5 [facility] MCHC Auto (RBC) [Mass/Vol]Or dered By: Bambi Palmer on 02-24-2023 MCHC (RBC) [Mass/Vol] 31.8 g/dL 32-36 [facility] No Panel InformationOrdered By: Bambi Palmre on 02-24-2023 Estimated Creatinine Clearance Calc 64.48 ml/min [facility] Estimated GFR (MDRD) Amer 110 mL/min >60 [facility] Comment on above: GFR Calc Estimated GFR (MDRD) Non-Af Amer 91 mL/min >60 [facility] Comment on above: Non- GFR Calc Platelets bldOrdered By: Daria Palmer on 02-24-2023 Platelets (Bld) [#/Vol] 233 10*3/uL 150-450 [facility] Serum or plasma albumin mckenzie urement (mass/volume)Ordered By: Bambi Palmer on 02-24-2023 Albumin [Mass/Vol] 3.2 g/dL 3.2-5.0 [facility] Serum or plasma albumin/glob ulin mass ratioOrdered By: Bambi Palmer on 02-24-2023 Albumin/Globulin [Mass ratio] 0.9 {ratio} 0.9-2.4 [facility] Serum or plasma calcium mckenzie urement (mass/volume)Ordered By: Bambi Palmer on 02-24-2023 Calcium [Mass/Vol] 9.0 mg/dL 8.5-10.1 [facility] Serum or plasma creatinine m easurement (mass/volume)Ordered By: Bambi Palmer on 02-24-2023 Creatinine [Mass/Vol] 0.66 mg/dL 0.55-1.02 [facility] Comment on above: The validity of the calculated GFR & GFRAA in patients over 70 years has not been determined. Clinical correlation is essential. Serum or plasma urea nitroge n measurement (mass/volume)Ordered By: Bambi Palmer on 02-24-2023 Urea nitrogen [Mass/Vol] 9 mg/dL 7-18 [facility] Thin prep Papanicolaou smear with manual screeningOrdered By: Bambi Palmer on 02-24-2023 Thin prep Papanicolaou smear with manual screening 20 U/L 15-37 [facility] Thin prep Papanicolaou smear with manual screening 3 5-15 [facility] INR in Blood by Coagulation assayon 11-18-2022 INR Coag (Bld) [Relative time] 2.5 {INR} [facility] Work Phone: Laboratory - Coagulationon 1 01-19-2022 PT Coag (PPP) [Time] 26.5 s 11.7-14.9 [facility] Work Phone: Absolute lymphocyte counton 08-12-2022 Lymphocytes Auto (Unsp spec) [#/Vol] 1.19 10*3/uL 0.83-4.51 [facility] Work Phone: [phone] Basophil percentageon 2021 Basophils/100 WBC (Bld) 0.9 % 0-1 [facility] Work Phone: Bilirubin [Mass/Vol] 0.60 mg/dL 0.20-1.00 [facility] Work Phone: Comment on above: For patients on eltr ombopag therapy, use of Dimension [place] TBIL is not recommended. Chloride [Moles/Vol] 102 mmol/L 98-107 [facility] Work Phone: Eosinophils/100 WBC (Bld) 2.9 % 0-5 [facility] Work Phone: Glucose [Mass/Vol] 102 mg/dL 74-106 [facility] Work Phone: Comment on above: Fasting Glucose resu lt from 100 to 125 mg/dL suggests IMPAIRED HOMEOSTASIS per A.D.A. criteria. Neutrophils (Bld) [#/Vol] 3.7 10*3/uL 2.0-7.7 [facility] Work Phone: Neutrophils/100 WBC (Bld) 63.1 % 47-70 [facility] Work Phone: Potassium [Moles/Vol] 4.0 mmol/L 3.5-5.1 [facility] Work Phone: [phone] Protein [Mass/Vol] 7.0 g/dL 6.4-8.2 [facility] Work Phone: Sodium [Moles/Vol] 138 mmol/L 136-145 [facility] Work Phone: WBC (Bld) [#/Vol] 5.8 10*3/uL 4.4-11.0 [facility] Work Phone: Blood erythrocytes count (nu mber/volume)on 08-12-2022 RBC (Bld) [#/Vol] 4.76 10*6/uL 4.2-5.4 [facility]: [phone] Blood hemoglobin measurement (mass/volume)on 08-12-2022 Hemoglobin (Bld) [Mass/Vol] 14.1 g/dL 12.0-15.0 [facility] Work Phone: Blood lymphocytes/100 leukoc yteson 08-12-2022 Lymphocytes/100 WBC (Bld) 20.4 % 19-41 [facility] Work Phone: Blood monocytes/100 leukocyt eson 08-12-2022 Monocytes/100 WBC (Bld) 12.5 % 0-10 [facility] Work Phone: Blood platelet mean volumeon 08-12-2022 Platelet mean volume (Bld) [Entitic vol] 9.4 fL 6.2-12.0 [facility] Work Phone: Determination of erythrocyte mean corpuscular volume (MCV)on 08-12-2022 MCV (RBC) [Entitic vol] 93.1 fL 81-99 [facility] Work Phone: Hematocrit Auto (Bld) [Volum e fraction]on 08-12-2022 Hematocrit (Bld) [Volume fraction] 44.3 % 37-47 [facility] Work Phone: Laboratory - Chemistry and C hemistry - challengeon 08-12-2022 ALP [Catalytic activity/Vol] 111 U/L 45-117 [facility] Work Phone: ALT [Catalytic activity/Vol] 15 U/L 13-56 [facility] Work Phone: CO2 [Moles/Vol] 30.0 mmol/L 21.0-32.0 [facility] Work Phone: Globulin (S) [Mass/Vol] 3.8 g/dL 2.2-4.2 [facility] Work Phone: Urea nitrogen/Creatinine [Mass ratio] 17.3 mg/mg 10-20 [facility] Work Phone: Laboratory - Hematology and Cell countson 08-12-2022 Erythrocyte distribution width (RBC) [Entitic vol] 45.1 fL 35.1-43.9 [facility] Work Phone: Erythrocyte distribution width (RBC) [Ratio] 13.2 % 11.6-14.6 [facility] Work Phone: Immature granulocytes/100 WBC (Bld) 0.200 % 0.0-0.9 [facility] Work Phone: Comment on above: IG% - Immature Granu locytes (promyelocytes, myelocytes and metamyelocytes) > 1% indicates that a LEFT SHIFT is Present. MCH (RBC) [Entitic mass] 29.6 pg 27.0-32.0 [facility] Work Phone: Nucleated RBC/100 WBC (Bld) [Ratio] 0 % 0-5 [facility] Work Phone: MCHC Auto (RBC) [Mass/Vol]on 08-12-2022 MCHC (RBC) [Mass/Vol] 31.8 g/dL 32-36 [facility] Work Phone: No Panel Informationon 08-12 Estimated Creatinine Clearance Calc 65.59 ml/min [facility] Work Phone: Estimated GFR (MDRD) Amer 115 mL/min >60 [facility] Work Phone: Comment on above: GFR Calc Estimated GFR (MDRD) Non-Af Amer 95 mL/min >60 [facility] Work Phone: Comment on above: Non- GFR Calc Platelets bldon 08-12-2022 Platelets (Bld) [#/Vol] 235 10*3/uL 150-450 [facility] Work Phone: Serum or plasma albumin mckenzie urement (mass/volume)on 08-12-2022 Albumin [Mass/Vol] 3.2 g/dL 3.2-5.0 [facility] Work Phone: Serum or plasma albumin/glob ulin mass ratioon 08-12-2022 Albumin/Globulin [Mass ratio] 0.8 {ratio} 0.9-2.4 [facility] Work Phone: Serum or plasma calcium mckenzie urement (mass/volume)on 08-12-2022 Calcium [Mass/Vol] 9.5 mg/dL 8.5-10.1 [facility] Work Phone: Serum or plasma creatinine m easurement (mass/volume)on 08-12-2022 Creatinine [Mass/Vol] 0.64 mg/dL 0.55-1.02 [facility] Work Phone: Comment on above: The validity of the calculated GFR & GFRAA in patients over 70 years has not been determined. Clinical correlation is essential. Serum or plasma urea nitroge n measurement (mass/volume)on 08-12-2022 Urea nitrogen [Mass/Vol] 11 mg/dL 7-18 [facility] Work Phone: Thin prep Papanicolaou smear with manual screeningon 08-12-2022 Thin prep Papanicolaou smear with manual screening 20 U/L 15-37 [facility] Work Phone: Thin prep Papanicolaou smear with manual screening 6 5-15 [facility] Work Phone: Absolute lymphocyte counton 02-04-2022 Lymphocytes Auto (Unsp spec) [#/Vol] 1.07 10*3/uL 0.83-4.51 [facility] Work Phone: Basophil percentageon 2021 Basophils/100 WBC (Bld) 0.6 % 0-1 [facility] Work Phone: Bilirubin [Mass/Vol] 0.40 mg/dL 0.20-1.00 [facility] Work Phone: Comment on above: For patients on eltr ombopag therapy, use of Dimension [place] TBIL is not recommended. Chloride [Moles/Vol] 103 mmol/L 98-107 [facility] Work Phone: Eosinophils/100 WBC (Bld) 2.1 % 0-5 [facility] Work Phone: [phone] Glucose [Mass/Vol] 102 mg/dL 74-106 [facility] Work Phone: Comment on above: Fasting Glucose resu lt from 100 to 125 mg/dL suggests IMPAIRED HOMEOSTASIS per A.D.A. criteria. Neutrophils (Bld) [#/Vol] 3.3 10*3/uL 2.0-7.7 [facility] Work Phone: Neutrophils/100 WBC (Bld) 64.6 % 47-70 [facility] Work Phone: Potassium [Moles/Vol] 4.3 mmol/L 3.5-5.1 [facility] Work Phone: Protein [Mass/Vol] 6.9 g/dL 6.4-8.2 [facility] Work Phone: Sodium [Moles/Vol] 135 mmol/L 136-145 [facility] Work Phone: WBC (Bld) [#/Vol] 5.2 10*3/uL 4.4-11.0 [facility] Work Phone: Blood erythrocytes count (nu mber/volume)on 02-04-2022 RBC (Bld) [#/Vol] 4.97 10*6/uL 4.2-5.4 [facility] Work Phone: Blood hemoglobin measurement (mass/volume)on 02-04-2022 Hemoglobin (Bld) [Mass/Vol] 14.8 g/dL 12.0-15.0 [facility] Work Phone: Blood lymphocytes/100 leukoc yteson 02-04-2022 Lymphocytes/100 WBC (Bld) 20.7 % 19-41 [facility] Work Phone: Blood monocytes/100 leukocyt eson 02-04-2022 Monocytes/100 WBC (Bld) 11.6 % 0-10 [facility] Work Phone: Blood platelet mean volumeon 02-04-2022 Platelet mean volume (Bld) [Entitic vol] 9.4 fL 6.2-12.0 [facility] Work Phone: Determination of erythrocyte mean corpuscular volume (MCV)on 02-04-2022 MCV (RBC) [Entitic vol] 92.4 fL 81-99 [facility] Work Phone: [employer] mix RAST testo n 02-04-2022 LDH [Catalytic activity/Vol] 172 U/L 84-246 [facility] Hematocrit Auto (Bld) [Volum e fraction]on 02-04-2022 Hematocrit (Bld) [Volume fraction] 45.9 % 37-47 [facility] Work Phone: INR in Blood by Coagulation assayon 02-04-2022 INR Coag (Bld) [Relative time] 2.3 {INR} [facility] Work Phone: Laboratory - Chemistry and C hemistry - challengeon 02-04-2022 ALP [Catalytic activity/Vol] 115 U/L 45-117 [facility] Work Phone: ALT [Catalytic activity/Vol] 18 U/L 13-56 [facility] Work Phone: CO2 [Moles/Vol] 32.0 mmol/L 21.0-32.0 [facility] Work Phone: Globulin (S) [Mass/Vol] 3.7 g/dL 2.2-4.2 [facility] Work Phone: Urea nitrogen/Creatinine [Mass ratio] 15.3 mg/mg 10-20 [facility] Work Phone: Laboratory - Coagulationon 0 02-04-2022 PT Coag (PPP) [Time] 24.3 s 11.7-14.9 [facility] Work Phone: Laboratory - Hematology and Cell countson 02-04-2022 Erythrocyte distribution width (RBC) [Entitic vol] 44.3 fL 35.1-43.9 [facility] Work Phone: Erythrocyte distribution width (RBC) [Ratio] 13.1 % 11.6-14.6 [facility] Work Phone: Immature granulocytes/100 WBC (Bld) 0.400 % 0.0-0.9 [facility] Work Phone: Comment on above: IG% - Immature Granu locytes (promyelocytes, myelocytes and metamyelocytes) > 1% indicates that a LEFT SHIFT is Present. MCH (RBC) [Entitic mass] 29.8 pg 27.0-32.0 [facility] Work Phone: Nucleated RBC/100 WBC (Bld) [Ratio] 0 % 0-5 [facility] Work Phone: MCHC Auto (RBC) [Mass/Vol]on 02-04-2022 MCHC (RBC) [Mass/Vol] 32.2 g/dL 32-36 [facility] Work Phone: No Panel Informationon 02-04 Estimated Creatinine Clearance Calc 65.59 ml/min [facility] Work Phone: Estimated GFR (MDRD) Amer 112 mL/min >60 [facility] Work Phone: Comment on above: GFR Calc Estimated GFR (MDRD) Non-Af Amer 93 mL/min >60 [facility] Work Phone: Comment on above: Non- GFR Calc Platelets bldon 02-04-2022 Platelets (Bld) [#/Vol] 238 10*3/uL 150-450 [facility] Work Phone: Serum or plasma albumin mckenzie urement (mass/volume)on 02-04-2022 Albumin [Mass/Vol] 3.2 g/dL 3.2-5.0 [facility] Work Phone: Serum or plasma albumin/glob ulin mass ratioon 02-04-2022 Albumin/Globulin [Mass ratio] 0.9 {ratio} 0.9-2.4 [facility] Work Phone: Serum or plasma calcium mckenzie urement (mass/volume)on 02-04-2022 Calcium [Mass/Vol] 9.6 mg/dL 8.5-10.1 [facility] Work Phone: Serum or plasma creatinine m easurement (mass/volume)on 02-04-2022 Creatinine [Mass/Vol] 0.65 mg/dL 0.55-1.02 [facility] Work Phone: Comment on above: The validity of the calculated GFR & GFRAA in patients over 70 years has not been determined. Clinical correlation is essential. Serum or plasma urea nitroge n measurement (mass/volume)on 02-04-2022 Urea nitrogen [Mass/Vol] 10 mg/dL 7-18 [facility] Work Phone: Thin prep Papanicolaou smear with manual screeningon 02-04-2022 Thin prep Papanicolaou smear with manual screening 20 U/L 15-37 [facility] Work Phone: Thin prep Papanicolaou smear with manual screening 0 5-15 [facility] Work Phone: Thin prep Papanicolaou smear with manual screening 172 U/L 84-246 [facility] Cells counted Molgen (Bld/Ti ss) [#]on 05-31-2019 Differential Total Cells Counted Not Reportable [facility] Erythrocyte distribution wid th (RBC) [Entitic vol]on 05-31-2019 Red Cell Distribution Width Diff 45.1 fl High 35.1-43.9 [facility] Erythrocyte distribution wid th standard deviationon 05-31-2019 Erythrocyte distribution width (RBC) [Entitic vol] 45.1 fL High 35.1-43.9 [facility] Laboratory - Hematology and Cell countson 05-31-2019 Erythrocyte distribution width (RBC) [Ratio] 13.9 % 11.6-14.6 [facility] Total cell counton 9 Cells counted Molgen (Bld/Tiss) [#] Not Reportable [facility] No Panel Informationon 02-08 CA 125 Antigen 8.5 U/mL 0.0-38.1 [facility] Comment on above: [facility] El ectrochemiluminescence Immunoassay(ECLIA)Values obtained with different assay methods or kits cannotbe used interchangeably. Results cannot be interpreted asabsolute evidence of the presence or absence of malignantdisease.Performed at: [employer] [place] [id number] Director: Jem Patel PhD, Phone: [phone] Radiation Onc F/U Noteon Radiation Onc F/U Note PATIENT: OBINNA MALDONADOTE OF SERVICE: 01/16/2018MEDICAL RECORD #: [id number] #: [id number]: 1940AGE: 77Electronically AuthenticatedBlanca Mercado MD 01/19/2018 02:58 PPRIMARY SITE AND HISTOPATHOLOGY: Uterus, grade 2 endometrioidadenocarcinoma .STAGE: pT1a N0 M0, IA.HISTORY: This is a 77-year-old female who underwent a total robotichysterectomy, BSO, bilateral pelvic node dissection on June 13, 2016. Shewas seen by Dr. Montejo and underwent HDR vaginal cuff brachytherapy at 3fractions with completion on August 14, 2016. The patient comes intoday for routine yearly follow-up. She sees Dr. Haque every 6 months.She notes that things are going well. She still uses the vaginal dilatortwice a week. She denies any vaginal discharge, bleeding, bowel, orbladder issues. She is asking about discharge from our department due tothe transportation issues to come to [place]. She is aware of a radiationoncologist at [facility] that she would like to follow upwith if needed. She has requested records to be sent to his office.ALLERGIES: MELOXICAM, CYCLOBENZAPRINE, BIAXIN, BACTRIM, HEPARIN, ASPIRIN,AND TRAMADOL.MEDICATIONS: Metoprolol, hydrochlorothiazide, simvastatin, ProAir, Advair,calcium, Tylenol, D3, fluticasone, fexofenadine, warfarin, and potassium.PHYSICAL EXAMINATION: Alert, oriented, pleasant female. Blood pressure is174/64 with pulse of 59, respiratory rate is 16, temperature is 98.1degrees, and weight is 208 pounds which is stable from last year. Abdomenis soft, obese without hepatosplenomegaly or suspicious mass. Skin underthe pannus and the groin area is intact and in good condition. Pelvicexamination reveals normal external genitalia. Exam continues show a largerectocele and cystocele. The vaginal mucosa does not show sign ofsuspicious mass or ulceration. Minimal scarring is noted in the apicalregion. Rectal exam does not show suspicious mass up to approximately 6-cmlevel.IMPRESSION/PLAN: This is a 77-year-old female with history of uterinecancer. She is doing well post-treatment. 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 We will send therecords to the physician that she has requested above. She knows if anyquestions or concerns ever to arise she can call us.We thank you for the consultation.[facility] Job ID: [id number] ANALI SanchezOD:01/16/2018 01:00 P DED/dskDOT:01/17/201801:31 Acc: Pedro Brown MD [facility] [address] [place] [address] [facility] [address] [place] [address] Normal [facility] Vital Signs Date Time Vital Sign Value Performing Clinician Facility 08-15-2025 11:26-0400 Body height 144.[address] Floridalma Juárez MD Work Phone: [facility] 08-15-2025 11:26-0400 Body mass index (BMI) [Ratio] 38.7 kg/m2 Dr. Floridalma Juárez MD Work Phone: [facility] 08-15-2025 11:26-0400 Body temperature 98.2 [degF] Dr. Floridalma Juárez MD Work Phone: [facility] 08-15-2025 11:26-0400 Body weight 81.[address] Floridalma Juárez MD Work Phone: [facility] 08-15-2025 11:26-0400 Diastolic blood pressure 65 mm[Hg] Dr. Floridalma Juárez MD Work Phone: [facility] 08-15-2025 11:26-0400 Heart rate 58 /min Dr. Floridalma Juárez MD Work Phone: [facility] 08-15-2025 11:26-0400 Respiratory rate 16 /min Dr. Floridalma Juárez MD Work Phone: [facility] 08-15-2025 11:26-0400 SaO2% (BldA) [Mass fraction] 97 % Dr. Floridalma Juárez MD Work Phone: [facility] 08-15-2025 11:26-0400 Systolic blood pressure 172 mm[Hg] Dr. Floridalma Juárez MD Work Phone: [facility] 07-20-2025 10:33-0400 Body mass index (BMI) [Ratio] 35.99 kg/m2 Stefanie Ureña MD Work Phone: [facility] 07-20-2025 10:33-0400 Body weight 80.83 kg Stefanie Ureña MD Work Phone: [facility] 07-20-2025 10:33-0400 Diastolic blood pressure 80 mm[Hg] Stefanie Ureña MD Work Phone: [facility] 07-20-2025 10:33-0400 Systolic blood pressure 120 mm[Hg] Stefanie Ureña MD Work Phone: [facility] 02-28-2025 10:52-0400 Body height 144.[address] Floridalma Juárez MD Work Phone: [facility] 02-28-2025 10:52-0400 Body mass index (BMI) [Ratio] 40.1 kg/m2 Dr. Floridalma Juárez MD Work Phone: [facility] 02-28-2025 10:52-0400 Body temperature 98.1 [degF] Dr. Floridalma Juárez MD Work Phone: [facility] 02-28-2025 10:52-0400 Body weight 84.[address] Floridalma Juárez MD Work Phone: [facility] 02-28-2025 10:52-0400 Diastolic blood pressure 72 mm[Hg] Dr. Floridalma Juárez MD Work Phone: [facility] 02-28-2025 10:52-0400 Heart rate 54 /min Dr. Floridalma Juárez MD Work Phone: [facility] 02-28-2025 10:52-0400 Respiratory rate 16 /min Dr. Floridalma Juárez MD Work Phone: [facility] 02-28-2025 10:52-0400 SaO2% (BldA) [Mass fraction] 96 % Dr. Floridalma Juárez MD Work Phone: [facility] 02-28-2025 10:52-0400 Systolic blood pressure 162 mm[Hg] Dr. Floridalma Juárez MD Work Phone: [facility] 02-03-2025 12:25-0500 Body mass index (BMI) [Ratio] 36.07 kg/m2 [facility] [employer] Work Phone: [facility] 02-03-2025 12:25-0500 Body temperature 98.49 [degF] [facility] [employer] Work Phone: [facility] 02-03-2025 12:25-0500 Body weight 81 kg [facility] [employer] Work Phone: [facility] 02-03-2025 12:25-0500 Diastolic blood pressure 82 mm[Hg] [facility] [facility] MIXER DIAMOND POWDER.E COMMERCE STRATEGIST Work Phone: [facility] 02-03-2025 12:25-0500 Heart rate 72 /min [facility] MIXER DIAMOND POWDER.E COMMERCE STRATEGIST Work Phone: [facility] 02-03-2025 12:25-0500 Respiratory rate 20 /min [facility] MIXER DIAMOND POWDER.E COMMERCE STRATEGIST Work Phone: [facility] 02-03-2025 12:25-0500 SaO2% (BldA) [Mass fraction] 95 % [facility] MIXER DIAMOND POWDER.E COMMERCE STRATEGIST Work Phone: [facility] 02-03-2025 12:25-0500 Systolic blood pressure 157 mm[Hg] [facility] MIXER DIAMOND POWDER.E COMMERCE STRATEGIST Work Phone: [facility] 06-09-2024 09:19-0400 Body height 149.9 cm Stefanie Ureña MD Work Phone: [facility] 06-09-2024 09:19-0400 Body mass index (BMI) [Ratio] 37.61 kg/m2 Stefanie Ureña MD Work Phone: [facility] 06-09-2024 09:19-0400 Body weight 84.46 kg Stefanie Ureña MD Work Phone: [facility] 06-09-2024 09:19-0400 Diastolic blood pressure 80 mm[Hg] Stefanie Ureña MD Work Phone: [facility] 06-09-2024 09:19-0400 Systolic blood pressure 120 mm[Hg] Stefanie Ureña MD Work Phone: [facility] 03-01-2024 10:09-0400 Body height 144.[address] Floridalma Juárez Work Phone: [facility] 03-01-2024 10:09-0400 Body mass index (BMI) [Ratio] 42.2 kg/m2 Dr. Floridalma Juárez Work Phone: [facility] 03-01-2024 10:09-0400 Body temperature 98 [degF] Dr. Floridalma Juárez Work Phone: [facility] 03-01-2024 10:09-0400 Body weight 88.[address] Floridalma Juárez Work Phone: [facility] 03-01-2024 10:09-0400 Diastolic blood pressure 74 mm[Hg] Dr. Floridalma Juárez Work Phone: [facility] 03-01-2024 10:09-0400 Heart rate 59 /min Dr. Floridalma Juárez Work Phone: [facility] 03-01-2024 10:09-0400 Respiratory rate 18 /min Dr. Floridalma Juárez Work Phone: [facility] 03-01-2024 10:09-0400 SaO2% (BldA) [Mass fraction] 95 % Dr. Floridalma Juárez Work Phone: [facility] 03-01-2024 10:09-0400 Systolic blood pressure 182 mm[Hg] Dr. Floridalma Juárez Work Phone: [facility] 11-26-2023 13:39-0500 Body mass index (BMI) [Ratio] 41.1 kg/m2 Dr. Floridalma Juárez Work Phone: [facility] 11-26-2023 13:39-0500 Body temperature 98.7 [degF] Dr. Floridalma Juárez Work Phone: [facility] 11-26-2023 13:39-0500 Body weight 86.[address] Floridalma Juárez Work Phone: [facility] 11-26-2023 13:39-0500 Heart rate 71 /min Dr. Floridalma Juárez Work Phone: [facility] 11-26-2023 13:39-0500 Respiratory rate 16 /min Dr. Floridalma Juárez Work Phone: [facility] 11-26-2023 13:39-0500 SaO2% (BldA) [Mass fraction] 97 % Dr. Floridalma Juárez Work Phone: [facility] 04-07-2023 16:07-0400 Body height 152.[address] Floridalma Juárez Work Phone: [facility] 04-07-2023 16:07-0400 Body mass index (BMI) [Ratio] 38.7 kg/m2 Dr. Floridalma Juárez Work Phone: [facility] 04-07-2023 16:07-0400 Body temperature 97.8 [degF] Dr. Floridalma Juárez Work Phone: [facility] 04-07-2023 16:07-0400 Body weight 89.[address] Floridalma Juárez Work Phone: [facility] 04-07-2023 16:07-0400 Diastolic blood pressure 91 mm[Hg] Dr. Floridalma Juárez Work Phone: [facility] 04-07-2023 16:07-0400 Heart rate 65 /min Dr. Floridalma Juárez Work Phone: [facility] 04-07-2023 16:07-0400 Respiratory rate 18 /min Dr. Floridalma Juárez Work Phone: [facility] 04-07-2023 16:07-0400 SaO2% (BldA) [Mass fraction] 94 % Dr. Floridalma Juárez Work Phone: [facility] 04-07-2023 16:07-0400 Systolic blood pressure 160 mm[Hg] Dr. Floridalma Juárez Work Phone: [facility] 02-24-2023 10:57-0400 Body height 152.[address] Floridalma Juárez Work Phone: [facility] 02-24-2023 10:57-0400 Body mass index (BMI) [Ratio] 39.4 kg/m2 Dr. Floridalma Juárez Work Phone: [facility] 02-24-2023 10:57-0400 Body temperature 97 [degF] Dr. Floridalma Juárez Work Phone: [facility] 02-24-2023 10:57-0400 Body weight 91.[address] Floridalma Juárez Work Phone: [facility] 02-24-2023 10:57-0400 Diastolic blood pressure 78 mm[Hg] Dr. Floridalma Juárez Work Phone: [facility] 02-24-2023 10:57-0400 Heart rate 52 /min Dr. Floridalma Juárez Work Phone: [facility] 02-24-2023 10:57-0400 Respiratory rate 18 /min Dr. Floridalma Juárez Work Phone: [facility] 02-24-2023 10:57-0400 SaO2% (BldA) [Mass fraction] 96 % Dr. Floridalma Juárez Work Phone: [facility] 02-24-2023 10:57-0400 Systolic blood pressure 147 mm[Hg] Dr. Floridalma Juárez Work Phone: [facility] 12-10-2022 11:30-0500 Body height 152.[address] Floridalma Juárez Work Phone: [facility] Work Phone: 12-10-2022 11:30-0500 Body mass index (BMI) [Ratio] 38.5 kg/m2 Dr. Floridalma Juárez Work Phone: [facility] 12-10-2022 11:30-0500 Body temperature 97.8 [degF] Dr. Floridalma Juárez Work Phone: [facility] 12-10-2022 11:30-0500 Body weight 89.[address] Floridalma Juárez Work Phone: [facility] 12-10-2022 11:30-0500 Diastolic blood pressure 54 mm[Hg] Dr. Floridalma Juárez Work Phone: [facility] 12-10-2022 11:30-0500 Heart rate 63 /min Dr. Floridalma Juárez Work Phone: [facility] 12-10-2022 11:30-0500 Respiratory rate 18 /min Dr. Floridalma Juárez Work Phone: [facility] 12-10-2022 11:30-0500 SaO2% (BldA) [Mass fraction] 100 % Dr. Floridalma Juárez Work Phone: [facility] 12-10-2022 11:30-0500 Systolic blood pressure 183 mm[Hg] Dr. Floridalma Juárez Work Phone: [facility] 10-01-2022 16:55-0400 Body temperature 97.8 [degF] Dr. Floridalma Juárez Work Phone: [facility] Work Phone: 10-01-2022 16:55-0400 Diastolic blood pressure 66 mm[Hg] Dr. Floridalma Juárez Work Phone: [facility] Work Phone: 10-01-2022 16:55-0400 Heart rate 95 /min Dr. Floridalma Juárez Work Phone: [facility] Work Phone: 10-01-2022 16:55-0400 Respiratory rate 17 /min Dr. Floridalma Juárez Work Phone: [facility] Work Phone: 10-01-2022 16:55-0400 SaO2% (BldA) [Mass fraction] 95 % Dr. Floridalma Juárez Work Phone: [facility] Work Phone: 10-01-2022 16:55-0400 Systolic blood pressure 154 mm[Hg] Dr. Floridalma Juárez Work Phone: [facility] Work Phone: 09-27-2022 17:35-0400 Body temperature 98 [degF] Dr. Floridalma Juárez Work Phone: [facility] Work Phone: 09-27-2022 17:35-0400 Diastolic blood pressure 78 mm[Hg] Dr. Floridalma Juárez Work Phone: [facility] Work Phone: 09-27-2022 17:35-0400 Heart rate 98 /min Dr. Floridalma Juárez Work Phone: [facility] Work Phone: 09-27-2022 17:35-0400 Respiratory rate 16 /min Dr. Floridalma Juárez Work Phone: [facility] Work Phone: 09-27-2022 17:35-0400 SaO2% (BldA) [Mass fraction] 95 % Dr. Floridalma Juárez Work Phone: [facility] Work Phone: 09-27-2022 17:35-0400 Systolic blood pressure 140 mm[Hg] Dr. Floridalma Juárez Work Phone: [facility] Work Phone: 08-12-2022 10:45-0400 Body mass index (BMI) [Ratio] 40 kg/m2 Dr. Floridalma Juárez Work Phone: [facility] Work Phone: 08-12-2022 10:45-0400 Body temperature 98.6 [degF] Dr. Floridalma Juárez Work Phone: [facility] Work Phone: 08-12-2022 10:45-0400 Body weight 93.[address] Floridalma Juárez Work Phone: [facility] Work Phone: 08-12-2022 10:45-0400 Diastolic blood pressure 80 mm[Hg] Dr. Floridalma Juárez Work Phone: [facility] Work Phone: 08-12-2022 10:45-0400 Heart rate 57 /min Dr. Floridalma Juárez Work Phone: [facility] Work Phone: 08-12-2022 10:45-0400 Respiratory rate 15 /min Dr. Floridalma Juárez Work Phone: [facility] Work Phone: 08-12-2022 10:45-0400 SaO2% (BldA) [Mass fraction] 95 % Dr. Floridalma Juárez Work Phone: [facility] Work Phone: 08-12-2022 10:45-0400 Systolic blood pressure 170 mm[Hg] Dr. Floridalma Juárez Work Phone: [facility] Work Phone: 02-11-2022 14:50-0400 Body temperature 98.4 [degF] Dr. Floridalma Juárez Work Phone: [facility] Work Phone: 02-11-2022 14:50-0400 Diastolic blood pressure 88 mm[Hg] Dr. Floridalma Juárez Work Phone: [facility] Work Phone: 02-11-2022 14:50-0400 Heart rate 85 /min Dr. Floridalma Juárez Work Phone: [facility] Work Phone: 02-11-2022 14:50-0400 Respiratory rate 18 /min Dr. Floridalma Juárez Work Phone: [facility] Work Phone: 02-11-2022 14:50-0400 SaO2% (BldA) [Mass fraction] 96 % Dr. Floridalma Juárez Work Phone: [facility] Work Phone: 02-11-2022 14:50-0400 Systolic blood pressure 156 mm[Hg] Dr. Floridalma Juárez Work Phone: [facility] Work Phone: 02-04-2022 09:26-0500 Body height 152.[address] Floridalma Juárez Work Phone: [facility] Work Phone: 02-04-2022 09:26-0500 Body mass index (BMI) [Ratio] 39.6 kg/m2 Dr. Floridalma Juárez Work Phone: [facility] Work Phone: 02-04-2022 09:26-0500 Body temperature 97.8 [degF] Dr. Floridalma Juárez Work Phone: [facility] Work Phone: 02-04-2022 09:26-0500 Body weight 92.[address] Floridalma Juárez Work Phone: [facility] Work Phone: 02-04-2022 09:26-0500 Diastolic blood pressure 65 mm[Hg] Dr. Floridalma Juárez Work Phone: [facility] Work Phone: 02-04-2022 09:26-0500 Heart rate 58 /min Dr. Floridalma Juárez Work Phone: [facility] Work Phone: 02-04-2022 09:26-0500 Respiratory rate 18 /min Dr. Floridalma Juárez Work Phone: [facility] Work Phone: 02-04-2022 09:26-0500 SaO2% (BldA) [Mass fraction] 96 % Dr. Floridalma Juárez Work Phone: [facility] Work Phone: 02-04-2022 09:26-0500 Systolic blood pressure 140 mm[Hg] Dr. Floridalma Juárez Work Phone: [facility] Work Phone: 02-05-2021 11:05-0500 Body mass index (BMI) [Ratio] 41.9 kg/m2 Dr. Floridalma Juárez Work Phone: [facility] 02-05-2021 11:05-0500 Body temperature 98.7 [degF] Dr. Floridalma Juárez Work Phone: [facility] 02-05-2021 11:05-0500 Body weight 94.[address] Floridalma Juárez Work Phone: [facility] 02-05-2021 11:05-0500 Diastolic blood pressure 78 mm[Hg] Dr. Floridalma Juárez Work Phone: [facility] 02-05-2021 11:05-0500 Heart rate 58 /min Dr. Floridalma Juárez Work Phone: [facility] 02-05-2021 11:05-0500 Respiratory rate 16 /min Dr. Floridalma Juárez Work Phone: [facility] 02-05-2021 11:05-0500 SaO2% (BldA) [Mass fraction] 96 % Dr. Floridalma Juárez Work Phone: [facility] 02-05-2021 11:05-0500 Systolic blood pressure 153 mm[Hg] Dr. Floridalma Juárez Work Phone: [facility] 02-05-2021 10:05-0500 Body mass index (BMI) [Ratio] 41.9 kg/m2 Dr. Floridalma Juárez Work Phone: [facility] Work Phone: 02-05-2021 10:05-0500 Body temperature 98.7 [degF] Dr. Floridalma Juárez Work Phone: [facility] Work Phone: 02-05-2021 10:05-0500 Body weight 94.[address] Floridalma Juárez Work Phone: [facility] Work Phone: 02-05-2021 10:05-0500 Diastolic blood pressure 78 mm[Hg] Dr. Floridalma Juárez Work Phone: [facility] Work Phone: 02-05-2021 10:05-0500 Heart rate 58 /min Dr. Floridalma Juárez Work Phone: [facility] Work Phone: 02-05-2021 10:05-0500 Respiratory rate 16 /min Dr. Floridalma Juárez Work Phone: [facility] Work Phone: 02-05-2021 10:05-0500 SaO2% (BldA) [Mass fraction] 96 % Dr. Floridalma Juárez Work Phone: [facility] Work Phone: 02-05-2021 10:05-0500 Systolic blood pressure 153 mm[Hg] Dr. Floridalma Juárez Work Phone: [facility] Work Phone: Encounters Encounter Date Encounter Type Care Provider Facility Start: 10-10-2025 ambulatory Bambi Palmer NP Facil ity:[facility] Start: 10-04-2025 ambulatory Paula Bailey Facility :[facility] Start: 08-20-2025 End: 08-20-2025 ambulatory MARY JAMISON Facility:[facility] Start: 08-15-2025 Registered Recurring Bambi Palmer VEHICLE INSURANCE AGENT-C -[facility] Start: 08-15-2025 End: 08-15-2025 Patient encounter procedure Bambi Palmer NP-C -[facility] Work Phone: Start: 08-15-2025 End: 08-15-[address] Floridalma Juárez MD Work Phone: -[facility] Start: 07-20-2025 End: 07-20-2025 Office outpatient visit 15 minutes Stefanie Ureña MD Work Phone: OB/Gynecology Comment on above: Encounter for follow -up surveillance of endometrial cancer (Primary Dx); Hx of cancer of endometrium; History of radiation therapy Start: 07-20-2025 End: 07-20-2025 ambulatory FLORIDALMA JUÁREZ Facility:[facility] Start: 06-23-2025 End: 06-27-2025 Telephone encounter Stefanie Ureña MD Work Phone: OB/Gynecology Comment on above: Patient Question Start: 03-11-2025 ambulatory Floridalma Juárez Facility: [facility] Start: 02-28-2025 Registered Recurring Bambi Palmer VEHICLE INSURANCE AGENT-C -[facility] Start: 02-28-2025 End: 02-28-2025 Patient encounter procedure Bambi Palmer VEHICLE INSURANCE AGENT-C -[facility] Work Phone: Start: 02-28-2025 End: 02-28-2025 ambulatory Bambi Palmer VEHICLE INSURANCE AGENT Facility:[facility] Start: 02-25-2025 End: 02-25-[address] Floridalma Juárez MD Work Phone: [facility] Work Phone: Start: 02-25-2025 End: 02-25-2025 Patient encounter procedure Bambi Palmer VEHICLE INSURANCE AGENT-C -[facility] Work Phone: Start: 02-25-2025 End: 02-25-2025 ambulatory Bambi Palmer VEHICLE INSURANCE AGENT Facility:[facility] Start: 02-03-2025 End: 02-03-2025 Subsequent hospital visit by physician [facility] Work Phone: Radiology Comment on above: Acute cough [R05.1] Start: 02-03-2025 End: 02-03-2025 ambulatory FLORIDALMA JUÁREZ Facility:[facility] Start: 02-03-2025 End: 02-03-2025 Office outpatient visit 25 minutes Bubba Roy APRN.CNP Work Phone: [facility] Comment on above: Acute cough (Primary Dx); COPD with exacerbation (HCC) Start: 10-27-2024 ambulatory Paula Bailey Facility :[facility] Start: 06-09-2024 End: 06-09-2024 Initial preventive medicine new patient 65yrs&> Stefanie Ureña MD Work Phone: OB/Gynecology Comment on above: Encounter for gyneco logical examination (general) (routine) without abnormal findings (Primary Dx); Encounter for screening mammogram for breast cancer Start: 06-09-2024 End: 06-09-2024 Patient encounter status Stefanie Ureña MD Work Phone: [facility] Start: 03-01-[address] Grace Juárez Work Phone: [facility] Start: 03-01-2024 End: 03-01-[address] Floridalma Juárez Work Phone: [facility] Work Phone: Start: 02-25-2024 End: 02-25-[address] Floridalma Juárez Work Phone: [facility] Work Phone: Start: 02-25-2024 End: 02-25-[address] Floridalma Juárez Work Phone: [facility]-Outpatient Breast Imaging Work Phone: Start: 11-26-2023 End: 11-26-[address] Floridalma Juárez Work Phone: [facility] Work Phone: Start: 04-07-2023 End: 04-07-2023 Emergency department patient visit Dr. Floridalma Juárez Work Phone: [facility]-Emergency Department Start: 04-07-[address] Grace Juárez Work Phone: [facility] Start: 03-07-2023 End: 03-07-[address] Floridalma Juárez Work Phone: [facility]-Occupational Therapy Start: 03-03-2023 End: 03-03-[address] Floridalma Juárez Work Phone: [facility] Work Phone: Start: 03-03-2023 End: 03-03-[address] Floridalma Juárez Work Phone: [facility]ational [facility] Start: 02-25-[address] [facility] Start: 02-24-[address] Grace Juárez Work Phone: [facility] Start: 02-24-2023 End: 02-24-[address] Floridalma Juárez Work Phone: [facility] Start: 02-21-2023 End: 02-21-[address] Floridalma Juárez Work Phone: [facility] Work Phone: Start: 02-21-2023 End: 02-21-[address] Floridalma Juárez Work Phone: [facility]-Outpatient Breast Imaging Start: 02-20-2023 End: 02-20-[address] Floridalma Juárez Work Phone: [facility] Start: 01-20-2023 End: 01-20-[address] Floridalma Juárez Work Phone: [facility] Start: 01-06-2023 End: 01-06-[address] Floridalma Juárez Work Phone: [facility] Start: 12-27-2022 End: 12-27-[address] Floridalma Juárez Work Phone: [facility] Start: 12-16-2022 End: 12-16-[address] Floridalma Juárez Work Phone: [facility] Start: 12-10-2022 End: 12-10-2022 Emergency department patient visit Dr. Floridalma Juárez Work Phone: [facility]Emergency Department Start: 11-18-[address] Grace Juárez Work Phone: [facility] Start: 10-01-2022 End: 10-01-[address] Floridalma Juárez Work Phone: [facility] Start: 09-27-2022 End: 09-27-[address] Floridalma Juárez Work Phone: [facility] Start: 08-12-2022 End: 08-12-[address] Floridalma Juárez Work Phone: [facility] Start: 02-20-2022 End: 02-20-[address] Floridalma Juárez Work Phone: [facility]Outpatient Breast [facility] Start: 02-11-2022 End: 02-11-[address] Floridalma Juárez Work Phone: [facility] Start: 02-04-[address] Grace Juárez Work Phone: [facility] Start: 02-04-2022 End: 02-04-[address] Floridalma Juárez Work Phone: [facility] Start: 03-09-2018 Ambulatory [facility] Procedures Date Procedure Procedure Detail Performing Clinician Start: 08-15-[address] Floridalma Juárez MD Work Phone: Start: 07-20-2025 Follow-up visit Follow Up GISELE UREÑA Start: 02-25-2025 Screening mammography Edel Juárez MD Work Phone: Start: 02-03-2025 Radiologic exam ches t 2 views Bubba Roy APRN.CNP Work Phone: Start: 08-30-2024 Measurement of renal function Dr. Floridalma Juárez MD Work Phone: Comment on above: GFR Calc Start: 02-25-2024 Screening mammography Edel Juárez Work Phone: Start: 02-21-2023 Screening mammography Edel Juárez Work Phone: Start: 02-20-2023 Plain x-ray of wrist Dr Too Juárez Work Phone: Start: 01-20-2023 Plain x-ray of wrist Dr Too Juárez Work Phone: Start: 01-06-2023 Plain x-ray of wrist Dr Too Juárez Work Phone: Start: 12-27-2022 Plain x-ray of wrist Dr Too Juárez Work Phone: Start: 12-16-2022 X-ray of chest posteroanterior view Dr. Floridalma Juárez Work Phone: Start: 12-16-2022 Plain x-ray of wrist Dr Too Juárez Work Phone: Start: 12-10-2022 Plain x-ray of hand Dr. Floridalma Juárez Work Phone: Start: 02-20-2022 Screening mammography Edel Juárez Work Phone: Start: 02-11-2022 Plain x-ray of pelvi s and lower extremity Dr. Floridalma Juárez Work Phone: History of radiation therapy History of radiation therapy Stefanie rUeña MD Work Phone: Plan of Treatment Date Care Activity Detail Author Start: 08-15-2025 [facility] Start: 08-01-2025 Influenza vaccination Influenza Vacc ine (#1) [facility] Start: 07-20-2025 End: 07-20-2025 Patient encounter procedure 07/20/2025 10:50 AM EDT Office Visit OB/Gynecology [address] [place] [address] Stefanie Ureña MD [address] [place] [address] pelvic exam OB/Gynecology Comment on above: pelvic exam Start: 12-01-2024 Advance Directive Discussion Advance Directive Discussion [facility] Start: 12-01-2024 Medicare Advantage Annual Wellness Visit Medicare Advantage Annual Wellness Visit [facility] Start: 08-01-2024 Covid-19 Vaccine ( season) Covid-19 Vaccine () [facility] Start: 08-01-2024 Influenza vaccination Influenza Vacc ine (#1) [facility] Start: 12-01-2023 Advance Directive Discussion Advance Directive Discussion [facility] Start: 12-01-2023 Behavioral Health Screening Behavioral Health Screening [facility] Start: 08-01-2023 Covid-19 Vaccine () Covid-19 Vaccine () [facility] Start: 12-27-2022 Patient referral [facility] Work Phone: Start: 02-11-2022 Patient referral [facility] Work Phone: Start: 02-08-2019 [facility] Start: 06-22-2018 [facility] Start: 03-23-2018 [facility] Start: 12-17-2017 [facility] Start: 11-10-2017 [facility] Start: 05-19-2017 [facility] Start: 2015 RSV Vaccine (1 - 1-d ose 75+ series) RSV Vaccine (1 - 1-dose 75+ series) [facility] Start: 01-29-2010 Diabetes Screening Diabetes Screenin g [facility] Start: 2009 Pneumococcal Vaccine : 50+ (2 of 2 - PCV) Pneumococcal Vaccine: 50+ (2 of 2 - PCV) [facility] Start: 2009 Pneumococcal Vaccine : 65+ (2 of 2 - PCV) Pneumococcal Vaccine: 65+ (2 of 2 - PCV) [facility] Start: 2000 RSV Vaccine (1 - 1-d ose 60+ series) RSV Vaccine (1 - 1-dose 60+ series) [facility] Start: 1990 Shingrix Vaccine (1 of 2) Shingrix Vaccine (1 of 2) [facility] Start: 1959 Urine microalbumin profile DTaP,Tdap,Td Vaccine (1 - Tdap) [facility] Start: 1958 Anxiety Screening Anxiety Screening [facility] Start: 1958 Depression Screening Depression Scre ening [facility] Start: 1958 Spirometry Spirometry [facility] CBC W Auto Different ial panel - Blood [facility] Work Phone: CBC W Auto Different ial panel - Blood [facility] CBC W Auto Different ial panel - Blood [facility] CBC W Auto Different ial panel - Blood [facility] Comprehensive metabo lic 2000 panel - Serum or Plasma [facility] CT Abdomen and Pelvi s W contrast IV [facility] Work Phone: CT Abdomen and Pelvi s W contrast IV [facility] End: 07-09-2025 DBT Breast - bilateral screening FLOYD SCREENING W [facility] Radiology Routine Encounter for screening mammogram for breast cancer 1 Occurrences starting 06/09/2024 until 07/09/2025 [facility] Work Phone: Comment on above: 1 Occurrences starti ng 06/09/2024 until 07/09/2025 MG Breast - bilatera l Screening [facility] Work Phone: MG Breast - bilatera l Screening [facility] [facility] Patient Education [facility] Work Phone: Patient referral [facility] Work Phone: Prothrombin time [facility] Work Phone: Prothrombin time [facility] Prothrombin time [facility] Prothrombin time [facility] Prothrombin time [facility] [place] Immunization Date Immunization Notes Care Provider Fa cili 09-10-2024 influenza virus vacc ine, unspecified formulation Stefanie Ureña MD Work Phone: [facility] 09-05-2023 influenza virus vacc ine, unspecified formulation Stefanie Ureña MD Work Phone: [facility] 10-08-2017 diphtheria, tetanus toxoids and acellular pertussis vaccine, unspecified formulation Stefanie Ureña MD Work Phone: [facility] 09-14-[address] Floridalma Juárez Work Phone: [facility] 2008 pneumococcal polysaccharide vaccine, 23 valent Stefanie Ureña MD Work Phone: [facility] 10-07-2006 influenza virus vacc ine, unspecified formulation Stefanie Ureña MD Work Phone: [facility] Work Phone: Payers Date Payer Category Payer Medicare (Managed Care) [facility] [id number] 2023 Unknown 2017 Medicare [id number] 2017 Self-pay [id number] 2014 Medicare [employer] MEDICARE [id number] 600 [id number] Unknown [id number] Unknown [id number] Unknown [id number] Unknown [id number] Unknown [id number] Unknown [id number] Unknown [id number] Unknown [id number] Social History Date Type Detail Facility Start: 02-11-2022 End: 11-26-2023 Tobacco smoking status UTIS Unknown if ever smoked [facility] Start: 04-17-2021 None [facility] Start: 04-17-2021 Alone [facility] Start: 04-17-2021 Non-smoker [facility] Start: 1940 Sex Assigned At Female [facility] Start: 11-26-2023 Tobacco smoking stat [facility] Never smoked tobacco [facility] Start: 06-09-2024 End: 07-20-2025 Alcohol intake Current non-drinker of alcohol (finding) [facility] Start: 06-09-2024 End: 07-20-2025 History of Social function [facility] Start: 06-09-2024 End: 07-20-2025 Tobacco use panel [facility] Start: 11-01-2012 National Score (1-10 0), lower number is lower risk 70 [facility] Start: 1940 Sex Assigned At Not on file [facility] Start: 03-01-2025 Sex Female (finding) [facility] Functional Status Date Assessment Result Facility 03-23-2015 Are you deaf, or do you have serious difficulty hearing No 03/23/2015 8:58 AM Yves Gregory No [facility] 03-23-2015 Are you blind, or do you have serious difficulty seeing, even when wearing glasses No 03/23/2015 8:58 AM ALTON SaldivarYves No [facility] 03-23-2015 Do you have serious difficulty walking or climbing stairs Yes 03/23/2015 8:58 AM Yves Gregory Yes [facility] 03-23-2015 Do you have difficul ty dressing or bathing No 03/23/2015 8:58 AM ALTON Saldivar Yves No [facility] 03-23-2015 Because of a physica l, mental, or emotional condition, do you have difficulty doing errands alone such as visiting a physician's office or shopping No 03/23/2015 8:58 AM ALTON Saldivar Yves Kayla [facility] Mental Status Date Assessment Result Facility 03-23-2015 Because of a physica l, mental, or emotional condition, do you have serious difficulty concentrating, remembering, or making decisions No 03/23/2015 8:58 AM ALTON SaldivarYves [facility] Clinical Notes 03-07-2023 to 08-20-2025 Note Date & Type Note Facility 08-20-2025 Note HNO ID: [id number] Author: MARY JAMISON APRN.E COMMERCE STRATEGIST Service: ? Author Type: Nurse Practitioner Type: Progress Notes Filed: 08/20/2025 15:17 Note Text: [facility]ARE TANESHARENNY Maldonado is a 84 year old female. Patient presents with: sinus congestion Rhinitis Cough Cough The patient is an 84-year-old female with a history of asthma, allergies, and HTN, presenting with rhinorrhea and cough. Rhinorrhea: - Onset: 1 week ago. - Initially clear, now with occasional brown mucus. +purulent - No associated ear pain or pressure. Cough: - Onset: Past few days. - No current use of cough syrup. Asthma: - Denies smoking history. Anticoagulation: - Taking Coumadin. PAST MEDICAL HISTORY Diagnosis Date Cancer, uterine (HCC) 2016 Chronic airway obstruction, not elsewhere classified Endometrial cancer (HCC) Stage Ia grade 2 Essential hypertension, benign Malignant neoplasm of breast (female), unspecified site LEFT BREAST CANCER Morbid obesity (HCC) Other emphysema (HCC) PMH - PAST MEDICAL HISTORY OF ARTHRITIS Pulmonary emboli (HCC) 2014 WITH CARDIAC ARREST Pulmonary embolism (HCC) 2004 PAST SURGICAL HISTORY Procedure Laterality Date BX BREAST PERC VACUUM/ROTN 04/22/2008 Left breast - benign BX BREAST PERC VACUUM/ROTN 12/12/11 Left Breast - benign microcalcifications COLSC FLX W/RMVL OF TUMOR POLYP LESION SNARE TQ 07/11/10 Polyps at 75cm and rectum COLSC FLX W/RMVL OF TUMOR POLYP LESION SNARE TQ 08/10/13 small polyp at 50cm - cauterized EGD TRANSORAL BIOPSY SINGLE/MULTIPLE 07/11/10 trace gastritis LAPS W/VAG HYSTERECT 250 GM/ANDRMVL TUBEAND/OVARIES 05/2016 LUMPECTOMY/RADIOTHERAPY DIAG MAMM/A10 2004 NEEDLE LOCALIZATION BREAST PAST SURGICAL HISTORY OF CARPAL TUNNEL RELEASE RPR 1ST INCAL/VNT HERNIA INCARCERATED 02/22/15 4x5cm defect - 11x14 ventrio mesh TONSILLECTOMY PRIMARY/SECONDARY Tonsillectomy ALLERGIES Aspirin, Bactrim [Sulfamethoxazole], Biaxin [Clarithromycin], Cyclobenzaprine, Heparin, Meloxicam, Prednisone, Seasonal Allergies, and Tramadol MEDICATIONS ipratropium-albuterol (DUONEB) 0.5 mg-3 mg(2.5 mg base)/3 mL nebu potassium chloride 20 mEq/15 mL solution mix 15 ml with 4 to 8 oz of water once daily warfarin (COUMADIN) 5 mg tablet Take 5 mg by mouth once daily. fexofenadine (USAMA ALLERGY) 180 mg tablet Take 180 mg by mouth once daily. ALBUTEROL SULFATE (PROAIR HFA INHALATION) Inhale as instructed. KLOR-CON 20 mEq packet fluticasone (FLONASE) 50 mcg/actuation nasal spray hydrochlorothiazide (HYDRODIURIL, ESIDRIX) 12.5 mg tablet Cholecalciferol, Vitamin D3, (VITAMIN D) 1,000 unit Tab Take 1,000 Units by mouth twice daily. fluticasone/salmeterol(ADVAIR DISKUS 500 MCG-50 MCG/DOSE FOR INHALATION) DIRECTED calcium carbonate/vitamin d3(CALCIUM 500 WITH VITAMIN D 500 MG-125 UNIT TAB) Take one(1) tablet three times daily. TYLENOL EXTRA STRENGTH 500 MG TAB as necessary ZOCOR 20 MG TAB Take 20 mg by mouth daily at bedtime. doxycycline hyclate (VIBRAMYCIN) 100 mg capsule Take 1 capsule by mouth two times a day. benzonatate (TESSALON PERLE) 100 mg capsule Take 1 capsule by mouth three times a day as needed. warfarin (COUMADIN) 5 mg tablet DAILY (Patient taking differently: Take 6 mg by mouth once daily. As prescribed) PROAIR HFA 90 mcg/actuation inhaler (Patient not taking: Reported on 06/09/2024) ADACEL,TDAP ADOLESN/ADULT,,PF, 2 Lf-(2.5-5-3-5 mcg)-5Lf/0.5 mL syrg To be injected by Pharmacist (Patient not taking: Reported on 08/20/2025) warfarin (COUMADIN) 1 mg tablet (Patient not taking: Reported on 02/03/2025) warfarin (COUMADIN) 2.5 mg tablet (Patient not taking: Reported on 02/03/2025) PYRIDOXINE HCL (VITAMIN B-6 ORAL) Take by mouth. (Patient not taking: Reported on 06/09/2024) FERREX 150 PLUS 150-50-50 mg cap (Patient not taking: Reported on 06/09/2024) metoprolol tartrate, short acting, (LOPRESSOR) 25 mg tablet twice daily. oxyCODONE-acetaminophen (PERCOCET) 5-325 mg tablet (Patient not taking: Reported on 06/09/2024) fondaparinux (ARIXTRA) 7.5 mg/0.6 mL syrg Inject 7.5 mg subcutaneously q 24 HR. (Patient not taking: Reported on 06/09/2024) FAMILY HISTORY Problem Relation Age of Onset other (Pancreatic Cancer) Father Heart Mother heart murmur Hypertension Mother Osteoporosis Mother Stroke Mother SOCIAL HISTORY[1] Review of Systems Respiratory: Positive for cough. Ears/Nose/Mouth/Throat: (+) rhinorrhea, (+) brown nasal discharge, (-) ear pain, (-) sinus pressure Respiratory: (+) cough Objective BP 124/76 Pulse 68 Temp 36.6 ?C (97.8 ?F) (Tympanic) Resp 16 Wt 80.6 kg (177 lb 11.1 oz) SpO2 98% BMI 35.89 kg/m? Physical Exam Vitals and nursing note reviewed. Constitutional: General: She is not in acute distress. Appearance: Normal appearance. She is normal weight. She is not ill-appearing, toxic-appearing or diaphoretic. HENT: Head: Normocephalic and (more content not included)... 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 August 15, 2025 10:45am History of endometrial cancer chronic August 15, 2025 10:45am VTE (venous thromboembolism) chronic August 15, 2025 10:45am [facility] Work Phone: 1(557) 510-692809-15-2025 Progress note Author Bambi Palmer [facility] Note Date/Time August 15, 2025 12:19pm [address] [address] OFFICE VISIT Date of Service: 08/15/25 1126 MR#: [id number] Acct: [id number] Name: THERESAOBINNA Nikolay Rep #: [id number] : 1940 From: Bambi Downing VEHICLE INSURANCE AGENT VEHICLE INSURANCE AGENT-C Age/Sex: 84/F [place] [facility] Status: Signed HPI Subjective Date of Service 08/15/25 Chief Complaint F/u for VTE, H/O breast cancer and endometrial cancer. 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 The first episodeof PE occurred after diagnosis of left breast cancer she states in 2003. Underwent lumpectomy and radiation therapy, Tamoxifen < 1 year. Followed with medical oncologist, Dr. Low. She took Coumadin for about 6 months. The second episode was after a ventral hernia repair. The patient was recuperating after her surgery and had stopped prophylactic anticoagulation. This was a massive PE that required resuscitation at [facility] in 2014. She developed further complications inclusive [...] revealed ventral hernia and repaired by Dr. Suarez. Maintained on warfarin. Interval History The patient is presenting to clinic for a planned 6 month follow up. She deniesany concerns r/t today's visit. Reports good adherence to warfarin at this time. Confirms she is taking the recommended dose- 6 mg daily except 5 mg on Wednesdays. No episodes of abnormal bleeding, although admits she bruises easily. Further denies fever/chills, headaches, dizziness, CP, palpitations, cough, abd/pelvic pain,vaginal discharge/bleeding, swelling/pain of his extremities andskin changes, changes in her breasts or changes in bowel habits. Exertional dyspnea chronic, unchanged. Underwent a pelvic exam last month, July 2025 with a salvage engineer at [facility]. [facility] Medical History Screening for breast cancer Screening for malignant neoplasm of breast Muscle strain of right lower leg Back pain unexplained bruises Hay fever Asthma Knee pain Fatigue SOB (shortness of breath) Lung disease Arthritis HTN (hypertension) Anemia History of PE Breast cancer Surgical History Hx of tonsillectomy H/O lumpectomy History of hysterectomy H/O hernia repair History of carpal tunnel surgery Family History Mother Arthritis Heart disease Hypertension CVA (cerebral vascular accident) Social History Smoking Status: Never smoker alcohol intake: never ROS ROS Narrative Negative except as documented in the interval HPI Intake Vital Signs 02/28/25 10:52 08/15/25 11:26 Height 4 ft 9 in 4 ft 9 in Weight: 185 lb 9 oz 179 lb BMI 40.1 38.7 BP 162/72 H 172/65 H Blood Pressure Location Lt brachial Lt brachial Position Sitting Sitting Respiration 16 16 Pulse 54 L 58 L Pulse Source Monitor Monitor Temp 98.1 F 98.2 F Temperature Source Temporal Artery Temporal Artery Pulse Oximetry (%) 96 97 Oxygen Delivery Method room air room air Intake Road Service Locksmith Required: No Accompanied by: Self Is patient in pain?: Yes (B/L knee, legs) Pain scale (1-10): 3 Allergies heparin Allergy (Severe, Verified 08/15/25 11:30) Low platelets sulfamethoxazole (From Bactrim) Allergy (Severe, Verified 08/15/25 11:30) Unknown trimethoprim (From Bactrim) Allergy (Severe, Verified 08/15/25 11:30) Unknown prednisone Allergy (Verified 08/15/25 11:30) Unknown aspirin Adverse Reaction (Severe, Verified 08/15/25 11:30) Nausea clarithromycin Adverse Reaction (Severe, Verified 08/15/25 11:30) Unknown cyclobenzaprine (Cyclobenzaprine) Adverse Reaction (Severe, Verified 08/15/25 11:30) Unknown meloxicam Adverse Reaction (Severe, Verified 08/15/25 11:30) Nausea Sulfa (Sulfonamide Antibiotics) Adverse Reaction (Severe, Verified 08/15/25 11:30) Vomiting tramadol HCl (From Ultram) Adverse Reaction (Severe, Verified 08/15/25 11:30) Vomiting Medications ?Medication ?Instructions ?Recorded ?Confirmed ?Type simvastatin 20 mg tablet 20 mg PO QHS 09/21/13 History acetaminophen 500 mg tablet 500 mg PO Q4H PRN PRN Pain 01/18/15 08/15/25 History hydrochlorothiazide 12.5 mg capsule 12.5 mg PO DAILY 0 01/18/15 08/15/25 History calcium 500 mg (as 1 tab PO BID 03/23/15 History carbonate)-vitamin D3 5 mcg (200 unit) tablet cholecalciferol (vitamin D3) 25 2,000 unit PO BID 01/2908/15/25 History mcg (1,000 unit) tablet potassium chloride 20 mEq/15 mL 20 meq PO DAILY 08/15/25 History oral liquid fluticasone propionate 50 2 spray NASAL DAILY 10/12/18 08/15/25 History mcg/actuation nasal spray,suspension albuterol sulfate 90 mcg/actuation 1 - 2 puff inhalati on Q6H PRN PRN 08/17/19 08/15/25 History aerosol inhaler Sob &/Or Wheezing fexofenadine 180 mg tablet 180 mg PO DAILY 08/17/19 History fluticasone 500 mcg-salmeterol 50 1 puff inhalation BI D 08/17/19 08/15/25 History mcg/dose blistr powdr for inhalation ipratropium bromide 42 mcg (0.06 2 spray NASAL TID 08/15/25 History %) nasal spray metoprolol tartrate 25 mg tablet 25 mg PO BID 06/11/21 08/15/25 History warfarin 5 mg tablet 5 mg PO DAILY 90 days #90 ta bs 02/28/25 08/15/25 Rx warfarin 1 mg tablet 1 mg PO .COMPLEX #77 tabs 08/15/25 Rx Have you fallen in the past year?: Yes Central Venous Access Central Venous Access: No Laboratory Tests 08/15/25 10:15 WBC 5.7 Hgb 14.3 Hct 43.5 Plt Count 236 Absolute Neuts (auto) 3.6 PT 21.5 H INR 1.8 Sodium 138 Potassium 4.6 Chloride 101 Carbon Dioxide 28.9 BUN 15 Creatinine 0.59 L Glucose 102 H Calcium 9.6 Total Bilirubin 0.44 AST 25 ALT 12 Alkaline Phosphatase 113 H Albumin 3.9 Exam Physical Exam Const alert, oriented x3 and no apparent distress General Appearance: comfortable HEENT normocephalic Eyes no scleral icterus Eyes Narrative: wears glasses Neck supple Lymph Lymphatic: no lymphadenopathy noted Chest Chest Narrative: Breasts examined in the upright seated position, mostly symmetrical, pendulous. No palpable masses, skin abnormalities, nipple retraction appreciated. Resp normal respiratory effort and no use of accessory muscles Cardio regular rate, regular rhythm, S1 normal heart sound and S2 normal heart sound GI normal to inspection, nondistended, normoactive bowel sounds GI Narrative: Hepatosplenomegaly difficult to discern due to large body habitus Inspection: central obesity Back/Spine no CVA tenderness and thoracic and lumbar spine normal to inspection Extremity normal to inspection and no clubbing, cyanosis or edema Skin no rashes or lesions noted Neuro oriented x3, CN's II-XII intact bilaterally, moves all extremities and no focal motor deficits Neuro Narrative: walking with a cane. Psych mental status grossly normal Coding Level of Care Code Off vis,est,level 4 Exam Problem Focused Diagnoses History of thromboembolism Z86.718 History of ductal carcinoma in situ (DCIS) of breast Z86.000 History of endometrial cancer Z85.42 Assessment and Plan Assessment and Plan (1) History of thromboembolism: Status: Acute Comment: On chronic anticoagulation- warfarin. INR therapeutic. No bleeding/bruising. No recent medication/diet changes. Advised to continue same dose, 6 mg daily except for Wednesdays 5 mg. Plan: Labs reviewed with the patient. On chronic anticoagulation- warfarin. INR mildysubtherapeutic. No bleeding/bruising. No recent medication/diet changes. Declines DOAC. Advised to continue increase Coumadin to 6 mg daily. Recheck INR in 1 week. (2) History of ductal carcinoma in situ (DCIS) of breast: Status: Acute Comment: Clinically stable. Plan: No evidence of reoccurrence at this time. screening mammogram up to date January 2025. Orders for 2025 provided (3) History of endometrial cancer: Status: Chronic Comment: No evidence of disease clinically. Plan: Ca 125 was not elevated at the time of diagnosis To continue observation. Patient to schedule a follow up with her salvage engineer at [facility] July 2026. Orders: Orders CBC W/Diff, Automated 6 Months Z86.718 - Personal history of other venous thrombosis and embolism Comprehensive Metabolic Profil 6 Months Z86.718 - Personal history of other venous thrombosis and embolism Prothrombin Time w/INR 6 Months Z86.718 - Personal history of other venous thrombosis and embolism Prothrombin Time w/INR 1 Week Z86.718 - Personal history of other venous thrombosis and embolism SCRN MAMM (CAD)W/CARMELINA BILAT 02/23/26 Z12.39 - Encounter for other screening formalignant neoplasm of breast Plan RTO 6 mo, CBC/CMP/PT/INR prior. Clinical Quality Measures Falls Risk Screening/Assistive Devices Have you fallen in the past year?: Yes 08/15/25 1219 <Electronically signed by Bambi Schlabac h VEHICLE INSURANCE AGENT VEHICLE INSURANCE AGENT-C> Date _ Bambi Spencer VEHICLE INSURANCE AGENT VEHICLE INSURANCE AGENT-C Cosigner Signature: Date (if applicable) CC: ~ [employer] Work Phone: 1(176) 360-819008-20-2025 NoteHNO ID: [id number] Author: STEFANIE UREÑA MD Service: ? Author Type: Physician Type: Progress Notes Filed: 07/20/2025 11:01 Note Text: Base Ply Hand offered: Patient declines. Obinna Maldonado is a 84 year old female who presents for problem visit HPI: Total hyst and BSO for endometrial cancer in 2016. Did three rounds of radiation. Has not had any bleeding. Did q 6 and 12 months exams for 5 years. Now yearly. Recent mammogram completed. Previous breast CA treat conservatively. No bleeding no pain. No abnormal discharge OB History Gravida2 Para2 Term2 Preterm0 AB0 Living2 SAB0 IAB0 Ectopic0 Multiple0 Live Births0 Multicultural Services Librarian History LMP: Hysterectomy Age at Menarche: Age at First : Age at Menopause: Multicultural Services Librarian History Comments: Sexual Activity: Not Currently; No partner data on record Contraception: No contraception data on record PAST MEDICAL HISTORY Diagnosis Date Cancer, uterine (HCC) 2016 Chronic airway obstruction, not elsewhere classified Endometrial cancer (HCC) Stage Ia grade 2 Essential hypertension, benign Malignant neoplasm of breast (female), unspecified site LEFT BREAST CANCER Morbid obesity (HCC) Other emphysema (HCC) PMH - PAST MEDICAL HISTORY OF ARTHRITIS Pulmonary emboli (HCC) 2014 WITH CARDIAC ARREST Pulmonary embolism (HCC) 2004 PAST SURGICAL HISTORY Procedure Laterality Date BX BREAST PERC VACUUM/ROTN 04/22/2008 Left breast - benign BX BREAST PERC VACUUM/ROTN 12/12/11 Left Breast - benign microcalcifications COLSC FLX W/RMVL OF TUMOR POLYP LESION SNARE TQ 07/11/10 Polyps at 75cm and rectum COLSC FLX W/RMVL OF TUMOR POLYP LESION SNARE TQ 08/10/13 small polyp at 50cm - cauterized EGD TRANSORAL BIOPSY SINGLE/MULTIPLE 07/11/10 trace gastritis LAPS W/VAG HYSTERECT 250 GM/ANDRMVL TUBEAND/OVARIES 05/2016 LUMPECTOMY/RADIOTHERAPY DIAG MAMM/A10 2004 NEEDLE LOCALIZATION BREAST PAST SURGICAL HISTORY OF CARPAL TUNNEL RELEASE RPR 1ST INCAL/VNT HERNIA INCARCERATED 02/22/15 4x5cm defect - 11x14 ventrio mesh TONSILLECTOMY PRIMARY/SECONDARY Tonsillectomy FAMILY HISTORY Problem Relation Age of Onset other (Pancreatic Cancer) Father Heart Mother heart murmur Hypertension Mother Osteoporosis Mother Stroke Mother SOCIAL HISTORY[1] Current Outpatient Medications Medication Sig ipratropium-albuterol (DUONEB) 0.5 mg-3 mg(2.5 mg base)/3 mL nebu potassium chloride 20 mEq/15 mL solution mix 15 ml with 4 to 8 oz of water once daily warfarin (COUMADIN) 5 mg tablet Take 5 mg by mouth once daily. fexofenadine (USAMA ALLERGY) 180 mg tablet Take 180 mg by mouth once daily. ALBUTEROL SULFATE (PROAIR HFA INHALATION) Inhale as instructed. fluticasone (FLONASE) 50 mcg/actuation nasal spray hydrochlorothiazide (HYDRODIURIL, ESIDRIX) 12.5 mg tablet metoprolol tartrate, short acting, (LOPRESSOR) 25 mg tablet twice daily. Cholecalciferol, Vitamin D3, (VITAMIN D) 1,000 unit Tab Take 1,000 Units by mouth twice daily. fluticasone/salmeterol(ADVAIR DISKUS 500 MCG-50 MCG/DOSE FOR INHALATION) DIRECTED calcium carbonate/vitamin d3(CALCIUM 500 WITH VITAMIN D 500 MG-125 UNIT TAB) Take one(1) tablet three times daily. TYLENOL EXTRA STRENGTH 500 MG TAB as necessary ZOCOR 20 MG TAB Take 20 mg by mouth daily at bedtime. warfarin (COUMADIN) 5 mg tablet DAILY (Patient taking differently: Take 6 mg by mouth once daily. As prescribed) PROAIR HFA 90 mcg/actuation inhaler (Patient not taking: Reported on 06/09/2024) ADACEL,TDAP ADOLESN/ADULT,,PF, 2 Lf-(2.5-5-3-5 mcg)-5Lf/0.5 mL syrg To be injected by Pharmacist (Patient not taking: Reported on 06/09/2024) warfarin (COUMADIN) 1 mg tablet (Patient not taking: Reported on 02/03/2025) warfarin (COUMADIN) 2.5 mg tablet (Patient not taking: Reported on 02/03/2025) KLOR-CON 20 mEq packet (Patient not taking: Reported on 06/09/2024) PYRIDOXINE HCL (VITAMIN B-6 ORAL) Take by mouth. (Patient not taking: Reported on 06/09/2024) FERREX 150 PLUS 150-50-50 mg cap (Patient not taking: Reported on 06/09/2024) oxyCODONE-acetaminophen (PERCOCET) 5-325 mg tablet (Patient not taking: Reported on 06/09/2024) fondaparinux (ARIXTRA) 7.5 mg/0.6 mL syrg Inject 7.5 mg subcutaneously q 24 HR. (Patient not taking: Reported on 06/09/2024) No current facility-administered medications for this visit. Allergies As of Date: 07/20/2025 Allergen Noted Reaction ASPIRIN 06/18/2013 GI Upset BACTRIM [SULFAMETHOXAZOLE] 04/12/2013 GI Upset and Vomiting BIAXIN [CLARITHROMYCIN] 04/12/2013 GI Upset CYCLOBENZAPRINE 12/30/2012 Unknown HEPARIN 11/15/2016 Unknown MELOXICAM 12/30/2012 Other: See Comments PREDNISONE 12/30/2012 Other: See Comments SEASONAL ALLERGIES 06/07/2011 Other: See Comments TRAMADOL 11/15/2016 Unknown Fully Assessed 07/20/2025 REVIEW OF SYSTEMS Abdomen: No bloating, early satiety, indigestion, or increased flatulence. No abdominal pain, nausea, vomiting, diarrhea, or constipation. Bladder: No dysu (more content not included)...[facility] 07-20-2025 History of Present illness Narrative* Stefanie Ureña MD - 07/20/2025 10:32 AM EDT Base Ply Hand offered: Patient declines. Obinna Maldonado is a 84 year old female who presents for problem visit HPI: Total hyst and BSO for endometrial cancer in 2016. Did three rounds of radiation. Has not had any bleeding. Did q 6 and 12 months exams for 5 years. Now yearly. Recent mammogram completed. Previous breast CA treat conservatively. No bleeding no pain. No abnormal discharge OB History Gravida2 Para2 Term2 Preterm0 AB0 Living2 SAB0 IAB0 Ectopic0 Multiple0 Live Births0 Multicultural Services Librarian History LMP: Hysterectomy Age at Menarche: Age at First : Age at Menopause: Multicultural Services Librarian History Comments: Sexual Activity: Not Currently; No partner data on record Contraception: No contraception data on record PAST MEDICAL HISTORY Diagnosis Date Cancer, uterine (HCC) 2015 Chronic airway obstruction, not elsewhere classified Endometrial cancer (HCC) Stage Ia grade 2 Essential hypertension, benign Malignant neoplasm of breast (female), unspecified site LEFT BREAST CANCER Morbid obesity (HCC) Other emphysema (HCC) PMH - PAST MEDICAL HISTORY OF ARTHRITIS Pulmonary emboli (HCC) 2014 WITH CARDIAC ARREST Pulmonary embolism (HCC) 2004 PAST SURGICAL HISTORY Procedure Laterality Date BX BREAST PERC VACUUM/ROTN 04/22/2008 Left breast - benign BX BREAST PERC VACUUM/ROTN 12/12/11 Left Breast - benign microcalcifications COLSC FLX W/RMVL OF TUMOR POLYP LESION SNARE TQ 07/11/10 Polyps at 75cm and rectum COLSC FLX W/RMVL OF TUMOR POLYP LESION SNARE TQ 08/10/13 small polyp at 50cm - cauterized EGD TRANSORAL BIOPSY SINGLE/MULTIPLE 07/11/10 trace gastritis LAPS W/VAG HYSTERECT 250 GM/&RMVL TUBE&/OVARIES 05/2016 LUMPECTOMY/RADIOTHERAPY DIAG MAMM/A10 2004 NEEDLE LOCALIZATION BREAST PAST SURGICAL HISTORY OF CARPAL TUNNEL RELEASE RPR 1ST INCAL/VNT HERNIA INCARCERATED 02/22/15 4x5cm defect - 11x14 ventrio mesh TONSILLECTOMY PRIMARY/SECONDARY <AGE 12 Tonsillectomy FAMILY HISTORY Problem Relation Age of Onset other (Pancreatic Cancer) Father Heart Mother heart murmur Hypertension Mother Osteoporosis Mother Stroke Mother SOCIAL HISTORY[1] Current Outpatient Medications Medication Sig ipratropium-albuterol (DUONEB) 0.5 mg-3 mg(2.5 mg base)/3 mL nebu potassium chloride 20 mEq/15 mL solution mix 15 ml with 4 to 8 oz of water once daily warfarin (COUMADIN) 5 mg tablet Take 5 mg by mouth once daily. fexofenadine (USAMA ALLERGY) 180 mg tablet Take 180 mg by mouth once daily. ALBUTEROL SULFATE (PROAIR HFA INHALATION) Inhale as instructed. fluticasone (FLONASE) 50 mcg/actuation nasal spray hydrochlorothiazide (HYDRODIURIL, ESIDRIX) 12.5 mg tablet metoprolol tartrate, short acting, (LOPRESSOR) 25 mg tablet twice daily. Cholecalciferol, Vitamin D3, (VITAMIN D) 1,000 unit Tab Take 1,000 Units by mouth twice daily. fluticasone/salmeterol(ADVAIR DISKUS 500 MCG-50 MCG/DOSE FOR INHALATION) DIRECTED calcium carbonate/vitamin d3(CALCIUM 500 WITH VITAMIN D 500 MG-125 UNIT TAB) Take one(1) tablet three times daily. TYLENOL EXTRA STRENGTH 500 MG TAB as necessary ZOCOR 20 MG TAB Take 20 mg by mouth daily at bedtime. warfarin (COUMADIN) 5 mg tablet DAILY (Patient taking differently: Take 6 mg by mouth once daily. As prescribed) PROAIR HFA 90 mcg/actuation inhaler (Patient not taking: Reported on 06/09/2024) ADACEL,TDAP ADOLESN/ADULT,,PF, 2 Lf-(2.5-5-3-5 mcg)-5Lf/0.5 mL syrg To be injected by Pharmacist (Patient not taking: Reported on 06/09/2024) warfarin (COUMADIN) 1 mg tablet (Patient not taking: Reported on 02/03/2025) warfarin (COUMADIN) 2.5 mg tablet (Patient not taking: Reported on 02/03/2025) KLOR-CON 20 mEq packet (Patient not taking: Reported on 06/09/2024) PYRIDOXINE HCL (VITAMIN B-6 ORAL) Take by mouth. (Patient not taking: Reported on 06/09/2024) FERREX 150 PLUS 150-50-50 mg cap (Patient not taking: Reported on 06/09/2024) oxyCODONE-acetaminophen (PERCOCET) 5-325 mg tablet (Patient not taking: Reported on 06/09/2024) fondaparinux (ARIXTRA) 7.5 mg/0.6 mL syrg Inject 7.5 mg subcutaneously q 24 HR. (Patient not taking: Reported on 06/09/2024) No current facility-administered medications for this visit. Allergies As of Date: 07/20/2025 Allergen Noted Reaction ASPIRIN 06/18/2013 GI Upset BACTRIM [SULFAMETHOXAZOLE] 04/12/2013 GI Upset and Vomiting BIAXIN [CLARITHROMYCIN] 04/12/2013 GI Upset CYCLOBENZAPRINE 12/30/2012 Unknown HEPARIN 11/15/2016 Unknown MELOXICAM 12/30/2012 Other: See Comments PREDNISONE 12/30/2012 Other: See Comments SEASONAL ALLERGIES 06/07/2011 Other: See Comments TRAMADOL 11/15/2016 Unknown Fully Assessed 07/20/2025 REVIEW OF SYSTEMS Abdomen: No bloating, early satiety, indigestion, or increased flatulence. No abdominal pain, nausea, vomiting, diarrhea, or constipation. Bladder: No dysuria, gross hematuria, urinary frequency, urinary urgency, or incontinence. Breast: No breast lumps, nipple d/c, overlying skin changes, redness or skin retraction. Expanded ROS: N/A Allergies and current medication updated:Yes SENSITIVE EXAM: The sensitive examination was discussed with the Patient or Patient's Authorized Consulting Analyst. As applicable, any other physician, advance practice provider, medical student, or other health professional student that will be observing or involved in the sensitive examination for educational or training purposes was discussed with the Patient or Authorized Consulting Analyst. The Patient or Authorized Consulting Analyst has agreed to proceed with the sensitive examination. (Sensitive examination includes inspection and/or palpation of the breasts, pelvis, prostate and anorectal regions). EXAM: BP 120/80 Wt 178 lb 3.2 oz (80.8kg) GENERAL: pleasant, female in no apparent distress HEENT: Normocephalic, atraumatic, mucus membranes moist, and no lesions NECK: Supple and full range of motion DERMATOLOGY: Normal, without lesions, non-icteric, and non-hirsute BREAST: deferred CHEST: Normal inspiratory effort ABDOMEN: Deferred PELVIC: external genitalia normal, normal Bartholin's glands, urethra, [place] glands, no vulvar lesions, good vaginal support, physiologic discharge present, normal appearing perineal body and perianal region, cervix surgically absent, no vaginal lesions BIMANUAL: uterus surgically absent NEURO: alert and oriented x3,exam grossly non-focal EXTREMITIES: normal ASSESSMENT AND PLAN: Assessment & Plan Hx of cancer of endometrium History of radiation therapy Encounter for follow-up surveillance of endometrial cancer Stefanie Ureña MD [1] Social History Tobacco Use Smoking status: Never Smokeless tobacco: Never Vaping Use Vaping status: Never Used Substance Use Topics Alcohol use: No Drug use: No [facility] encounter Note * Telephone Encounter - Lakeisha White RN - 06/23/2025 1:08 PM EDT Please see provider's note below and contact patient to schedule. Schedule just as est [facility] visit type, not an annual. Lakeisha White RN [facility]07-24-2025 Miscellaneous Notes* Telephone Encounter - Lakeisha White RN - 06/23/2025 1:08 PM EDT Please see provider's note below and contact patient to schedule. Schedule just as est [facility] visit type, not an annual. Lakeisha White RN * Telephone Encounter - Stefanie Ureña MD - 06/23/2025 11:46 AM EDT She doesn't need an annual because medicare will only pay for that every other year. But because ofher endometrial cancer she is suppose to have a pelvic exam yearly. It can simply be an office visit * Telephone Encounter - Rip Kurtz - 06/23/2025 11:08 AM EDT Patient calling in stating she got a letter [facility] the [facility] about her needing to scheduleher annual exam with MACHINE PACKAGE SEAL[employer] this year. Patient states she is pretty sure Dr. Ureña told her last yearthat she did not need to come in for one this year. Please review and clarify information for patient. Rip Kurtz June 23, 2025 11:10 AM documented in [facility] Telephone encounter Note * Telephone Encounter - Stefanie Ureña MD - 06/23/2025 11:46 AM EDT She doesn't need an annual because medicare will only pay for that every other year. But because ofher endometrial cancer she is suppose to have a pelvic exam yearly. It can simply be an office visit [facility] Work Phone: [phone]) 492-799407-24-2025 Telephone encounter Note* Telephone Encounter - Rip Kurtz - 06/23/2025 11:08 AM EDT Patient calling in stating she got a letter from the [facility] about her needing to scheduleher annual exam with MACHINE PACKAGE SEALER this year. Patient states she is pretty sure Dr. Ureña told her last yearthat she did not need to come in for one this year. Please review and clarify information for patient. 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 FALL SCREENING: Has the patient had 2 falls in the last year or 1 fall with injury or currently using an Ambulatory Assistive Device (Walker, Cane, Wheelchair, Crutches, etc.)? Yes, Patient High Riskfor Falls What interventions were put in place to prevent falls during this visit? Offered Assistance with Transfers/Clothing, Instructed Patient to Remain Seated (Not on Exam Table) Until Exam, and Increased Observations by Caregivers PATIENT GENDER DATA: Assigned female at . status: : No status:NO. PATIENT RELEVANT IMPLANT DATA REVIEWED: Not Applicable PATIENT PRESENTS WITH AN IMPLANTABLE OR ATTACHED MD ALLERGY IMMUNOLOGY: No RADIOLOGY DEPARTMENT: General X-ray: Exam(s) Completed: Chest X-Ray PERIPHERAL IV DATA: Not applicable SIGNED BY: Daljit Corrigan February 03, 2025 12:41 PM documented in this encounterK[facility]03-[facility]-2025 NoteHNO ID: [id number] Author: LANETTE TREVINO Tech Service: ? Author Type: Technologist Type: Progress Notes Filed: 02/03/2025 12:51 Note Text: Radiology Service Progress Note PATIENT NAME: Obinna Maldonado DATE OF SERVICE: February 03, 2025 TIME: 12:41 PM PATIENT IDENTITY VERIFICATION COMPLETED USING TWO (2) IDENTIFIERS: Name and Date of confirmed by patient verbally. FALL SCREENING: Has the patient had 2 falls in the last year or 1 fall with injury or currently using an Ambulatory Assistive Device (Walker, Cane, Wheelchair, Crutches, etc.)? Yes, Patient High Risk for Falls What interventions were put in place to prevent falls during this visit? Offered Assistance with Transfers/Clothing, Instructed Patient to Remain Seated (Not on Exam Table) Until Exam, and Increased Observations by Caregivers PATIENT GENDER DATA: Assigned female at . status: : No status: NO. PATIENT RELEVANT IMPLANT DATA REVIEWED: Not Applicable PATIENT PRESENTS WITH AN IMPLANTABLE OR ATTACHED MD ALLERGY IMMUNOLOGY: No RADIOLOGY DEPARTMENT: General X-ray: Exam(s) Completed: Chest X-Ray PERIPHERAL IV DATA: Not applicable SIGNED BY: Daljit Corrigan February 03, 2025 12:41 [facility]03-06-2025 NoteHNO ID: [id number] Author: BUBBA ROY APRN.E COMMERCE STRATEGIST Service: ? Author Type: Nurse Practitioner Type: Progress Notes Filed: 02/03/2025 13:15 Note Text: [facility] Subjective Obinna Maldonado is a 84 year old female. HPI Nontoxic-appearing female presents urgent care chief complaint cough and wheezing. Duration of the symptoms 4 days. Associated symptoms listed above. States on Friday she started feeling a little bit unwell. States did develop a cough on Friday. Has some nasal drainage. Also of last week she fell in the kitchen striking her butt and ribs. Was not evaluated for this. Does not know if this is related to the cough as well. Denies any fever body aches or chills. Abdominal region is unremarkable. Denies any chest pain or hemoptysis. No increased work of breathing. History of asthma and COPD. Past medical history prescription medications allergies reviewed. .Patient presents with: Cough: Wheezing, chest congestion, cough, some productive x 4 days PAST MEDICAL HISTORY Diagnosis Date Cancer, uterine (HCC) 2016 Chronic airway obstruction, not elsewhere classified Endometrial cancer (HCC) Stage Ia grade 2 Essential hypertension, benign Malignant neoplasm of breast (female), unspecified site LEFT BREAST CANCER Morbid obesity (HCC) Other emphysema (HCC) PMH - PAST MEDICAL HISTORY OF ARTHRITIS Pulmonary emboli (HCC) 2014 WITH CARDIAC ARREST Pulmonary embolism (HCC) 2004 PAST SURGICAL HISTORY Procedure Laterality Date BX BREAST PERC VACUUM/ROTN 04/22/2008 Left breast - benign BX BREAST PERC VACUUM/ROTN 12/12/11 Left Breast - benign microcalcifications COLSC FLX W/RMVL OF TUMOR POLYP LESION SNARE TQ 07/11/10 Polyps at 75cm and rectum COLSC FLX W/RMVL OF TUMOR POLYP LESION SNARE TQ 08/10/13 small polyp at 50cm - cauterized EGD TRANSORAL BIOPSY SINGLE/MULTIPLE 07/11/10 trace gastritis LAPS W/VAG HYSTERECT 250 GM/ANDRMVL TUBEAND/OVARIES 05/2016 LUMPECTOMY/RADIOTHERAPY DIAG MAMM/A10 2004 NEEDLE LOCALIZATION BREAST PAST SURGICAL HISTORY OF CARPAL TUNNEL RELEASE RPR 1ST INCAL/VNT HERNIA INCARCERATED 02/22/15 4x5cm defect - 11x14 ventrio mesh TONSILLECTOMY PRIMARY/SECONDARY Tonsillectomy ALLERGIES Aspirin, Bactrim [Sulfamethoxazole], Biaxin [Clarithromycin], Cyclobenzaprine, Heparin, Meloxicam, Prednisone, Seasonal Allergies, and Tramadol MEDICATIONS warfarin (COUMADIN) 5 mg tablet DAILY (Patient taking differently: Take 6 mg by mouth once daily. As prescribed) PROAIR HFA 90 mcg/actuation inhaler (Patient not taking: Reported on 06/09/2024) ipratropium-albuterol (DUONEB) 0.5 mg-3 mg(2.5 mg base)/3 mL nebu ADACEL,TDAP ADOLESN/ADULT,,PF, 2 Lf-(2.5-5-3-5 mcg)-5Lf/0.5 mL syrg To be injected by Pharmacist (Patient not taking: Reported on 06/09/2024) potassium chloride 20 mEq/15 mL solution mix 15 ml with 4 to 8 oz of water once daily warfarin (COUMADIN) 5 mg tablet Take 5 mg by mouth once daily. fexofenadine (USAMA ALLERGY) 180 mg tablet Take 180 mg by mouth once daily. warfarin (COUMADIN) 1 mg tablet (Patient not taking: Reported on 02/03/2025) ALBUTEROL SULFATE (PROAIR HFA INHALATION) Inhale as instructed. warfarin (COUMADIN) 2.5 mg tablet (Patient not taking: Reported on 02/03/2025) KLOR-CON 20 mEq packet (Patient not taking: Reported on 06/09/2024) PYRIDOXINE HCL (VITAMIN B-6 ORAL) Take by mouth. (Patient not taking: Reported on 06/09/2024) fluticasone (FLONASE) 50 mcg/actuation nasal spray hydrochlorothiazide (HYDRODIURIL, ESIDRIX) 12.5 mg tablet FERREX 150 PLUS 150-50-50 mg cap (Patient not taking: Reported on 06/09/2024) metoprolol tartrate, short acting, (LOPRESSOR) 25 mg tablet twice daily. oxyCODONE-acetaminophen (PERCOCET) 5-325 mg tablet (Patient not taking: Reported on 06/09/2024) fondaparinux (ARIXTRA) 7.5 mg/0.6 mL syrg Inject 7.5 mg subcutaneously q 24 HR. (Patient not taking: Reported on 06/09/2024) Cholecalciferol, Vitamin D3, (VITAMIN D) 1,000 unit Tab Take 1,000 Units by mouth twice daily. fluticasone/salmeterol(ADVAIR DISKUS 500 MCG-50 MCG/DOSE FOR INHALATION) DIRECTED calcium carbonate/vitamin d3(CALCIUM 500 WITH VITAMIN D 500 MG-125 UNIT TAB) Take one(1) tablet three times daily. TYLENOL EXTRA STRENGTH 500 MG TAB as necessary ZOCOR 20 MG TAB Take 20 mg by mouth daily at bedtime. FAMILY HISTORY Problem Relation Age of Onset other (Pancreatic Cancer) Father Heart Mother heart murmur Hypertension Mother Osteoporosis Mother Stroke Mother Social History Tobacco Use Smoking status: Never Smokeless tobacco: Never Vaping Use Vaping status: Never Used Substance Use Topics Alcohol use: No Drug use: No Review of Systems Constitutional: Negative for chills, diaphoresis, fatigue and fever. HENT: Positive for congestion. Negative for drooling, ear discharge, ear pain, rhinorrhea, sinus pressure, sinus pain, sneezing, sore throat and trouble swallowing. Eye (more content not included)...[facility]03-06-2025 History of Present illness Narrative* Bubba Roy, MARLENY.E COMMERCE STRATEGIST - 02/03/2025 12:27 PM EST Images from the original note were not included. [facility] Subjective Obinna Maldonado is a 84 year old female. HPI Nontoxic-appearing female presents urgent care chief complaint cough and wheezing. Duration of the symptoms 4 days. Associated symptoms listed above. States on Friday she started feeling a little bit unwell. States did develop a cough on Friday. Has some nasal drainage. Also of last weekshe fell in the kitchen striking her butt and ribs. Was not evaluated for this. Does not know if this is related to the cough as well. Denies any fever body aches or chills. Abdominal region is unremarkable. Denies any chest pain or hemoptysis. No increased work of breathing. History of asthma and COPD. Past medical history prescription medications allergies reviewed. .Patient presents with: Cough: Wheezing, chest congestion, cough, some productive x 4 days PAST MEDICAL HISTORY Diagnosis Date Cancer, uterine (HCC) 2015 Chronic airway obstruction, not elsewhere classified Endometrial cancer (HCC) Stage Ia grade 2 Essential hypertension, benign Malignant neoplasm of breast (female), unspecified site LEFT BREAST CANCER Morbid obesity (HCC) Other emphysema (HCC) PMH - PAST MEDICAL HISTORY OF ARTHRITIS Pulmonary emboli (HCC) 2014 WITH CARDIAC ARREST Pulmonary embolism (HCC) 2004 PAST SURGICAL HISTORY Procedure Laterality Date BX BREAST PERC VACUUM/ROTN 04/22/2008 Left breast - benign BX BREAST PERC VACUUM/ROTN 12/12/11 Left Breast - benign microcalcifications COLSC FLX W/RMVL OF TUMOR POLYP LESION SNARE TQ 07/11/10 Polyps at 75cm and rectum COLSC FLX W/RMVL OF TUMOR POLYP LESION SNARE TQ 08/10/13 small polyp at 50cm - cauterized EGD TRANSORAL BIOPSY SINGLE/MULTIPLE 07/11/10 trace gastritis LAPS W/VAG HYSTERECT 250 GM/&RMVL TUBE&/OVARIES 05/2016 LUMPECTOMY/RADIOTHERAPY DIAG MAMM/A10 2004 NEEDLE LOCALIZATION BREAST PAST SURGICAL HISTORY OF CARPAL TUNNEL RELEASE RPR 1ST INCAL/VNT HERNIA INCARCERATED 02/22/15 4x5cm defect - 11x14 ventrio mesh TONSILLECTOMY PRIMARY/SECONDARY <AGE 12 Tonsillectomy ALLERGIES Aspirin, Bactrim [Sulfamethoxazole], Biaxin [Clarithromycin], Cyclobenzaprine, Heparin, Meloxicam, Prednisone, Seasonal Allergies, and Tramadol MEDICATIONS warfarin (COUMADIN) 5 mg tablet DAILY (Patient taking differently: Take 6 mg by mouth once daily. As prescribed) PROAIR HFA 90 mcg/actuation inhaler (Patient not taking: Reported on 06/09/2024) ipratropium-albuterol (DUONEB) 0.5 mg-3 mg(2.5 mg base)/3 mL nebu ADACEL,TDAP ADOLESN/ADULT,,PF, 2 Lf-(2.5-5-3-5 mcg)-5Lf/0.5 mL syrg To be injected by Pharmacist (Patient not taking: Reported on 06/09/2024) potassium chloride 20 mEq/15 mL solution mix 15 ml with 4 to 8 oz of water once daily warfarin (COUMADIN) 5 mg tablet Take 5 mg by mouth once daily. fexofenadine (USAMA ALLERGY) 180 mg tablet Take 180 mg by mouth once daily. warfarin (COUMADIN) 1 mg tablet (Patient not taking: Reported on 02/03/2025) ALBUTEROL SULFATE (PROAIR HFA INHALATION) Inhale as instructed. warfarin (COUMADIN) 2.5 mg tablet (Patient not taking: Reported on 02/03/2025) KLOR-CON 20 mEq packet (Patient not taking: Reported on 06/09/2024) PYRIDOXINE HCL (VITAMIN B-6 ORAL) Take by mouth. (Patient not taking: Reported on 06/09/2024) fluticasone (FLONASE) 50 mcg/actuation nasal spray hydrochlorothiazide (HYDRODIURIL, ESIDRIX) 12.5 mg tablet FERREX 150 PLUS 150-50-50 mg cap (Patient not taking: Reported on 06/09/2024) metoprolol tartrate, short acting, (LOPRESSOR) 25 mg tablet twice daily. oxyCODONE-acetaminophen (PERCOCET) 5-325 mg tablet (Patient not taking: Reported on 06/09/2024) fondaparinux (ARIXTRA) 7.5 mg/0.6 mL syrg Inject 7.5 mg subcutaneously q 24 HR. (Patient not taking: Reported on 06/09/2024) Cholecalciferol, Vitamin D3, (VITAMIN D) 1,000 unit Tab Take 1,000 Units by mouth twice daily. fluticasone/salmeterol(ADVAIR DISKUS 500 MCG-50 MCG/DOSE FOR INHALATION) DIRECTED calcium carbonate/vitamin d3(CALCIUM 500 WITH VITAMIN D 500 MG-125 UNIT TAB) Take one(1) tablet three times daily. TYLENOL EXTRA STRENGTH 500 MG TAB as necessary ZOCOR 20 MG TAB Take 20 mg by mouth daily at bedtime. FAMILY HISTORY Problem Relation Age of Onset other (Pancreatic Cancer) Father Heart Mother heart murmur Hypertension Mother Osteoporosis Mother Stroke Mother Social History Tobacco Use Smoking status: Never Smokeless tobacco: Never Vaping Use Vaping status: Never Used Substance Use Topics Alcohol use: No Drug use: No Review of Systems Constitutional: Negative for chills, diaphoresis, fatigue and fever. HENT: Positive for congestion. Negative for drooling, ear discharge, ear pain, rhinorrhea, sinus pressure, sinus pain, sneezing, sore throat and trouble swallowing. Eyes: Negative for pain, discharge, redness, itching and visual disturbance. Respiratory: Positive for cough and wheezing. Negative for chest tightness and shortness of breath. Cardiovascular: Negative for chest pain. Gastrointestinal: Negative for abdominal distention, abdominal pain, blood in stool, constipation, diarrhea, nausea and vomiting. Genitourinary: Negative for difficulty urinating and dysuria. Musculoskeletal: Negative for arthralgias, joint swelling, neck pain and neck stiffness. Skin: Negative for rash. Neurological: Negative for dizziness, weakness, numbness and headaches. Objective BP 157/82 Pulse 72 Temp 36.9 C (98.5 F) Resp 20 Wt 81 kg (178 lb 9.2 oz) SpO2 95% BMI 36.07 kg/m Physical Exam Constitutional: Appearance: Normal appearance. HENT: Head: Normocephalic. Jaw: No trismus, tenderness, swelling or pain on movement. Nose: Congestion present. Mouth/Throat: Mouth: Mucous membranes are moist. Pharynx: Oropharynx is clear. Uvula midline. No oropharyngeal exudate or posterior oropharyngeal erythema. Eyes: Conjunctiva/sclera: Conjunctivae normal. Cardiovascular: Rate and Rhythm: Normal rate. Pulmonary: Effort: Pulmonary effort is normal. Breath sounds: Normal breath sounds. No wheezing, rhonchi or rales. Abdominal: Palpations: Abdomen is soft. Tenderness: There is no abdominal tenderness. There is no guarding or rebound. Musculoskeletal: General: Normal range of motion. Arms: Cervical back: Normal range of motion and neck supple. No edema or erythema. No pain with movement.Normal range of motion. Comments: Ecchymosis noted to highlighted area. Ecchymosis and stage of healing. No spinal tenderness. No crepitus deformities. Lymphadenopathy: Cervical: No cervical adenopathy. Skin: General: Skin is warm. Findings: No rash. Neurological: General: No focal deficit present. Mental Status: She is alert and oriented to person, place, and time. Mental status is at baseline. Assessment and Plan History and Record Review Clinical information obtained from an independent historian. History obtained from or confirmed by:parent. External record(s) reviewed: prior outpatient record. Disposition The patient was discharged. Procedures ASSESSMENT/PLAN: 1. Acute cough - ICD9: 786.2, ICD10: R05.1 (primary diagnosis) - XR CHEST 2V FRONTAL/LAT 2. COPD with exacerbation (HCC) - ICD9: 491.21, ICD10: J44.1 IMPRESSION: No acute infiltrate. Posterior lower RIGHT diaphragmatic eventration or hernia. Less likely small effusion or other etiology. No acute findings noted on chest x-ray. No fractures. No infiltrates. Right diaphragm elevation noted. Will follow-up with PCP. Placed on doxycycline treat as COPD exacerbation. We discussed steroids. Patient would like to forego steroids at this point. Patient was educated on supportive therapies. Patient will follow up with primary care provider 2-3days. Patient was instructed to immediately proceed to emergency room for any new, worsening, or symptoms lasting longer than anticipated. The patient's clinical presentation is otherwise unremarkable at this time. Based on exam and clinical finding, the patient is stable for discharge. Plan of care was discussed with patient. Patient verbalizes understanding and agrees to plan of care. This notewas generated using Ingageapp software. It may contain errors in wording, punctuation, or spelling. Bubba Roy APRN.E COMMERCE STRATEGIST documented [facility] History of Present illness Narrative* Stefanie Ureña MD - 06/09/2024 9:09 AM EDT Base Ply Hand offered: Patient declines. Total hyst and BSO for endometrial cancer in 2016. Did three rounds of radiation. Has not had any bleeding. Did q 6 and 12 months exams for 5 years. Now yearly. Recent mammogram completed. Previous breast CA treat conservatively Obinna is a 83 year old who presents for an annual gynecologic exam without complaints. Postmenopausal: Yes since age 50s HRT use: No. 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: ENDOMETRIAL CANCER and breast cancer OB History T2 L2 SAB0 IAB0 Ectopic0 Multiple0 Live Births0 Multicultural Services Librarian History LMP: Hysterectomy Age at Menarche: Age at First : Age at Menopause: Multicultural Services Librarian History Comments: Sexual Activity: Not Currently; No partner data on record Contraception: No contraception data on record PAST MEDICAL HISTORY Diagnosis Date Cancer, uterine (HCC) 2015 Chronic airway obstruction, not elsewhere classified Endometrial cancer (HCC) Stage Ia grade 2 Essential hypertension, benign Malignant neoplasm of breast (female), unspecified site LEFT BREAST CANCER Morbid obesity (HCC) Other emphysema (HCC) PMH - PAST MEDICAL HISTORY OF ARTHRITIS Pulmonary emboli (HCC) 2014 WITH CARDIAC ARREST Pulmonary embolism (HCC) 2004 PAST SURGICAL HISTORY Procedure Laterality Date BX BREAST PERC VACUUM/ROTN 04/22/2008 Left breast - benign BX BREAST PERC VACUUM/ROTN 12/12/11 Left Breast - benign microcalcifications COLSC FLX W/RMVL OF TUMOR POLYP LESION SNARE TQ 07/11/10 Polyps at 75cm and rectum COLSC FLX W/RMVL OF TUMOR POLYP LESION SNARE TQ 08/10/13 small polyp at 50cm - cauterized EGD TRANSORAL BIOPSY SINGLE/MULTIPLE 07/11/10 trace gastritis LAPS W/VAG HYSTERECT 250 GM/&RMVL TUBE&/OVARIES 05/2016 LUMPECTOMY/RADIOTHERAPY DIAG MAMM/A10 2004 NEEDLE LOCALIZATION BREAST PAST SURGICAL HISTORY OF CARPAL TUNNEL RELEASE RPR 1ST INCAL/VNT HERNIA INCARCERATED 02/22/15 4x5cm defect - 11x14 ventrio mesh TONSILLECTOMY PRIMARY/SECONDARY <AGE 12 Tonsillectomy FAMILY HISTORY Problem Relation Age of Onset other (Pancreatic Cancer) Father Heart Mother heart murmur Hypertension Mother Osteoporosis Mother Stroke Mother SOCIAL HISTORY Social History Tobacco Use Smoking status: Never Smokeless tobacco: Never Vaping Use Vaping Use: Never used Substance Use Topics Alcohol use: No Drug use: No REVIEW OF SYSTEMS Abdomen: No abdominal pain, nausea, vomiting, diarrhea, or constipation. No bloating, early satiety, indigestion, or increased flatulence. Bladder: No dysuria, gross hematuria, urinary frequency, urinary urgency, or incontinence Breast: No breast lumps, nipple d/c, overlying skin changes, redness or skin retraction Allergies and current medication updated:Yes EXAM: BP 120/80 Ht 4' 11 (1.50m) Wt 186 lb 3.2 oz (84.5kg) BMI 37.59 kg/(m^2). GENERAL: pleasant, female in no apparent distress HEENT: Normocephalic, atraumatic, mucus membranes moist, and no lesions NECK: Supple, full range of motion, no adenopathy, and thyroid normal DERMATOLOGY: Normal, without lesions, non-icteric, and non-hirsute BREAST: soft, non-tender, symmetric, no dominant mass, normal nipple-areolar complex, no lymphadenopathy, and no nipple discharge CHEST: Normal inspiratory effort ABDOMEN: soft, non-tender, and no masses PELVIC: external genitalia normal, normal Bartholin's glands, urethra, [place]'s glands, no vulvar lesions, good vaginal support, physiologic discharge present, normal appearing perineal body and perianal region, cervix surgically absent BIMANUAL: uterus surgically absent RECTOVAGINAL: deferred. NEURO: alert and oriented x3,exam grossly non-focal EXTREMITIES: normal ASSESSMENT/PLAN: 1) Health maintenance: Pap/HPV screening no longer needed Mammogram up to date 2) Follow up one year or sooner as needed Stefanie Ureña MD documented in [facility] Discharge summary Author Tina Willard [facility] March 07, 2023 10:01am Note Date/Time March 07, 2023 10:0 1am [facility] Occupational Therapy [facility] [address] [place] [address]. [address] [place] [id number] / REHABILITATION SERVICES DISCHARGE SUMMARY MR#: [id number] Acct: [id number] Name: THERESAOBINNA Nikolay Rep #: [id number] 3 : 1940 82 From: Tina MOSCOSO/Konrad, CHT Referring DrToo: MARC Mendosa Status: REG RCR Eval Date: Discharge Date: It has been my pleasure to treat OBINNA MALDONADO under orders from MARC Guo, for the diagnosis of left distal radius fx for a total of 6 visit(s). Please see the following information for a summary of their discharge status. % Improvement: 70 Objective/Function: pt demo with 20# left gold assayer strength. left wrist ROM 65/45. pt has met OT goals at this time and D/c with HEP of t-band. Patient Goals: Regain Mobility, Regain Strength, Use Hand/Wrist/Arm Normally Again Goal:: pt will demo a increase in left gold assayer strength by 15# to increase pts ind.with ADls by d/c. pt will demo increase in left UB strength to assist with sit-stand tsf to increase safe mobility by d.c Goal:: pt will demo a increase in left wrist ROM by 15* or greater to increase pts ind. with ADLs and IADLs by d/c Goal:: pt will demo understanding of joint protection and use of ad. eq. to increase ind. by d/c Plan: cont with strengthening at comfort level Discharge Comments: pt was seen for 6 OT sessions and has made great gains in use of left UE for ADLS. pt reports she has a home health aid who assist her with some IADLs. pt has a HEP of t-band and her gold assayer strength is now equal to her unaffected hand- pt has met OT goals and is now D/C. pt agrees with d/c. If there are questions or concerns regarding this patient's occupational therapy, please fell free to call me at [phone]. Thank you for the referral of this patient. Sincerely, BLANKA Hendricks/Konrad, RONI <Electronically signed by Tina MOSCOSO/LO SilvestreT> 03/07/23 1001 CC: MARC Mendosa; Dr. Floridalma Juárez MD ~ MK Signed [facility] Work Phone: Chief complaint+Reason for visit Narrative* Chief Complaint Cough, MUCUS SCREENING 6MO LABS ONC/HEM Reason for Visit COVID-19 History of ductal carcinoma in situ (DCIS) of breast History of thromboembolism History of endometrial cancer Bruising History of ductal carcinoma in situ (DCIS) of breast Palpable abdominal mass Periumbilical hernia Ductal carcinoma in situ (DCIS) of right breast History of endometrial cancer VTE (venous thromboembolism) [facility] Work Phone: Evaluation note* Diagnosis Onset Date Resolution Status History of ductal carcinoma in situ (DCIS) of breast acute History of thromboembolism a cute History of endometrial cancer chronic Bruising acute History of ductal carcinoma in situ (DCIS) of breast acute Palpable abdominal mass acut e Periumbilical hernia acute 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 History of endometrial cancer chronic VTE (venous thromboembolism) chronic Fall acute Strain of right hip acute [facility] Work Phone: Evaluation note* Diagnosis Onset Date Resolution Status History of ductal carcinoma in situ (DCIS) of breast acute History of thromboembolism a cute History of endometrial cancer chronic Acute sinusitis acute Allergic asthma chronic Acute sinusitis acute Bruising acute History of ductal carcinoma in situ (DCIS) of breast acute Palpable abdominal mass acut e Periumbilical hernia acute 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 History of endometrial cancer chronic VTE (venous thromboembolism) chronic [facility] Work Phone: Evaluation note* Diagnosis Onset Date Resolution Status Fracture of radius, distal, left, closed noneactive Fracture of radius, distal, left, closed noneactive Fracture of radius, distal, left, closed noneactive Fracture of radius, distal, left, closed noneactive Fracture of radius, distal, left, closed noneactive History of ductal carcinoma in situ (DCIS) of breast acute History of thromboembolism a cute History of endometrial cancer chronic Bruising acute History of ductal carcinoma in situ (DCIS) of breast acute Palpable abdominal mass acut e Periumbilical hernia acute 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 History of endometrial cancer chronic VTE (venous thromboembolism) [facility] Work Phone: Evaluation note* Diagnosis Onset Date Resolution Status COVID-19 acute History of ductal carcinoma in situ (DCIS) of breast acute History of thromboembolism a cute History of endometrial cancer chronic Bruising acute History of ductal carcinoma in situ (DCIS) of breast acute Palpable abdominal mass acut e Periumbilical hernia acute 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 History of endometrial cancer chronic VTE (venous thromboembolism) chronic [facility] Work Phone: Evaluation note* Diagnosis Encounter for gynecological examination (general) (routine) without abnormal findings- Primary Encounter for screening mammogram for breast cancer [facility]* Diagnosis Acute cough- Primary COPD with exacerbation (HCC) Obstructive chronic bronchitis with exacerbation Acute cough [facility]* Diagnosis Acute cough [facility]* Diagnosis Encounter for follow-up surveillance of endometrial cancer- Primary Unspecified follow-up examination Hx of cancer of endometrium Personal history of malignant neoplasm of other parts of uterus History of radiation therapy Personal history of irradiation, presenting hazards to health [facility] Additional Instructions You may have a break in the distal radius by your wrist. This could also be arthritis. We will treat this is a fracture and put you in a splint. Ice and elevate your wrist. Tylenol for pain. Call and follow-up with the orthopedic doctor to have this reevaluated. If is just arthritis they can take out the splint. If it is a broken wrist they may put you in a cast. Keep the splint dry and clean.[facility] Work Phone: Hospital Discharge instructionsAmbulatory Orders* Return to Office Location: None Selected * Return to Office Location: None Selected * Return to Office Location: None Selected * Return to Office Location: None Selected * Return to Office Location: None Selected [facility] Work Phone: Reason for referral (narrative)* Diagnostic Procedure Only (Routine) - Pending Review Specialty Diagnoses / Procedures Referred By Contac t Referred To Contact [facility] Diagnoses Encounter for screening mammogram for breast cancer Procedures FLOYD SCREENING W CARMELINA SCREENING DIGITAL BREAST TOMOSYNTHESIS BI SCREENING MAMMOGRAPHY BI 2-VIEW BREAST INC CAD Stefanie rUeña MD [address] [place] [address] [facility] [address] [place] [address] Referral ID Status Reason Start Date Expiration Date Visits Requested Visits Authorized [id number] Pending Review Auto-Generat ed Referral 06/09/2024 07/09/2025 1 1 [facility] for referral (narrative)No reason for referral [facility] Work Phone: Summary Purpose Family History No Family History Records Found Relationship Condition Age at Onset Recorded Date/T adrianne mother Arthritis Unknown Cardiac disease Unknown Hypertension Unknown Cerebrovascular accident (CVA) Unknown Advance Directives No Advanced Directives Records Found Advance Directive Response Recorded Date/ Time Advance Directives Yes February 21, 2 015 4:12pm Living Will No December 21 2:56pm Power of Ms Sql Developer No December 21, 2019 2:56pm Advance Directive Response Recorded Date/ Time Advance Directives Yes February 21, 2 015 3:12pm Living Will No December 10 11:42am Power of Ms Sql Developer No December 10, 2022 11:42am Advance Directive Response Recorded Date/ Time Advance Directives Yes December 27, 2022 10:18am Living Will No December 27 10:18am Power of Ms Sql Developer No December 27, 2022 10:18am Advance Directive Response Recorded Date/ Time Advance Directives Yes December 27, 2022 10:18am Living Will No April 07, 2023 5: 53pm Power of Ms Sql Developer No April 07, 2023 5:53pm Advance Directive Response Recorded Date/ Time Living Will No April 07, 2023 5: 53pm Do you have a Healthcare Power of Ms Sql Developer? No April 07, 2023 5:53pm Living Will Yes June 18, 2016 10:25am Do you have a Healthcare Power of Ms Sql Developer? Yes June 18, 2016 10:25am Advance Directives Yes December 27, 2022 10:18am Advance Directive Response Recorded Date/ Time Living Will Yes June 18, 2016 10:25am Do you have a Healthcare Power of Ms Sql Developer? Yes June 18, 2016 10:25am Advance Directives Yes December 27, 2022 10:18am Chief Complaint and Reason for Visit Chief Complaint 4WKS LABS ONC/HEM R HIP/ FALL A FEW WEEKS AGO Pain rt hip SCREENING Reason for Visit History of ductal ca rcinoma in situ (DCIS) of breast History of thromboembolism History of endometrial cancer Bruising History of ductal carcinoma in situ (DCIS) of breast Palpable abdominal mass Periumbilical hernia Ductal carcinoma in situ (DCIS) of right breast History of endometrial cancer VTE (venous thromboembolism) Fall Strain of right hip Chief Complaint 6MO LABS SINUS, COUGHING CONCERNED WITH PND ONC/HEM lt wrist/hand Reason for Visit History of ductal ca rcinoma in situ (DCIS) of breast History of thromboembolism History of endometrial cancer Acute sinusitis Allergic asthma Acute sinusitis Bruising History of ductal carcinoma in situ (DCIS) of breast Palpable abdominal mass Periumbilical hernia Ductal carcinoma in situ (DCIS) of right breast History of endometrial cancer VTE (venous thromboembolism) Chief Complaint lt wrist/hand left wrist Cast Room xray LEFT WRIST CAST RM XRAY LEFT WRIST Cast room LEFT WRIST room 5 LEFT WRIST Rm 5 SCREENING 6MO LABS REVIEW MAMMO ONC/HEM FX OF L RADIUS. RX HERE/INTERNAL Reason for Visit Fracture of radius, distal, left, closed Fracture of radius, distal, left, closed Fracture of radius, distal, left, closed Fracture of radius, distal, left, closed Fracture of radius, distal, left, closed History of ductal carcinoma in situ (DCIS) of breast History of thromboembolism History of endometrial cancer Bruising History of ductal carcinoma in situ (DCIS) of breast Palpable abdominal mass Periumbilical hernia Ductal carcinoma in situ (DCIS) of right breast History of endometrial cancer VTE (venous thromboembolism) Chief Complaint lt wrist/hand left wrist Cast Room xray LEFT WRIST CAST RM XRAY LEFT WRIST Cast room LEFT WRIST room 5 LEFT WRIST Rm 5 SCREENING 6MO LABS REVIEW MAMMO FX OF L RADIUS. RX HERE/INTERNAL ONC/HEM LEFT LEG PAIN SWELLING Reason for Visit Fracture of radius, distal, left, closed Fracture of radius, distal, left, closed Fracture of radius, distal, left, closed Fracture of radius, distal, left, closed Fracture of radius, distal, left, closed History of ductal carcinoma in situ (DCIS) of breast History of thromboembolism History of endometrial cancer Bruising History of ductal carcinoma in situ (DCIS) of breast Palpable abdominal mass Periumbilical hernia Ductal carcinoma in situ (DCIS) of right breast History of endometrial cancer VTE (venous thromboembolism) Chief Complaint Admit Date SCREENING February 25, 2025 9:3 7am 6MO LABS REVIEW MAMMO February 28, 2025 9 :50am ONC/HEM February 28, 2025 10: 15am Reason for Visit Admit Date History of ductal carcinoma in situ (DCI S) of breast February 28, 2025 9:50am History of thromboembolism February 28, 025 9:50am History of endometrial cancer January 9:50am Bruising February 28, 2025 10: 15am History of ductal carcinoma in situ (DCI S) of breast February 28, 2025 10:15am Palpable abdominal mass February 28, 2025 10:15am Periumbilical hernia February 28, 2025 10 :15am Ductal carcinoma in situ (DCIS) of right breast February 28, 2025 10:15am History of endometrial cancer January 10:15am VTE (venous thromboembolism) February 28, 2025 10:15am Chief Complaint Admit Date 6 MO - LABS August 15, 2025 10:09am ONC/HEM August 15, 2025 10:45am Reason for Visit Admit Date History of ductal carcinoma in situ (DCI S) of breast August 15, 2025 10:09am History of thromboembolism August 10:09am History of endometrial cancer August 15, 2025 10:09am Bruising August 15, 2025 10:45am History of ductal carcinoma in situ (DCI S) of breast August 15, 2025 10:45am Palpable abdominal mass August 15, 2025 10:45am Periumbilical hernia August 15 10:45am Ductal carcinoma in situ (DCIS) of right breast August 15, 2025 10:45am History of endometrial cancer August 15, 2025 10:45am VTE (venous thromboembolism) August 012024 10:45am Additional Source Comments INFORMATION SOURCE (unrecogn ized section and content) DATE CREATED AUTHOR 05/21/2018 [facility] DATE CREATED AUTHOR AUTHOR'S ORGANIZ ATION 08/21/2025 [facility] DATE CREATED AUTHOR AUTHOR'S ORGANIZ ATION 10/10/2025 [facility] Goals (unrecognized section and content) Goals may be documented in a n alternate sectionGoals may be documented in an alternate sectionGoals may be documented in an alternate sectionGoals may be documented in an alternate sectionGoals may be documented in an alternate sectionGoals may be documented in an alternate sectionGoals may be documented in an alternate sectionGoals may be documented in an alternate section Care Teams (unrecognized sec tion and content) Team Status: Active Member Role Status Dates Dr. Perez Martinez MD Family Provider Active Dr. Floridalma Juárez MD Primary Care Provider Active Team Status: Inactive Member Role Status Dates Dr. Floridalma Juárez MD Primary Care Provider, Referrin g Provider Active Bambi Palmer VEHICLE INSURANCE AGENT, VEHICLE INSURANCE AGENT-C Attending Provider Active Team Status: Inactive Member Role Status Dates Dr. Floridalma Juárez MD Primary Care Provider, Referrin g Provider Active Shayy Mendosa PA, PA Attending Provider Active Team Status: Inactive Member Role Status Dates Dr. Floridalma Juárez MD Primary Care Provider Active Dr. Josh Hodges MD Attending Provider Active Team Status: Active Member Role Status Dates Dr. Perez Martinez MD Family Provider Active Bambi Palmer VEHICLE INSURANCE AGENT, VEHICLE INSURANCE AGENT-C Attending Provider Active Dr. Floridalma Juárez MD Primary Care Provider, Referrin g Provider Active Team Status: Inactive Member Role Status Dates Dr. Floridalma Juárez MD Primary Care Provider Active Bambi Palmer VEHICLE INSURANCE AGENT, VEHICLE INSURANCE AGENT-C Attending Provider Active Team Status: Inactive Member Role Status Dates Dr. Floridalma Juárez MD Primary Care Provider Active Dr. Chiki Mendiola MD Attending Provider, Emergency Pro vider Active Team Status: Active Member Role Status Dates Dr. Floridalma Juárez MD Primary Care Provider Active Shayy Mendosa PA, PA Attending Provider, Referring Provi heri Active Team Status: Inactive Member Role Status Dates Dr. Floridalma Juárez MD Primary Care Provider Active Shayy Mendosa PA, PA Attending Provider, Referring Provi heri Active Team Status: Inactive Member Role Status Dates Dr. Floridalma Juárez MD Primary Care Provider Active Dr. Moi Bolton DO Emergency Provider Active Team Status: Inactive Member Role Status Dates Dr. Floridalma Juárez MD Primary Care Provider, Referrin g Provider Active Dr. Yves Cole MD Attending Provider Active Team Status: Inactive Member Role Status Dates Dr. Floridalma Juárez MD Primary Care Provider, Referrin g Provider Active Tommie TRAN, PA Attending Provider Active Team Status: Inactive Member Role Status Dates Dr. Floridalma Juárez MD Primary Care Provider Active Bambi Palmer VEHICLE INSURANCE AGENT, VEHICLE INSURANCE AGENT-C Attending Provider, Referring Provider Active Cement Mason Relationship Specialty Start Date End Date Juan Perez Mckeon PCP - General 06/18/10 Cement Mason Relationship Specialty Start Date End Date Floridalma Juárez MD [address] [place], [place] [id number] PCP - General Family Medicine 02/03/25 Cement Mason Relationship Specialty Start Date End Date Floridalma Juárez MD [address] [place], [place] [id number] PCP - [facility] Family Medicine 02/03/25 Team Status: Active Member Role Status Dates Dr. lForidalma Juárez MD Primary Care Provider Active Team Status: Inactive Member Role Status Dates Dr. Floridalma Juárez MD Primary Care Provider Active Start: February 25, 2025 End: February 25, 2025 Bambi Palmer VEHICLE INSURANCE AGENT, VEHICLE INSURANCE AGENT-C Attending Provider Active Start: February 25, 2025 End: February 25, 2025 Bambi Palmer VEHICLE INSURANCE AGENT, VEHICLE INSURANCE AGENT-C Referring Provider Active Start: February 25, 2025 End: February 25, 2025 Team Status: Inactive Member Role Status Dates Dr. Floridalma Juárez MD Primary Care Provider Active Start: February 28, 2025 End: February 28, 2025 Dr. Floridalma Juárez MD Referring Provider Active Start: February 28, 2025 End: February 28, 2025 Bambi Palmer VEHICLE INSURANCE AGENT, VEHICLE INSURANCE AGENT-C Attending Provider Active Start: February 28, 2025 End: February 28, 2025 Team Status: Active Member Role Status Dates Dr. Perez Martinez MD Family Provider Active Sta rt: February 28, 2025 Bambi Palmer VEHICLE INSURANCE AGENT, VEHICLE INSURANCE AGENT-C Attending Provider Active Start: February 28, 2025 Dr. Floridalma Juárez MD Primary Care Provider Active Start: February 28, 2025 Dr. Floridalma Juárez MD Referring Provider Active Start: February 28, 2025 Cement Mason Relationship Specialty Start Date End Date Floridalma Juárez MD [address] [place] [address] [place], [place] [id number] PCP - General Family Medicine 02/03/25 Team Status: Active Member Role/Relationship Status Dates Dr. Floridalma Juárez MD Primary Care Provider Active Team Status: Inactive Member Role/Relationship Status Dates Dr. Floridalma Juárez MD Primary Care Provider Active Start: August 15, 2025 End: August 15, 2025 Dr. Floridalma Juárez MD Referring Provider Active Start: August 15, 2025 End: August 15, 2025 Bambi Palmer NP VEHICLE INSURANCE AGENT-C Attending Provider Active Start: August 15, 2025 End: August 15, 2025 Team Status: Active Member Role/Relationship Status Dates Dr. Perez Martinez MD Family Provider Active Sta rt: August 15, 2025 Bambi Palmer NP VEHICLE INSURANCE AGENT-C Attending Provider Active Start: August 15, 2025 Dr. Floridalma Juárez MD Primary Care Provider Active Start: August 15, 2025 Dr. Floridalma Juárez MD Referring Provider Active Start: August 15, 2025 Source Comments (unrecognize d section and content) In the event this informatio n is protected by the Federal Confidentiality of Alcohol and Drug Abuse Patient Records regulations: The Federal rules restrict any use of the information to criminally investigate or prosecute any alcohol or drug abuse patient.[facility] the event this information is protected by the Federal Confidentiality of Alcohol and Drug Abuse Patient Records regulations: The Federal rules restrict any use of the information to criminally investigate or prosecute any alcohol or drug abuse patient.[facility] MemorialIn the event this information is protected by the Federal Confidentiality of Alcohol and Drug Abuse Patient Records regulations: The Federal rules restrict any use of the information to criminally investigate or prosecute any alcohol or drug abuse patient.[facility] MemorialIn the event this information is protected by the Federal Confidentiality of Alcohol and Drug Abuse Patient Records regulations: The Federal rules restrict any use of the information to criminally investigate or prosecute any alcohol or drug abuse patient.[facility] MemorialIn the event this information is protected by the Federal Confidentiality of Alcohol and Drug Abuse Patient Records regulations: The Federal rules restrict any use of the information to criminally investigate or prosecute any alcohol or drug abuse patient.[facility] Reason for Visit (unrecogniz ed section and content) Reason Comments Well Woman Reason Comments Cough Wheezing, chest santhosh estion, cough, some productive x 4 days Reason Comments Patient Question Reason Comments Follow Up Pelvic exam FOR RECORDS PERTAINING TO PATIENTS WHO ARE OR HAVE BEEN ENROLLED IN A CHEMICAL DEPENDENCY/SUBSTANCEABUSE PROGRAM, SOME INFORMATION MAY BE OMITTED. This clinical summary was aggregated from multiple sources. Caution should be exercised in using it in the provision of clinical care. This summary normalizes information from multiple sources, and as a consequence, information in this document may materially change the coding, format and clinical context of patient data. In addition, data may be omitted in some cases. CLINICAL DECISIONS SHOULD BE BASED ON THE PRIMARY CLINICAL RECORDS. [facility] [employer] [facility]. provides no warranty or guarantee of the accuracy or completeness of information in this document.
[2025-11-11 08:25] LABS: Prothrombin Time (Protime)PT. 32.6 SECONDS (11.7-14.9)
== END | disposition home or self-care (01) ==
LOC: LAB 07:31
PROVIDERS: PCP Family Medicine; Referring Provider Nurse Practitioner Family; Visit Provider Nurse Practitioner Family
DX: I82.90 Acute embolism and thrombosis of unspecified vein (principal)
CPT/HCPCS: 36415; 85610